=== PATIENT | female | born 1940 | race Hispanic/Latino ===

== ENCOUNTER 2018-01-03 17:53 | Inpatient (IN) | payer MEDICARE, OTHER ==
[2018-01-03 19:03] LABS: #Basophils 0.1 thou/uL (0.0-0.2); #Eosinphils 0.1 thou/uL (0.0-0.7); #Lymphocytes 1.5 thou/uL (1.20-3.40); #Monocytes 0.4 thou/uL (0.11-0.59); #Neutrophils 6.8 thou/uL (1.40-6.50); %Basophils 0.6 % (0.0-1.0); %Eosinophils 0.9 % (0.0-10.0); %Monocytes 4.6 % (0.0-10.0); %Neutrophils 76.9 % (42.0-75.0); Hemoglobin 9.2 g/dL (12.0-16.0); Mean Corpuscular HGB CONC 33.8 g/dL (32.0-36.0); Mean Corpuscular Hemoglobin 30.1 pg (27.0-31.0); Mean Corpuscular Volume 89.1 fL (78.0-98.0); Mean Platelet Volume 6.9 fL (7.4-10.4); Platelet Count 351 thou/uL (130-400); RBC Distribution Width 12.1 % (11.5-14.5); Red Blood Cell (RBC) Count 3.04 mill/uL (4.20-5.40); White Blood Cell (WBC) Count 8.8 thou/uL (4.8-10.8)
[2018-01-03 19:13] LABS: INR-International Normal Ratio 1.9; PTT 38.7 SEC (22.9-36.1); Prothrombin Time 22.1 SEC (12.0-14.7)
[2018-01-03 19:28] LABS: ALT (SGPT) 9 U/L (8-55); AST (SGOT) 11 U/L (5-34); Albumin 3.8 g/dL (3.4-4.8); Alkaline Phosphatase 65 U/L (40-150); Anion Gap 15 mmol/L (10-20); BUN (Urea Nitrogen) 50 mg/dL (9.8-20.1); Bilirubin, Total 0.2 mg/dL (0.2-1.2); CK (CPK) 27 U/L (29-168); CKMB 0.6 ng/mL (0-6.6); Calc. Creatinine Clearance 0 mL/min (70-130); Calcium 8.9 mg/dL (7.8-10.44); Carbon Dioxide 19 mmol/L (23-31); Chloride 110 mmol/L (98-107); Estimated GFR-MDRD 13; Globulin 2.9 g/dL (2.4-3.5); Glucose 189 mg/dL (83-110); Potassium 5.2 mmol/L (3.5-5.1); Protein, Total 6.7 g/dL (6.0-8.3); Sodium 139 mmol/L (136-145); Troponin I Less than 0.010 ng/mL (< 0.028)
--- NOTE | 2018-01-03 19:35 | CT ---
CT OF THE BRAIN WITHOUT CONTRAST: 01/03/18 INDICATION: Loss of consciousness. COMPARISON: None. FINDINGS: No definite acute infarct, hemorrhage, or hydrocephalus is present. There is mild chronic small vesse l white matter ischemic change. There is remote lacunar infarcts involving the cerebellar hemispheres bilaterally. The septum pellucidum and third ventricle appear midline. The mastoid air cells are clear. The parana jesus sinuses are clear. Skull and extracranial soft tissues appear within normal limits. IMPRESSION: No acute intracranial abnormality. POS: [facility]
--- NOTE | 2018-01-03 19:43 | RAD ---
FRONTAL RADIOGRAPH CHEST 01/03/18 COMPARISON: 04/19/17 HISTORY: Syncope. FINDINGS: Heart and mediastinal contours are unremarkable. No pneumothorax, pleural fluid, focal consolidation, or alveolar edema. IMPRESSION: No acute findings. POS: [facility]
[2018-01-03 19:58] LABS: Acetaminophen Less than 6.0 mcg/mL (10.0-30.0); Alcohol Less than 10 mg/dL (Less than 10); Lipase 43 U/L (8-78); Salicylate Less than 8.0 mg/dL (15.0-30.0)
[2018-01-03] MEDS ORDERED: Ondansetron HCl/PF 4 MG/2 ML Vial ONE (20:46)
[2018-01-03] MEDS ORDERED: Labetalol HCl 100 MG/20 ML VIAL ONE (21:17)
[2018-01-03] MEDS ORDERED: levETIRAcetam In NaCl (Iso-Os) 1,500 MG in Premix Bag 1 BAG IVPB SCH (21:30)
[2018-01-04 00:19] VITALS: BMI 43.4
[2018-01-04] MEDS ORDERED: Acetaminophen 325 MG TAB PO PRN (00:22)
[2018-01-04] MEDS ORDERED: Ondansetron HCl/PF 4 MG/2 ML Vial IVP PRN ×2 (00:22→01:01)
[2018-01-04] MEDS ORDERED: Ondansetron ODT 4 MG TAB SL PRN (00:22)
[2018-01-04] MEDS ORDERED: HumaLOG 300 UNITS/3 ML VIAL SC PRN (01:01)
[2018-01-04] MEDS ORDERED: Dextrose 5% in Water 1,000 ML IV PRN (01:01)
[2018-01-04] MEDS ORDERED: Ondansetron ODT 4 MG TAB PO PRN (01:01)
[2018-01-04] MEDS ORDERED: Dextrose 50% Abboject 50 ML SYRINGE SLOW IVP PRN (01:01)
--- NOTE | 2018-01-04 05:21 | HP ---
PRIMARY CARE PHYSICIAN: Dr. Lopez. CHIEF COMPLAINT: I had a seizure earlier. HISTORY OF PRESENT ILLNESS: Ms. 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 She was in her usual state of health until earlier today around 3 in the afternoon. She says th at she told her that her head was hurting and then basically she leaned over and her eyes sta rted rolling back in her head. Her says that he witnessed this, her head went to one side an d then the other and then she had some jerking like motions and then when she came out of it, she was disoriented and did not know what had happened. Her says that a few minutes later, he had g one into the another room and then heard her hollering out for her mother and went to check on her an d she had similar episode and she felt nauseated and began to sweat and threw up once. They called [facility] and brought her to the emergency room for evaluation. She had another such episode here in the ER . The ER doctor called the neurologist on-call, Dr. James, who recommended loading her with Keppra and she is being admitted for further treatment. The patient had no focal weakness and she currentl y still has some mild headache primarily in the top of her head and her neck. She denies any chest p ain or shortness of breath. She has not had any fevers or chills. The patient also denies abdominal pain and no change in bowels. She also has a history of chronic kidney disease. She last saw Dr. Nadeem newby in September and at that time, she was told that she was predialysis but not yet ready for dialysis . REVIEW OF SYSTEM: All systems were reviewed and negative except as mentioned in the history of prese nt illness. PAST MEDICAL HISTORY: Significant for chronic kidney disease stage 4, atrial fibrillation, diabetes mellitus, chronic bronchitis with chronic respiratory failure on home oxygen at 2 liters, obesity, hy pertension, hypothyroidism, severe mitral and tricuspid regurgitation, history of cervical cancer, an d HPV positive. PAST SURGICAL HISTORY: Includes appendectomy, hysterectomy. ALLERGIES: NONSTEROIDAL ANTI-INFLAMMATORIES, AUGMENTIN, AMOXICILLIN, STEROIDS, LEVAQUIN, AND ASPIRIN . SOCIAL HISTORY: She is . She is a nonsmoker, nondrinker. She is a Anabaptism and bartolo natarajan not accept blood transfusions. CODE STATUS: FULL CODE. FAMILY HISTORY: Significant for coronary artery disease in her father as well as her son. MEDICATIONS: Include Lantus insulin and NovoLog. She says she is on a statin, nifedipine, metoprolo l, hydralazine, lisinopril, Xarelto, Synthroid, probiotic, and Lomotil, but she is not sure of the do ses. PHYSICAL EXAMINATION: GENERAL: She is alert and oriented. She appears to be in no acute distress. She is alert and orien nery x4. VITAL SIGNS: Her blood pressure was elevated at 180/100, heart rate is in the 60s, respiratory rate of 16, and she is afebrile. HEENT: Pupils are equal, round, and reactive. Extraocular muscles are intact. Her sclerae anicteri c. Throat no erythema, no exudates. NECK: No adenopathy, no bruits. LUNGS: Clear to auscultation. There was no wheezing or rales. CARDIOVASCULAR: She had a normal S1, S2, slightly irregular. She does have significant 2/6 systolic murmur heard over the entire precordium. ABDOMEN: Obese, it is soft, it is nontender, nondistended. Positive for bowel sounds. There is no rebound or guarding. EXTREMITIES: She has got 1+ edema, but no warmth or redness. No calf tenderness. NEUROLOGIC: The exam is grossly nonfocal with her muscle strength is 5/5 in both her upper and lower extremities. SKIN AND INTEGUMENT: There are no skin changes. No rash. LABORATORY RESULTS: White blood cell count is 8.8, hemoglobin 9.2, hematocrit is 27.1, platelet coun t is 351. INR was 1.9. Sodium 139, potassium 5.2, chloride is 110, CO2 is 19, BUN of 50, creatinine of 3.5, glucose is 189. EKG, it was atrial fibrillation with variable rate and also noted on rhythm strips. There is episodes where she had some T waves with no QRS following them and evidence of sb g pauses. ASSESSMENT AND PLAN: This is a 77-year-old female who presents to the emergency room with seizure di sorder. However, she was also noted to have a third-degree AV block and some episodes there was long runs with T waves without any conduction QRS complexes. Therefore, it is unclear whether or not the seizures are therefore neurogenic mediated or cardiogenic mediated. She will be admitted to the [facility] for close monitoring on telemetry. With regards to the seizures, she will have an MRI in the a.m. as she is clinically stable. Continue IV Keppra, which will need to be renally dosed and consider an EEG and have Neurology evaluation. 1. For the third-degree AV block, right now her heart rate is primarily in the 60s. We will consult Cardiology and leave her n.p.o. in the morning. In the event that she needs any emergent pacemaker placed. 2. Acute on chronic kidney disease. She appears to be approaching end-stage renal disease. Her cur rent GFR is 13. We will consult her general practitioner for further recommendations. 3. History of atrial fibrillation on Xarelto. The patient requests to have a "Xarelto level" checke d. Unclear if there is an actual Xarelto levels, but we can check an activated factor X level as a p rekha. 4. Diabetes mellitus. We will need to clarify her usual doses of medication and restart as indicate d. However, we will place her on a sliding scale in the interim. 5. Hypertension. We will restart her antihypertensive medications with p.r.n. as needed. 6. Since the patient was on Xarelto. We will hold off on any deep venous thrombosis prophylaxis and restart her usual dose of Xarelto in the a.m. (she will be n.p.o. except for medications to facilita te giving her usual Xarelto dose).
[2018-01-04 06:14] LABS: Anion Gap 16 mmol/L (10-20); BUN (Urea Nitrogen) 49 mg/dL (9.8-20.1); Calc. Creatinine Clearance 26 mL/min (70-130); Calcium 8.8 mg/dL (7.8-10.44); Carbon Dioxide 18 mmol/L (23-31); Chloride 110 mmol/L (98-107); Estimated GFR-MDRD 13; Glucose 189 mg/dL (83-110); Potassium 5.4 mmol/L (3.5-5.1); Sodium 139 mmol/L (136-145)
[2018-01-04] MEDS: HumaLOG 300 UNITS/3 ML VIAL SC PRN (06:25)
[2018-01-04] MEDS: hydrALAZINE 20 MG/ML VIAL SLOW IVP PRN ×2 (06:26→17:37)
[2018-01-04 06:28] LABS: #Monocytes 0.3 thou/uL (0.11-0.59); #Neutrophils 6.4 thou/uL (1.40-6.50); %Basophils 0.4 % (0.0-1.0); %Eosinophils 0.6 % (0.0-10.0); %Lymphocytes 12.7 % (21.0-51.0); %Monocytes 3.6 % (0.0-10.0); %Neutrophils 82.7 % (42.0-75.0); Hemoglobin 8.6 g/dL (12.0-16.0); Mean Corpuscular Hemoglobin 29.1 pg (27.0-31.0); Mean Corpuscular Volume 90.9 fL (78.0-98.0); Platelet Count 313 thou/uL (130-400); RBC Distribution Width 12.3 % (11.5-14.5); Red Blood Cell (RBC) Count 2.96 mill/uL (4.20-5.40); White Blood Cell (WBC) Count 7.8 thou/uL (4.8-10.8)
[2018-01-04] MEDS: Lorazepam 2 MG/ML VIAL SLOW IVP PRN (07:17)
[2018-01-04] MEDS ORDERED: Iopamidol 370 76% 100 ML VIAL ONE (07:47)
--- NOTE | 2018-01-04 08:17 | CON ---
DATE OF CONSULTATION: 01/04/2018 CONSULTING PHYSICIAN: Dr. Abhinav Cope REASON FOR CONSULTATION: Critical care mandatory consult. The following encompassed 70 minutes time, of that time greater than 50% spent with the patient and/o r in the patient's CCU unit. HISTORY OF PRESENT ILLNESS: This patient is a 77-year-old female who was admitted last night with a reported seizure at home. Apparently, the patient began to feel bed and her eyes rolled back in the back of her head and she jerked her arms. When she arrived here there appeared to be some sort of ca rdiac disturbance. Nurse says that she thinks she is going in and out of third degree AV block. She is requiring temporary cutaneous pacing The patient says she feels when these episodes are about to come on. PAST MEDICAL HISTORY: 1. Chronic kidney disease stage 4. 2. Paroxysmal atrial fibrillation. 3. Diabetes mellitus type 2. 4. Chronic bronchitis, on home O2, 2 liters nasal cannula. 5. Obesity. 6. Hypertension. 7. Hypothyroidism. 8. Severe mitral and tricuspid regurgitation. 9. Cervical cancer. PAST SURGICAL HISTORY: 1. Appendectomy. 2. Hysterectomy. ALLERGIES: NONSTEROIDAL ANTI-INFLAMMATORY MEDICATION, AUGMENTIN, AMOXICILLIN, STEROIDS, LEVAQUIN, PIRIN. SOCIAL HISTORY: , does not smoke, does not consume alcohol. She is a Adventist. FAMILY MEDICAL HISTORY: Remarkable for coronary artery disease. MEDICATIONS: Prior to admission, Lantus insulin, NovoLog insulin, nifedipine, metoprolol, hydralazin e, lisinopril, clonidine, Xarelto, Synthroid, probiotic Lomotil. REVIEW OF SYSTEMS: Twelve point review of systems otherwise negative. PHYSICAL EXAMINATION: VITAL SIGNS: Temperature 98.7, pulse 87, blood pressure 167/65, O2 sat 97%. GENERAL: She appears to be in no acute distress. HEENT: Pupils are reactive. Sclerae icteric. Oropharynx clear. NECK: Without adenopathy or JVD. CARDIAC: S1, S2 regular. A 3/6 systolic murmur at the left sternal border. LUNGS: She had inspiratory crackles in both bases. ABDOMEN: Soft, obese, nontender, nondistended. EXTREMITIES: No clubbing, cyanosis, or edema. NEUROLOGIC: Grossly intact without focal motor weakness. Her chest x-ray shows slightly hyperinflated lung montgomery without evidence of any mass. LABORATORY DATA: White blood cell count 7.8, hemoglobin 8.6, hematocrit 26.9, platelet count 313. I NR 1.9. Sodium 139, potassium 5.4, chloride 110, CO2 18, BUN 49, creatinine 3.4, glucose 189, calciu m 8.8. TSH 6.7. Prolactin 54. Brain CT demonstrated no acute abnormality. ASSESSMENT: 1. It sounds like she had a seizure episode at home and this is supported by her elevated prolactin. 2. Intermittent third degree heart block. 3. Chronic kidney disease with elevated BUN and creatinine and hyperkalemia. 4. History of atrial fibrillation on Xarelto. 5. Diabetes mellitus. RECOMMENDATIONS: I have reviewed the orders, agree with Neurology, Nephrology and Cardiology consult ations. She is likely going to need a pacemaker. She has been empirically started on Keppra for con trol of her seizures. She may require Kayexalate for her elevated potassium. Her labs will be monit ored. Right now she has no pulmonary issues. I will be happy to follow with you while she is in the ICU.
--- NOTE | 2018-01-04 09:22 | CON ---
DATE OF CONSULTATION: 01/04/2018 CONSULTING PHYSICIAN: Hospitalist Service IMPRESSION: 1. Syncopal seizures. 2. Third degree heart block. 3. History of congestive heart failure. 4. History of atrial fibrillation. 5. Hypertension. PLAN: 1. Cardiology opinion for possible pacemaker implantation. 2. Continue Keppra for now. Ms. Aldrich is a 77-year-old woman who began having seizure-like episodes last evening. Her witnessed what appeared to be a 10-15 second generalized seizure with stiffening and eyes rolling up unger. She was brought into the hospital for evaluation. Her CT scan of the brain was unremarkable. She was noted to have periods of third degree heart block. During these intervals she would experie nce a brief seizure-like episode. She has been started on Keppra, but has continued to have the epis odes. She was given some Ativan this morning and things have been relatively quiet since then. She is on an external pacer to try to address her rhythm abnormalities. She is having an echocardiogram done now and reportedly it shows an ejection fraction around 40%. She has never had any neurologic p roblems in the past. She is currently on anticoagulation due to the atrial fibrillation. PAST MEDICAL HISTORY: As listed above including bronchitis, end-stage renal disease, hypothyroidism, diabetes, arthritis, cervical cancer. ALLERGIES: NONSTEROIDALS, PREDNISONE., ASPIRIN, AUGMENTIN, AVELOX. SOCIAL HISTORY: Lives at home independently with her . No tobacco use. FAMILY HISTORY: Noncontributory. REVIEW OF SYSTEMS: Not obtainable at this point. PHYSICAL EXAMINATION: GENERAL: She is a well-nourished elderly lady lying in bed in no distress. VITAL SIGNS: Blood pressure 173/61, pulse 79, respirations 28, saturations 94%. HEENT: Unremarkable. NEUROLOGIC: She is a bit lethargic due to the sedation. Her exam is otherwise nonfocal. No abnorma l movements were seen. SUMMARY: Given the connection between her heart block and her episodes of seizure-like activity, I s uspect it is due to hypoperfusion rather than an underlying epileptic issue. Keppra can be continued for now, but I suspect we can discontinue it after pacemaker implantation.
[2018-01-04] MEDS: Famotidine/PF 20 mg/2ml Vial SLOW IVP SCH (10:55)
[2018-01-04] MEDS: Docusate 100 MG CAP PO SCH ×2 (10:56→20:48)
[2018-01-04] MEDS ORDERED: Sodium Chloride 0.9% 1,000 ML IV SCH (15:00)
[2018-01-04] MEDS ORDERED: Fentanyl 100 MCG/2 ML VIAL ONE (15:39)
[2018-01-04] MEDS ORDERED: Midazolam HCl 2 mg/2 ml Vial ONE (15:39)
[2018-01-04] MEDS ORDERED: Lidocaine 1% (PF) 30 ML VIAL ONE ×2 (15:45→15:54)
[2018-01-04] MEDS ORDERED: Acetaminophen/Codeine 30-300mg Tablet PO PRN ×2 (17:04)
--- NOTE | 2018-01-04 17:31 | PDOC.EVN ---
Event Note - Event Note Event Note: Chart reviewed, patient seen. Family updated.
--- NOTE | 2018-01-04 18:07 | RAD ---
AP VIEW CHEST: 01/04/18 HISTORY: Post cardiac device placement. AP view chest obtained on 01/04/18. Comparison made to previous exam from 01/03/18. AP view chest demonstrates placement of a dual lead intracardiac pacing device. No evidence of hemopn eumothorax seen. Mild pulmonary vascular congestion seen. No evidence of effusion seen. IMPRESSION: Unremarkable AP view chest. POS: [facility]
--- NOTE | 2018-01-04 20:04 | CCL ---
PROCEDURE: Permanent pacemaker placement. INDICATION: 15 second asystole with complete heart block. The patient is brought to the cardiac color laboratory technician and the left subclavian area was prepped and draped. The patient received Versed 1 mg and fentanyl 25 mg IV. The fentanyl 25 mg was repeated later in the case. 1% lidocaine was infiltrated to the area. J wire placed into the left subclavian vein. Pacemaker pocket was manufactured using blunt and sharp dissection with electrocautery for hemostasis. Antibiotic solution soaked gauze was placed into the subcutaneous pocket. A second J-wire was then placed into the left subclavian vein. Using a 7 Urdu peel-away sheaths, the atrial and ventricular leads were inserted. The right ventricular lead was advanced into the RV apex and screwed in place. The right atrial lead was screwed into the right atrium. RV lead -- R-wave 4.3, impedance 670, threshold 0.6 volts. Right atrial lead - - P-wave 1.6, impedance 485, threshold 1.1. Both leads were independently paced at 10 volts, and there was no muscle or diaphragmatic stimulation. The tabs on the suture tie down were removed. Both leads were secured in place with two sutures of 0 silk. The gauze was removed from the subcutaneous pocket. This was irrigated with copious amounts of antibiotic solution. Leads were attached to the pacemaker generator and this was secured in place with 1 suture of 0 silk. The incision was then closed using two layers of running 3-0 Vicryl, one layer running 4-0 Vicryl. Dermabond was placed on the incision. Patient tolerated the procedure well. PAUL
[2018-01-04] MEDS: hydrALAZINE 25 MG TAB PO SCH (20:49)
[2018-01-04] MEDS: Cephalexin 250 MG CAP PO SCH (20:49)
[2018-01-04] MEDS: Metoprolol Tartrate 50 MG TAB PO SCH (21:00)
[2018-01-04] MEDS: ALPRAZolam 0.25 MG TAB PO PRN (21:17)
[2018-01-04] MEDS: Acetaminophen 325 MG TAB PO PRN (21:17)
--- NOTE | 2018-01-04 21:23 | CON ---
DATE OF CONSULTATION: 01/04/2018 HISTORY: Jeremiah Rodriguez is a 77-year-old white female initially evaluated in . At that time, she complained of getting short of breath after walking 10 feet. On echocardiogram, she was found to have diastolic dysfunction. She also had lower extremity edema and rales on examination. She was placed on low dose furosemide. Also, she underwent Lexiscan Cardiolite testing in 08/2011 which revealed a very small area at the apex of decreased uptake on stress scan with patient being unable to perform a prone scan. There was normal wall motion , normal myocardial thickening in that area and was felt that overall that was probably normal. She was followed for a while by [facility] hearing aid assistant and then was admitted at [facility] multiple times. She has chronic bronchiectasis. She was placed on chronic oxygen at home. In 09/2014, her breathing became somewhat worse. She went to the emergency room and was found to be in atrial fibrillation with fast ventricular response with heart rate in the 140s. She denied any palpitations. She was placed on a Cardizem drip and her rate slowed and ultimately she converted back to normal sinus rhythm. She was anticoagulated with Eliquis. Echo revealed ejection fraction 60-65% with moderate to severe mitral regurgitation. She was started on Multaq as well. She was sent home on steroids, but then readmitted a day later due to problems with glucose control. She continued to remain in sinus rhythm. She has since been hospitalized with pneumonia in 11/2016 and 03/2017. She also has been followed in the office. Multaq had been stopped due to nausea. She complained of frequent skipped beats and flutters; however, on 30- day monitor 3-4 months ago revealed that she was in normal sinus rhythm when she complained of skipped beats and flutters. She was on Eliquis and then Xarelto. Xarelto was changed to Pradaxa due to there being a reversal agent ( Baptism). However, she had nausea with Pradaxa and went back to Xarelto. She was last seen in 11/2017 and at that time was not complaining of any palpitations. Yesterday on 01/03 at 3:00 in the afternoon, she leaned back, her eyes rolled back in her head and she was unresponsive and apparently had a seizure. She was disoriented when she came out of that. Ultimately, she was taken to the hospital emergency room. She has been found to have episodes of complete heart block with asystole up to 15 seconds. Transcutaneous pacer has been placed. She is on Xarelto chronically. She denies any significant worsening of her breathing. She denies any chest discomfort or previous syncopal episodes. PAST MEDICAL HISTORY: Chronic kidney disease stage 4, atrial fibrillation in 2015; however, I have not seen that documented since, diabetes mellitus, chronic bronchiectasis on home oxygen, obesity, hypertension, hypothyroidism, moderate to severe mitral regurgitation, history of cervical cancer. OPERATIONS: Appendectomy and hysterectomy. MEDICATIONS: Xarelto 15 mg daily, Xanax 0.25 at bedtime p.r.n., clonidine p.r.n., Lomotil p.r.n., furosemide 20 mg daily p.r.n. Apresoline 25 mg t.i.d., insulin, Xopenex q.8 hours p.r.n., levothyroxine 50 mcg daily, lisinopril 10 daily, metoprolol 50 b.i.d., nifedipine 60 daily, omeprazole 40 mg daily, Zofran 4 q.6 hours p.r.n., ranitidine 150 b.i.d. p.r.n. ALLERGIES: ASPIRIN, NONSTEROIDAL ANTI-INFLAMMATORY MEDICATIONS, AUGMENTIN, AVELOX and PREDNISONE. SOCIAL HISTORY: She does not smoke or drink. FAMILY HISTORY: Father at age 52 of myocardial infarction. REVIEW OF SYSTEMS: Twelve-point review of systems is otherwise unremarkable. PHYSICAL EXAMINATION: VITAL SIGNS: Blood pressure 117/57, pulse of 78. She does have up to 15 seconds of asystole with complete heart block, P waves, but no QRS. HEENT: PERRL. NECK: Supple. CHEST: Clear. CARDIAC: S1 and S2 are normal, without any S3, S4 or murmurs. Carotid upstroke is normal. ABDOMEN: Obese. Normal bowel sounds, no tenderness. EXTREMITIES: Reveal 1+ pretibial edema. NEUROLOGIC: Grossly intact. SKIN: Warm and dry. LABORATORY DATA: EKG revealed episode of complete heart block with P waves followed by no QRS and right bundle-branch block. Echocardiogram has not come across to [facility] yet, but her ejection fraction was normal. Hemoglobin is 8.6 , hematocrit 26.9, white count 7800, platelets 313,000. Sodium 139, potassium 5.4, chloride 110, carbon dioxide 18, BUN 49, creatinine 3.43, magnesium 1.6, troponin I is normal. TSH 6.6874 which is slightly elevated. IMPRESSION: 1. Complete heart block with episodes of syncope and associated seizure. She has up to 15 seconds of asystole. 2. History of atrial fibrillation with fast ventricular response in 09/2014. She has never had documented atrial fibrillation since that time. 3. Chronic anticoagulation with Xarelto 15 mg daily. 4. Baptism. 5. History of diastolic dysfunction and diastolic heart failure. 6. Diabetes mellitus. 7. Hypertension. 8. Hyperlipidemia. 9. Morbid obesity. 10. History of noncompliance. 11. Gastroesophageal reflux disease. 12. Anxiety. 13. Chronic kidney disease stage 4. PLAN: The situation was discussed with the patient. She is approximately 32 hours out from last dose of Xarelto and recommendations are that this should be held for 24 hours prior to any surgical procedure. The reversal agent for Xarelto is not locally available yet and cannot be found in the surrounding area. We did discuss additions of specific clotting factors to try to reverse the effects of Xarelto; however, that does include blood products. She is a Baptism but states that she would indeed take those if she develops a severe bleeding problem. I do not feel that she needs this prophylactically since she is so far out from her last dose. Risks of pacemaker insertion were discussed with the patient, her including , infection, bleeding, blood clot formation, reoperation for lead dislodgement, drainage from cardiac catheterization, chest tube insertion due to pneumothorax, etc. She understands and is agreeable to proceed. PAUL
[2018-01-05] MEDS: hydrALAZINE 20 MG/ML VIAL SLOW IVP PRN ×2 (01:41→07:05)
[2018-01-05] MEDS: Acetaminophen 325 MG TAB PO PRN ×3 (02:24→17:24)
[2018-01-05] MEDS: Lorazepam 2 MG/ML VIAL SLOW IVP PRN ×2 (02:24→10:56)
[2018-01-05 04:11] LABS: Anion Gap 11 mmol/L (10-20); BUN (Urea Nitrogen) 46 mg/dL (9.8-20.1); Calc. Creatinine Clearance 27 mL/min (70-130); Calcium 8.2 mg/dL (7.8-10.44); Carbon Dioxide 22 mmol/L (23-31); Chloride 112 mmol/L (98-107); Estimated GFR-MDRD 14; Glucose 136 mg/dL (83-110); Potassium 4.4 mmol/L (3.5-5.1); Sodium 141 mmol/L (136-145)
[2018-01-05] MEDS: Levothyroxine Sodium 50 MCG TAB PO SCH (06:26)
--- NOTE | 2018-01-05 07:50 | PRG ---
DATE OF SERVICE: 01/05/2018 SUBJECTIVE: The patient is doing much better. Her pacemaker was placed yesterday. She has had no m ore syncopal type episodes. PHYSICAL EXAMINATION: VITAL SIGNS: Temperature 98.4, pulse 68, blood pressure 189/65. A 24-hour intake 120, output 1192. HEENT: Unremarkable. NECK: No JVD. CHEST: Clear to auscultation. CARDIAC: S1, S2, paced. ABDOMEN: Soft, nontender. EXTREMITIES: No edema. LABORATORY DATA: Sodium 141, potassium 4.4, chloride 112, CO2 22, BUN 46, creatinine 3.2, glucose 13 6. ASSESSMENT: 1. Complete heart block. 2. Status post pacemaker placement. 3. Syncopal induced seizures. PLAN: This patient is stable for transfer out to the telemetry unit. She will continue care with [facility]. She has no pulmonary concerns, so we will sign off.
[2018-01-05] MEDS: hydrALAZINE 25 MG TAB PO SCH ×4 (08:28→22:01)
[2018-01-05] MEDS: Furosemide 20 MG TAB PO SCH (08:29)
[2018-01-05] MEDS: Cephalexin 250 MG CAP PO SCH ×3 (08:29→20:06)
[2018-01-05] MEDS: Docusate 100 MG CAP PO SCH ×2 (08:29→20:06)
[2018-01-05] MEDS: NIFEdipine XL 60 MG TAB PO SCH (08:29)
[2018-01-05] MEDS: Lisinopril 10 MG TAB PO SCH (08:29)
[2018-01-05] MEDS: Metoprolol Tartrate 50 MG TAB PO SCH ×2 (08:30→20:06)
[2018-01-05] MEDS: Famotidine/PF 20 mg/2ml Vial SLOW IVP SCH (08:30)
[2018-01-05 11:39] LABS: Bilirubin Negative (Negative); Blood, Urine Trace (Negative); Clarity CLOUDY (Clear); Glucose, Urine (Dipstick) 250 mg/dL (Negative); Leukocyte Small (Negative); Nitrite Negative (Negative); Protein, Urine (Dipstick) 300 mg/dL (Neg-Trace); Specific Gravity, Urine 1.013 (1.002-1.036); Urobilinogen 0.2 mg/dL (0.2-1.0)
[2018-01-05 11:40] LABS: Bacteria/HPF None Seen HPF (None Seen)
[2018-01-05 11:41] LABS: Pathc Cast-AUWi Flag 4.07 (0-2.49); Yeast-AUWi Flag 88.8 (0-25.0)
[2018-01-05 11:50] LABS: Crystals/HPF None Seen HPF (Negative); Oval Fat Bodies/HPF None Seen HPF (None Seen); Renal Epithelial None Seen HPF (0-3); Transitional Epithelial NONE SEEN HPF (0-3); Yeast-All Forms None Seen HPF (None Seen)
--- NOTE | 2018-01-05 15:40 | PDOC.PN ---
- Subjective Encounter Start Date: 01/05/18 Encounter Start Time: 09:20 Patient seen for followup re: third degree heart block. Says she feels better. - Objective Resuscitation Status: Resuscitation Status FULL:Full Resuscitation MAR Reviewed: Yes Vital Signs & Weight: Vital Signs (12 hours) Temp Pulse Resp BP BP Pulse Ox 01/05/18 09:40 97.6 F 65 16 186/80 H 93 L 01/05/18 08:29 65 167/54 H 01/05/18 08:28 65 167/54 H 01/05/18 08:00 98.6 F 65 22 H 98 01/05/18 07:26 95 01/05/18 07:05 65 01/05/18 04:00 98.4 F Weight Weight 253 lb 8 oz Most Recent Monitor Data Heart Rate from ECG 67 NIBP 160/66 NIBP BP-Mean 84 Respiration from ECG 24 SpO2 93 I&O: 01/04/18 01/05/18 01/06/18 06:59 06:59 06:59 Intake Total 120 20 Output Total 710 1192 140 [facility] -710 -1072 -120 Result Diagrams: 01/04/18 01:12 01/05/18 03:06 Additional Labs: Accuchecks 01/05/18 01/04/18 01/04/18 11:13 21:41 17:56 POC Glucose 197 H 190 H 148 H EKG Reviewed by me: Yes (tele: AV-paced rhythm, a. fib) Phys Exam - Physical Examination Morbid obesity HEENT: moist MMs, sclera anicteric, oral pharynx no lesions, 2+ tonsils Neck: no nodes, no JVD, supple, full ROM Respiratory: no wheezing, no rales, no rhonchi, clear to auscultation bilateral Cardiovascular: RRR, no rub S1, S2 Gastrointestinal: soft, non-tender, positive bowel sounds distention Neurological: moves all 4 limbs Psychiatric: normal affect Skin: no rash Dx/Plan (1) AV block, 3rd degree Code(s): I44.2 - ATRIOVENTRICULAR BLOCK, COMPLETE Status: Acute Comment: s/ p permanent pacemaker (2) CKD (chronic kidney disease) stage 4, GFR 15-29 ml/min Code(s): N18.4 - CHRONIC KIDNEY DISEASE, STAGE 4 (SEVERE) Status: Chronic Comment: stable (3) Chronic anticoagulation Code(s): 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.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 Status: Chronic Comment: interrupted for pacemaker placement (4) DM type 2 (diabetes mellitus, type 2) Status: Chronic Comment: continue accuchecks, insulin sliding scale (5) HTN (hypertension) Code(s): I10 - ESSENTIAL (PRIMARY) HYPERTENSION Status: Chronic Comment: Monitor vital signs, titrate antihypertensives as needed (6) Hypothyroidism Code(s): E03.9 - HYPOTHYROIDISM, UNSPECIFIED Status: Chronic Comment: continue synthroid (7) Morbid obesity with BMI of 40.0-44.9, adult Code(s): E66.01 - MORBID (SEVERE) OBESITY DUE TO EXCESS CALORIES; Z68.41 - BODY MASS INDEX (BMI) 40.0-44.9, ADULT Status: Chronic (8) Paroxysmal atrial fibrillation Code(s): I48.0 - PAROXYSMAL ATRIAL FIBRILLATION Status: Chronic Comment: pt is on beta radha and calcium channel radha - Plan plan discussed w/ family * . Review of Systems - Medications/Allergies Allergies/Adverse Reactions: Allergies Allergy/AdvReac Type Severity Reaction Status Date / Time NSAIDS (Non-Steroidal Allergy Verified 01/04/18 01:18 Anti-Inflamma amoxicillin trihydrate AdvReac Severe Diarrhea Verified 01/04/18 01:18 [From Augmentin] potassium clavulanate AdvReac Severe Diarrhea Verified 01/04/18 01:18 [From Augmentin] aspirin AdvReac HEART Verified 01/04/18 01:18 RACING moxifloxacin HCl AdvReac heart Verified 01/04/18 01:18 [From Avelox] racing prednisone AdvReac psychotic Verified 01/04/18 01:18 issue Medications: Current Medications Acetaminophen (Tylenol) 650 mg PO Q4H PRN PRN Reason: Headache/Fever or Pain Last Admin: 01/05/18 10:13 Dose: 650 mg Acetaminophen/Codeine Phosphate (Tylenol #3) 1 tab PO Q4H PRN PRN Reason: Mild Pain (1-3) Acetaminophen/Codeine Phosphate (Tylenol #3) 2 tab PO Q4H PRN PRN Reason: Moderate Pain (4-6) Alprazolam (Xanax) 0.125 mg PO HS PRN PRN Reason: Insomnia Last Admin: 01/04/18 21:17 Dose: 0.125 mg Cephalexin (Keflex) 250 mg PO TID [facility] Stop: 01/14/18 21:01 Last Admin: 01/05/18 08:29 Dose: 250 mg Dextrose/Water (Dextrose 50%) 25 gm SLOW IVP PRN PRN PRN Reason: Hypoglycemia Docusate Sodium (Colace) 100 mg PO BID [facility] Last Admin: 01/05/18 08:29 Dose: 100 mg Furosemide (Lasix) 20 mg PO DAILY [facility] Last Admin: 01/05/18 08:29 Dose: 20 mg Glucagon (Glucagon) 1 mg IM PRN PRN PRN Reason: Hypoglycemia Hydralazine HCl (Apresoline) 10 mg SLOW IVP Q4H PRN PRN Reason: Systolic BP > 180 Last Admin: 01/05/18 07:05 Dose: 10 mg Hydralazine HCl (Apresoline) 25 mg PO TID [facility] Last Admin: 01/05/18 08:28 Dose: 25 mg Dextrose/Water (D5w) 1,000 mls @ 0 mls/hr IV .Q0M PRN; As Directed PRN Reason: Hypoglycemia Insulin Human Lispro (Humalog) 0 units SC .MILD SLIDING SCALE PRN PRN Reason: Mild Correctional Scale Last Admin: 01/04/18 06:25 Dose: 2 unit Insulin Human Lispro (Humalog) 0 units SC .BEDTIME SLIDING SC PRN PRN Reason: Bedtime Correctional Scale Lactulose (Lactulose) 20 gm PO DAILYPRN PRN PRN Reason: Constipation Levothyroxine Sodium (Synthroid) 50 mcg PO 0600 [facility] Last Admin: 01/05/18 06:26 Dose: 50 mcg Lisinopril (Zestril) 10 mg PO DAILY [facility] Last Admin: 01/05/18 08:29 Dose: 10 mg Lorazepam (Ativan) 2 mg SLOW IVP Q15MIN PRN PRN Reason: Seizures Last Admin: 01/05/18 10:56 Dose: 2 mg Metoprolol Tartrate (Lopressor) 50 mg PO BID [facility] Last Admin: 01/05/18 08:30 Dose: 50 mg Nifedipine (Procardia Xl) 60 mg PO DAILY [facility] Last Admin: 01/05/18 08:29 Dose: 60 mg Ondansetron HCl (Zofran Odt) 4 mg PO Q6H PRN PRN Reason: Nausea/Vomiting Ondansetron HCl (Zofran) 4 mg IVP Q6H PRN PRN Reason: Nausea/Vomiting Sodium Chloride (Flush - Normal Saline) 10 ml IVF Q12HR JADE Last Admin: 01/05/18 10:12 Dose: 10 ml Sodium Chloride (Flush - Normal Saline) 10 ml IVF PRN PRN PRN Reason: Saline Flush
[2018-01-05] MEDS ORDERED: guaiFENesin ER 600 MG TAB PO PRN (15:44)
[2018-01-05] MEDS ORDERED: Non-Formulary Item 1 EACH (Ondansetron Hcl 4 MG) PO PRN (15:44)
[2018-01-05] MEDS ORDERED: INSULIN LISPRO 5 UNIT SC PRN (15:44)
[2018-01-05] MEDS ORDERED: Nystatin Cream 30 GM TUBE TOP PRN (15:44)
[2018-01-05] MEDS ORDERED: Diphenoxylate HCl/Atropine Tablet PO PRN (15:44)
[2018-01-05] MEDS ORDERED: cloNIDine 0.1 MG TAB PO PRN (15:44)
[2018-01-05] MEDS ORDERED: Levalbuterol HCl 0.63 MG/3 ML NEB NEB PRN (15:44)
[2018-01-05] MEDS ORDERED: ALPRAZolam 0.25 MG TAB PO PRN (15:44)
[2018-01-05] MEDS ORDERED: Non-Formulary Item 1 EACH (Ranitidine Hcl [Ranitidine Hcl] 150 MG) PO PRN (15:44)
[2018-01-05] MEDS ORDERED: Furosemide 20 MG TAB PO PRN (15:44)
[2018-01-05] MEDS: ALPRAZolam 0.25 MG TAB PO PRN (20:07)
[2018-01-05] MEDS ORDERED: Dronedarone HCl 400 MG TAB PO SCH (21:00)
[2018-01-06] MEDS: ALPRAZolam 0.25 MG TAB PO PRN ×2 (05:29→13:36)
[2018-01-06] MEDS: Acetaminophen 325 MG TAB PO PRN (05:29)
[2018-01-06] MEDS ORDERED: Levothyroxine Sodium 50 MCG TAB PO SCH (06:00)
[2018-01-06] MEDS: Levothyroxine Sodium 50 MCG TAB PO SCH (06:12)
[2018-01-06] MEDS: hydrALAZINE 25 MG TAB PO SCH ×3 (08:59→14:51)
[2018-01-06] MEDS: Docusate 100 MG CAP PO SCH ×2 (08:59→20:35)
[2018-01-06] MEDS: Metoprolol Tartrate 50 MG TAB PO SCH (09:00)
[2018-01-06] MEDS: Lisinopril 10 MG TAB PO SCH (09:00)
[2018-01-06] MEDS ORDERED: INSULIN DETEMIR SQ SCH (09:00)
[2018-01-06] MEDS ORDERED: Lisinopril 10 MG TAB PO SCH (09:00)
[2018-01-06] MEDS: Saccharomyces boulardii 250 MG CAP PO SCH (09:00)
[2018-01-06] MEDS: Dronedarone HCl 400 MG TAB PO SCH ×2 (09:00→17:02)
[2018-01-06] MEDS: Furosemide 20 MG TAB PO SCH (09:00)
[2018-01-06] MEDS ORDERED: Famotidine 20 MG TAB PO SCH (09:00)
[2018-01-06] MEDS: Insulin Glargine 28 UNITS in Pre-Filled Syringe 1 EACH SC SCH (09:01)
[2018-01-06] MEDS: Cephalexin 250 MG CAP PO SCH ×3 (09:01→20:36)
[2018-01-06] MEDS: NIFEdipine XL 60 MG TAB PO SCH (09:01)
--- NOTE | 2018-01-06 12:47 | PDOC.PN ---
- Subjective Encounter Start Date: 01/06/18 Encounter Start Time: 07:20 Pt seen for followup re: complete heart block. Denies chest pain, shortness of breath, fevers or chills. No nausea or vomiting. Not mobilizing. - Objective Resuscitation Status: Resuscitation Status FULL:Full Resuscitation MAR Reviewed: Yes Vital Signs & Weight: Vital Signs (12 hours) Temp Pulse Resp BP BP Pulse Ox 01/06/18 09:01 87 154/72 H 01/06/18 09:00 154/72 H 01/06/18 08:59 87 154/72 H 01/06/18 08:45 97.6 F 87 14 95 01/06/18 07:30 97.6 F 87 14 154/72 H 95 01/06/18 05:30 177/74 H 01/06/18 04:00 97.3 F L 85 16 174/77 H 94 L 01/06/18 00:50 98.2 F 84 16 188/85 H 94 L Weight Weight 253 lb Most Recent Monitor Data Heart Rate from ECG 67 NIBP 160/66 NIBP BP-Mean 84 Respiration from ECG 24 SpO2 93 I&O: 01/05/18 01/06/18 01/07/18 06:59 06:59 06:59 Intake Total 120 980 Output Total 1192 1590 Balance -1072 -610 Result Diagrams: 01/04/18 01:12 01/05/18 03:06 Additional Labs: Accuchecks 01/06/18 01/06/18 01/05/18 10:59 06:09 20:52 POC Glucose 180 H 150 H 223 H 01/05/18 16:55 POC Glucose 205 H EKG Reviewed by me: Yes (Tele: harry neves) Phys Exam - Physical Examination Morbid obesity HEENT: moist MMs Neck: supple Respiratory: clear to auscultation bilateral Cardiovascular: no rub, irregular Gastrointestinal: soft Neurological: moves all 4 limbs Psychiatric: normal affect Dx/Plan (1) AV block, 3rd degree Code(s): I44.2 - ATRIOVENTRICULAR BLOCK, COMPLETE Status: Acute Comment: had PPM placed, improving. 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 Status: Chronic Comment: interrupted for pacemaker placement, clarify with cardiology re: resuming (4) DM type 2 (diabetes mellitus, type 2) Status: Chronic Comment: on accuchecks, insulin sliding scale (5) HTN (hypertension) Code(s): I10 - ESSENTIAL (PRIMARY) HYPERTENSION Status: Chronic Comment: BP still high, increase metoprolol to 75 mg PO BID (6) Hypothyroidism Code(s): E03.9 - HYPOTHYROIDISM, UNSPECIFIED Status: Chronic Comment: continue synthroid (7) Morbid obesity with BMI of 40.0-44.9, adult Code(s): E66.01 - MORBID (SEVERE) OBESITY DUE TO EXCESS CALORIES; Z68.41 - BODY MASS INDEX (BMI) 40.0-44.9, ADULT Status: Chronic (8) Paroxysmal atrial fibrillation Code(s): I48.0 - PAROXYSMAL ATRIAL FIBRILLATION Status: Chronic Comment: pt is on beta radha and calcium channel radha. Metoprolol dose increased today due to hypertension. - Plan * . Review of Systems - Review of Systems Respiratory: negative: Cough, Shortness of Breath, SOB with Excertion, Pleuritic Pain, Wheezing Cardiovascular: negative: chest pain, palpitations, orthopnea, paroxysmal nocturnal dyspnea, edema, light headedness - Medications/Allergies Allergies/Adverse Reactions: Allergies Allergy/AdvReac Type Severity Reaction Status Date / Time NSAIDS (Non-Steroidal Allergy Verified 01/04/18 01:18 Anti-Inflamma amoxicillin trihydrate AdvReac Severe Diarrhea Verified 01/04/18 01:18 [From Augmentin] potassium clavulanate AdvReac Severe Diarrhea Verified 01/04/18 01:18 [From Augmentin] aspirin AdvReac HEART Verified 01/04/18 01:18 RACING moxifloxacin HCl AdvReac heart Verified 01/04/18 01:18 [From Avelox] racing prednisone AdvReac psychotic Verified 01/04/18 01:18 issue Medications: Current Medications Acetaminophen (Tylenol) 650 mg PO Q4H PRN PRN Reason: Headache/Fever or Pain Last Admin: 01/06/18 05:29 Dose: 650 mg Acetaminophen/Codeine Phosphate (Tylenol #3) 1 tab PO Q4H PRN PRN Reason: Mild Pain (1-3) Acetaminophen/Codeine Phosphate (Tylenol #3) 2 tab PO Q4H PRN PRN Reason: Moderate Pain (4-6) Alprazolam (Xanax) 0.125 mg PO HS PRN PRN Reason: Insomnia Last Admin: 01/06/18 05:29 Dose: 0.125 mg Alprazolam (Xanax) 0.25 mg PO Q6H PRN PRN Reason: Anxiety Cephalexin (Keflex) 250 mg PO TID [facility] Stop: 01/14/18 21:01 Last Admin: 01/06/18 09:01 Dose: 250 mg Clonidine (Catapres) 0.1 mg PO HS PRN PRN Reason: Hypertension Last Admin: 01/06/18 05:30 Dose: 0.1 mg Dextrose/Water (Dextrose 50%) 25 gm SLOW IVP PRN PRN PRN Reason: Hypoglycemia Diphenoxylate HCl/Atropine (Lomotil) 1 tab PO Q8HR PRN PRN Reason: LOOSE STOOLS Docusate Sodium (Colace) 100 mg PO BID [facility] Last Admin: 01/06/18 08:59 Dose: Not Given Dronedarone (Multaq) 400 mg PO BID[facility] Last Admin: 01/06/18 09:00 Dose: 400 mg Furosemide (Lasix) 20 mg PO DAILY [facility] Last Admin: 01/06/18 09:00 Dose: 20 mg Glucagon (Glucagon) 1 mg IM PRN PRN PRN Reason: Hypoglycemia Guaifenesin (Mucinex) 600 mg PO Q12HR PRN PRN Reason: COUGH Hydralazine HCl (Apresoline) 10 mg SLOW IVP Q4H PRN PRN Reason: Systolic BP > 180 Last Admin: 01/05/18 07:05 Dose: 10 mg Hydralazine HCl (Apresoline) 25 mg PO TID [facility] Last Admin: 01/06/18 08:59 Dose: 25 mg Hydralazine HCl (Apresoline) 25 mg PO TID [facility] Last Admin: 01/06/18 09:01 Dose: Not Given Dextrose/Water (D5w) 1,000 mls @ 0 mls/hr IV .Q0M PRN; As Directed PRN Reason: Hypoglycemia Insulin Glargine 28 units/ (Miscellaneous Medication) 0.28 mls @ 0 mls/hr [facility] Last Admin: 01/06/18 09:01 Dose: 0.28 mls Insulin Human Lispro (Humalog) 0 units SC .MILD SLIDING SCALE PRN PRN Reason: Mild Correctional Scale Last Admin: 01/04/18 06:25 Dose: 2 unit Insulin Human Lispro (Humalog) 0 units SC .BEDTIME SLIDING SC PRN PRN Reason: Bedtime Correctional Scale Last Admin: 01/05/18 21:55 Dose: 2 unit Lactulose (Lactulose) 20 gm PO DAILYPRN PRN PRN Reason: Constipation Levalbuterol HCl (Xopenex) 0.63 mg NEB Q8HR PRN PRN Reason: SOB &/or Wheezing Levothyroxine Sodium (Synthroid) 50 mcg PO 0600 [facility] Last Admin: 01/06/18 06:12 Dose: 50 mcg Lisinopril (Zestril) 10 mg PO DAILY [facility] Last Admin: 01/06/18 09:00 Dose: 10 mg Lorazepam (Ativan) 2 mg SLOW IVP Q15MIN PRN PRN Reason: Seizures Last Admin: 01/05/18 10:56 Dose: 2 mg Metoprolol Tartrate (Lopressor) 50 mg PO BID [facility] Last Admin: 01/06/18 09:00 Dose: 50 mg Nifedipine (Procardia Xl) 60 mg PO DAILY [facility] Last Admin: 01/06/18 09:01 Dose: 60 mg Nystatin (Mycostatin Cream) 0 gm TOP BID PRN PRN Reason: YEAST INFECTION Ondansetron HCl (Zofran Odt) 4 mg PO Q6H PRN PRN Reason: Nausea/Vomiting Ondansetron HCl (Zofran) 4 mg IVP Q6H PRN PRN Reason: Nausea/Vomiting Pantoprazole Sodium (Protonix) 40 mg PO 2100 [facility] Last Admin: 01/05/18 20:10 Dose: 40 mg Saccharomyces Boulardii (Florastor) 250 mg PO DAILY [facility] Last Admin: 01/06/18 09:00 Dose: 250 mg Sodium Chloride (Flush - Normal Saline) 10 ml IVF Q12HR [facility] Last Admin: 01/06/18 09:02 Dose: 10 ml Sodium Chloride (Flush - Normal Saline) 10 ml IVF PRN PRN PRN Reason: Saline Flush
--- NOTE | 2018-01-06 15:46 | PDOC.CTH ---
<Rosa Maria Reynolds - Last Filed: 01/06/18 15:51> Cardiology Progress Note - Subjective The pt seen and examined. No overnight events. No cardiac complaints. She has not walked during this Admission at this time. - Objective Vital Signs Temp Pulse Pulse Pulse Resp BP BP 01/06/18 15:32 97.5 F L 105 H 16 01/06/18 14:51 105 H 01/06/18 14:20 75 106 H 175/92 H 01/06/18 11:00 98.1 F 70 14 01/06/18 09:01 87 154/72 H 01/06/18 09:00 154/72 H 01/06/18 08:59 87 154/72 H 01/06/18 08:45 97.6 F 87 14 01/06/18 07:30 97.6 F 87 14 01/06/18 05:30 177/74 H 01/06/18 04:00 97.3 F L 85 16 BP BP Pulse Ox Pulse Ox Pulse Ox 01/06/18 15:32 175/92 H 95 01/06/18 14:51 01/06/18 14:20 185/89 H 95 95 01/06/18 11:00 163/74 H 96 01/06/18 09:01 01/06/18 09:00 01/06/18 08:59 01/06/18 08:45 95 01/06/18 07:30 154/72 H 95 01/06/18 05:30 01/06/18 04:00 174/77 H 94 L Weight 253 lb 01/05/18 01/06/18 01/07/18 06:59 06:59 06:59 Intake Total 120 980 Output Total 1192 1590 Balance -1072 -610 - Physical Examination General/Neuro: alert & oriented x3 Neck: no JVD present Lungs: CTA Heart: other: (irregular) Abdomen: soft Extremities: other: (No edema) - Telemetry Telemetry Rhythm: AFib - Labs Result Diagrams: 01/04/18 01:12 01/05/18 03:06 Troponin/CKMB CK-MB (CK-2) 0.6 ng/mL (0-6.6) 01/03/18 18:53 Troponin I Less than 0.010 ng/mL (< 0.028) 01/03/18 18:53 - Assessment/Plan 1. S/p PM placement on 01/04/18 with hx of 3rd AVB - 2. Paroxysmal Afib - rate well controlled until this PM, which HR up to 110s with Multaq 400mg BID and Metoprolol 50mg BID which was increased to 75mg; Started Pradaxa 75 mg BID (due to Cr 27 L/min by Cockcroft-Gault: changed from Xarelto to Pradaxa due to drug interaction with Multaq and Xarelto); Cont. to monitor 3. HTN - Metoprolol was increased to 75mg; Nifedipine was increased from 60mg to 90mg qd; 4. ADOLFO on CKD stage 5 - no changed 5. Hyperlipidemia - on Statinon CKD stage 5 - no changed; cont. to monitor 6. Hypothyroidism - managed by PCP 7. DM type 2 - managed by PCP MAR reviewed Review of Systems - Review of Systems Constitutional: reports: no symptoms reported EENTM: reports: no symptoms reported Respiratory: reports: no symptoms reported Cardiac (ROS): reports: no symptoms reported : reports: no symptoms reported <Dalia Gallardo - Last Filed: 01/06/18 22:27> Cardiology Progress Note - Objective Vital Signs Temp Pulse Pulse Pulse Resp BP BP 01/06/18 20:27 97.7 F 77 16 01/06/18 17:42 83 01/06/18 17:01 83 142/63 H 01/06/18 15:32 97.5 F L 105 H 16 01/06/18 14:51 105 H 01/06/18 14:20 75 106 H 175/92 H 01/06/18 11:00 98.1 F 70 14 BP BP Pulse Ox Pulse Ox Pulse Ox 01/06/18 20:27 146/67 H 94 L 01/06/18 17:42 142/63 H 01/06/18 17:01 01/06/18 15:32 175/92 H 95 01/06/18 14:51 01/06/18 14:20 185/89 H 95 95 01/06/18 11:00 163/74 H 96 Weight 253 lb 01/05/18 01/06/18 01/07/18 06:59 06:59 06:59 Intake Total 120 980 600 Output Total 1192 1590 450 Balance -1072 -610 150 - Labs Result Diagrams: 01/04/18 01:12 01/05/18 03:06 Troponin/CKMB CK-MB (CK-2) 0.6 ng/mL (0-6.6) 01/03/18 18:53 Troponin I Less than 0.010 ng/mL (< 0.028) 01/03/18 18:53 - Assessment/Plan Pt. was seen and eval. by me. I have discussed the pt. and agree with the A/P by the CHERELLE Reynolds.
[2018-01-06] MEDS ORDERED: NIFEdipine XL 30 MG TAB PO SCH (16:00)
[2018-01-06] MEDS: HumaLOG 300 UNITS/3 ML VIAL SC PRN (17:02)
[2018-01-06] MEDS ORDERED: Dextrose 50% Abboject 50 ML SYRINGE SLOW IVP PRN (17:55)
[2018-01-06] MEDS ORDERED: HumaLOG 300 UNITS/3 ML VIAL SC PRN (17:55)
[2018-01-06] MEDS ORDERED: Dextrose 5% in Water 1,000 ML IV PRN (17:55)
[2018-01-06] MEDS: Metoprolol Tartrate 25 MG TAB PO SCH (20:35)
[2018-01-06] MEDS ORDERED: Metoprolol Tartrate 50 MG TAB PO SCH (21:00)
[2018-01-07] MEDS: Levothyroxine Sodium 50 MCG TAB PO SCH (05:35)
[2018-01-07 05:43] LABS: #Basophils 0.1 thou/uL (0.0-0.2); #Eosinphils 0.3 thou/uL (0.0-0.7); #Lymphocytes 1.9 thou/uL (1.20-3.40); #Monocytes 0.8 thou/uL (0.11-0.59); #Neutrophils 4.1 thou/uL (1.40-6.50); %Basophils 0.8 % (0.0-1.0); %Eosinophils 4.8 % (0.0-10.0); %Lymphocytes 26.1 % (21.0-51.0); %Monocytes 10.8 % (0.0-10.0); %Neutrophils 57.5 % (42.0-75.0); Mean Corpuscular HGB CONC 32.6 g/dL (32.0-36.0); Mean Corpuscular Hemoglobin 29.3 pg (27.0-31.0); Mean Platelet Volume 7.2 fL (7.4-10.4); Platelet Count 256 thou/uL (130-400); RBC Distribution Width 12.2 % (11.5-14.5); Red Blood Cell (RBC) Count 2.73 mill/uL (4.20-5.40); White Blood Cell (WBC) Count 7.2 thou/uL (4.8-10.8)
[2018-01-07 05:58] LABS: Anion Gap 13 mmol/L (10-20); BUN (Urea Nitrogen) 47 mg/dL (9.8-20.1); Calc. Creatinine Clearance 24 mL/min (70-130); Calcium 7.8 mg/dL (7.8-10.44); Carbon Dioxide 22 mmol/L (23-31); Chloride 108 mmol/L (98-107); Estimated GFR-MDRD 12; Glucose 117 mg/dL (83-110); Potassium 4.2 mmol/L (3.5-5.1); Sodium 139 mmol/L (136-145)
--- NOTE | 2018-01-07 08:08 | PDOC.PN ---
- Subjective Encounter Start Date: 01/07/18 Encounter Start Time: 08:07 Subjective: still anxious about heart block - Objective Resuscitation Status: Resuscitation Status FULL:Full Resuscitation MAR Reviewed: Yes Vital Signs & Weight: Vital Signs (12 hours) Temp Pulse Resp BP Pulse Ox 01/07/18 05:25 97.4 F L 61 16 149/68 H 96 01/07/18 00:25 97 F L 66 16 147/67 H 96 01/06/18 20:27 97.7 F 77 16 146/67 H 94 L Weight Weight 9.094 oz Most Recent Monitor Data Heart Rate from ECG 67 NIBP 160/66 NIBP BP-Mean 84 Respiration from ECG 24 SpO2 93 I&O: 01/06/18 01/07/18 01/08/18 06:59 06:59 06:59 Intake Total 980 840 Output Total 1590 800 Balance -610 40 Result Diagrams: 01/07/18 04:56 01/07/18 04:56 Additional Labs: Accuchecks 01/06/18 01/06/18 01/06/18 21:29 16:48 10:59 POC Glucose 160 H 236 H 180 H Phys Exam - Physical Examination Neck: no JVD Respiratory: clear to auscultation bilateral Cardiovascular: RRR, no significant murmur Gastrointestinal: soft, positive bowel sounds Musculoskeletal: no edema Dx/Plan (1) AV block, 3rd degree Code(s): I44.2 - ATRIOVENTRICULAR BLOCK, COMPLETE Status: Acute Comment: had PPM placed, improving. Not having seizure-like episodes (2) CKD (chronic kidney disease), stage V Code(s): N18.5 - CHRONIC KIDNEY DISEASE, STAGE 5 Status: Chronic Comment: stable (3) Anxiety and depression Code(s): F41.9 - ANXIETY DISORDER, UNSPECIFIED; F32.9 - MAJOR DEPRESSIVE DISORDER, SINGLE EPISODE, UNSPECIFIED Status: Chronic (4) DM type 2 (diabetes mellitus, type 2) Status: Chronic Qualifiers: Diabetes mellitus complication status: with kidney complications Diabetes mellitus complication detail: with chronic kidney disease Chronic kidney disease stage: stage 4 (severe) Comment: on accuchecks, insulin sliding scale (5) HTN (hypertension) Code(s): I10 - ESSENTIAL (PRIMARY) HYPERTENSION Status: Chronic Qualifiers: Hypertension type: essential hypertension Qualified Code(s): I10 - Essential (primary) hypertension Comment: BP still high, increase metoprolol to 75 mg PO BID (6) Hypothyroidism Code(s): E03.9 - HYPOTHYROIDISM, UNSPECIFIED Status: Chronic Qualifiers: Hypothyroidism type: unspecified Qualified Code(s): E03.9 - Hypothyroidism , unspecified Comment: continue synthroid (7) Paroxysmal atrial fibrillation Code(s): I48.0 - PAROXYSMAL ATRIAL FIBRILLATION Status: Chronic Comment: pt is on beta radha and calcium channel radha. Metoprolol dose increased today due to hypertension. - Plan explained heart block, pacemaker fcn, plans for monitoring etc -: cont current tx, discuss with cardiology * .
[2018-01-07] MEDS: Metoprolol Tartrate 25 MG TAB PO SCH ×2 (08:53→21:51)
[2018-01-07] MEDS: Docusate 100 MG CAP PO SCH ×2 (08:53→21:51)
[2018-01-07] MEDS: Cephalexin 250 MG CAP PO SCH ×3 (08:53→21:50)
[2018-01-07] MEDS: Dronedarone HCl 400 MG TAB PO SCH ×2 (08:53→17:51)
[2018-01-07] MEDS: NIFEdipine XL 90 MG TAB PO SCH (08:53)
[2018-01-07] MEDS: ALPRAZolam 0.25 MG TAB PO PRN ×2 (08:56→21:54)
[2018-01-07] MEDS: Acetaminophen 325 MG TAB PO PRN (08:56)
[2018-01-07] MEDS: Furosemide 20 MG TAB PO SCH (08:56)
[2018-01-07] MEDS: Lisinopril 10 MG TAB PO SCH (08:57)
[2018-01-07] MEDS: Saccharomyces boulardii 250 MG CAP PO SCH (08:58)
[2018-01-07] MEDS: hydrALAZINE 25 MG TAB PO SCH ×4 (08:58→21:54)
[2018-01-07] MEDS: Insulin Glargine 28 UNITS in Pre-Filled Syringe 1 EACH SC SCH (09:01)
[2018-01-07] MEDS: Albuterol Sulfate 1.25 MG/3 ML NEB NEB SCH ×2 (13:53→22:16)
[2018-01-08] MEDS: Levothyroxine Sodium 50 MCG TAB PO SCH (05:56)
[2018-01-08] MEDS: Albuterol Sulfate 1.25 MG/3 ML NEB NEB SCH ×2 (07:25→14:32)
--- NOTE | 2018-01-08 08:54 | DIS ---
TRANSFER OF CARE NOTE DISPOSITION: Discharged home. PRIMARY CARE PROVIDER: Dr. Eduardo Lopez FINAL DIAGNOSES: 1. Complete atrioventricular block post-pacemaker placement, long-term use of anticoagulants. 2. Diabetes mellitus type 3. 3. Chronic kidney disease stage 5. 4. Atrial fibrillation. 5. Bronchiectasis. 6. Hypertension. 7. Hypothyroidism. 8. Mitral regurgitation. DISCHARGE MEDICATIONS: Lispro quick pen 5 units t.i.d. subcu, Levemir 28 units subcu daily, Lasix 20 mg a day, ranitidine 150 mg p.o. b.i.d. p.r.n., Xopenex 0.63 mg nebulizer q.8 hours p.r.n., clonidin e 0.1 mg at bedtime p.r.n., Xanax 0.125 mg p.o. at bedtime p.r.n., levothyroxine 50 mcg a day, nifedi pine 60 mg a day, metoprolol 50 mg p.o. b.i.d., lisinopril 10 mg a day, Apresoline 25 mg p.o. t.i.d., Xarelto 15 mg p.o. daily, omeprazole 40 mg p.o. daily, Multaq 100 mg p.o. b.i.d. new medicine, cepha lexin 250 mg p.o. t.i.d. for 7 days new medicine. ALLERGIES: Diarrhea with AUGMENTIN, NSAIDs, ASPIRIN, AVELOX heart racing, PREDNISONE psych issues. DIET: Consistent carbohydrates. CODE STATUS: Full. HOSPITAL COURSE: The patient admitted to the hospital through [facility] with seizure activity, found to be in third degree heart block. She was admitted to the [facility]. Her initial studi es revealed creatinine 2.51, BUN 50, CO2 of 19, potassium 5.2, sodium 139. Liver function tests norm al. Cardiac enzymes normal. TSH 6.7. Prolactin 54. White count 8.8, hemoglobin 9.2, platelet coun t 351,000, the patient was seen in consultation by Dr. Jose Antonio Gallardo. Dr. Remy Trevizo, Dr. Ang bledsoe, Dr. Michael Gutierrez. Dr. James's consultations stated that the seizure activity was consistent with inadequate perfusion due to third degree block. On 01/03/2018 she was taken to the [facility]. Permanent pacemaker was pl aced. Echocardiogram revealed EF 60-65%, moderate mitral regurgitation. The patient has done well d uring her hospital stay. She was placed on Multaq for her atrial fibrillation. She is continued on Xarelto for her long-term anticoagulation. She has been continued on her standard insulin doses, her antihypertensives. She has been cleared for discharge for follow up with her PCP in 1 week as an ou tpatient. Follow up with Dr. Mora about her pacemaker. I have explained heart block and the fun ction of the pacemaker carefully to her. She is comfortable with going home, although she had some a nxieties before she understood the true nature of the "heart block". Thirty-five minutes were spent preparing this discharge, prescriptions, etc.
[2018-01-08] MEDS ORDERED: Rivaroxaban 15 MG TAB PO SCH (09:00)
[2018-01-08] MEDS: NIFEdipine XL 90 MG TAB PO SCH (09:40)
[2018-01-08] MEDS: Dronedarone HCl 400 MG TAB PO SCH (09:41)
[2018-01-08] MEDS: Metoprolol Tartrate 25 MG TAB PO SCH (09:41)
[2018-01-08] MEDS: Cephalexin 250 MG CAP PO SCH (09:41)
[2018-01-08] MEDS: Saccharomyces boulardii 250 MG CAP PO SCH (09:41)
[2018-01-08] MEDS: hydrALAZINE 25 MG TAB PO SCH (09:42)
[2018-01-08] MEDS: Furosemide 20 MG TAB PO SCH (09:42)
[2018-01-08] MEDS: Insulin Glargine 28 UNITS in Pre-Filled Syringe 1 EACH SC SCH (09:42)
[2018-01-08] MEDS: Lisinopril 10 MG TAB PO SCH (09:42)
[2018-01-08] MEDS: Docusate 100 MG CAP PO SCH (09:46)
--- NOTE | 2018-01-08 10:56 | EKG ---
Test Reason : Blood Pressure : / mmHG Vent. Rate : 066 BPM Atrial Rate : 066 BPM P-R Int : 190 ms QRS Dur : 112 ms QT Int : 458 ms P-R-T Axes : 025 070 012 degrees QTc Int : 480 ms Sinus rhythm with Premature atrial complexes Electronic atrial pacemaker Incomplete right bundle branch block Borderline ECG Confirmed by RENNY HAYS ([id number]) on 01/08/2018 10:56:01 AM Referred By: EMANUEL Confirmed By:RENNY HAYS
[2018-01-08 14:24] VITALS: BP 133/63; TEMP 97.6
== END 2018-01-08 14:55 | disposition home or self-care (01) | DRG 243 ==
LOC: ERS 17:53 → IMCU/EMU 23:00 → CCU 01-04 03:25 → 2NO 01-05 09:25
PROVIDERS: ADMIT Internal Medicine; ATTEND Internal Medicine
PROC: 0JH606Z Insertion of Pacemaker, Dual Chamber into Chest Subcutaneous Tissue and Fascia, Open Approach (ICD-10-PCS; principal; 2018-01-04)
PROC: 02H63JZ Insertion of Pacemaker Lead into Right Atrium, Percutaneous Approach (ICD-10-PCS; 2018-01-04)
PROC: 02HK3JZ Insertion of Pacemaker Lead into Right Ventricle, Percutaneous Approach (ICD-10-PCS; 2018-01-04)
DX: I44.2 Atrioventricular block, complete (principal); I13.2 Hypertensive heart and chronic kidney disease with heart failure and with stage 5 chronic kidney disease, or end stage renal disease; N17.9 Acute kidney failure, unspecified; N18.5 Chronic kidney disease, stage 5; Z68.41 Body mass index [BMI] 40.0-44.9, adult; I50.9 Heart failure, unspecified; I48.0 Paroxysmal atrial fibrillation; R56.9 Unspecified convulsions; E66.9 Obesity, unspecified; E11.22 Type 2 diabetes mellitus with diabetic chronic kidney disease; E03.9 Hypothyroidism, unspecified; I34.0 Nonrheumatic mitral (valve) insufficiency; Z88.6 Allergy status to analgesic agent; Z88.1 Allergy status to other antibiotic agents; Z79.01 Long term (current) use of anticoagulants
CPT/HCPCS: 33208; 36005; 36415; 36416; 70450; 71045; 75820; 80048; 80053; 80307; 81003; 81015; 82553; 83605; 83690; 83735; 84146; 84443; 84484; 85025; 85260; 85610; 85730; 93005; 93010; 93306; 93798; 94640; 96365; 96375; 96376; 99152; 99153; A4216; C1785; C1898; G8978-GP-CK; G8979-GP-CI; J0360; J1953; J2001; J2060; J2250; J2405; J3010; J3370; S0028

== ENCOUNTER 2018-01-14 18:24 | Inpatient (IN) | payer MEDICARE, OTHER ==
[2018-01-14 19:29] LABS: #Eosinphils 0.2 thou/uL (0.0-0.7); #Lymphocytes 1.5 thou/uL (1.20-3.40); #Monocytes 0.8 thou/uL (0.11-0.59); #Neutrophils 5.7 thou/uL (1.40-6.50); %Basophils 0.4 % (0.0-1.0); %Eosinophils 2.5 % (0.0-10.0); %Monocytes 9.5 % (0.0-10.0); %Neutrophils 69.6 % (42.0-75.0); Hemoglobin 8.4 g/dL (12.0-16.0); Mean Corpuscular HGB CONC 35.1 g/dL (32.0-36.0); Mean Corpuscular Hemoglobin 30.4 pg (27.0-31.0); Mean Corpuscular Volume 86.7 fL (78.0-98.0); Mean Platelet Volume 6.9 fL (7.4-10.4); Platelet Count 323 thou/uL (130-400); RBC Distribution Width 11.8 % (11.5-14.5); Red Blood Cell (RBC) Count 2.76 mill/uL (4.20-5.40); White Blood Cell (WBC) Count 8.1 thou/uL (4.8-10.8)
[2018-01-14 19:51] LABS: CKMB 0.6 ng/mL (0-6.6); Troponin I Less than 0.010 ng/mL (< 0.028)
[2018-01-14 19:54] LABS: ALT (SGPT) 9 U/L (8-55); AST (SGOT) 11 U/L (5-34); Albumin 3.7 g/dL (3.4-4.8); Alkaline Phosphatase 59 U/L (40-150); Anion Gap 14 mmol/L (10-20); BUN (Urea Nitrogen) 47 mg/dL (9.8-20.1); Bilirubin, Total 0.3 mg/dL (0.2-1.2); Calc. Creatinine Clearance 0 mL/min (70-130); Calcium 8.6 mg/dL (7.8-10.44); Carbon Dioxide 17 mmol/L (23-31); Chloride 110 mmol/L (98-107); Estimated GFR-MDRD 11; Glucose 121 mg/dL (83-110); Potassium 5.2 mmol/L (3.5-5.1); Protein, Total 6.7 g/dL (6.0-8.3); Sodium 136 mmol/L (136-145)
[2018-01-14 23:05] LABS: Bilirubin Negative (Negative); Blood, Urine Negative (Negative); Clarity CLOUDY (Clear); Glucose, Urine (Dipstick) 100 mg/dL (Negative); Leukocyte Large (Negative); Nitrite Negative (Negative); Protein, Urine (Dipstick) 300 mg/dL (Neg-Trace); Specific Gravity, Urine 1.012 (1.002-1.036); Urobilinogen 0.2 mg/dL (0.2-1.0)
[2018-01-14 23:07] LABS: Pathc Cast-AUWi Flag 0.72 (0-2.49)
--- NOTE | 2018-01-14 23:07 | RAD ---
CHEST ONE VIEW: HISTORY: Dyspnea. COMPARISON: 01/04/2018 FINDINGS: Stable left-sided transvenous pacemaker. Normal cardiac silhouette. Pulmonary vessels are slightly prominent. Patchy interstitial and alveolar opacities are noted. No masses or consolidation. No pn eumothorax or osseous abnormalities. IMPRESSION: 1. Stable left-sided transvenous pacemaker. 2. Patchy interstitial and alveolar opacities are noted. Correlate for volume overload. There is m ild pulmonary vascular prominence. POS: [facility]
[2018-01-14 23:12] LABS: Bacteria/HPF Rare-Few HPF (None Seen); Hyaline Casts/LPF 0-3 HYALINE CAST LPF (0-3 Hyaline); RBC/HPF 0-3 HPF (0-3); WBC/HPF 21-50 HPF (0-3)
[2018-01-14 23:13] LABS: Crystals/HPF RARE TRIPLE PHOS HPF (Negative)
[2018-01-14] MEDS ORDERED: Nitroglycerin 2% Ointment 1 INCH/1 GM Packet ONE ×2 (23:41→23:55)
[2018-01-14] MEDS ORDERED: Nitroglycerin 0.4 MG TAB (25 Tab Bottle) ONE ×2 (23:41→23:55)
[2018-01-14] MEDS ORDERED: Furosemide 40 MG/4 ML VIAL ONE ×2 (23:41→23:55)
[2018-01-15 00:39] LABS: Troponin I Less than 0.010 ng/mL (< 0.028)
[2018-01-15] MEDS ORDERED: Ondansetron ODT 4 MG TAB SL PRN (03:14)
[2018-01-15] MEDS ORDERED: Ondansetron HCl/PF 4 MG/2 ML Vial IVP PRN (03:14)
[2018-01-15] MEDS ORDERED: Acetaminophen 325 MG TAB PO PRN (03:14)
[2018-01-15 03:31] LABS: Troponin I 0.011 ng/mL (< 0.028)
[2018-01-15 04:08] VITALS: BMI 43.9
[2018-01-15] MEDS ORDERED: Levalbuterol HCl 0.63 MG/3 ML NEB NEB PRN (08:04)
[2018-01-15] MEDS ORDERED: Furosemide 20 MG TAB PO PRN (08:04)
[2018-01-15] MEDS ORDERED: Non-Formulary Item 1 EACH (Ranitidine Hcl [Ranitidine Hcl] 150 MG) PO PRN (08:04)
[2018-01-15] MEDS ORDERED: Diphenoxylate HCl/Atropine Tablet PO PRN ×3 (08:04→08:16)
[2018-01-15] MEDS ORDERED: cloNIDine 0.1 MG TAB PO PRN (08:04)
[2018-01-15] MEDS ORDERED: INSULIN LISPRO 5 UNIT SC PRN (08:04)
[2018-01-15] MEDS ORDERED: Nystatin Cream 30 GM TUBE TOP PRN ×2 (08:04→08:20)
[2018-01-15] MEDS ORDERED: guaiFENesin ER 600 MG TAB PO PRN (08:04)
[2018-01-15] MEDS ORDERED: Ondansetron ODT 4 MG TAB PO PRN (08:42)
[2018-01-15] MEDS ORDERED: Furosemide 40 MG/4 ML VIAL SLOW IVP SCH ×2 (08:45→09:00)
[2018-01-15] MEDS ORDERED: HumaLOG 300 UNITS/3 ML VIAL SC PRN (08:49)
[2018-01-15 08:58] LABS: Anion Gap 15 mmol/L (10-20); BUN (Urea Nitrogen) 48 mg/dL (9.8-20.1); Calc. Creatinine Clearance 23 mL/min (70-130); Calcium 8.5 mg/dL (7.8-10.44); Carbon Dioxide 18 mmol/L (23-31); Chloride 110 mmol/L (98-107); Estimated GFR-MDRD 12; Glucose 105 mg/dL (83-110); Sodium 138 mmol/L (136-145)
[2018-01-15] MEDS ORDERED: INSULIN DETEMIR SQ SCH (09:00)
[2018-01-15] MEDS ORDERED: Famotidine 20 MG TAB PO SCH (09:00)
--- NOTE | 2018-01-15 10:29 | RAD ---
CHEST ONE VIEW: History: Dyspnea. Follow up. Comparison: 01-14-18 FINDINGS: Cardiac silhouette is magnified by projection. Pulmonary vasculature remains slightly engorged with w idespread reticular nodular interstitial prominence. Mediastinum is midline with dual-lead left subcl forrest cardiac electronic device. No lobar consolidation or evidence of pneumothorax. IMPRESSION: Pulmonary vascular congestion and other findings are stable. POS: [facility]
[2018-01-15] MEDS: Lisinopril 10 MG TAB PO SCH (11:16)
[2018-01-15] MEDS: Levothyroxine Sodium 50 MCG TAB PO SCH (11:16)
[2018-01-15] MEDS: NIFEdipine XL 60 MG TAB PO SCH (11:16)
[2018-01-15] MEDS: hydrALAZINE 25 MG TAB PO SCH ×3 (11:17→20:48)
[2018-01-15] MEDS: Metoprolol Tartrate 50 MG TAB PO SCH ×2 (11:17→20:48)
[2018-01-15] MEDS: Lactinex Tablet PO SCH (11:17)
[2018-01-15] MEDS: Rivaroxaban 15 MG TAB PO SCH (11:17)
[2018-01-15] MEDS: Insulin Glargine 28 UNITS in Pre-Filled Syringe 1 EACH SC SCH (11:31)
--- NOTE | 2018-01-15 13:04 | HP ---
CHIEF COMPLAINT: Shortness of breath, abdominal pain, and diarrhea. HISTORY OF PRESENT ILLNESS: This patient is a 77-year-old female who was admitted here 10 days ago w ith initially what looked like seizure activity. The patient was found to be in a third degree heart block and underwent a pacemaker placement. It was ultimately felt that the seizure type activity wa s likely secondary to cerebral hypoperfusion and not true epileptic type activity. The patient subse quently did well with respect to her cardiac function. She had an echocardiogram that revealed an ej ection fraction of 60%-65%. She did not have significant valvular pathology. The patient reports th at she was sent home with Multaq. She was also concerned that she had initially been on Xarelto when she was admitted. That had been held and once she was through with her pacemaker, she was placed on Pradaxa, but when she was sent home, she was instructed to go back on Xarelto per her paperwork. Th e patient reports that since she has been home, she has been experiencing persistent and worsening sh ortness of breath. She has orthostasis and cannot lie flat because of shortness of breath. She also reports some generalized abdominal cramping with significant bouts of watery diarrhea and associated nausea. She reports she has become increasingly profoundly weak. On reading on her material, she u nderstood that the Multaq could potentially cause these types of side effects. Attempted to reach [facility], but in lieu of being able to do that, they started over the counter Lomotil. Ultimately pr esented to the emergency department yesterday because of the severity of the symptoms. Of note, the patient does report some generalized chills, but no specific fever. She also reports that she has a cough that has been productive of whitish sputum, but does report some particulate matter with the sp utum. PAST MEDICAL HISTORY: Notable for chronic kidney disease stage 4, atrial fibrillation, diabetes deo itus, chronic bronchitis with respiratory failure on home O2, hypertension, hypothyroidism, history o f GERD, anxiety, third degree heart block and cervical cancer. PAST SURGICAL HISTORY: 1. Pacemaker placement on 01/03/2018 2. Appendectomy. 3. Hysterectomy. SOCIAL HISTORY: The patient is nonsmoker, nondrinker, nondrug user. She is . She is Jehovah 's Witness and does not want blood products. FAMILY HISTORY: Reviewed. There are no specific contributions to current process. ALLERGIES: NSAIDS, AUGMENTIN, ASPIRIN, AVELOX, PREDNISONE. CURRENT MEDICATIONS: Hydralazine 25 mg p.o. t.i.d., Mucinex 600 mg q.12 hours p.r.n., clonidine 0.1 at bedtime p.r.n., Xarelto 15 mg every day, ranitidine 150 b.i.d., Zofran 4 mg q.6 hours p.r.n., nyst atin p.r.n., Procardia-XL 60 mg every day, metoprolol 50 mg p.o. b.i.d., lisinopril 10 mg every day, Synthroid 50 mcg every day, Xopenex nebs p.r.n., Probiotic every day, Humalog 5 units t.i.d. with gerardo ls, Levemir 28 units subcu every day, Lasix 20 mg every day, Lomotil b.i.d. p.r.n. and Xanax 0.125 a t bedtime p.r.n. REVIEW OF SYSTEMS: Notable for significant lower extremity peripheral edema which the patient report s is unusual. Other than that, a 10 system review is negative except for those things mentioned in t he history of present illness. PHYSICAL EXAMINATION: VITAL SIGNS: Temperature is 98.1, pulse 68, respirations 20, O2 sat 95% on 3 liters nasal cannula, B P 166/72-173/74. GENERAL APPEARANCE: Morbidly obese age appropriate female in no distress. She is awake, alert, orie nted, very pleasant, cooperative. HEENT: PERRL. No OP lesions. NECK: Supple and symmetric with no lymphadenopathy. HEART: Has regular rate and rhythm without murmurs, gallops or rubs. The left upper chest pacemaker site appears to be healing well without evidence of infection. LUNGS: Reveal bilateral fine crackles throughout both lungs. ABDOMEN: Mildly diffusely tender with normal bowel sounds. No masses, no organomegaly. EXTREMITIES: 1-2+ pitting edema in the pretibial area. Otherwise, warm and dry. LABORATORY DATA AND IMAGING DATA: White blood cell count 8.1, hemoglobin 8.4, platelets 323. Sodium 136, potassium 5.2, chloride 110, CO2 of 17, BUN 47, creatinine is 3.87, glucose 121. CK was 28. T roponin is less than 0.01 x3. BNP 321.3. Urinalysis shows some protein and glucose with large leuko cyte esterase, 21-50 white cells, but 11-20 epithelial cells. Chest x-ray shows bilateral patchy opa cities concerning for volume overload. IMPRESSION AND PLAN: 1. Shortness of breath. The patient has a history of chronic bronchitis with some chronic respirato ry failure requiring home oxygen. She also has some pulmonary edema on her chest x-ray and evidence of decompensated heart failure with orthopnea and peripheral edema. She did receive a dose of IV Las ix in the emergency department. We will give her another dose now and hold her p.o. dosing. This co uld be potentially related to her recent episodes of heart block and pacemaker placement or ask for p acemaker interrogation. Cardiology is consulted. 2. Abdominal pain with nausea and significant diarrhea. We will obtain C. diff. The patient was on antibiotics and she was in the hospital previously. It is possible that this could be related to th e Multaq, although unlikely. We will hold the Multaq for now. 3. Diabetes mellitus. We will continue with her usual home regimen. 4. Serial Accu-Cheks. 5. Chronic kidney disease stage 4. Appears to be stable. We will consult Nephrology. 6. Hypothyroidism. Continue with her usual dose of home medication.
[2018-01-15] MEDS: Furosemide 40 MG/4 ML VIAL SLOW IVP SCH (17:26)
--- NOTE | 2018-01-15 22:22 | CON ---
DATE OF CONSULTATION: 01/15/2018 HISTORY OF PRESENT ILLNESS: Jeremiah Rodriguez is a 77-year-old white female who was recently admitted with complete heart block and a pacemaker placed. Please see 01/04/2018 dictation for previous history. Since being home, she states that she has had profuse diarrhea as well as increasing shortness of breath, cough, productive of white sputum. She denied any chest discomfort. She ultimately came to the emergency room with complaining of increased shortness of breath, found to have somewhat increased pulmonary vascularity on chest x- ray and has received intravenous Lasix. Her pacemaker has been interrogated. She has not had any further atrial fibrillation since leaving the hospital. She has normal pacemaker function. PHYSICAL EXAMINATION: VITAL SIGNS: She was 173/74, pulse of 68. HEENT: PERRL. NECK: Supple. LUNGS: Chest is clear. CARDIAC: S1 and S2 are normal without any S3, S4, or murmurs. ABDOMEN: Normal bowel sounds without tenderness or organomegaly. EXTREMITIES: Revealed no clubbing or cyanosis. There is 1+ pretibial edema. NEUROLOGIC: Grossly intact. SKIN: Warm and dry. LABORATORY DATA: EKG reveals AV pacing. Hemoglobin 8.4, hematocrit 23.9, white count 8100, platelets 323,000. Sodium 138, potassium 5.0, chloride 110, carbon dioxide 18, BUN 48, creatinine 3.82. Cardiac enzymes are negative x2. IMPRESSION: 1. Increased shortness of breath. She certainly may have some degree of diastolic dysfunction with ventricular pacing. 2. History of complete heart block, status post pacemaker placement, 11 days ago. 3. Atrial fibrillation with fast ventricular response in 09/2014 as well as recurrence during this past hospitalization. 4. Patient is chronically anticoagulated with Xarelto 15 mg daily. 5. Oriental orthodox. 6. History of diastolic heart failure in the past. 7. Chronic kidney disease. 8. Diabetes mellitus. 9. Hypertension. 10. Hypercholesterolemia. 11. Morbid obesity. 12. History of noncompliance. 13. Gastroesophageal reflux disease. 14. Anxiety. PLAN: The patient's pacemaker continues to be functioning normally. She will be diuresed and blood pressure will need to be controlled. We will follow the patient with you. PAUL
[2018-01-15] MEDS: cloNIDine 0.1 MG TAB PO PRN (22:28)
[2018-01-15] MEDS: ALPRAZolam 0.25 MG TAB PO PRN (22:30)
[2018-01-16 05:34] LABS: #Basophils 0.1 thou/uL (0.0-0.2); #Eosinphils 0.3 thou/uL (0.0-0.7); #Lymphocytes 1.5 thou/uL (1.20-3.40); #Monocytes 0.8 thou/uL (0.11-0.59); #Neutrophils 4.2 thou/uL (1.40-6.50); %Eosinophils 4.6 % (0.0-10.0); %Lymphocytes 22.4 % (21.0-51.0); %Monocytes 10.9 % (0.0-10.0); %Neutrophils 61.1 % (42.0-75.0); Hemoglobin 7.6 g/dL (12.0-16.0); Mean Corpuscular HGB CONC 31.5 g/dL (32.0-36.0); Mean Corpuscular Hemoglobin 27.9 pg (27.0-31.0); Mean Corpuscular Volume 88.6 fL (78.0-98.0); Mean Platelet Volume 7.1 fL (7.4-10.4); Platelet Count 314 thou/uL (130-400); RBC Distribution Width 11.8 % (11.5-14.5); Red Blood Cell (RBC) Count 2.71 mill/uL (4.20-5.40); White Blood Cell (WBC) Count 6.8 thou/uL (4.8-10.8)
[2018-01-16 05:39] LABS: Anion Gap 16 mmol/L (10-20); BUN (Urea Nitrogen) 49 mg/dL (9.8-20.1); Calc. Creatinine Clearance 23 mL/min (70-130); Calcium 8.5 mg/dL (7.8-10.44); Carbon Dioxide 19 mmol/L (23-31); Chloride 108 mmol/L (98-107); Estimated GFR-MDRD 12; Glucose 68 mg/dL (83-110); Potassium 4.8 mmol/L (3.5-5.1); Sodium 138 mmol/L (136-145)
[2018-01-16] MEDS: Furosemide 40 MG/4 ML VIAL SLOW IVP SCH ×2 (06:37→16:11)
[2018-01-16] MEDS: NIFEdipine XL 60 MG TAB PO SCH (09:50)
[2018-01-16] MEDS: Famotidine 20 MG TAB PO SCH (09:50)
[2018-01-16] MEDS: Lisinopril 10 MG TAB PO SCH (09:50)
[2018-01-16] MEDS: Rivaroxaban 15 MG TAB PO SCH (09:50)
[2018-01-16] MEDS: Levothyroxine Sodium 50 MCG TAB PO SCH (09:51)
[2018-01-16] MEDS: Metoprolol Tartrate 50 MG TAB PO SCH (09:51)
[2018-01-16] MEDS: hydrALAZINE 25 MG TAB PO SCH ×3 (09:51→20:30)
[2018-01-16] MEDS: Insulin Glargine 28 UNITS in Pre-Filled Syringe 1 EACH SC SCH (09:51)
[2018-01-16] MEDS: Lactinex Tablet PO SCH (09:51)
[2018-01-16 12:45] LABS: Hemoglobin 8.9 g/dL (12.0-16.0)
[2018-01-16] MEDS: Metoprolol Tartrate 100 MG TAB PO SCH (20:30)
--- NOTE | 2018-01-16 20:58 | PDOC.PN ---
- Subjective Encounter Start Date: 01/16/18 Encounter Start Time: 11:30 Doing drastically better today. No GI complaints. Tolerating PO's. - Objective Vital Signs & Weight: Vital Signs (12 hours) Temp Pulse Pulse Pulse Resp BP BP 01/16/18 20:30 60 182/77 H 01/16/18 16:11 97.8 F 60 18 01/16/18 11:50 60 61 178/74 H BP BP 01/16/18 20:30 01/16/18 16:11 163/70 H 01/16/18 11:50 148/119 H Weight Admit Weight 256 lb 3.2 oz Weight 256 lb 3.2 oz Result Diagrams: 01/16/18 12:31 01/16/18 04:53 Additional Labs: Accuchecks 01/16/18 01/16/18 01/16/18 17:07 11:11 09:52 POC Glucose 126 H 140 H 131 H 01/16/18 01/15/18 06:17 20:24 POC Glucose 68 L 124 H Phys Exam - Physical Examination Constitutional: NAD HEENT: PERRLA, oral pharynx no lesions Neck: no JVD Mild bibasilar fine rales. Cardiovascular: no significant murmur Gastrointestinal: soft, non-tender, no distention Musculoskeletal: no edema Psychiatric: normal affect Dx/Plan (1) Nausea Code(s): R11.0 - NAUSEA Status: Acute (2) Diarrhea Code(s): R19.7 - DIARRHEA, UNSPECIFIED Status: Acute (3) CKD (chronic kidney disease) stage 4, GFR 15-29 ml/min Code(s): N18.4 - CHRONIC KIDNEY DISEASE, STAGE 4 (SEVERE) Status: Chronic Comment: stable (4) DM type 2 (diabetes mellitus, type 2) Status: Chronic Qualifiers: Diabetes mellitus complication status: with kidney complications Diabetes mellitus complication detail: with chronic kidney disease Chronic kidney disease stage: stage 4 (severe) Comment: on accuchecks, insulin sliding scale. Well controlled. (5) Atrial fibrillation Code(s): I48.91 - UNSPECIFIED ATRIAL FIBRILLATION Status: Acute (6) HTN (hypertension) Code(s): I10 - ESSENTIAL (PRIMARY) HYPERTENSION Status: Chronic Qualifiers: Hypertension type: essential hypertension Qualified Code(s): I10 - Essential (primary) hypertension Comment: Zestril, Lopressor, Procardia, Hydralazine - Plan * GI symptoms appear to be related to the Multaq. Resolved quickly with holding it. Unclear if she needs an alternative medication. Cardiology following. Patient has expressed interest in getting opinion from EP. * Dr. Trevizo following.
[2018-01-16] MEDS: ALPRAZolam 0.25 MG TAB PO PRN (22:19)
[2018-01-17] MEDS: Furosemide 40 MG/4 ML VIAL SLOW IVP SCH ×2 (06:28→13:59)
[2018-01-17] MEDS: hydrALAZINE 25 MG TAB PO SCH ×2 (08:50→15:23)
[2018-01-17] MEDS: Famotidine 20 MG TAB PO SCH (08:50)
[2018-01-17] MEDS: Lisinopril 10 MG TAB PO SCH (08:51)
[2018-01-17] MEDS: Lactinex Tablet PO SCH (08:51)
[2018-01-17] MEDS: Metoprolol Tartrate 100 MG TAB PO SCH (08:51)
[2018-01-17] MEDS: Levothyroxine Sodium 50 MCG TAB PO SCH (08:51)
[2018-01-17] MEDS: Rivaroxaban 15 MG TAB PO SCH (08:52)
[2018-01-17] MEDS: NIFEdipine XL 60 MG TAB PO SCH (08:52)
[2018-01-17] MEDS: Insulin Glargine 28 UNITS in Pre-Filled Syringe 1 EACH SC SCH (09:03)
[2018-01-17 12:56] VITALS: TEMP 97.5
[2018-01-17] MEDS: cloNIDine 0.1 MG TAB PO PRN (12:56)
[2018-01-17 15:25] VITALS: BP 167/74
--- NOTE | 2018-01-19 12:36 | EKG ---
Test Reason : Blood Pressure : / mmHG Vent. Rate : 107 BPM Atrial Rate : 022 BPM P-R Int : 000 ms QRS Dur : 188 ms QT Int : 516 ms P-R-T Axes : 000 -54 102 degrees QTc Int : 688 ms AV dual-paced rhythm with frequent Premature ventricular complexes Abnormal ECG No ST elevation/PA Confirmed by ANITRA PANCHAL DO ([id number]), international editorial producer SAURABH ISSA ([id number]) on 01/19/2018 12:36:34 PM Referred By: Confirmed By:ANITRA PANCHAL DO
== END 2018-01-17 17:34 | disposition home or self-care (01) | DRG 291 ==
LOC: ERS 18:24 → 2NO 23:42
PROVIDERS: ADMIT Hospitalist; ATTEND Hospitalist
DX: I13.2 Hypertensive heart and chronic kidney disease with heart failure and with stage 5 chronic kidney disease, or end stage renal disease (principal); N18.6 End stage renal disease; I50.30 Unspecified diastolic (congestive) heart failure; Z68.41 Body mass index [BMI] 40.0-44.9, adult; J96.11 Chronic respiratory failure with hypoxia; R19.7 Diarrhea, unspecified; E11.22 Type 2 diabetes mellitus with diabetic chronic kidney disease; I48.91 Unspecified atrial fibrillation; R11.0 Nausea; Z95.0 Presence of cardiac pacemaker; Z79.01 Long term (current) use of anticoagulants; E78.00 Pure hypercholesterolemia, unspecified; E66.01 Morbid (severe) obesity due to excess calories; Z91.19 Patient's noncompliance with other medical treatment and regimen; K21.9 Gastro-esophageal reflux disease without esophagitis; F41.9 Anxiety disorder, unspecified; J42 Unspecified chronic bronchitis; Z99.81 Dependence on supplemental oxygen; E03.9 Hypothyroidism, unspecified; Z85.41 Personal history of malignant neoplasm of cervix uteri
CPT/HCPCS: 36415; 36416; 71045; 80048; 80053; 81003; 81015; 82553; 83735; 83880; 84484; 85025; 87324; 87449; 93005; 96374; G8978-GP-CL; G8979-GP-CJ; J1940; J7614; Q0162

== ENCOUNTER 2018-03-13 11:40 | Inpatient (IN) | payer MEDICARE, OTHER ==
[2018-03-13 12:03] LABS: #Basophils 0.1 thou/uL (0.0-0.2); #Eosinphils 0.4 thou/uL (0.0-0.7); #Lymphocytes 2.6 thou/uL (1.20-3.40); #Monocytes 0.7 thou/uL (0.11-0.59); #Neutrophils 4.8 thou/uL (1.40-6.50); %Basophils 1.4 % (0.0-1.0); %Eosinophils 4.6 % (0.0-10.0); %Lymphocytes 29.8 % (21.0-51.0); %Monocytes 8.4 % (0.0-10.0); %Neutrophils 55.8 % (42.0-75.0); Hemoglobin 10.6 g/dL (12.0-16.0); Mean Corpuscular HGB CONC 32.1 g/dL (32.0-36.0); Mean Corpuscular Hemoglobin 28.7 pg (27.0-31.0); Mean Corpuscular Volume 89.4 fL (78.0-98.0); Mean Platelet Volume 7.9 fL (7.4-10.4); Platelet Count 343 thou/uL (130-400); RBC Distribution Width 12.4 % (11.5-14.5); Red Blood Cell (RBC) Count 3.68 mill/uL (4.20-5.40); White Blood Cell (WBC) Count 8.6 thou/uL (4.8-10.8)
[2018-03-13 12:29] LABS: Anion Gap 15 mmol/L (10-20); BUN (Urea Nitrogen) 53 mg/dL (9.8-20.1); Calc. Creatinine Clearance 0 mL/min (70-130); Carbon Dioxide 18 mmol/L (23-31); Chloride 107 mmol/L (98-107); Estimated GFR-MDRD 11; Potassium 5.3 mmol/L (3.5-5.1); Sodium 135 mmol/L (136-145)
[2018-03-13 12:30] LABS: ALT (SGPT) 12 U/L (8-55); AST (SGOT) 19 U/L (5-34); Albumin 3.8 g/dL (3.4-4.8); Alkaline Phosphatase 80 U/L (40-150); Bilirubin, Total 0.2 mg/dL (0.2-1.2); CK (CPK) 32 U/L (29-168); CKMB 1.4 ng/mL (0-6.6); Calcium 9.1 mg/dL (7.8-10.44); Globulin 3.8 g/dL (2.4-3.5); Glucose 220 mg/dL (83-110); Protein, Total 7.6 g/dL (6.0-8.3); Troponin I Less than 0.010 ng/mL (< 0.028)
[2018-03-13 13:20] LABS: Bilirubin Negative (Negative); Blood, Urine Trace (Negative); Clarity CLOUDY (Clear); Glucose, Urine (Dipstick) 100 mg/dL (Negative); Leukocyte Small (Negative); Nitrite Negative (Negative); Protein, Urine (Dipstick) 100 mg/dL (Neg-Trace); Specific Gravity, Urine 1.005 (1.002-1.036); Urobilinogen 0.2 mg/dL (0.2-1.0); pH, Urine 6.5 (5.0-9.0)
[2018-03-13 13:21] LABS: Bacteria/HPF 1+ HPF (None Seen); Hyaline Casts/LPF 4-6 HYALINE CAST LPF (0-3 Hyaline); Pathc Cast-AUWi Flag 0.87 (0-2.49); WBC/HPF 21-50 HPF (0-3)
--- NOTE | 2018-03-13 13:31 | RAD ---
CHEST 1 VIEW: Date: 03/13/18 HISTORY: Chest pain. Palpitations. COMPARISON: Radiograph 01/15/18. FINDINGS: Lungs are clear. No pneumothorax or effusion. Cardiac silhouette and mediastinal contours within norm al limits. IMPRESSION: No acute intrathoracic abnormality. POS: [facility]
[2018-03-13 13:36] LABS: Yeast-All Forms 1+ HPF (None Seen)
[2018-03-13] MEDS ORDERED: Diltiazem HCl 125 MG, Admixture Fee 1 EACH in Sodium Chloride 0.9% 100 ML IVPB SCH (13:45)
[2018-03-13] MEDS ORDERED: cefTRIAXone\\ROCEPHIN 1 GM VIAL ONE (14:23)
[2018-03-13] MEDS ORDERED: hydrALAZINE 20 MG/ML VIAL SLOW IVP PRN (15:15)
[2018-03-13] MEDS ORDERED: Mag-Al 1200 mg/1200 mg/30 ML UDCUP PO PRN (15:15)
[2018-03-13] MEDS ORDERED: Calcium Carbonate 500 MG ChewTAB PO PRN (15:15)
[2018-03-13] MEDS ORDERED: Bisacodyl 5 MG TAB PO PRN ×2 (15:15)
[2018-03-13] MEDS ORDERED: traMADol HCl 50 MG TAB PO PRN (15:15)
[2018-03-13] MEDS ORDERED: Ondansetron HCl/PF 4 MG/2 ML Vial IVP PRN (15:15)
[2018-03-13] MEDS ORDERED: Benzonatate 100 MG CAP PO PRN (15:15)
[2018-03-13] MEDS ORDERED: Nitroglycerin 0.4 MG TAB (25 Tab Bottle) SL PRN (15:15)
[2018-03-13] MEDS ORDERED: Senokot 8.6 MG TAB PO PRN ×2 (15:15)
[2018-03-13] MEDS ORDERED: Diabetic Tussin 200 MG/10 ML UDCUP PO PRN (15:15)
[2018-03-13] MEDS ORDERED: Loratadine 10 MG TAB PO PRN (15:15)
[2018-03-13] MEDS ORDERED: Lorazepam 1 MG TAB PO PRN (15:15)
[2018-03-13] MEDS ORDERED: Diltiazem 125 MG in Sodium Chloride 0.9% 100 ML IVPB SCH ×2 (16:30→19:09)
[2018-03-13] MEDS ORDERED: Rivaroxaban 10 MG TAB PO SCH (16:30)
[2018-03-13] MEDS ORDERED: Dextrose 50% Abboject 50 ML SYRINGE SLOW IVP PRN (16:34)
[2018-03-13] MEDS ORDERED: Dextrose 5% in Water 1,000 ML IV PRN (16:34)
--- NOTE | 2018-03-13 17:03 | HP ---
DATE OF ADMISSION: 03/13/2018 PRIMARY CARE PHYSICIAN: Home Trevizo M.D. PRIMARY BACK TENDER: Remy Trevizo M.D. PRIMARY PATROLLER: Dr. Mora. CHIEF COMPLAINT: Palpitation. HISTORY OF PRESENT ILLNESS: Ms. Rodriguez is a 77-year-old female with known history of atrial fibril lation as well as pacemaker placement for complete heart block who presented to the emergency room wi th above-mentioned complaint. History is mainly obtained by the patient herself. Electronic medical records have been reviewed. The patient was last admitted to our facility in 12/2017 when she was f ound to have a complete heart block and received a permanent pacemaker. Echo done at that time showe d EF of 60%-65%, moderate mitral regurgitation. She was placed on Multaq as well as continued with a nd was discharged home. She returned back next month in January when she was having profuse diarrhea which she attributed to Multaq. She was taken off of Multaq and her metoprolol dose was increased fo r rate control and she was discharged. She reports that her leak inspector reduced her metoprolol back to 50 mg once a day as she was having low blood pressures. This morning, she woke up and felt weak and tired and went to nap. She was woken up from her nap, fe eling of palpitations and when she checked her heart rate with a home monitor, it was in the 130s to 140s. She called PCP and Cardiology office and was told to come to the ER. In the emergency room, heart rate was in the 100s and she was started on Cardizem drip. She was also found to have possible urinary tract infection for which she received Rocephin. Currently, she is a symptomatic and heart rate is in the 80s and she is being admitted for further workup. Her 12-lead E KG showed atrial fibrillation with RVR at 110 beats per minute. Chest x-ray was unremarkable. PAST MEDICAL HISTORY: 1. Chronic kidney disease, stage 4. 2. Permanent atrial fibrillation on chronic anticoagulation. 3. Diabetes mellitus. 4. Chronic bronchitis. 5. Home oxygen for chronic respiratory failure. 6. Hypertension. 7. Hypothyroidism. 8. Gastroesophageal reflux disease. 9. Anxiety. 10. Third degree heart block requiring pacemaker. 11. History of cervical cancer. PAST SURGICAL HISTORY: 1. Pacemaker placement, 12/2017. 2. Appendectomy. 3. Hysterectomy. SOCIAL HISTORY: She lives at home with her family and . She has no history of drug, tobacco or alcohol abuse. She is a Mu-ism and does not want any blood product transfusion. FAMILY HISTORY: No significant family history of any premature coronary artery disease. ALLERGIES: NSAIDs, AUGMENTIN, ASPIRIN, AVELOX, PREDNISONE. CURRENT MEDICATIONS: Not available to me. She does take Xarelto and metoprolol, but these further n eed to be confirmed, the doses need to be confirmed. LABORATORY DATA: CBC shows hemoglobin at 10.6, which is better than 8.9 from 01/16/2018. Serum chem istries show sodium 135, potassium 5.3, BUN 53, creatinine 3.97, blood sugar 220. CK-MB 1.4, troponi n less than 0.010. Urinalysis has plenty of squamous epithelial cells with WBCs and +1 bacteria, +4 yeast, glucosuria and proteinuria. Chest x-ray by my review has no evidence of pulmonary edema or in filtrate. Twelve lead EKG shows atrial fibrillation with RVR as HPI by my review. PHYSICAL EXAMINATION: VITAL SIGNS: Most recent heart rate 88, blood pressure upon presentation 200/161, respirations 22, t emperature 97.3, saturating 95% on room air. GENERAL: No acute distress, awake, alert, oriented x3. HEENT: Mucous membrane is moist and pink. No oropharyngeal exudate or erythema. Head is normocepha lic, atraumatic. Pupils equal, reactive to light and accommodation. Extraocular movement intact. NECK: Supple without any lymphadenopathy, JVD or bruit. CHEST: Clear to auscultation without any wheezing, rales or rhonchi. She has irregularly irregular rhythm without any significant murmurs. Pacemaker site is intact. ABDOMEN: Obese, soft, nontender, nondistended, positive bowel sounds. EXTREMITIES: Free of any cyanosis, clubbing, or edema. NEUROLOGIC: Nonfocal. SKIN: Free of any rashes or bruises. I feel warm and dry to touch. PSYCHIATRIC: Normal affect. IMPRESSION AND PLAN: 1. Recurrent rapid ventricular rate with persistent atrial fibrillation. I do not see any Cardizem hanging in her ER room at this time and her heart rate is under good control. The patient has been i ntolerant to Multaq and her blood pressure drops with increasing the dose of the metoprolol. She augustine ht be a candidate for digoxin which is; however, not ideal given her chronic kidney disease. At this time, we will consult Cardiology for further recommendations for rate control and symptomatic patien t. She will be continued on Xarelto given her high CHADS2-VASc score and we will also get a pacemake r interrogation done. She is currently hemodynamically stable. We will continue her metoprolol at h ome dosages and add Cardizem IV if necessary. 2. Uncontrolled hypertension. The patient's blood pressure is under better control for now. We bartolo l resume her home medications and add p.r.n. antihypertensives. 3. Urinary tract infection. Her urine sample is quite contaminated and it has been sent for culture for now. We will try to obtain a new urine sample which is a clean catch and start her on antibioti cs if it suggests infection. 4. Diabetes mellitus. We will continue home regimen once confirmed. We will avoid metformin. We w ill also start her on insulin sliding scale. 5. Hyperkalemia. This is secondary to chronic kidney disease. We will recheck lab in the morning. She is quite asymptomatic with this mild hyperkalemia. Her creatinine is close to her baseline. 6. Morbid obesity. 7. Hypothyroidism. 8. History of moderate to severe mitral and tricuspid valve regurgitation. 9. Code status: FULL CODE. Discussed with the patient. 10. Deep venous thrombosis and gastrointestinal prophylaxis and p.r.n. medications. DISPOSITION: Ms. Rodriguez is currently being admitted to the hospital with complaints of palpitation and atrial fibrillation with RVR. Estimated length of stay at least 2-3 midnights. Further managem ent will depend upon her clinical course.
[2018-03-13 17:08] VITALS: BMI 41.1
[2018-03-13] MEDS: Famotidine 20 MG TAB PO SCH (22:02)
[2018-03-13] MEDS: Metoprolol Tartrate 50 MG TAB PO SCH (22:03)
[2018-03-14 00:11] LABS: Bilirubin Negative (Negative); Blood, Urine Trace (Negative); Clarity CLEAR (Clear); Glucose, Urine (Dipstick) 100 mg/dL (Negative); Leukocyte Negative (Negative); Nitrite Negative (Negative); Protein, Urine (Dipstick) 300 mg/dL (Neg-Trace); Specific Gravity, Urine 1.008 (1.002-1.036); Urobilinogen 0.2 mg/dL (0.2-1.0)
[2018-03-14 00:13] LABS: Bacteria/HPF None Seen HPF (None Seen); Hyaline Casts/LPF 0-3 HYALINE CAST LPF (0-3 Hyaline); Pathc Cast-AUWi Flag 0.14 (0-2.49); RBC/HPF 0-3 HPF (0-3); Squamous Epithelial 0-3 HPF (0-3)
--- NOTE | 2018-03-14 02:11 | CON ---
DATE OF CONSULTATION: 03/13/2018 Rosa Maria Reynolds, CHERELLE, Dr. Gallardo' nurse practitioner. PRIMARY CARE PHYSICIANS: 1. Eduardo Lopez MD 2. Des Mora MD REFERRING PHYSICIAN: Dr. Urena. REASON FOR CARDIOLOGY CONSULTATION: Atrial fibrillation with rapid ventricular response. HISTORY OF PRESENT ILLNESS: Ms. Rodriguez is a 77-year-old female with a significant history of diast olic dysfunction and pacemaker placement in December 2017; insulin-dependent diabetes; hypertension; paro xysmal atrial fibrillation; and chronic kidney disease, stage 4. The patient stated that she could n ot sleep well last night and this morning around 9 o'clock, she tried to take a nap; however, she cou ld not go back to sleep. At 9:40, she had to wake up because of the worsening of palpitation and the pain to the jaw, and she started feeling nauseated and felt shakiness and felt weak to the bilateral lower extremities. When she checked her pulses with pulse ox, that showed the patient's heart rates going to almost 150s. So, the patient called the primary care doctor and Dr. Mora's office, and the patient was recommended to present to the Emergency Department. At the Emergency Department, th e patient was found to have atrial fibrillation with rapid ventricular response, and the heart rates gone up to 150s. The patient also was found to have urinary tract infection. She denies any burning or urinary retention. However, after the patient was admitted to the telemetry floor, she started h aving urgency to go to the bathroom. During those episodes at home, the patient denied chest pain or discomfort or tightness in her chest, dizziness, lightheadedness, or any other complaints. During i nitial Cardiology consult today, she denies those symptoms at this moment; however, she still continu es to have shakiness and weakness in the lower extremities. The patient underwent a pacemaker placement in 12/2017 secondary to third-degree AV block. At that t sundar, the patient was discharged with Multaq; however, she started having shakiness and felt weakness like flu-like symptom for 1 week and the symptoms improved once her Multaq was stopped. Last echocar diogram was done in 12/2017, which shows EF of 60%-65%, mildly dilated left atrium, moderate mitral v alve regurgitation, sclerotic aortic valve, and mild tricuspid regurgitation. The patient does not h ave any history of cardiac catheterization before. The patient had a stress test in 2011, which was normal without any reversible ischemia. PAST MEDICAL HISTORY: Hypertension; third-degree AV block with status post pacemaker placement in ; insulin-dependent diabetes; rheumatoid arthritis, especially to the bilateral knees; paroxysma l atrial fibrillation; chronic diastolic dysfunction; history of seizure in childhood; chronic kidney disease, stage 4 or 5; hypothyroidism; chronic bronchitis with home oxygen, 2 liters nasal cannula; gag reflex; anxiety; and history of cervical cancer. PAST SURGICAL HISTORY: 1. Pacemaker placement in December 2017. 2. Appendectomy. 3. Hysterectomy. FAMILY HISTORY: There was significant family history of diabetes in her relatives and hypertension i n maternal and paternal side. The patient's mother due to the complication of CVA. One of the patient's son has a history of WI at the age of 55. SOCIAL HISTORY: The patient is , living with . Her daughter's family living next door . She has 4 children, who are living well, but has a medical history of diabetes and myocardial infa rction. The patient denied tobacco or illicit drug abuse. She enjoys alcohol at holiday time. She walks with walker due to bilateral knee pain. ALLERGIES: She is allergic to ASPIRIN, IBUPROFEN, and MULTAQ. MEDICATIONS: For the list of antibiotics, please refer to the patient's medical record. Home medications: Levothyroxine 50 mcg once a day, probiotic once a day, Xarelto 15 mg once a day, i nsulin Levemir 26 units every day, Xopenex every 8 hours as needed, metoprolol tartrate 50 mg twice a day, clonidine 0.1 mg once a day as needed if systolic blood pressure more than 160, Lasix 120 mg on ce a day, Zofran 4 mg 3 times a day as needed, NovoLog as needed, Xanax 0.25 mg half tablet twice a d ay as needed, ranitidine 150 mg 1 tablet twice a day as needed, lisinopril 10 mg once a day, Mucinex 600 mg once a day as needed, nifedipine 60 mg once a day. REVIEW OF SYSTEMS: Negative, unless otherwise mentioned in HPI. The patient denies any blood in sto ol or urine. The patient has occasional diarrhea or constipation, usually taken care with probiotic. She uses walker at home. She has a good family support at home. PHYSICAL EXAMINATION: VITAL SIGNS: Blood pressure 138/84; pulse is 80-100, atrial flutter; temperature 96.9; respiratory r ate 16; O2 sat 98% with 3 liters nasal cannula. GENERAL: The patient is alert, oriented x4, not in acute distress. HEAD: Normocephalic, atraumatic. EYES: Extraocular muscle movements are intact. Wears glasses. ENT AND MOUTH: Oral and nasal mucosa moist and without lesion. LUNGS: Clear to auscultation bilaterally, but diminished at the left side. CARDIOVASCULAR: Irregularly irregular. No murmur, hives, or thrill noted. Carotid pulses are prese nt without bruit or thrill. Did have 1 to 2+ pitting edema in the lower extremities. Pulse is prese nt in bilateral lower extremities. ABDOMEN: Nontender. No masses are palpated in the abdomen and bowel sounds are present. MUSCULOSKELETAL: The patient is able to move all extremities. The patient denied any claudication o n the lower extremities. SKIN: No lesions, erythema, or bruise noted. Warm and dry to touch. NEUROLOGIC: The patient alert, oriented x4, nonfocal. LABORATORY DATA: WBC 8.6, hemoglobin 10.6, hematocrit 32.9, platelets 343. Chemistry: Sodium 135, potassium 5.3, BUN 53, creatinine 3.97, glucose 220, AST 19, ALT 12. Troponin is less than 0.010. C K-MB is 1.4. IMAGING: Chest x-ray shows no acute intrathoracic abnormalities. ASSESSMENT AND PLAN: 1. Atrial fibrillation with rapid ventricular response. The patient is asymptomatic at this moment with diltiazem 2.5 mg per hour. We would like to increase to 5 mg per hour to control the patient's heart rate. We would like to continue to monitor the patient's vital signs at this moment. The shauna ent is on Xarelto 15 mg once a day. If possible, I would like to resume metoprolol for this patient. 2. History of urinary tract infection. The patient is on Rocephin antibiotic, which is managed by [facility] doctor. 3. Hypertension. Blood pressure is stable at this moment with current medication. We would like to continue. 4. History of pacemaker placement. According to Dr. Mora's note, atrial therapy is supposed ___ __ next office visit. We would like to request pacemaker interrogation and atrial therapy management by the [facility] [facility]. 5. Chronic diastolic heart failure. The patient's condition is stable at this moment. We would lik e to continue to monitor. At this moment, the patient is not on IRMA inhibitor or ARB due to worsenin g of kidney function. The patient is not on diuretic at this moment. We would like to resume those medicine as appropriate. 6. Chronic kidney disease. The patient's kidney function has worsened when compared from 12/2017. The patient might need Nephrology consult. The patient's primary glove turner and former is Dr. Trevizo. 7. Insulin-dependent diabetes. The patient is on before meals and at bedtime blood glucose check wi sliding scale insulin, which is managed by primary care doctor. 8. Hypothyroidism. The patient's TSH in 12/2017 was 6.6874. Since then, she has not had any thyroi d checked. At this moment, the patient is not on thyroid medication. I would like to recheck the binu hernández's thyroid function. At home, she is supposed to be on levothyroxine 50 mcg, which I would like to resume, and I would like to recheck the patient's TSH tomorrow. Thank you very much for Cardiology consult. Dr. Mora will follow this patient from tomorrow.
[2018-03-14 05:41] LABS: #Basophils 0.1 thou/uL (0.0-0.2); #Eosinphils 0.2 thou/uL (0.0-0.7); #Lymphocytes 1.8 thou/uL (1.20-3.40); #Monocytes 0.6 thou/uL (0.11-0.59); %Eosinophils 3.5 % (0.0-10.0); %Lymphocytes 26.8 % (21.0-51.0); %Monocytes 9.1 % (0.0-10.0); %Neutrophils 59.7 % (42.0-75.0); Hemoglobin 9.4 g/dL (12.0-16.0); Mean Corpuscular HGB CONC 33.1 g/dL (32.0-36.0); Mean Corpuscular Hemoglobin 29.3 pg (27.0-31.0); Mean Corpuscular Volume 88.4 fL (78.0-98.0); Mean Platelet Volume 7.9 fL (7.4-10.4); Platelet Count 292 thou/uL (130-400); RBC Distribution Width 12.4 % (11.5-14.5); White Blood Cell (WBC) Count 6.7 thou/uL (4.8-10.8)
[2018-03-14 05:54] LABS: Anion Gap 15 mmol/L (10-20); BUN (Urea Nitrogen) 49 mg/dL (9.8-20.1); Calc. Creatinine Clearance 25 mL/min (70-130); Calcium 8.4 mg/dL (7.8-10.44); Carbon Dioxide 19 mmol/L (23-31); Chloride 110 mmol/L (98-107); Estimated GFR-MDRD 13; Glucose 163 mg/dL (83-110); Potassium 4.8 mmol/L (3.5-5.1); Sodium 139 mmol/L (136-145)
[2018-03-14] MEDS ORDERED: Levothyroxine Sodium 50 MCG TAB PO SCH (06:00)
[2018-03-14] MEDS: cloNIDine 0.1 MG TAB PO PRN (06:11)
--- NOTE | 2018-03-14 08:20 | ADD-CON ---
ADDENDUM: Please refer to the notes already dictated by the nurse practitioner, Rosa Maria Reynolds. DATE OF ADMISSION: 03/13/2018 DATE OF CONSULTATION: 03/13/2018 INDICATION FOR CONSULTATION: A 77-year-old female with atrial fibrillation with rapid ventricular re sponse. A very pleasant 77-year-old female who recently underwent pacemaker insertion due to a third -degree AV heart block. She has had a history of intermittent atrial fibrillation in the past. She had been tried on Multaq, had severe diarrhea. She also has a history of stage 4 kidney disease and has been followed by Dr. Remy Trevizo. She was at home yesterday and noticed that she was not feel ing very well and started having increasing heart rates. She presented to the emergency room and was noted to be in atrial fibrillation with rapid ventricular response. Since being admitted to the [facility], she has been placed on IV diltiazem and the heart rate is under slightly better control, but i s ranging between 110s to 130s. She denied any chest pain. She did have some shortness of breath, b ut does have a history of underlying COPD or asthma for which she uses oxygen at home. Perhaps, she has some history of chronic bronchitis. Unfortunately, per this lady, she feels very badly when she has a rapid heart rate and she also has a history of diastolic dysfunction, making it somewhat more d ifficult for her to tolerate the rapid heart rates. She also has multiple other medical problems inc luding diabetes and hypertension. It is difficult for antiarrhythmic medications for this lady due t o her severe stage 4 and 5 renal disease and she is unable to tolerate the Multaq. She also has COPD with coughing and chronic bronchitis, which may also make some choice of medication difficult and sh e may not be able tolerate amiodarone either and this leaves us very few choices as far as antiarrhyt ic medications to this lady. She may need to be seen by the podiatrist orthopedic as possible, she m ay need to undergo an AVJ ablation if we cannot find medications to control her atrial fibrillation. At this time, she denies any chest pain. She is feeling better. She has been sitting up. She answ ers all questions appropriately and otherwise is doing relatively well. PHYSICAL EXAMINATION: VITAL SIGNS: Reveals heart rates in the one teens to 130s at this time. Her blood pressure 134/84. She is afebrile, respiratory rate is about 16. HEENT: Unremarkable. She has well-healed surgical incision over the left infraclavicular area from pacemaker insertion. CHEST: She did have some slight wheezing on the left mid lung montgomery until she coughed and then it a ppeared to have resolved. CARDIOVASCULAR: Reveals an irregular rapid heart rate. She has not had any significant murmurs. ABDOMEN: Soft and nontender. Positive bowel sounds are present. EXTREMITIES: Showed no clubbing or cyanosis. She had minimal lower extremity edema. NEUROLOGIC: The patient appears to be fully intact. LABORATORY AND DIAGNOSTIC DATA: For her laboratory data, please refer to the notes already dictated. Her EKG on admission did show atrial fibrillation with rapid ventricular response, but no significa nt EKG changes to indicate ischemia. IMPRESSION: Atrial fibrillation with rapid ventricular response in this lady with multiple medical p roblems and she is intolerant of multiple medications due to her renal problems and also cannot take Multaq due to the diarrhea. We will see if we can control the heart rate with diltiazem. Further ca re of the patient will be by Dr. Mora when he visits with the patient tomorrow. He may opt to st art her on amiodarone, asked podiatrist orthopedic to evaluate her for possible ablation of atrial fibr illation or eventually she may need to undergo an AVJ ablation. For her other assessment and plan fo r her hypertension, diabetes, diastolic dysfunction, please refer to the notes that already dictated and this will be dealt with by the primary service or by Dr. Mora when he visits with the patient tomorrow. At this time, she appears to be stable and the heart rate is under somewhat better contro l with the IV diltiazem. Her blood pressure also remains stable.
[2018-03-14] MEDS ORDERED: Rivaroxaban 15 MG TAB PO SCH ×2 (09:00→12:00)
[2018-03-14] MEDS ORDERED: Levalbuterol HCl 0.63 MG/3 ML NEB NEB PRN (09:18)
[2018-03-14] MEDS ORDERED: Furosemide 40 MG TAB PO SCH ×2 (09:18→10:15)
[2018-03-14] MEDS ORDERED: INSULIN DETEMIR SQ SCH (09:18)
[2018-03-14] MEDS ORDERED: Diphenoxylate HCl/Atropine Tablet PO PRN (09:18)
[2018-03-14] MEDS: Metoprolol Tartrate 50 MG TAB PO SCH ×2 (09:41→21:31)
[2018-03-14] MEDS ORDERED: Insulin Glargine 26 UNITS in Pre-Filled Syringe 1 EACH SC SCH (10:15)
[2018-03-14] MEDS: cefTRIAXone\\ROCEPHIN 1 GM in Sodium Chloride 0.9% 100 ML IVPB SCH (15:03)
--- NOTE | 2018-03-14 15:26 | PDOC.PN ---
- Subjective Encounter Start Date: 03/14/18 Encounter Start Time: 15:24 Subjective: feels well. no palpitations but BP,HR go up when she moves -: no CP/SOB - Objective Resuscitation Status: Resuscitation Status FULL:Full Resuscitation MAR Reviewed: Yes Vital Signs & Weight: Vital Signs (12 hours) Temp Pulse Resp BP BP Pulse Ox 03/14/18 12:00 98.1 F 66 18 132/59 L 98 03/14/18 08:00 97.8 F 60 18 154/65 H 96 03/14/18 06:11 202/80 H 03/14/18 04:20 97.7 F 61 17 182/72 H 96 Weight Weight 244 lb I&O: 03/13/18 03/14/18 03/15/18 06:59 06:59 06:59 Intake Total 810 Output Total 700 Balance 110 Result Diagrams: 03/14/18 05:00 03/14/18 05:00 Additional Labs: Accuchecks 03/14/18 03/13/18 06:41 17:22 POC Glucose 167 H 152 H Microbiology 03/13/18 12:05 Urine voided Urine Culture - Preliminary Phys Exam - Physical Examination Constitutional: NAD HEENT: PERRLA, moist MMs, sclera anicteric, oral pharynx no lesions Neck: no nodes, no JVD, supple, full ROM Respiratory: no wheezing, no rales, no rhonchi, clear to auscultation bilateral Cardiovascular: no significant murmur, no rub, irregular Gastrointestinal: soft, non-tender, no distention, positive bowel sounds Musculoskeletal: no edema, pulses present Neurological: non-focal, normal sensation, moves all 4 limbs Psychiatric: normal affect, A&O x 3 Skin: no rash Dx/Plan (1) Chronic atrial fibrillation with RVR Code(s): I48.2 - CHRONIC ATRIAL FIBRILLATION Status: Acute Comment: Chronic Anticoag with xarelto (2) Hypertensive urgency Code(s): I16.0 - HYPERTENSIVE URGENCY Status: Acute (3) UTI (urinary tract infection) Status: Suspected (4) Hyperkalemia Code(s): E87.5 - HYPERKALEMIA Status: Resolved (5) Anemia, normocytic normochromic Code(s): D64.9 - ANEMIA, UNSPECIFIED Status: Chronic (6) Anxiety and depression Code(s): F41.9 - ANXIETY DISORDER, UNSPECIFIED; F32.9 - MAJOR DEPRESSIVE DISORDER, SINGLE EPISODE, UNSPECIFIED Status: Chronic (7) CKD (chronic kidney disease) stage 4, GFR 15-29 ml/min Code(s): N18.4 - CHRONIC KIDNEY DISEASE, STAGE 4 (SEVERE) Status: Chronic Comment: stable (8) Chronic anticoagulation Code(s): Z79.01 - USP (CURRENT) USE OF 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 Status: Chronic Comment: interrupted for pacemaker placement, clarify with cardiology re: resuming (9) Chronic respiratory failure with hypoxia Code(s): J96.11 - CHRONIC RESPIRATORY FAILURE WITH HYPOXIA Status: Chronic (10) DM type 2 (diabetes mellitus, type 2) Status: Chronic Comment: on accuchecks, insulin sliding scale. Well controlled. (11) HTN (hypertension) Code(s): I10 - ESSENTIAL (PRIMARY) HYPERTENSION Status: Chronic Qualifiers: Comment: Zestril, Lopressor, Procardia, Hydralazine (12) Hypothyroidism Code(s): E03.9 - HYPOTHYROIDISM, UNSPECIFIED Status: Chronic Qualifiers: Comment: continue synthroid (13) Moderate mitral regurgitation by prior echocardiogram Code(s): I34.0 - NONRHEUMATIC MITRAL (VALVE) INSUFFICIENCY Status: Chronic (14) Moderate tricuspid regurgitation by prior echocardiogram Code(s): I07.1 - RHEUMATIC TRICUSPID INSUFFICIENCY Status: Chronic (15) Morbid obesity with BMI of 40.0-44.9, adult Code(s): E66.01 - MORBID (SEVERE) OBESITY DUE TO EXCESS CALORIES; Z68.41 - BODY MASS INDEX (BMI) 40.0-44.9, ADULT Status: Chronic (16) Pulmonary hypertension Code(s): I27.2 - OTHER SECONDARY PULMONARY HYPERTENSION * DO NOT USE * Status : Chronic - Plan plan discussed w/ family, continue antibiotics, PT/OT, out of bed/ambulate, DVT proph w/SCDs Cont Cardiazem drip for now as HR and BP shoot up periodically -: metoprolol increased to BID. -: cardio to see regarding ablation etc.Pt intolerant to multiple antiarrythmi -: cont empric ABx. follow Urine Cx -: home meds as below. * .Consult nephrology per Pt request. Renal Fx at baseline w/o worsening * * am labs Review of Systems - Review of Systems Constitutional: negative: fever, chills, sweats, weakness, malaise, other ENT: negative: Ear Pain, Ear Discharge, Nose Pain, Nose Discharge, Nose Congestion, Mouth Pain, Mouth Swelling, Throat Pain, Throat Swelling, Other Respiratory: negative: Cough, Dry, Shortness of Breath, Hemoptysis, SOB with Excertion, Pleuritic Pain, Sputum, Wheezing Cardiovascular: negative: chest pain, palpitations, orthopnea, paroxysmal nocturnal dyspnea, edema, light headedness, other Gastrointestinal: negative: Nausea, Vomiting, Abdominal Pain, Diarrhea, Constipation, Melena, Hematochezia, Other Genitourinary: negative: Dysuria, Frequency, Incontinence, Hematuria, Retention , Other Musculoskeletal: negative: Neck Pain, Shoulder Pain, Arm Pain, Back Pain, Hand Pain, Leg Pain, Foot Pain, Other Neurological: negative: Weakness, Numbness, Incoordination, Change in Speech, Confusion, Seizures, Other - Medications/Allergies Allergies/Adverse Reactions: Allergies Allergy/AdvReac Type Severity Reaction Status Date / Time NSAIDS (Non-Steroidal Allergy Verified 01/04/18 01:18 Anti-Inflamma amoxicillin trihydrate AdvReac Severe Diarrhea Verified 01/04/18 01:18 [From Augmentin] potassium clavulanate AdvReac Severe Diarrhea Verified 01/04/18 01:18 [From Augmentin] aspirin AdvReac HEART Verified 01/04/18 01:18 RACING moxifloxacin HCl AdvReac heart Verified 01/04/18 01:18 [From Avelox] racing prednisone AdvReac psychotic Verified 01/04/18 01:18 issue Medications: Current Medications Acetaminophen (Tylenol) 650 mg PO Q4H PRN PRN Reason: Headache/Fever or Pain Acidophilus (Floranex) 1 tab PO DAILY JADE Al Hydroxide/Mg Hydroxide (Maalox) 30 ml PO Q6H PRN PRN Reason: Heartburn or Indigestion Benzonatate (Tessalon) 100 mg PO Q4H PRN PRN Reason: Cough Bisacodyl (Dulcolax) 10 mg PO DAILYPRN PRN PRN Reason: Constipation Calcium Carbonate (Tums) 1,000 mg PO Q4H PRN PRN Reason: Heartburn or Indigestion Clonidine (Catapres) 0.1 mg PO Q4H PRN PRN Reason: Systolic BP > 160 Last Admin: 03/14/18 06:11 Dose: 0.1 mg Dextrose/Water (Dextrose 50%) 25 gm SLOW IVP PRN PRN PRN Reason: Hypoglycemia Diphenoxylate HCl/Atropine (Lomotil) 1 tab PO Q8HR PRN PRN Reason: Diarrhea/Loose Stools Famotidine (Pepcid) 20 mg PO 2100 JADE Last Admin: 03/13/18 22:02 Dose: 20 mg Furosemide (Lasix) 40 mg PO DAILY [facility] Glucagon (Glucagon) 1 mg IM PRN PRN PRN Reason: Hypoglycemia Guaifenesin (Robitussin Sf) 200 mg PO Q4H PRN PRN Reason: Cough Hydralazine HCl (Apresoline) 10 mg SLOW IVP Q4H PRN PRN Reason: Systolic BP > 170 Ceftriaxone Sodium 1 gm/ (Sodium Chloride) 100 mls @ 200 mls/hr IVPB 1400 JADE Last Admin: 03/14/18 15:03 Dose: 100 mls Dextrose/Water (D5w) 1,000 mls @ 0 mls/hr IV .Q0M PRN PRN Reason: Hypoglycemia Diltiazem HCl 125 mg/ Sodium (Chloride) 125 mls @ 5 mls/hr IVPB INF JADE; Protocol Insulin Glargine 26 units/ (Miscellaneous Medication) 0.26 mls @ 0 mls/hr SC DAILY [facility] Insulin Human Lispro (Humalog) 0 units SC .MODERATE SLIDING SC PRN PRN Reason: Moderate Correctional Scale Insulin Human Lispro (Humalog) 0 units SC .BEDTIME SLIDING SC PRN PRN Reason: Bedtime Correctional Scale Levalbuterol HCl (Xopenex) 0.63 mg NEB Q8H PRN PRN Reason: SOB &/or Wheezing Levothyroxine Sodium (Synthroid) 50 mcg PO 0600 [facility] Loratadine (Claritin) 10 mg PO DAILYPRN PRN PRN Reason: Sinus Symptoms Lorazepam (Ativan) 1 mg PO Q4H PRN PRN Reason: Anxiety/Agitation Metoprolol Tartrate (Lopressor) 50 mg PO BID [facility] Last Admin: 03/14/18 09:41 Dose: 50 mg Nitroglycerin (Nitrostat) 0.4 mg SL Q5MIN PRN PRN Reason: Chest Pain Ondansetron HCl (Zofran) 4 mg IVP Q6H PRN PRN Reason: Nausea/Vomiting Rivaroxaban (Xarelto) 15 mg PO DAILY [facility] Senna (Senokot) 2 tab PO HSPRN PRN PRN Reason: Constipation Sodium Chloride (Flush - Normal Saline) 10 ml IVF Q12HR [facility] Last Admin: 03/14/18 09:40 Dose: Not Given Sodium Chloride (Flush - Normal Saline) 10 ml IVF PRN PRN PRN Reason: Saline Flush Tramadol HCl (Ultram) 50 mg PO Q4H PRN PRN Reason: Moderate Pain (4-6)
[2018-03-14] MEDS ORDERED: Metoprolol Tartrate 50 MG TAB PO SCH (21:00)
[2018-03-14] MEDS: Famotidine 20 MG TAB PO SCH (21:31)
[2018-03-14] MEDS: HumaLOG 300 UNITS/3 ML VIAL SC PRN (21:32)
[2018-03-14] MEDS: Acetaminophen 325 MG TAB PO PRN (21:44)
[2018-03-15] MEDS: Levothyroxine Sodium 50 MCG TAB PO SCH (05:51)
[2018-03-15 06:10] LABS: Anion Gap 15 mmol/L (10-20); BUN (Urea Nitrogen) 48 mg/dL (9.8-20.1); Calc. Creatinine Clearance 22 mL/min (70-130); Calcium 8.4 mg/dL (7.8-10.44); Carbon Dioxide 19 mmol/L (23-31); Chloride 108 mmol/L (98-107); Estimated GFR-MDRD 12; Glucose 178 mg/dL (83-110); Potassium 4.6 mmol/L (3.5-5.1); Sodium 137 mmol/L (136-145)
[2018-03-15] MEDS: Furosemide 40 MG TAB PO SCH (08:48)
[2018-03-15] MEDS: Insulin Glargine 26 UNITS in Pre-Filled Syringe 1 EACH SC SCH (08:49)
[2018-03-15] MEDS: Lactinex Tablet PO SCH (08:49)
[2018-03-15] MEDS: Metoprolol Tartrate 50 MG TAB PO SCH ×2 (08:49→20:58)
[2018-03-15] MEDS: Rivaroxaban 15 MG TAB PO SCH (08:49)
[2018-03-15] MEDS: HumaLOG 300 UNITS/3 ML VIAL SC PRN ×2 (12:43→20:59)
--- NOTE | 2018-03-15 14:45 | PRG ---
DATE OF SERVICE: 03/15/2018 SUBJECTIVE: Ms. Rodriguez is doing well. Her heart rate, after reviewing her telemetry monitoring, h as been stable. It has been in the 60s and 70s. She has had intermittent pacing. She has not had a ny episodes in the 120s to 130s. Blood pressure also appears stable in the 150s. OBJECTIVE: VITAL SIGNS: Blood pressure 155/67, pulse 61, temperature 97.5. LUNGS: Clear to auscultation. CARDIAC: Regular rate and rhythm. ABDOMEN: Soft, nontender, nondistended. EXTREMITIES: No edema. PERTINENT LABORATORY DATA: Hemoglobin 9.4, creatinine 3.76. CURRENT CARDIAC MEDICATIONS: Include clonidine p.r.n., metoprolol 50 b.i.d., Xarelto 15 daily. IMPRESSION: 1. Atrial fibrillation with rapid ventricular response. 2. Status post pacemaker. 3. Hypotension. RECOMMENDATIONS: Ms. Rodriguez' heart rate appears to be stable. Her blood pressure also stabilized. Certainly, I have room to either add a calcium channel radha or increase her beta radha. At th is point, she has been seen and evaluated over the last 2 days with the stable heart rate. From my s tandpoint, it would be okay for discharge with close outpatient followup.
[2018-03-15] MEDS: cefTRIAXone\\ROCEPHIN 1 GM in Sodium Chloride 0.9% 100 ML IVPB SCH (14:51)
[2018-03-15] MEDS ORDERED: Labetalol HCl 100 MG/20 ML VIAL SLOW IVP PRN (15:40)
[2018-03-15] MEDS: cloNIDine 0.1 MG TAB PO PRN (15:55)
[2018-03-15] MEDS: Acetaminophen 325 MG TAB PO PRN (20:59)
[2018-03-15] MEDS: Famotidine 20 MG TAB PO SCH (20:59)
[2018-03-16] MEDS: Levothyroxine Sodium 50 MCG TAB PO SCH (05:16)
--- NOTE | 2018-03-16 08:56 | PDOC.CTH ---
<Angi Trujillo - Last Filed: 03/16/18 08:55> Cardiology Progress Note - Subjective Patient with c/o feeling shaky with HTN. No CP, palpitaitons. - Objective Vital Signs Temp Pulse Resp BP Pulse Ox 03/16/18 08:00 96.6 F L 63 20 200/81 H 98 03/16/18 05:22 97 03/16/18 04:00 97.5 F L 67 16 148/65 H 97 Weight 243 lb 03/15/18 03/16/18 03/17/18 06:59 06:59 06:59 Intake Total 1320 460 Output Total 1620 950 Balance -300 -490 - Physical Examination General/Neuro: alert & oriented x3 Neck: no JVD present Lungs: CTA Heart: RRR Abdomen: NT/ND Extremities: other: (mild edema) - Telemetry Telemetry Rhythm: SR - Labs Result Diagrams: 03/14/18 05:00 03/15/18 05:40 Troponin/CKMB CK-MB (CK-2) 1.4 ng/mL (0-6.6) 03/13/18 11:53 Troponin I Less than 0.010 ng/mL (< 0.028) 03/13/18 11:53 - Assessment/Plan 1. Paroxysmal AF 2. s/p pacemaker 3. CKD-5 4. HTN Stable from rhythm standpoint. Will add nifedipine back for BP control. Continue to monitor. Home when BP stable. <Moustapha Baird - Last Filed: 03/16/18 14:03> Cardiology Progress Note - Objective Vital Signs Temp Pulse Resp BP Pulse Ox 03/16/18 12:00 96.6 F L 64 18 172/75 H 98 03/16/18 08:00 96.6 F L 63 20 200/81 H 98 03/16/18 05:22 97 03/16/18 04:00 97.5 F L 67 16 148/65 H 97 Weight 243 lb 03/15/18 03/16/18 03/17/18 06:59 06:59 06:59 Intake Total 1320 460 Output Total 1620 950 250 Balance -300 -490 -250 - Labs Result Diagrams: 03/14/18 05:00 03/15/18 05:40 Troponin/CKMB CK-MB (CK-2) 1.4 ng/mL (0-6.6) 03/13/18 11:53 Troponin I Less than 0.010 ng/mL (< 0.028) 03/13/18 11:53 - Assessment/Plan Pt seen and examined. Agree with above. Change metoprolol to coreg Added nifedepine Avoid ARB, ACEI secondary to renal function Consider adding hydralazine and increasing coreg
[2018-03-16] MEDS ORDERED: NIFEdipine XL 30 MG TAB PO SCH (09:00)
[2018-03-16] MEDS: Insulin Glargine 26 UNITS in Pre-Filled Syringe 1 EACH SC SCH (09:01)
[2018-03-16] MEDS: Rivaroxaban 15 MG TAB PO SCH (09:01)
[2018-03-16] MEDS: Metoprolol Tartrate 50 MG TAB PO SCH (09:01)
[2018-03-16] MEDS: cloNIDine 0.1 MG TAB PO PRN (09:01)
[2018-03-16] MEDS: Furosemide 40 MG TAB PO SCH (09:01)
[2018-03-16] MEDS: Acetaminophen 325 MG TAB PO PRN (09:06)
[2018-03-16] MEDS: Lactinex Tablet PO SCH (11:06)
[2018-03-16] MEDS: HumaLOG 300 UNITS/3 ML VIAL SC PRN ×3 (12:32→21:09)
[2018-03-16] MEDS: cefTRIAXone\\ROCEPHIN 1 GM in Sodium Chloride 0.9% 100 ML IVPB SCH ×2 (17:06→17:10)
[2018-03-16] MEDS: Carvedilol 6.25 MG TAB PO SCH ×2 (17:10→21:03)
--- NOTE | 2018-03-16 17:59 | EKG ---
Test Reason : Blood Pressure : / mmHG Vent. Rate : 110 BPM Atrial Rate : 110 BPM P-R Int : 000 ms QRS Dur : 088 ms QT Int : 298 ms P-R-T Axes : 000 045 015 degrees QTc Int : 403 ms Atrial fibrillation with rapid ventricular response Nonspecific ST abnormality , probably digitalis effect Abnormal ECG Confirmed by ELLIE GAN, SALLIE ([id number]), continuity editor SAURABH ISSA ([id number]) on 03/16/2018 5:59:37 PM Referred By: Confirmed By:SALLIE ARGUETA MD
[2018-03-16] MEDS ORDERED: ALPRAZolam 0.25 MG TAB PO PRN (20:31)
[2018-03-16] MEDS: Famotidine 20 MG TAB PO SCH (21:06)
[2018-03-17] MEDS: Levothyroxine Sodium 50 MCG TAB PO SCH (05:00)
[2018-03-17] MEDS ORDERED: NIFEdipine XL 60 MG TAB PO SCH (09:00)
[2018-03-17] MEDS: Carvedilol 6.25 MG TAB PO SCH ×2 (09:23→15:32)
[2018-03-17] MEDS: hydrALAZINE 10 MG TAB PO SCH ×3 (09:24→17:41)
[2018-03-17] MEDS: Furosemide 40 MG TAB PO SCH (09:24)
[2018-03-17] MEDS: Rivaroxaban 15 MG TAB PO SCH (09:25)
[2018-03-17] MEDS: Lactinex Tablet PO SCH (09:26)
[2018-03-17] MEDS: Insulin Glargine 26 UNITS in Pre-Filled Syringe 1 EACH SC SCH (09:26)
--- NOTE | 2018-03-17 10:21 | PDOC.CTH ---
Cardiology Progress Note - Subjective Patient feeling much better today. Given Xanax and rested well. BP stable overnight. - Objective Vital Signs Temp Pulse Resp BP BP Pulse Ox 03/17/18 07:13 97.8 F 61 18 134/58 L 99 03/17/18 05:36 98 03/17/18 04:00 98.1 F 61 14 130/62 98 03/17/18 00:00 97.7 F 70 16 152/66 H 99 Weight 242 lb 8 oz 03/16/18 03/17/18 03/18/18 06:59 06:59 06:59 Intake Total 460 100 Output Total 950 250 Balance -490 -150 - Physical Examination General/Neuro: alert & oriented x3 Neck: no JVD present Lungs: CTA Heart: RRR Abdomen: NT/ND - Telemetry Telemetry Rhythm: SR - Labs Result Diagrams: 03/14/18 05:00 03/15/18 05:40 Troponin/CKMB CK-MB (CK-2) 1.4 ng/mL (0-6.6) 03/13/18 11:53 Troponin I Less than 0.010 ng/mL (< 0.028) 03/13/18 11:53 - Assessment/Plan 1. Paroxysmal AF 2. s/p pacemaker 3. CKD-5 4. HTN 5. Anxiety BP stable. Some of flucuation may be due to anxiety. Stable for discharge. Patient anxious about going home due to worried about BP. Advised her to get out of bed, walk petersen and will continue to monitor BP this morning. If remains stable, discharge this afternoon.
[2018-03-17] MEDS: HumaLOG 300 UNITS/3 ML VIAL SC PRN (11:17)
[2018-03-17] MEDS: cefTRIAXone\\ROCEPHIN 1 GM in Sodium Chloride 0.9% 100 ML IVPB SCH (13:42)
[2018-03-17 15:31] VITALS: TEMP 97.6
[2018-03-17 16:23] LABS: Anion Gap 16 mmol/L (10-20); BUN (Urea Nitrogen) 45 mg/dL (9.8-20.1); Calc. Creatinine Clearance 22 mL/min (70-130); Calcium 8.3 mg/dL (7.8-10.44); Carbon Dioxide 20 mmol/L (23-31); Chloride 106 mmol/L (98-107); Estimated GFR-MDRD 11; Glucose 143 mg/dL (83-110); Potassium 4.6 mmol/L (3.5-5.1); Sodium 137 mmol/L (136-145)
[2018-03-17 17:42] VITALS: BP 148/68
== END 2018-03-17 18:34 | disposition home health service (06) | DRG 309 ==
LOC: ERS 11:40 → ERHOLD 14:30 → 2NO 17:04
PROVIDERS: ADMIT Internal Medicine; ATTEND Internal Medicine
DX: I48.0 Paroxysmal atrial fibrillation (principal); I12.0 Hypertensive chronic kidney disease with stage 5 chronic kidney disease or end stage renal disease; N18.5 Chronic kidney disease, stage 5; N39.0 Urinary tract infection, site not specified; J96.11 Chronic respiratory failure with hypoxia; Z68.41 Body mass index [BMI] 40.0-44.9, adult; Z95.0 Presence of cardiac pacemaker; F41.9 Anxiety disorder, unspecified; I95.9 Hypotension, unspecified; D64.9 Anemia, unspecified; E87.5 Hyperkalemia; F32.9 Major depressive disorder, single episode, unspecified; Z79.01 Long term (current) use of anticoagulants; E11.22 Type 2 diabetes mellitus with diabetic chronic kidney disease; E03.9 Hypothyroidism, unspecified; I08.1 Rheumatic disorders of both mitral and tricuspid valves; E66.01 Morbid (severe) obesity due to excess calories; I27.20 Pulmonary hypertension, unspecified; Z79.4 Long term (current) use of insulin; Z99.81 Dependence on supplemental oxygen; J42 Unspecified chronic bronchitis; Z85.41 Personal history of malignant neoplasm of cervix uteri
CPT/HCPCS: 36415; 36416; 71045; 80048; 80053; 81003; 81015; 82553; 84443; 84484; 85025; 87086; 93005; 94760; 96365; 96375; A4216; J0696; J7050; J7614

== ENCOUNTER 2018-08-08 05:49 | Day surgery (SDC) | payer MEDICARE, OTHER ==
[2018-08-07 12:48] VITALS: BMI 39.4
--- NOTE | 2018-08-08 10:18 | OP ---
DATE OF PROCEDURE: 08/08/2018 PREOPERATIVE DIAGNOSES: 1. Hematochezia. 2. Iron-deficiency anemia. 3. History of peptic ulcer disease. DESCRIPTION OF PROCEDURE: After informed consent was obtained, the patient was placed in the left lateral decubitus position. Anesthesia was administered per the Anesthesia Department. Forward-viewing endoscope was inserted into the esophagus under direct visualization with ease and passed to the second portion of the duodenum with ease. Second portion of duodenum and duodenal bulb were normal. Random biopsies were taken from the second portion of the duodenum. The pylorus, antrum, body, fundus, and cardia were normal. Retroflexion in the stomach was normal. The esophagus was normal throughout. ASSESSMENT: Normal esophagogastroduodenoscopy. RECOMMENDATIONS: 1. Await histopathology. 2. Proceed with colonoscopy. DESCRIPTION OF PROCEDURE: After informed consent was obtained she was placed in the left lateral decubitus position. Anesthesia was administered per the Anesthesia Department. Forward-viewing endoscope was inserted into the rectum after perianal inspection and rectal exam were normal and passed to the cecum and into the ileum with ease. The prep was good. The ascending, transverse, descending, sigmoid, and rectum were all normal except for left-sided diverticulosis coli. Retroflexion in the rectum showed small internal hemorrhoids. The terminal ileum was normal. ASSESSMENT: 1. Left-sided diverticulosis coli. 2. Small internal hemorrhoids. 3. Otherwise, normal ileocolonoscopy. RECOMMENDATIONS: Small-bowel capsule endoscopy, on blood thinners. Job ID: [id number]
[2018-08-08] MEDS ORDERED: PROPOFOL 200 MG/20 ML VIAL ONE (13:22)
== END 2018-08-08 10:54 | disposition home or self-care (01) ==
LOC: SDC 05:49
PROVIDERS: ATTEND Internal Medicine Gastroenterology
PROC: 0DB98ZX Excision of Duodenum, Via Natural or Artificial Opening Endoscopic, Diagnostic (ICD-10-PCS; principal; 2018-08-08)
PROC: 0DJD8ZZ Inspection of Lower Intestinal Tract, Via Natural or Artificial Opening Endoscopic (ICD-10-PCS; 2018-08-08)
DX: K57.31 Diverticulosis of large intestine without perforation or abscess with bleeding (principal); D50.9 Iron deficiency anemia, unspecified; K64.8 Other hemorrhoids; Z88.0 Allergy status to penicillin; Z88.6 Allergy status to analgesic agent; Z88.8 Allergy status to other drugs, medicaments and biological substances; Z79.4 Long term (current) use of insulin; Z79.899 Other long term (current) drug therapy
CPT/HCPCS: 36416; 88305; J2704

== ENCOUNTER 2019-02-18 08:43 | Inpatient (IN) | payer MEDICARE, OTHER ==
[2019-02-18 09:31] LABS: #Eosinphils 0.3 thou/uL (0.0-0.7); #Lymphocytes 2.4 thou/uL (1.20-3.40); #Monocytes 0.7 thou/uL (0.11-0.59); #Neutrophils 5.4 thou/uL (1.40-6.50); %Basophils 0.4 % (0.0-1.0); %Eosinophils 3.8 % (0.0-10.0); %Lymphocytes 27.3 % (21.0-51.0); %Monocytes 7.6 % (0.0-10.0); %Neutrophils 60.8 % (42.0-75.0); Hemoglobin 10.3 g/dL (12.0-16.0); Mean Corpuscular HGB CONC 33.3 g/dL (32.0-36.0); Mean Corpuscular Hemoglobin 30.5 pg (27.0-31.0); Mean Corpuscular Volume 91.8 fL (78.0-98.0); Mean Platelet Volume 7.2 fL (7.4-10.4); Platelet Count 339 thou/uL (130-400); RBC Distribution Width 11.7 % (11.5-14.5); Red Blood Cell (RBC) Count 3.38 mill/uL (4.20-5.40)
--- NOTE | 2019-02-18 09:50 | RAD ---
PORTABLE CHEST 1 VIEW: Date: 02/18/19 Time: 0930 hours HISTORY: Dysuria. FINDINGS: Comparison made with exam of 03/13/18. Left-sided pacemaker device remains in place. The heart size is normal. There is continued elevation of the right hemidiaphragm. No focal areas of consolidation, pneumothoraces, or pleural effusions are seen. IMPRESSION: No acute process. POS: OFF
[2019-02-18 09:52] LABS: ALT (SGPT) 20 U/L (8-55); AST (SGOT) 15 U/L (5-34); Albumin 4.1 g/dL (3.4-4.8); Alkaline Phosphatase 86 U/L (40-150); Anion Gap 17 mmol/L (10-20); BUN (Urea Nitrogen) 69 mg/dL (9.8-20.1); Bilirubin, Total 0.3 mg/dL (0.2-1.2); Calc. Creatinine Clearance 0 mL/min (70-130); Calcium 8.9 mg/dL (7.8-10.44); Carbon Dioxide 16 mmol/L (23-31); Chloride 108 mmol/L (98-107); Estimated GFR-MDRD 8; Globulin 2.6 g/dL (2.4-3.5); Glucose 121 mg/dL (83-110); Potassium 5.7 mmol/L (3.5-5.1); Protein, Total 6.7 g/dL (6.0-8.3); Sodium 135 mmol/L (136-145)
[2019-02-18] MEDS ORDERED: Dextrose 50% Abboject 50 ML SYRINGE ONE (10:09)
[2019-02-18] MEDS ORDERED: Insulin Regular 300 UNITS/3 ML VIAL ONE (10:09)
[2019-02-18] MEDS ORDERED: Calcium Chloride 1 GM/10 ML Abboject SYRINGE ONE (10:09)
[2019-02-18 10:34] LABS: Bacteria/HPF 3+ HPF (None Seen); Bilirubin Negative (Negative); Blood, Urine Trace (Negative); Clarity Turbid (Clear); Glucose, Urine (Dipstick) Normal (Negative); Leukocyte 500 Leu/uL (Negative); Nitrite Negative (Negative); Protein, Urine (Dipstick) 200 mg/dL (Neg-Trace); Urobilinogen Normal mg/dL (Less than 2); WBC/HPF Greater than 50 HPF (0-3)
[2019-02-18] MEDS ORDERED: Ondansetron PF 4 MG/2 ML Vial ONE (10:48)
[2019-02-18] MEDS ORDERED: Dextrose 50% Abboject 50 ML SYRINGE SLOW IVP PRN (11:25)
[2019-02-18] MEDS ORDERED: Dextrose 5% in Water 1,000 ML IV PRN (11:25)
[2019-02-18] MEDS ORDERED: Albuterol Sulfate 1.25 MG/3 ML NEB NEB PRN (11:26)
[2019-02-18 12:12] LABS: Potassium 5.3 mmol/L (3.5-5.1)
[2019-02-18] MEDS: Sodium Chloride 0.9% 1,000 ML IV SCH (12:14)
[2019-02-18] MEDS ORDERED: Metoprolol Tartrate 50 MG TAB PO SCH (12:15)
--- NOTE | 2019-02-18 12:42 | HP ---
CHIEF COMPLAINT AND HISTORY OF PRESENT ILLNESS: Tired, exhausted with some nausea, abdominal cramps, and diarrhea. This is going on for approximately 3 days. She had some low-grade fever and chills. Her primary care physician is, Dr. Lopez. Her mangle tender cloth is Dr. Trevizo. She had some pain on urination for the last few days. This is gradually getting worse. Also, she took some Lomotil for her diarrhea and the Zofran. She called Dr. Trevizo's office and he advised her to go to the emergency room for further management and evaluation of her problem. Apparently, she was told that she has 17% of kidney function left she was found to have elevated creatinine up to 4.9 today and hyperkalemia, and decision was made about admission. Surrogate decision maker, the patient's , Placido Rodriguez. PAST MEDICAL HISTORY: 1. Chronic kidney disease stage 4. 2. Diabetes mellitus type 2. 3. Chronic bronchitis with bronchiectasis. 4. Continuous oxygen user at home, 2 L by nasal cannula. 5. Hypertension. 6. Hypothyroidism. 7. Gastroesophageal reflux disease. 8. Anxiety. 9. Third-degree heart block requiring pacemaker. 10. History of cervical cancer. 11. Anemia, treated with Epogen. 12. Pulmonary hypertension. 13. Tricuspid regurgitation, moderate. 14. Moderate mitral regurgitation. PAST SURGICAL HISTORY: 1. Pacemaker placed in 2018. 2. Appendectomy. 3. Hysterectomy. 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 She gets EPO injections by Dr. Kendrick for her anemia as needed. She does not have any history of cigarette smoking, alcohol intake, or illicit drug use. FAMILY HISTORY: Her father of emphysema at the age of 53. Mother was 82 when she had heart problems. MEDICATIONS: Please refer to the list. The patient is not taking Xarelto or aspirin because of the previous GI bleed. ALLERGIES: NSAIDS, AUGMENTIN, ASPIRIN, AVELOX, PREDNISONE. REVIEW OF SYSTEMS: All 14 systems were reviewed and only those symptoms are positive, which were mentioned in HPI. PHYSICAL EXAMINATION: VITAL SIGNS: Blood pressure is 170/73, pulse is 78, respiratory rate is 22, temperature is 97.8. HEENT: Head is atraumatic and normocephalic. Eyes are PERRLA. Sclerae are nonicteric. Conjunctivae are pinkish. Oral mucosa is somewhat dry. NECK: Supple. No lymphadenopathy. Thyroid is not palpable. LUNGS: Clear. HEART: S1 and S2 normal. No S3. No S4. There is a pacer placed in the left upper chest wall. ABDOMEN: Soft. Mildly tender in the suprapubic area. No guarding. No masses. Peristalsis is good. EXTREMITIES: 1+ peripheral edema around both ankles. NEUROLOGICAL: She is alert and oriented x4. There are no any motor or sensory deficits present. Cranial nerves are intact. LABORATORY DATA: Labs showed white count of 9.0, hemoglobin 10.3, hematocrit 31.1, platelet count 339, neutrophils 60.8. Sodium of 135, potassium of 5.7, chloride of 108, CO2 of 16, BUN of 69, creatinine of 4.99, glucose of 121, and the rest of chemistry within normal limits. Troponin I less than 0.010. Urine showed clarity turbid, 200 of proteins, trace of blood, 500 of leukocyte esterase, 4 to 6 rbc's and wbc's greater than 50, squamous epithelial cells 5 to 10. Urine bacteria 3+. IMAGING STUDIES: Chest x-ray, personally reviewed by me does not show any acute cardiopulmonary process. She has some chronic changes, which are most likely secondary to her bronchiectasis that is bilaterally. EKG personally reviewed by me showed electronic pacer. IMPRESSION: 1. Some nausea, abdominal cramps, diarrhea, and possible gastroenteritis. 2. Dysuria with low-grade fever, possible urinary tract infection. 3. Worsening renal failure with creatinine up to 4.9 today. 4. Hyperkalemia. Apparently, a recent potassium level check showed hyperkalemia too at Dr. Trevizo's office. We will keep her on low-potassium diet, and we will treat her accordingly with calcium, glucose, and insulin. 5. A pacer. 6. Diabetes mellitus type 2. 7. Hypertension. 8. Pulmonary hypertension. 9. History of cervical cancer. 10. Chronic oxygen user. 11. Hypothyroidism. 12. Anxiety. 13. Metabolic acidosis secondary to worsening kidney function. PLAN: Plan is a full admission to telemetry. Condition is fair. Activity is bedrest and bathroom privileges. IV gentle hydration with 50 mL of normal saline per hour. Nephrology consult with Dr. Trevizo. Followup level of potassium after the initial treatment in the emergency room and BMP in the morning and CBC in the morning. Reconcile home meds and continue. Urine culture was done. We decided not to put her on any antibiotic at the time of admission because she is allergic to several and she is not really febrile. Her white count is normal, so I think it is reasonable to watch her since the risk is elevated in this situation to run into some problems. We are going to do Accu-Cheks a.c. and at bedtime and use Humalog along with her long-acting insulin, Levemir 31 units every morning. We will keep her on a low-potassium renal diet, and we will avoid nephrotoxic medications and we will do DVT prophylaxis with heparin and SCDs. Job ID: [id number]
--- NOTE | 2019-02-18 13:29 | ULT ---
Exam: Bilateral renal ultrasound complete: HISTORY: Worsening kidney failure COMPARISON: None FINDINGS: Right kidney: 11.1 x 4.5 x 5.0 cm Left kidney: 9.8 x 5.3 x 5.2 cm No renal hydronephrosis. No evidence for abnormal perinephric process. No solid or cystic mass. Mild bilateral cortical thinning. Unremarkable appearing bladder. IMPRESSION: Borderline to mild bilateral renal cortical thinning. No hydronephrosis or other acute process
[2019-02-18 16:22] VITALS: BMI 41.1
[2019-02-18] MEDS: Heparin 5,000 UNITS/ML VIAL SC SCH ×2 (16:38→21:16)
[2019-02-18] MEDS: metroNIDAZOLE 500 MG in Premix Bag 1 BAG IVPB SCH ×2 (16:38→21:16)
[2019-02-18] MEDS ORDERED: NIFEdipine XL 60 MG TAB PO SCH (17:30)
[2019-02-18] MEDS: Metoprolol Tartrate 50 MG TAB PO SCH (21:16)
[2019-02-19 05:09] LABS: #Eosinphils 0.3 thou/uL (0.0-0.7); #Lymphocytes 1.9 thou/uL (1.20-3.40); #Monocytes 0.6 thou/uL (0.11-0.59); #Neutrophils 3.8 thou/uL (1.40-6.50); %Basophils 0.6 % (0.0-1.0); %Eosinophils 4.2 % (0.0-10.0); %Lymphocytes 28.3 % (21.0-51.0); %Monocytes 9.2 % (0.0-10.0); %Neutrophils 57.8 % (42.0-75.0); Hemoglobin 8.5 g/dL (12.0-16.0); Mean Corpuscular HGB CONC 33.3 g/dL (32.0-36.0); Mean Corpuscular Hemoglobin 30.7 pg (27.0-31.0); Mean Corpuscular Volume 92.2 fL (78.0-98.0); Mean Platelet Volume 7.3 fL (7.4-10.4); Platelet Count 278 thou/uL (130-400); RBC Distribution Width 11.8 % (11.5-14.5); Red Blood Cell (RBC) Count 2.76 mill/uL (4.20-5.40); White Blood Cell (WBC) Count 6.6 thou/uL (4.8-10.8)
[2019-02-19 05:18] LABS: Anion Gap 12 mmol/L (10-20); BUN (Urea Nitrogen) 60 mg/dL (9.8-20.1); Calc. Creatinine Clearance 18 mL/min (70-130); Calcium 8.5 mg/dL (7.8-10.44); Carbon Dioxide 15 mmol/L (23-31); Chloride 114 mmol/L (98-107); Estimated GFR-MDRD 10; Glucose 90 mg/dL (83-110); Potassium 5.4 mmol/L (3.5-5.1); Sodium 136 mmol/L (136-145)
[2019-02-19] MEDS: Levothyroxine Sodium 50 MCG TAB PO SCH (06:22)
[2019-02-19] MEDS: metroNIDAZOLE 500 MG in Premix Bag 1 BAG IVPB SCH ×3 (06:22→21:09)
[2019-02-19] MEDS: NIFEdipine XL 60 MG TAB PO SCH (08:26)
[2019-02-19] MEDS: Lactinex Tablet PO SCH (08:27)
[2019-02-19] MEDS: Metoprolol Tartrate 50 MG TAB PO SCH ×2 (08:27→20:24)
[2019-02-19] MEDS: Heparin 5,000 UNITS/ML VIAL SC SCH ×2 (08:27→14:53)
[2019-02-19] MEDS ORDERED: INSULIN DETEMIR SQ SCH (09:00)
[2019-02-19] MEDS ORDERED: NIFEdipine XL 60 MG TAB PO SCH (09:00)
[2019-02-19] MEDS: PRE FILLED SC SCH (09:23)
[2019-02-19] MEDS: INSULIN GLARGINE SC SCH (09:23)
[2019-02-19] MEDS: Sodium Bicarbonate Tab 325 MG TAB PO SCH ×3 (09:28→20:24)
[2019-02-19] MEDS: Sodium Chloride 0.9% 1,000 ML IV SCH ×2 (09:46→21:19)
[2019-02-19] MEDS: HumaLOG 300 UNITS/3 ML VIAL SC PRN (12:16)
[2019-02-19 13:31] LABS: Potassium, Urine 26.3 mmol/L
[2019-02-19 13:45] LABS: Creatinine, Urine 57.89 mg/dL (47-110); Microalbumin Urine 91.5 mg/dL (0.5-50.0); Microalbumin/Creat Ratio 1580.6 mg/g (Less than 30)
[2019-02-19] MEDS: Ondansetron PF 4 MG/2 ML Vial IVP PRN (18:01)
[2019-02-19] MEDS: hydrALAZINE 20 MG/ML VIAL SLOW IVP PRN (21:14)
--- NOTE | 2019-02-19 21:58 | PDOC.HOSPP ---
- Subjective Encounter Date: 02/19/19 Encounter Time: 14:00 Subjective: Patient seen and examined for ADOLFO/Acute gastroenteritis. Diarrhea improving. No SOB/CP. No new complaints. No overnight events - Objective Vital Signs & Weight: Vital Signs (12 hours) Temp Pulse Pulse Resp BP BP BP 02/19/19 21:14 60 230/98 H 02/19/19 15:11 97.9 F 60 18 168/70 H 02/19/19 14:21 60 166/70 H 02/19/19 11:20 97.7 F 62 18 159/72 H Pulse Ox 02/19/19 21:14 02/19/19 15:11 98 02/19/19 14:21 02/19/19 11:20 99 Weight Admit Weight 239 lb 11.2 oz Weight 239 lb 11.2 oz I&O: 02/18/19 02/19/19 02/20/19 06:59 06:59 06:59 Intake Total 1460 Output Total 1120 Balance 340 Result Diagrams: 02/20/19 04:17 02/20/19 04:17 Additional Labs: Accuchecks 02/19/19 02/19/19 02/19/19 21:05 17:26 11:26 POC Glucose 141 H 104 178 H 02/19/19 06:11 POC Glucose 128 H Radiology Reviewed by me: Yes (CXR - No edema/infiltrate) EKG Reviewed by me: Yes (Tele SR) Hospitalist ROS - Review of Systems Respiratory: denies: cough, dry, shortness of breath, hemoptysis, SOB with excertion, pleuritic pain, sputum, wheezing, other Cardiovascular: denies: chest pain, palpitations, orthopnea, paroxysmal noc. dyspnea, edema, light headedness, other - Medication Medications: Active Medications Generic Name Dose Route Start Last Admin Trade Name Freq PRN Reason Stop Dose Admin Acidophilus 1 tab 02/19/19 09:00 02/19/19 08:27 Floranex PO 1 tab DAILY JADE Administration Hydralazine HCl 10 mg 02/18/19 17:13 02/19/19 21:14 Apresoline SLOW IVP 10 mg Q4H PRN Administration Hypertension Sodium Chloride 1,000 mls @ 50 mls/hr 02/18/19 11:25 02/19/19 21:19 Normal Saline 0.9% IV 1,000 mls .Q20H JADE Administration Metronidazole 500 mg/ Device 100 mls @ 100 mls/hr 02/18/19 14:00 02/19/19 21: 09 IVPB 100 mls Q8HR JADE Administration Insulin Glargine 31 units/ 0.31 mls @ 0 mls/hr 02/19/19 09:00 02/19/19 09:23 Miscellaneous Medication SC 0.31 mls QAM JADE Administration Insulin Human Lispro 0 units 02/18/19 11:25 02/19/19 12:16 Humalog SC 2 unit .MILD SLIDING SCALE PRN Administration Mild Correctional Scale Levothyroxine Sodium 50 mcg 02/19/19 06:00 02/19/19 06:22 Synthroid PO 50 mcg 0600 JADE Administration Metoprolol Tartrate 50 mg 02/18/19 21:00 02/19/19 20:24 Lopressor PO 50 mg BID JADE Administration Nifedipine 60 mg 02/19/19 09:00 02/19/19 08:26 Procardia Xl PO 60 mg DAILY JADE Administration Ondansetron HCl 4 mg 02/18/19 11:25 02/19/19 18:01 Zofran IVP 4 mg Q6H PRN Administration Nausea/Vomiting Sodium Bicarbonate 650 mg 02/19/19 09:00 02/19/19 20:24 Bicarbonate, Sodium PO 650 mg TID JADE Administration - Exam General Appearance: NAD Neck: supple, no JVD Heart: RRR, no gallops, no rubs Heart - other findings: No heaves/pulsations Respiratory: CTAB, no rales, no ronchi Respiratory - other findings: dec AE at bases Gastrointestinal: soft, non-tender, non-distended, normal bowel sounds Extremities: no cyanosis, no clubbing, 1+ LE edema Neurological: no weakness, no new deficit Psychiatric: normal affect, A&O x 3 Hosp A/P (1) Acute kidney injury superimposed on CKD Code(s): N17.9 - ACUTE KIDNEY FAILURE, UNSPECIFIED; N18.9 - CHRONIC KIDNEY DISEASE, UNSPECIFIED Status: Acute (2) Acute gastroenteritis Code(s): K52.9 - NONINFECTIVE GASTROENTERITIS AND COLITIS, UNSPECIFIED Status : Acute (3) Hyperkalemia Code(s): E87.5 - HYPERKALEMIA Status: Acute (4) DM type 2 (diabetes mellitus, type 2) Status: Chronic Qualifiers: Chronic kidney disease stage: stage 4 (severe) (5) HTN (hypertension) Code(s): I10 - ESSENTIAL (PRIMARY) HYPERTENSION Status: Chronic Qualifiers: (6) Hypothyroidism Code(s): E03.9 - HYPOTHYROIDISM, UNSPECIFIED Status: Chronic Qualifiers: (7) Morbid obesity with BMI of 40.0-44.9, adult Code(s): E66.01 - MORBID (SEVERE) OBESITY DUE TO EXCESS CALORIES; Z68.41 - BODY MASS INDEX (BMI) 40.0-44.9, ADULT Status: Chronic (8) UTI (urinary tract infection) Status: Suspected (9) Chronic hypercapnic respiratory failure Code(s): J96.12 - CHRONIC RESPIRATORY FAILURE WITH HYPERCAPNIA Status: Acute - Plan Cont IVF @ 50 ml/hr Cont Low Potassium diet Cont sliding scale Cont Flagyl Plan d/w Nephrology AM labs Avoid Nephrotoxic meds
--- NOTE | 2019-02-19 23:29 | RAD ---
RADIOGRAPH CHEST 1 VIEW: DATE: 02/19/2019 HISTORY: 78-year-old female with dyspnea FINDINGS: There is no airspace density, pulmonary edema, or pneumothorax. The lateral costophrenic angles are n ot effaced. Magnification of the cardiac shadow by AP lordotic positioning. Left subclavian dual lead transvenous permanent pacemaker. IMPRESSION: 1. No acute pulmonary findings. 2. Pacemaker.
--- NOTE | 2019-02-20 00:52 | PDOC.EVN ---
Event Note - Event Note Event Note: Patient complaining of SOB; VS stable. CXR clear , but BNP elevated at >400; stopped fluids; Patient resting comfortably now w/o complaints.
[2019-02-20] MEDS: hydrALAZINE 20 MG/ML VIAL SLOW IVP PRN ×2 (04:02→14:03)
[2019-02-20] MEDS: Ondansetron PF 4 MG/2 ML Vial IVP PRN ×2 (04:03→15:25)
[2019-02-20 05:24] LABS: #Basophils 0.1 thou/uL (0.0-0.2); #Eosinphils 0.3 thou/uL (0.0-0.7); #Lymphocytes 2.1 thou/uL (1.20-3.40); #Monocytes 0.7 thou/uL (0.11-0.59); #Neutrophils 5.6 thou/uL (1.40-6.50); %Basophils 0.9 % (0.0-1.0); %Eosinophils 3.7 % (0.0-10.0); %Lymphocytes 23.8 % (21.0-51.0); %Monocytes 8.4 % (0.0-10.0); %Neutrophils 63.3 % (42.0-75.0); Hemoglobin 8.4 g/dL (12.0-16.0); Mean Corpuscular HGB CONC 33.6 g/dL (32.0-36.0); Mean Corpuscular Hemoglobin 30.9 pg (27.0-31.0); Mean Corpuscular Volume 91.9 fL (78.0-98.0); Mean Platelet Volume 7.7 fL (7.4-10.4); Platelet Count 288 thou/uL (130-400); RBC Distribution Width 11.8 % (11.5-14.5); Red Blood Cell (RBC) Count 2.72 mill/uL (4.20-5.40); White Blood Cell (WBC) Count 8.8 thou/uL (4.8-10.8)
[2019-02-20] MEDS: metroNIDAZOLE 500 MG in Premix Bag 1 BAG IVPB SCH ×2 (05:24→15:26)
[2019-02-20] MEDS: Levothyroxine Sodium 50 MCG TAB PO SCH (05:25)
[2019-02-20 05:38] LABS: Anion Gap 15 mmol/L (10-20); BUN (Urea Nitrogen) 58 mg/dL (9.8-20.1); Calc. Creatinine Clearance 18 mL/min (70-130); Calcium 8.4 mg/dL (7.8-10.44); Carbon Dioxide 16 mmol/L (23-31); Chloride 113 mmol/L (98-107); Estimated GFR-MDRD 9; Glucose 107 mg/dL (83-110); Potassium 5.2 mmol/L (3.5-5.1); Sodium 139 mmol/L (136-145)
[2019-02-20] MEDS ORDERED: HumaLOG 300 UNITS/3 ML VIAL SC PRN (08:37)
[2019-02-20] MEDS: Metoprolol Tartrate 50 MG TAB PO SCH ×2 (08:52→20:42)
[2019-02-20] MEDS: NIFEdipine XL 60 MG TAB PO SCH (08:52)
[2019-02-20] MEDS: Sodium Bicarbonate Tab 325 MG TAB PO SCH ×3 (08:52→20:42)
[2019-02-20] MEDS: Lactinex Tablet PO SCH (08:53)
[2019-02-20] MEDS: INSULIN GLARGINE SC SCH (08:53)
[2019-02-20] MEDS: PRE FILLED SC SCH (08:53)
[2019-02-20] MEDS: Furosemide 20 MG TAB PO SCH (08:55)
[2019-02-20] MEDS ORDERED: Furosemide 40 MG TAB PO SCH (09:00)
[2019-02-20] MEDS ORDERED: Furosemide 20 MG TAB PO PRN (17:40)
[2019-02-20] MEDS ORDERED: cefTRIAXone\\ROCEPHIN 1 GM in Sodium Chloride 0.9% 100 ML IVPB SCH (18:00)
--- NOTE | 2019-02-20 19:49 | PDOC.HOSPP ---
- Subjective Encounter Date: 02/20/19 Encounter Time: 17:00 Subjective: Patient seen and examined for ADOLFO/UTI. Diarrhea resolved. No Abd pain. Nausea + . No new complaints. Overnight events noted - Objective Vital Signs & Weight: Vital Signs (12 hours) Temp Pulse Resp BP BP Pulse Ox 02/20/19 15:39 98.2 F 76 177/77 H 97 02/20/19 13:02 97.9 F 68 22 H 190/78 H 97 02/20/19 08:53 97 Weight Admit Weight 239 lb 11.2 oz Weight 239 lb 11.2 oz I&O: 02/19/19 02/20/19 02/21/19 06:59 06:59 06:59 Intake Total 2463 800 Output Total 1670 Balance 793 800 Result Diagrams: 02/20/19 04:17 02/20/19 04:17 Additional Labs: Accuchecks 02/20/19 02/20/19 02/19/19 17:07 10:51 21:05 POC Glucose 151 H 136 H 141 H EKG Reviewed by me: Yes (Tele Paced) Hospitalist ROS - Review of Systems Respiratory: denies: cough, dry, shortness of breath, hemoptysis, SOB with excertion, pleuritic pain, sputum, wheezing, other Cardiovascular: denies: chest pain, palpitations, orthopnea, paroxysmal noc. dyspnea, edema, light headedness, other Gastrointestinal: reports: nausea. denies: vomitting, abdominal pain, diarrhea , constipation, melena, hematochezia, other - Medication Medications: Active Medications Generic Name Dose Route Start Last Admin Trade Name Freq PRN Reason Stop Dose Admin Acidophilus 1 tab 02/19/19 09:00 02/20/19 08:53 Floranex PO 1 tab DAILY JADE Administration Furosemide 20 mg 02/20/19 09:00 02/20/19 08:55 Lasix PO 20 mg DAILY JADE Administration Hydralazine HCl 10 mg 02/18/19 17:13 02/20/19 14:03 Apresoline SLOW IVP 10 mg Q4H PRN Administration Hypertension Insulin Glargine 31 units/ 0.31 mls @ 0 mls/hr 02/19/19 09:00 02/20/19 08:53 Miscellaneous Medication SC 0.31 mls QAM JADE Administration Ceftriaxone Sodium 1 gm/ 100 mls @ 200 mls/hr 02/20/19 18:00 02/20/19 17:49 Sodium Chloride IVPB 100 mls 1800 JADE Administration Insulin Human Lispro 0 units 02/18/19 11:25 02/19/19 12:16 Humalog SC 2 unit .MILD SLIDING SCALE PRN Administration Mild Correctional Scale Levothyroxine Sodium 50 mcg 02/19/19 06:00 02/20/19 05:25 Synthroid PO 50 mcg 0600 JADE Administration Metoprolol Tartrate 50 mg 02/18/19 21:00 02/20/19 08:52 Lopressor PO 50 mg BID JADE Administration Nifedipine 60 mg 02/19/19 09:00 02/20/19 08:52 Procardia Xl PO 60 mg DAILY JADE Administration Ondansetron HCl 4 mg 02/18/19 11:25 02/20/19 15:25 Zofran IVP 4 mg Q6H PRN Administration Nausea/Vomiting Sodium Bicarbonate 650 mg 02/19/19 09:00 02/20/19 14:03 Bicarbonate, Sodium PO 650 mg TID JADE Administration Sodium Chloride 10 ml 02/20/19 09:00 02/20/19 08:55 Flush - Normal Saline IVF 10 ml Q12HR JADE Administration - Exam General Appearance: NAD Heart: RRR, no rubs Respiratory: CTAB, no rales, rhonchi Gastrointestinal: soft, non-tender, normal bowel sounds Extremities: 2+ LE edema Hosp A/P (1) Acute kidney injury superimposed on CKD Code(s): N17.9 - ACUTE KIDNEY FAILURE, UNSPECIFIED; N18.9 - CHRONIC KIDNEY DISEASE, UNSPECIFIED Status: Acute (2) Acute gastroenteritis Code(s): K52.9 - NONINFECTIVE GASTROENTERITIS AND COLITIS, UNSPECIFIED Status : Acute (3) Hyperkalemia Code(s): E87.5 - HYPERKALEMIA Status: Acute (4) DM type 2 (diabetes mellitus, type 2) Status: Chronic Qualifiers: Chronic kidney disease stage: stage 4 (severe) (5) HTN (hypertension) Code(s): I10 - ESSENTIAL (PRIMARY) HYPERTENSION Status: Chronic Qualifiers: (6) Hypothyroidism Code(s): E03.9 - HYPOTHYROIDISM, UNSPECIFIED Status: Chronic Qualifiers: (7) Morbid obesity with BMI of 40.0-44.9, adult Code(s): E66.01 - MORBID (SEVERE) OBESITY DUE TO EXCESS CALORIES; Z68.41 - BODY MASS INDEX (BMI) 40.0-44.9, ADULT Status: Chronic (8) UTI (urinary tract infection) Status: Suspected (9) Chronic hypercapnic respiratory failure Code(s): J96.12 - CHRONIC RESPIRATORY FAILURE WITH HYPERCAPNIA Status: Acute - Plan DC Flagyl IV Ceftriaxone for UTI Cont Low Potassium diet - Consult electronics worker Cont sliding scale Plan d/w Nephrology Cont other meds as below Add Hydralazine due to uncontrolled BP AM labs
[2019-02-20] MEDS: Ondansetron ODT 4 MG TAB PO PRN (20:42)
[2019-02-20] MEDS: hydrALAZINE 25 MG TAB PO SCH (20:42)
[2019-02-21] MEDS: Ondansetron ODT 4 MG TAB PO PRN ×2 (02:49→14:52)
[2019-02-21 05:35] LABS: Albumin 3.1 g/dL (3.4-4.8); Anion Gap 14 mmol/L (10-20); BUN (Urea Nitrogen) 56 mg/dL (9.8-20.1); BUN/Creatinine Ratio 12.36; Calc. Creatinine Clearance 18 mL/min (70-130); Calcium 8.1 mg/dL (7.8-10.44); Carbon Dioxide 17 mmol/L (23-31); Chloride 113 mmol/L (98-107); Estimated GFR-MDRD 9; Glucose 135 mg/dL (83-110); Phosphorus 4.3 mg/dL (2.3-4.7); Potassium 4.6 mmol/L (3.5-5.1); Sodium 139 mmol/L (136-145)
[2019-02-21] MEDS: Levothyroxine Sodium 50 MCG TAB PO SCH (05:47)
[2019-02-21] MEDS: NIFEdipine XL 60 MG TAB PO SCH (08:17)
[2019-02-21] MEDS: Lactinex Tablet PO SCH (08:17)
[2019-02-21] MEDS: hydrALAZINE 25 MG TAB PO SCH ×2 (08:18→14:47)
[2019-02-21] MEDS: Sodium Bicarbonate Tab 325 MG TAB PO SCH ×2 (08:18→14:47)
[2019-02-21] MEDS: Metoprolol Tartrate 50 MG TAB PO SCH (08:18)
[2019-02-21] MEDS: Furosemide 20 MG TAB PO SCH (08:18)
[2019-02-21] MEDS: PRE FILLED SC SCH (09:35)
[2019-02-21] MEDS: INSULIN GLARGINE SC SCH (09:35)
[2019-02-21] MEDS: HumaLOG 300 UNITS/3 ML VIAL SC PRN (11:44)
[2019-02-21] MEDS ORDERED: Acetaminophen 325 MG TAB PO PRN (11:53)
[2019-02-21 14:52] VITALS: BP 168/69; TEMP 97.6
== END 2019-02-21 15:06 | disposition home health service (06) | DRG 683 ==
LOC: ERS 08:43 → ERHOLD 10:00 → 2NO 16:11
PROVIDERS: ADMIT Internal Medicine; ATTEND Internal Medicine
DX: N17.9 Acute kidney failure, unspecified (principal); N39.0 Urinary tract infection, site not specified; E87.2 Acidosis; Z68.41 Body mass index [BMI] 40.0-44.9, adult; J96.12 Chronic respiratory failure with hypercapnia; E11.22 Type 2 diabetes mellitus with diabetic chronic kidney disease; N18.4 Chronic kidney disease, stage 4 (severe); E03.9 Hypothyroidism, unspecified; K21.9 Gastro-esophageal reflux disease without esophagitis; F41.9 Anxiety disorder, unspecified; K52.9 Noninfective gastroenteritis and colitis, unspecified; E87.5 Hyperkalemia; I27.20 Pulmonary hypertension, unspecified; I12.9 Hypertensive chronic kidney disease with stage 1 through stage 4 chronic kidney disease, or unspecified chronic kidney disease; E66.01 Morbid (severe) obesity due to excess calories; Z85.41 Personal history of malignant neoplasm of cervix uteri; Z95.0 Presence of cardiac pacemaker; Z90.49 Acquired absence of other specified parts of digestive tract; Z90.710 Acquired absence of both cervix and uterus; Z88.8 Allergy status to other drugs, medicaments and biological substances
CPT/HCPCS: 36415; 36416; 71045; 76770; 80048; 80053; 80069; 81003; 81015; 82043; 82570; 83605; 83630; 83880; 84105; 84133; 84300; 84484; 85025; 87045; 87046; 87077; 87086; 87186; 87324; 87328; 87329; 87427; 87449; 93005; 96361; 96374; 96375; J0360; J0696; J1644; J1815; J2405; J3490; Q0162

== ENCOUNTER 2019-07-12 16:02 | Observation (INO) | payer MEDICARE, OTHER ==
[2019-07-12] MEDS ORDERED: hydrALAZINE 20 MG/ML VIAL SLOW IVP PRN (17:28)
[2019-07-12] MEDS ORDERED: Senokot S 8.6-50 MG TAB PO PRN (17:34)
[2019-07-12] MEDS ORDERED: Acetaminophen 325 MG TAB PO PRN (17:34)
[2019-07-12] MEDS ORDERED: Dextrose 5% in Water 1,000 ML IV PRN (17:37)
[2019-07-12] MEDS ORDERED: Dextrose 50% Abboject 50 ML SYRINGE SLOW IVP PRN (17:37)
[2019-07-12] MEDS ORDERED: Insulin Regular 300 UNITS/3 ML VIAL SC PRN (17:37)
[2019-07-12 18:39] VITALS: BMI 36.8
[2019-07-12 18:55] LABS: ALT (SGPT) 13 U/L (8-55); AST (SGOT) 23 U/L (5-34); Albumin 3.7 g/dL (3.4-4.8); Alkaline Phosphatase 72 U/L (40-110); Anion Gap 15 mmol/L (10-20); BUN (Urea Nitrogen) 26 mg/dL (9.8-20.1); Bilirubin, Total 0.3 mg/dL (0.2-1.2); Calc. Creatinine Clearance 20 mL/min (70-130); Calcium 9.1 mg/dL (7.8-10.44); Carbon Dioxide 26 mmol/L (23-31); Chloride 99 mmol/L (98-107); Estimated GFR-MDRD 12; Glucose 151 mg/dL (83-110); Potassium 3.9 mmol/L (3.5-5.1); Protein, Total 6.7 g/dL (6.0-8.3); Sodium 136 mmol/L (136-145)
--- NOTE | 2019-07-12 19:26 | HP ---
PCP: Eduardo Lopez MD CHIEF COMPLAINT: Right-sided facial droop, aphasia. HISTORY OF PRESENT ILLNESS: Ms. Rodriguez is a 78-year-old female who reported to the emergency room today at [facility] as a transfer from [facility] for evaluation of TIA. Reports that she is an end-stage renal patient, went to dialysis today, where they pulled 2.5 L off, which is the most they have pulled off so far. When they picked her up today, she has been noticed that she was aphasic and had a right-sided droop and weakness. When she got to the emergency room here, she was still aphasic, but denied any focal weakness. She was given a head CT at [facility], which was negative for acute findings. They believe that these documented symptoms were resolving, and the patient was not a tPA candidate. She was sent here for further evaluation, admission, and stroke rule out. The patient was discharged from this facility on 07/02/2019, was in generalized weakness, which was multifactorial; acute kidney injury with chronic kidney disease, stage 4. Thus, she was started on hemodialysis, and she continues this 3 days a week. The patient did have dialysis today, which is when symptoms started according to family and patient. She has past medical history pertinent for diabetes, type 2; morbid obesity; hypertension; hyponatremia; chronic anemia due to chronic kidney disease, she is on Epogen; chronic respiratory failure, on home oxygen; and hypothyroidism. She is a [employer] and was transferred to the rehab hospital in [place] on the for PT and OT for some generalized weakness and failure to thrive. Family and patient denied much improvement since she has been there and denied that the symptoms she went to the ER for in [place] after dialysis were present prior to dialysis. Her food editor is Dr. Trevizo. The patient during exam is unable to speak. She does nod, yes and no, appropriately. She will be admitted to the stroke unit for further evaluation. NIH Scale done in the emergency room showed a total score of 8. She notes to have an allergy to aspirin. She refused this in the emergency room. She also refused a p.o. challenge for bedside dysphagia screen. REVIEW OF SYSTEMS: All systems were reviewed and were negative unless mentioned in the HPI. PAST MEDICAL HISTORY: Significant for end-stage renal disease; diabetes, type 2; bronchiectasis, on home oxygen; hypertension; hypothyroidism; GERD; third-stage AV block, status post pacemaker placed in 2018; pulmonary hypertension; tricuspid regurgitation; moderate mitral regurgitation; chronic anemia; and renal disease. PAST SURGICAL HISTORY: The patient had a pacemaker placed, appendectomy, hysterectomy, does have AV fistula, which has not been used yet on the left arm and she uses hemodialysis catheter until the fistula is deemed worthy to use. ALLERGIES: SODIUM BICARBONATE, ANTIINFLAMMATORY MEDICATIONS, PREDNISONE, AVELOX, AND AUGMENTIN. SOCIAL HISTORY: Nonsmoker. Occasionally drinks. She is , has 4 children. She currently resides at the [facility] where she was sent after discharge here on the 8th of this month. FAMILY HISTORY: Significant for heart disease and diabetes. HOME MEDICATIONS: From the ER system, which still needs to be verified; 1. Metoprolol 12.5 mg p.o. two times a day. 2. Levothyroxine 50 mcg once a day. 3. Levemir 28 subcu once a day. 4. Lasix 20 mg p.o. once a day. 5. Zofran 4 mg q.8 hours p.r.n. 6. Nifedipine 60 mg p.o. once a day. 7. Xopenex 0.63 mg q.8 hours p.r.n. PHYSICAL EXAMINATION: VITAL SIGNS: Blood pressure 128/53, pulse is 74, respirations are 18, temperature is 97.9, and pO2 sats are 98% on 2 L. CONSTITUTIONAL: The patient is alert and oriented. She is aphasic. She answers yes and no questions with nodding her head. HEENT: Head is atraumatic and normocephalic. Eyes, pupils are equally round and reactive to light. Eyelids are normal to inspection. RESPIRATORY: Breath sounds are clear. Chest expansion is equal. CARDIOVASCULAR: Regular heart rate and rhythm. Has a heart murmur 2/6. ABDOMEN: Nontender. Bowel sounds are heard. EXTREMITIES: Upper extremity strength is equal bilaterally. Normal range of motion. Sensation is intact. Lower extremity; motor strength is normal. Sensation is intact. NEUROLOGIC: She has expressive aphasia, refuses, unable to speak, does nod yes or no. She had a small amount of difficulty with the [id number] on the right. SKIN: Warm, dry, normal in color what that is visualized ASSESSMENT AND PLAN: 1. Cerebrovascular accident, rule out MRI if the pacemaker is MRI compatible, echocardiogram, Doppler ultrasound carotids. 2. PT and OT speech. The patient refused oral fluids in the ER. Hopefully, we will recheck once the patient gets to a bed on the stroke unit. She is currently n.p.o. until this is done. We have asked Neurology to consult. The patient states that she is allergic to aspirin and refused. We will order fasting lipids, Lipitor to be started tonight. Neuro checks q.4. Permissive hypertension. Medications have been ordered. 3. History of diabetes, type 2. Accu-Cheks a.c. and at bedtime, sliding scale. We will restart her long-acting insulin once verified. 4. History of hypothyroidism. We will restart her home medications. 5. History of hypertension. Once reconciled, we will restart, post permissive hypertension stage. 6. End-stage renal disease. We have consulted Dr. Trevizo if the patient requires dialysis while she is here. 7. Hospital course dependent on clinical findings. Job ID: [id number]
[2019-07-12] MEDS: Atorvastatin Calcium 20 MG TAB PO SCH (20:18)
[2019-07-12] MEDS ORDERED: Famotidine 20 MG TAB PO SCH (21:00)
[2019-07-13 05:43] LABS: ALT (SGPT) 14 U/L (8-55); AST (SGOT) 21 U/L (5-34); Albumin 3.6 g/dL (3.4-4.8); Alkaline Phosphatase 65 U/L (40-110); Anion Gap 17 mmol/L (10-20); BUN (Urea Nitrogen) 33 mg/dL (9.8-20.1); Bilirubin, Total 0.3 mg/dL (0.2-1.2); Calc. Creatinine Clearance 16 mL/min (70-130); Calcium 8.9 mg/dL (7.8-10.44); Carbon Dioxide 25 mmol/L (23-31); Cardiac Risk 2.9 (Less than 4.5); Chloride 99 mmol/L (98-107); Cholesterol 158 mg/dl (< 200 Desired); Estimated GFR-MDRD 9; Globulin 2.9 g/dL (2.4-3.5); Glucose 134 mg/dL (83-110); HDL Cholesterol 55 mg/dL (>60 Neg Risk); LDL Cholesterol, Calculated 84 mg/dL; Potassium 4.1 mmol/L (3.5-5.1); Protein, Total 6.5 g/dL (6.0-8.3); Sodium 137 mmol/L (136-145); Triglycerides 95 mg/dL (Less than 150)
[2019-07-13 05:55] LABS: #Basophils 0.1 thou/uL (0.0-0.2); #Eosinphils 0.4 thou/uL (0.0-0.7); #Lymphocytes 2.5 thou/uL (1.20-3.40); #Neutrophils 7.2 thou/uL (1.40-6.50); %Basophils 1.1 % (0.0-1.0); %Eosinophils 3.4 % (0.0-10.0); %Lymphocytes 22.5 % (21.0-51.0); %Monocytes 8.9 % (0.0-10.0); Hemoglobin 10.9 g/dL (12.0-16.0); Mean Corpuscular HGB CONC 31.8 g/dL (32.0-36.0); Mean Corpuscular Hemoglobin 29.7 pg (27.0-31.0); Mean Corpuscular Volume 93.3 fL (78.0-98.0); Mean Platelet Volume 7.5 fL (7.4-10.4); Platelet Count 277 thou/uL (130-400); Platelet Morphology Comment Appears Adequate; RBC Distribution Width 14.7 % (11.5-14.5); Red Blood Cell (RBC) Count 3.68 mill/uL (4.20-5.40); White Blood Cell (WBC) Count 11.2 thou/uL (4.8-10.8)
[2019-07-13] MEDS ORDERED: FLU VACC TS2019-20(65YR UP)/PF 180 MCG/0.5 ML SYRINGE IM ONE (09:00)
--- NOTE | 2019-07-13 11:34 | ULT ---
EXAM: Carotid Doppler PROVIDED CLINICAL HISTORY: Speech difficulty COMPARISON: None FINDINGS: Grayscale and color Doppler sonography with spectral analysis was performed of the extracranial carot id system bilaterally. There is no evidence for a hemodynamically significant internal carotid artery stenosis by peak systolic velocity or ratio criteria. Antegrade flow is seen in the vertebral arteries. IMPRESSION: No sonographic evidence for a hemodynamically significant internal carotid artery stenosis.
[2019-07-13] MEDS ORDERED: Clopidogrel Bisulfate 75 MG TAB PO SCH (12:00)
[2019-07-13] MEDS: Famotidine 20 MG TAB PO SCH (12:04)
--- NOTE | 2019-07-13 12:09 | CON ---
DATE OF CONSULTATION: 07/13/2019 CONSULTING PHYSICIAN: Hospitalist Service. IMPRESSION: 1. 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 2. End-stage renal disease. 3. Questionable difficulties with aspirin. 4. Pacemaker implantation. PLAN: 1. MRI of the brain if the pacemaker is compatible. 2. Continue aspirin and a statin. 3. Monitor EKG. 4. Echocardiogram. 5. Carotid ultrasound. HISTORY OF PRESENT ILLNESS: Ms. Rodriguez is 78-year-old woman with past history of progressive renal insufficiency. She recently started dialysis. She was over in care home. After dialysis, they noted that she was not speaking. They brought her into the emergency room. She had a CT of the brain done, which was unremarkable. She was administered aspirin and Lipitor. She has not regained her speech. She seems to have good comprehension. She has no other complaints. There is no past history of any stroke-like symptoms. PAST MEDICAL HISTORY: Renal insufficiency, cardiac disease. ALLERGIES: CETIRIZINE AND NONSTEROIDALS, AMONG OTHERS. SOCIAL HISTORY: No tobacco or alcohol. FAMILY HISTORY: Noncontributory. REVIEW OF SYSTEMS: Ten-system review of systems is otherwise negative. PHYSICAL EXAMINATION: GENERAL: She is an alert elderly lady, sitting in bed, in no distress. VITAL SIGNS: Blood pressure 147/69, pulse 70, respirations 16, and temperature 97.5. HEENT: Pupils are equal and reactive. Conjunctivae are clear. Oropharynx clear. NECK: Supple. No lymphadenopathy. EXTREMITIES: No cyanosis. NEUROLOGIC: She was alert and cooperative. She had no verbal output. She comprehended well and follow commands appropriately. There was no facial asymmetry. There was no lateralized weakness. No abnormal movements were seen. Sensation was intact to light touch. Gait was not tested. LABORATORY STUDIES: Unremarkable CBC. Serum chemistry show a BUN of 26, creatinine of 3.72. Cardiac risk ratio of 2.9. SUMMARY: This is a 78-year-old woman with acute onset of expressive aphasia suggesting a stroke. It is a bit odd that there was no facial droop or right arm weakness associated with it. There is reported tachycardia problem associated with aspirin. If this is truly the case, Plavix would be a reasonable option. I agree with the plan of workup. Job ID: [id number]
--- NOTE | 2019-07-13 15:31 | PDOC.HOSPP ---
- Subjective Encounter Date: 07/13/19 Encounter Time: 09:45 Subjective: pt up in bed still not able to talk. - Objective Vital Signs & Weight: Vital Signs (12 hours) Temp Pulse Pulse Resp BP BP Pulse Ox 07/13/19 11:50 97.5 F L 76 16 186/70 H 100 07/13/19 11:15 70 147/69 H 07/13/19 07:38 97.5 F L 70 16 147/69 H 99 07/13/19 04:00 97.7 F 70 16 142/58 H 98 Pulse Ox 07/13/19 11:50 07/13/19 11:15 99 07/13/19 07:38 07/13/19 04:00 Weight Weight 214 lb 8 oz I&O: 07/12/19 07/13/19 07/14/19 06:59 06:59 06:59 Intake Total 10 Output Total 0 Balance 10 Result Diagrams: 07/13/19 04:55 07/13/19 04:55 Additional Labs: Accuchecks 07/13/19 07/13/19 07/12/19 10:38 04:20 21:11 POC Glucose 153 H 132 H 150 H Hospitalist ROS - Review of Systems Respiratory: denies: cough, dry, shortness of breath, hemoptysis, SOB with excertion, pleuritic pain, sputum, wheezing, other Cardiovascular: denies: chest pain, palpitations, orthopnea, paroxysmal noc. dyspnea, edema, light headedness, other Gastrointestinal: denies: nausea, vomiting, abdominal pain, diarrhea, constipation, melena, hematochezia, other - Medication Medications: Active Medications Generic Name Dose Route Start Last Admin Trade Name Freq PRN Reason Stop Dose Admin Atorvastatin Calcium 20 mg 07/12/19 21:00 07/12/19 20:18 Lipitor PO Not Given HS [facility] Famotidine 20 mg 07/13/19 09:00 07/13/19 12:04 Pepcid PO Not Given 0900 [facility] - Exam Heart: negative: RRR, no murmur, no gallops, no rubs, normal peripheral pulses, irregular, diminshed peripheral pulses, murmur present, II/IV, III/IV Respiratory: negative: CTAB, no wheezes, no rales, no ronchi, normal chest expansion, no tachypnea, normal percussion, rales, rhonchi, tachypneic, wheezes Gastrointestinal: negative: soft, non-tender, non-distended, normal bowel sounds , no palpable masses, no hepatomegaly, no splenomegaly, no bruit, no guarding, no rigidity, tender to palpation, distended, diminished bowl sounds, voluntary guarding Extremities: negative: no cyanosis, no clubbing, no edema, 1+ LE edema, 2+ LE edema, clubbing Neurological - other findings: right upper ext weakness and pt unable to talk Hosp A/P (1) Expressive aphasia Code(s): R47.01 - APHASIA Status: Acute (2) End-stage renal disease needing dialysis Code(s): N18.6 - END STAGE RENAL DISEASE; Z99.2 - DEPENDENCE ON RENAL DIALYSIS Status: Acute (3) HTN (hypertension) Code(s): I10 - ESSENTIAL (PRIMARY) HYPERTENSION Status: Chronic Qualifiers: (4) Hypothyroidism Code(s): E03.9 - HYPOTHYROIDISM, UNSPECIFIED Status: Chronic Qualifiers:
[2019-07-13] MEDS: Insulin Regular 300 UNITS/3 ML VIAL SC PRN (18:22)
[2019-07-13] MEDS: Metoprolol Tartrate 25 MG TAB PO SCH (21:47)
[2019-07-13] MEDS: Heparin 5,000 UNITS/ML VIAL SC SCH (21:49)
[2019-07-13] MEDS: Nystatin Powder 15 GM BOT TOP SCH (21:51)
[2019-07-13] MEDS: Atorvastatin Calcium 20 MG TAB PO SCH (21:51)
[2019-07-14] MEDS ORDERED: Levothyroxine Sodium 50 MCG TAB PO SCH (06:00)
[2019-07-14] MEDS ORDERED: Non-Formulary Item 1 EACH (Insulin Glargine,Hum.Rec.Anlog [Lantus Solostar] 15 UNIT) SC SCH (09:00)
[2019-07-14] MEDS ORDERED: Clopidogrel Bisulfate 75 MG TAB PO SCH (09:00)
[2019-07-14] MEDS ORDERED: Metamucil PACK PO SCH (09:00)
[2019-07-14] MEDS ORDERED: Insulin Glargine 15 UNITS in Pre-Filled Syringe 1 EACH SC SCH (09:00)
[2019-07-14] MEDS: Metoprolol Tartrate 25 MG TAB PO SCH (09:11)
[2019-07-14] MEDS: Famotidine 20 MG TAB PO SCH (09:11)
[2019-07-14] MEDS: Heparin 5,000 UNITS/ML VIAL SC SCH ×2 (09:12→16:14)
[2019-07-14] MEDS: Nystatin Powder 15 GM BOT TOP SCH (09:13)
--- NOTE | 2019-07-14 09:18 | PDOC.HOSPP ---
- Subjective Encounter Date: 07/14/19 Encounter Time: 12:00 Subjective: Patient without events overnight. Starting to say some words to daughter. Very weak voice. Sitting up with PT which is near where she was at when she was at SNF before the stroke. - Objective Vital Signs & Weight: Vital Signs (12 hours) Temp Pulse Resp BP Pulse Ox 07/14/19 08:00 97.5 F L 75 18 189/71 H 100 07/14/19 04:00 97.7 F 75 16 180/82 H 100 07/14/19 00:00 97.7 F 70 16 154/69 H 99 Weight Weight 214 lb 8 oz I&O: 07/13/19 07/14/19 07/15/19 06:59 06:59 06:59 Intake Total 10 385 Output Total 0 Balance 10 385 Result Diagrams: 07/13/19 04:55 07/13/19 04:55 Additional Labs: Accuchecks 07/14/19 07/13/19 07/13/19 06:13 20:23 16:46 POC Glucose 148 H 174 H 165 H 07/13/19 10:38 POC Glucose 153 H Hospitalist ROS - Review of Systems Constitutional: denies: fever, chills Respiratory: denies: cough, shortness of breath Cardiovascular: denies: chest pain, palpitations, orthopnea Gastrointestinal: denies: nausea, vomiting, abdominal pain Genitourinary: denies: dysuria, hematuria - Medication Medications: Active Medications Generic Name Dose Route Start Last Admin Trade Name Freq PRN Reason Stop Dose Admin Atorvastatin Calcium 20 mg 07/12/19 21:00 07/13/19 21:51 Lipitor PO Not Given HS [facility] Famotidine 20 mg 07/13/19 09:00 07/13/19 12:04 Pepcid PO Not Given 0900 [facility] Heparin Sodium (Porcine) 5,000 units 07/13/19 21:00 07/13/19 21:49 Heparin SC 5,000 units TID JADE Administration Insulin Human Regular 0 units 07/12/19 17:37 07/13/19 18:22 Humulin R SC 2 units .MILD SLIDING SCALE PRN Administration Mild Correctional Scale Levothyroxine Sodium 50 mcg 07/14/19 06:00 07/14/19 07:46 Synthroid PO Not Given 0600 [facility] Metoprolol Tartrate 25 mg 07/13/19 21:00 07/13/19 21:47 Lopressor PO 25 mg BID JADE Administration Nystatin 0 gm 07/13/19 21:00 07/13/19 21:51 Mycostatin Powder TOP Not Given BID JADE - Exam General Appearance: NAD, awake alert ENT: moist mucosa Heart: RRR, no murmur, no gallops, no rubs Respiratory: CTAB, no wheezes, no rales, no ronchi Gastrointestinal: soft, non-tender, non-distended, normal bowel sounds Psychiatric: normal affect Psychiatric - other findings: alert, not talking to me Hosp A/P (1) Expressive aphasia Code(s): R47.01 - APHASIA Status: Acute (2) End-stage renal disease needing dialysis Code(s): N18.6 - END STAGE RENAL DISEASE; Z99.2 - DEPENDENCE ON RENAL DIALYSIS Status: Chronic (3) HTN (hypertension) Code(s): I10 - ESSENTIAL (PRIMARY) HYPERTENSION Status: Chronic Qualifiers: (4) Hypothyroidism Code(s): E03.9 - HYPOTHYROIDISM, UNSPECIFIED Status: Chronic Qualifiers: - Plan MRI showing acute ischemic stroke with punctate hemorrhage within. Spoke with Dr. James and he said due to good clinical status and the tiny amount of blood we don't need to stop the Plavix or due f/u imaging. Ok to transfer back to SNF. No ASA as has allergy. No blood thinners due to Renal failure and won't accept transfusions because Buddhist. Plavix only for prophylaxis in setting of Afib.
--- NOTE | 2019-07-14 11:30 | MRI ---
Brain MRI without contrast: 07/14/2019 COMPARISON: None HISTORY: Stroke TECHNIQUE: Multiplanar multisequence MR imaging of the brain obtained without contrast FINDINGS: There is a area of acute infarction involving the frontal lobe on the left consistent with acute infarction within the left MCA territory. There is corresponding swelling of the cortical sulci with significant cytotoxic edema. This abnormality involves the insular cortex as well as the l ateral aspect of the left putamen and involves a portion of the brain within the left MCA territory measuring at least 5.6 x 3.6 cm. On the gradient echo imaging there are a few internal punctate foci of blooming artifact along the inferior margin of this acute infarction suggesting a mild degree of associated hemorrhage. There is no significant midline shift or mass effect at this time. There are multiple subcentimeter o ld lacunar infarctions within the bilateral cerebellar hemispheres. Arterial flow voids at the axial level of the skull base appear grossly unremarkable on the T2-weighted imaging. Foci of increas ed T2 and FLAIR signal noted within the periventricular, deep, and subcortical white matter, evidence of small vessel disease. Regional bone marrow signal intensity appears within normal limits. IMPRESSION: Acute infarction within the left MCA territory with a few internal foci of blooming artif act consistent with associated punctate petechial hemorrhage. Results called to Dr. Nelson at 11:25 AM 07/14/2019
[2019-07-14] MEDS: Insulin Regular 300 UNITS/3 ML VIAL SC PRN (12:01)
[2019-07-14 16:55] VITALS: BP 160/87; TEMP 98.4
--- NOTE | 2019-07-16 15:08 | DIS ---
DATE OF ADMISSION: 07/12/2019 DATE OF DISCHARGE: 07/14/2019 PRIMARY CARE PHYSICIAN: Eduardo Lopez MD REASON FOR ADMISSION: Acute ischemic stroke. DIAGNOSES AT DISCHARGE: 1. Acute ischemic stroke with expressive aphasia. 2. End-stage renal disease on dialysis. 3. Hypertension. 4. Hypothyroidism. 5. History of paroxysmal atrial fibrillation. PROCEDURES PERFORMED: 1. Carotid Doppler showing no evidence of a significant internal carotid artery stenosis. 2. MRI of the brain showing acute infarction in the left MCA territory with a few internal foci of blooming artifact consistent with associated punctate petechial hemorrhage. 3. Echocardiogram showing an ejection fraction of 55% to 60%. No obvious intracardiac thrombi or masses. No obvious PFO or ASD. CONSULTATIONS: Neurology, Ang James MD SUMMARY OF HOSPITAL COURSE: This is a 78-year-old female, recently in the hospital for end-stage renal disease, who was started on dialysis. She also had severe elevations of blood pressure. After with initiation of dialysis, her blood pressure came down. She eventually was weaned off all her blood pressure medicines except for low-dose metoprolol. The patient was discharged to long term facility about a week ago. She went to dialysis the day before presentation, it was noted after dialysis to have just stopped talking and to be drooling side of her mouth. She was also thought to appear weak on the right side. She was brought to the hospital outside ER. She had a negative CT scan. She was admitted to the hospital, had reported aspirin allergy. She was noted to have a paced rhythm, but a history of paroxysmal atrial fibrillation. However, she is a [employer]ism and with an end-stage renal disease. She does have anemia and so she was thought to be a good candidate for any anticoagulants beyond aspirin and Plavix. As a result, Dr. James was consulted. She just started on Plavix for further stroke prevention. The patient did have an MRI done in the hospital with above results. She did have some elevated blood pressures. These were allowed to stay elevated due to the acute stroke. The patient improved during hospitalization, started to speak some words to her daughter. Physical therapy worked with her and got her sitting up on the side of the bed, which is about as far she had gotten after her last hospitalization. She has not walked yet. I did speak with Dr. James about the punctate hemorrhages on the MRI given her good clinical status. He determined that her Plavix did not need to be held and these were not clinically significant and that she was stable for discharge to long term facility. DISCHARGE MANAGEMENT: Discharged back to long term facility. ACTIVITY: As tolerated. DIET: Healthy heart low-sodium, fluid-restricted, diabetic diet with renal high-protein. She can eat nectar thick liquids, controlled sips, or straw chopped solids with extra sauce and gravy. Also physical, occupational, and speech therapy. FOLLOWUP: Follow up with Dr. Lopez in 2 to [address] James in 3 to 4 weeks. DISCHARGE MEDICATIONS: 1. Atorvastatin 20 mg daily. 2. Plavix 75 mg daily. 3. Famotidine 20 mg daily. 4. Levothyroxine 50 mcg daily. 5. Metoprolol 25 mg twice a day. 6. Nystatin twice a day. 7. Metamucil 425 g every other day. 8. Acetaminophen as needed. 9. Bacitracin ointment three times a day. 10. Tums as needed. 11. Lantus 15 units subcu daily. 12. Imodium as needed. 13. Zofran as needed. TIME SPENT: Arranging the details of this discharge took 32 minutes. Job ID: [id number]
== END 2019-07-14 17:46 ==
LOC: ERS 16:02 → 2SE 16:32
PROVIDERS: ADMIT Internal Medicine; ATTEND Internal Medicine
DX: I63.9 Cerebral infarction, unspecified (principal); I12.0 Hypertensive chronic kidney disease with stage 5 chronic kidney disease or end stage renal disease; E11.22 Type 2 diabetes mellitus with diabetic chronic kidney disease; N18.6 End stage renal disease; D63.1 Anemia in chronic kidney disease; E03.9 Hypothyroidism, unspecified; K21.9 Gastro-esophageal reflux disease without esophagitis; Z79.4 Long term (current) use of insulin; Z79.899 Other long term (current) drug therapy; Z88.1 Allergy status to other antibiotic agents; Z88.6 Allergy status to analgesic agent; Z88.8 Allergy status to other drugs, medicaments and biological substances; Z99.2 Dependence on renal dialysis; Z95.0 Presence of cardiac pacemaker
CPT/HCPCS: 36415; 36416; 70551; 80053; 80061; 85025; 90935; 93306; 93880; 96372; G0257; G0378; J1644; J1815

== ENCOUNTER 2019-08-18 10:11 | Inpatient (IN) | payer MEDICARE, OTHER ==
[2019-08-18] MEDS ORDERED: Iopamidol-370 76% 500 ML 1 ML ONE (11:01)
[2019-08-18 11:16] LABS: Mean Corpuscular HGB CONC 30.9 g/dL (32.0-36.0); Mean Corpuscular Hemoglobin 30.8 pg (27.0-31.0); Mean Corpuscular Volume 99.6 fL (78.0-98.0); Mean Platelet Volume 6.9 fL (7.4-10.4); Platelet Count 480 thou/uL (130-400); RBC Distribution Width 15.8 % (11.5-14.5); Red Blood Cell (RBC) Count 3.26 mill/uL (4.20-5.40); White Blood Cell (WBC) Count 18.2 thou/uL (4.8-10.8)
[2019-08-18] MEDS ORDERED: Ondansetron PF 4 MG/2 ML Vial ONE ×2 (11:22→15:03)
[2019-08-18 11:38] LABS: ALT (SGPT) 41 U/L (8-55); AST (SGOT) 42 U/L (5-34); Albumin 3.2 g/dL (3.4-4.8); Alkaline Phosphatase 100 U/L (40-110); Anion Gap 25 mmol/L (10-20); BUN (Urea Nitrogen) 56 mg/dL (9.8-20.1); Bilirubin, Total 0.6 mg/dL (0.2-1.2); CK (CPK) 19 U/L (29-168); Calc. Creatinine Clearance 0 mL/min (70-130); Calcium 8.8 mg/dL (7.8-10.44); Carbon Dioxide 24 mmol/L (23-31); Chloride 95 mmol/L (98-107); Estimated GFR-MDRD 5; Globulin 3.4 g/dL (2.4-3.5); Glucose 175 mg/dL (83-110); Lipase 30 U/L (8-78); Potassium 5.2 mmol/L (3.5-5.1); Protein, Total 6.6 g/dL (6.0-8.3); Sodium 139 mmol/L (136-145)
[2019-08-18 11:38] LABS: Leukocyte Large (Negative); Protein, Urine (Dipstick) > or equal to 300 mg/dL (Neg-Trace)
[2019-08-18 11:46] LABS: Clarity Opaque (Clear)
[2019-08-18 11:47] LABS: Bilirubin Unable to Interpret (Negative); Blood, Urine Large (Negative); Glucose, Urine (Dipstick) Unable to Interpret mg/dL (Negative); Nitrite Unable to Interpret (Negative); Urobilinogen UNABLE TO INTERPRET mg/dL (Less than 2)
[2019-08-18 11:51] LABS: Bacteria/HPF 4+ HPF (None Seen); Squamous Epithelial None Seen HPF (0-3); WBC/HPF Greater Than 50 HPF (0-3)
[2019-08-18 11:53] LABS: Band 27 % (5-11); Lymphocytes 13 % (21-51); MDiff Complete? YES; Monocytes 3 % (0-10); Neutrophil 57 % (42-75); Platelet Morphology Comment Appears Increased; Polychromasia SLIGHT = 2-3 cells (100X) (0-2/hpf)
[2019-08-18 11:59] LABS: CKMB 0.7 ng/mL (0-6.6)
--- NOTE | 2019-08-18 12:15 | CT ---
CT ABDOMEN AND PELVIS PERFORMED WITH INTRAVENOUS CONTRAST ENHANCEMENT: HISTORY: Abdominal pain. The patient is on dialysis. The patient has not been eating well. COMPARISON: An abdominal ultrasound of 06/17/[address] study of 09/11/2013. FINDINGS: The lung bases show a slightly mosaic lung pattern, some ground-glass opacity, and areas that probabl y represent air trapping. The liver, spleen, and pancreas regions appear unremarkable. Gallbladder is not distended. Right and left adrenal glands are normal. There is marked right-sided hydronephrosis and hydroureter all the way to the level of the ureterovesical junction. The bladder is distended. There is some b ladder wall thickening and there is some minimal perivesical fat stranding present. There is no sandeep l or ureteral calcification seen associated with this pronounced hydronephrosis. The left kidney and collecting system are normal in appearance. No significant periaortic or mesenteric adenopathy. Si gmoid diverticulosis is noted. Appendix region is normal. IMPRESSION: 1. Marked right-sided hydronephrosis and hydroureter all the way to the level of the ureterovesical junction. I do not see any radiopaque obstructing ureteral calculus or calculus within the bladder t o explain the dilatation. The bladder itself is distended. There is some wall thickening and change s that would suggest possibly a cystitis, but this would not be a definite explanation for the ureter al dilatation and could possibly be on the basis of reflux, but the patient would have to have been a significant refluxer. Another possibility is a nonradiopaque stone or a sloughed papillae. No blad doug calculus is seen to explain the dilatation. 2. Sigmoid diverticulosis. POS: TPC
[2019-08-18] MEDS ORDERED: cefTRIAXone\\ROCEPHIN 1 GM VIAL ONE (12:32)
[2019-08-18] MEDS ORDERED: cefTRIAXone\\ROCEPHIN 2 GM VIAL ONE (12:33)
[2019-08-18] MEDS ORDERED: Loperamide HCl 2 MG CAP PO PRN (12:47)
[2019-08-18] MEDS ORDERED: Calcium Carbonate 500 MG ChewTAB PO PRN (12:47)
[2019-08-18] MEDS ORDERED: Dextrose 50% Abboject 50 ML SYRINGE SLOW IVP PRN (12:49)
[2019-08-18] MEDS ORDERED: HumaLOG 300 UNITS/3 ML VIAL SC PRN (12:49)
[2019-08-18] MEDS ORDERED: Dextrose 5% in Water 1,000 ML IV PRN (12:49)
[2019-08-18] MEDS ORDERED: HYDROcodone/Acetaminophen 5/325 mg Tablet PO PRN (12:50)
[2019-08-18] MEDS ORDERED: Ondansetron ODT 4 MG TAB PO PRN (12:50)
[2019-08-18] MEDS ORDERED: Ondansetron PF 4 MG/2 ML Vial IVP PRN (12:50)
[2019-08-18] MEDS ORDERED: Bisacodyl 5 MG TAB PO PRN (12:50)
[2019-08-18] MEDS ORDERED: HYDROcodone/Acetaminophen 7.5/325 mg Tablet PO PRN (12:50)
--- NOTE | 2019-08-18 14:55 | PDOC.HHP ---
Hospitalist HPI - History of Present Illness UTI History of Present Illness: Ms. Rodriguez is a 78-year-old female with past medical history of end-stage renal disease on hemodialysis, cerebrovascular accident with residual deficits and inability to talk at baseline, insulin pen diabetes mellitus, hypertension, hyperlipidemia, and pacemaker who presents with urinary tract infection symptoms. Patient is a resident of correction facility and was brought in a request her daughter for failure to thrive, not eating, not drinking and having UTI symptoms. Her daughter is primary historian is the patient is nonverbal at baseline after her stroke. Her daughter patient has not been eating or drinking much for the past several days. Patient with urinary tract infection symptoms and she has completed the course of Keflex, though she did not improve. On admission patient was diagnosed with sepsis with WBC count of 18 ,000, urinary source. Patient was CT scan of the abdomen does demonstrate right- sided pyelonephritis with hydronephrosis and urology consultation was requested. Nephrology consultation requested for hemodialysis. Hospitalist ROS - Review of Systems ROS unobtainable: due to mental status Hospitalist History - Past Medical History Source: family, old records Cardiac: reports: CHF, Other (Pacemaker for complete heart block) Pulmonary: reports: CVA/TIA/stroke, high cholesterol, hypertension [employer] MANAGER: reports: CVA Endocrine: reports: Diabetes - Past Surgical History Past Surgical History: reports: Other (Pacemaker) - Family History Family History: reports: diabetes mellitus, hypertension - Social History Smoking Status: Never smoker Alcohol: reports: None Drugs: reports: none Living Situation: [facility] Domestic Violence: Negative Activity level: bed bound - Exam General Appearance: NAD Eye: PERRL, anicteric sclera ENT: normocephalic atraumatic, moist mucosa Neck: supple, symmetric, no lymphadenopathy Heart: no murmur, no gallops, no rubs Respiratory: CTAB, no wheezes, no rales, no ronchi, normal chest expansion Gastrointestinal: soft, non-distended, normal bowel sounds, no palpable masses, no guarding, no rigidity, tender to palpation (Right abdomen and flank) Extremities: 2+ LE edema Skin: no rashes Neurological: cranial nerve grossly intact, no new deficit Neurological - other findings: Left weakness - at baseline. Does not talk s/p CVA at baseline Musculoskeletal: generalized weakness Psychiatric: flat affect Psychiatric - other findings: Limited secondary to non verbal status Hospitalist Results - Labs Result Diagrams: 08/18/19 11:03 08/18/19 11:03 Lab results: WBC 18.2 thou/uL (4.8-10.8) H 08/18/19 11:03 Hgb 10.0 g/dL (12.0-16.0) L 08/18/19 11:03 Hct 32.5 % (36.0-47.0) L 08/18/19 11:03 MCV 99.6 fL (78.0-98.0) H 08/18/19 11:03 Plt Count 480 thou/uL (130-400) H 08/18/19 11:03 Band Neuts % (Manual) 27 % (5-11) H 08/18/19 11:03 Sodium 139 mmol/L (136-145) 08/18/19 11:03 Potassium 5.2 mmol/L (3.5-5.1) H 08/18/19 11:03 Chloride 95 mmol/L (98-107) L 08/18/19 11:03 Carbon Dioxide 24 mmol/L (23-31) 08/18/19 11:03 BUN 56 mg/dL (9.8-20.1) H 08/18/19 11:03 Creatinine 7.38 mg/dL (0.6-1.1) H 08/18/19 11:03 Glucose 175 mg/dL (83-110) H 08/18/19 11:03 Lactic Acid 1.6 mmol/L (0.5-2.2) 08/18/19 11:03 Calcium 8.8 mg/dL (7.8-10.44) 08/18/19 11:03 Total Bilirubin 0.6 mg/dL (0.2-1.2) 08/18/19 11:03 AST 42 U/L (5-34) H 08/18/19 11:03 ALT 41 U/L (8-55) 08/18/19 11:03 Alkaline Phosphatase 100 U/L (40-110) 08/18/19 11:03 Creatine Kinase 19 U/L (29-168) L 08/18/19 11:03 CK-MB (CK-2) 0.7 ng/mL (0-6.6) 08/18/19 11:03 Troponin I 0.073 ng/mL (< 0.028) H 08/18/19 11:03 Serum Total Protein 6.6 g/dL (6.0-8.3) 08/18/19 11:03 Albumin 3.2 g/dL (3.4-4.8) L 08/18/19 11:03 Lipase 30 U/L (8-78) 08/18/19 11:03 Urine Ketones Unable to Interpret mg/dL (Negative) 08/18/19 11:00 Urine Blood Large (Negative) A 08/18/19 11:00 Urine Nitrite Unable to Interpret (Negative) 08/18/19 11:00 Ur Leukocyte Esterase Large (Negative) H 08/18/19 11:00 Urine RBC 11-20 HPF (0-3) A 08/18/19 11:00 Urine WBC Greater Than 50 HPF (0-3) A 08/18/19 11:00 Ur Squamous Epith Cells None Seen HPF (0-3) 08/18/19 11:00 Urine Bacteria 4+ HPF (None Seen) A 08/18/19 11:00 - Radiology Interpretation CT scan - abdomen Status: image reviewed by ct Hospitalist H&P A/P - Problem (1) Sepsis Code(s): A41.9 - SEPSIS, UNSPECIFIED ORGANISM Status: Acute (2) AV block, 3rd degree Code(s): I44.2 - ATRIOVENTRICULAR BLOCK, COMPLETE Status: Acute (3) Chronic hypercapnic respiratory failure Code(s): J96.12 - CHRONIC RESPIRATORY FAILURE WITH HYPERCAPNIA Status: Acute (4) Expressive aphasia Code(s): R47.01 - APHASIA Status: Acute (5) Anemia, normocytic normochromic Code(s): D64.9 - ANEMIA, UNSPECIFIED Status: Chronic (6) Anxiety and depression Code(s): F41.9 - ANXIETY DISORDER, UNSPECIFIED; F32.9 - MAJOR DEPRESSIVE DISORDER, SINGLE EPISODE, UNSPECIFIED Status: Chronic (7) CKD (chronic kidney disease), stage V Code(s): N18.5 - CHRONIC KIDNEY DISEASE, STAGE 5 Status: Chronic (8) Chronic anticoagulation Code(s): Z79.01 - ASIAN STUDIES PROGRAM CHAIR (CURRENT) USE OF 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 Status: Chronic (9) Chronic respiratory failure with hypoxia Code(s): J96.11 - CHRONIC RESPIRATORY FAILURE WITH HYPOXIA Status: Chronic (10) DM type 2 (diabetes mellitus, type 2) Status: Chronic Qualifiers: Chronic kidney disease stage: stage 4 (severe) (11) End-stage renal disease needing dialysis Code(s): N18.6 - END STAGE RENAL DISEASE; Z99.2 - DEPENDENCE ON RENAL DIALYSIS Status: Chronic (12) HTN (hypertension) Code(s): I10 - ESSENTIAL (PRIMARY) HYPERTENSION Status: Chronic Qualifiers: (13) Hypothyroidism Code(s): E03.9 - HYPOTHYROIDISM, UNSPECIFIED Status: Chronic Qualifiers: (14) Moderate mitral regurgitation by prior echocardiogram Code(s): I34.0 - NONRHEUMATIC MITRAL (VALVE) INSUFFICIENCY Status: Chronic (15) Moderate tricuspid regurgitation by prior echocardiogram Code(s): I07.1 - RHEUMATIC TRICUSPID INSUFFICIENCY Status: Chronic (16) Morbid obesity with BMI of 40.0-44.9, adult Code(s): E66.01 - MORBID (SEVERE) OBESITY DUE TO EXCESS CALORIES; Z68.41 - BODY MASS INDEX (BMI) 40.0-44.9, ADULT Status: Chronic (17) Paroxysmal atrial fibrillation Code(s): I48.0 - PAROXYSMAL ATRIAL FIBRILLATION Status: Chronic (18) Pulmonary hypertension Code(s): I27.2 - OTHER SECONDARY PULMONARY HYPERTENSION * DO NOT USE * Status : Chronic (19) UTI (urinary tract infection) Status: Suspected - Plan Plan: Plan: admit to medical unit with telemetry urology consultation, recommendations appreciated nephrology consultation, recommendations appreciated broad-spectrum IV antibiotics urinary culture blood culture de-escalate culture and sensitivity is able with significant pyelonephritis seen on CT scan of the abdomen, though does not make urine and on HD chronically further plan of care per specialist hemodialysis per nephrology Non verbal at baseline after CVA with left sided def at baseline continue other home medications as able long and short acting insulin for glucose control blood pressure control blood sugar control G.I. prophylaxis DVT prophylaxis
[2019-08-18] MEDS ORDERED: Morphine 2 MG/ML SYRINGE ONE (15:03)
[2019-08-18 15:24] LABS: Troponin I 0.069 ng/mL (< 0.028)
[2019-08-18 18:22] LABS: Troponin I 0.063 ng/mL (< 0.028)
[2019-08-18] MEDS: Heparin 5,000 UNITS/ML VIAL SC SCH ×2 (20:03→21:16)
[2019-08-18] MEDS ORDERED: Vancomycin HCl 1 GM in Premix Bag 1 BAG IVPB SCH (21:00)
[2019-08-18] MEDS: Piperacillin/Tazobactam 2.25 GM in Sodium Chloride 0.9% 100 ML IVPB SCH (21:15)
[2019-08-18] MEDS: Metoprolol Tartrate 25 MG TAB PO SCH ×2 (21:17→21:22)
--- NOTE | 2019-08-18 22:42 | CON ---
DATE OF CONSULTATION: HISTORY OF PRESENT ILLNESS: This 78-year-old female came to the ER today. On talking with her daughter and her granddaughter, she has not been well for the last 2 weeks, not eating much, some nausea, some vomiting. She got worse 2 days ago, Sunday. Today is Sunday, then was brought in today. She has not been making much urine. She is an end-stage renal patient. She has been having on her diaper something that looks like it is black and foul smelling and the nursing staff I guess at the nursing center she is at thought that may have been urine after initially thinking that was a vaginal discharge. They brought her to the ER here. She had a CAT scan done that shows a distended urinary bladder and some right hydro. She did not have this on the ultrasound in May of this past year that was just a few weeks ago. Her vital signs are currently stable, but she has an elevated white blood cell count. Creatinine is elevated, but again she is end-stage renal, on hemodialysis every Sunday, Sunday and , so she has not missed any dialysis. She is on oxygen 24 hours. PAST MEDICAL HISTORY: She has a pacemaker. She has had history of congestive heart failure. She had a stroke on or around the or 12 of July of this year. She was to have seen me on the , but missed that visit, the family says because of having a stroke. She also has diabetes. She has a history of some depression, history of anemia, hypertension, hypothyroidism, pulmonary hypertension, and atrial fibrillation. Since her stroke, she has been on Plavix. PHYSICAL EXAMINATION: She has a very tender suprapubic region. The upper abdominal quadrants feel soft. ASSESSMENT AND PLAN: I talked with the nurse taking care of her, who stated that when the nurse was in and out cathing they only got like 10 mL of very dark foul smelling urine. On reviewing her CT scan, she does have a distended bladder. So, at that point, it seems she probably had a fair amount of clot, so we sterilely prepped and draped her with Betadine and we placed a 22-[address] catheter with 20 mL in the balloon and placed a catheter plug in the irrigation port and then hand irrigated with a liter of saline getting out a number of clots until we did not get any further clots, but still slightly noriega-colored urine. For this reason, we started her on continuous bladder irrigation with some normal saline. It appears that it is draining well and the urine is light red without clots on this. She still is fairly tender in the suprapubic region. I talked with her family members indicating that with her other health issues, this is a significant infection for her to have. I think they had already discussed with her end of life questioning, so I will leave that up to the hospitalist to determine where there are at with that decision making. I think she should be kept n.p.o. I am going to repeat a noncontrast CAT scan tomorrow to see if this hydronephrosis resolves. It is possible she may need a stent if that is not the case. We will make that determination in the next couple of days unless she decompensates, which today she has and her blood pressure has actually been high. She has received Rocephin and vancomycin, which probably will cover her for at least the next 24 to 48 hours with her end-stage renal disease. Where she does not make much urine, having resistant yeast, we should continue with continuous bladder irrigation to try to keep her bladder decompressed and wash out any blood that she may get from her bladder. I think that most likely she probably either developed some hematuria from her Plavix and the heparin she uses during dialysis and then developed some clotting of the blood in the bladder and then infection and then could not empty, or developed an infection and then developed hematuria from that and on blood thinners this persisted. In any event, right now her bladder I think is decompressed. The bleeding does not look to be terrible at all. We will need to see what happens with the right hydro. It may be that that will improve with the bladder being decompressed. She did have 900 mL of thick foul-smelling bloody urine in it before I even started irrigation. I will follow along with you and this was fully discussed with the patient's daughter. Job ID: [id number]
--- NOTE | 2019-08-18 23:13 | CON ---
DATE OF CONSULTATION: HISTORY OF PRESENT ILLNESS: Ms. Rodriguez is a 78-year-old female with ESRD, status post CVA and admitted for dysuria and UTI symptoms. She was found to have a urinary tract infection. The patient has also underwent a CT scan of the abdomen, which demonstrated right-sided pyelonephritis with hydronephrosis. Urology consult has been done. REVIEW OF SYSTEMS: Not obtainable since the patient is nonverbal. MEDICATIONS: Medications of August 18, 2019 was reviewed. PAST MEDICAL HISTORY: 1. ESRD from diabetic nephropathy. 2. Type 2 diabetes mellitus. 3. Status post CVA with aphasia. 4. Status post UTI. PAST SURGICAL HISTORY: Status post cuffed hemodialysis catheter placement, status post AV fistula placement. SOCIAL HISTORY: The patient is . Lives currently in halfway. She has 5 children. 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 Education, high school. No smoking. No alcohol intake. Sedentary lifestyle. ALLERGIES: UNKNOWN. TRAUMA: None. IMMUNIZATION: Up-to-date. HOSPITALIZATIONS: Please see past medical history. PHYSICAL EXAMINATION: VITAL SIGNS: Blood pressure is 130/70, heart rate 70. GENERAL: The patient is awake, alert, can follow simple commands. She is aphasic. HEENT: Slightly pale conjunctivae. Anicteric sclerae. No neck mass. No carotid bruits. No JVD. CHEST: No deformities. LUNGS: Clear breath sounds. No wheezing. No crackles. HEART: Normal sinus rhythm. No murmur. No gallops. No rubs. ABDOMEN: Globular, soft, nontender, no masses. EXTREMITIES: No edema. No deformities. NEUROLOGICAL: Awake, the patient is aphasic. Limited range of motion. Decreased motor strength. LABORATORY DATA: Laboratories of August 18, 2019, white count 18.2, hemoglobin 10. Sodium 139, potassium 5.2, chloride 95, carbon dioxide 24, BUN 56, creatinine 7.38, glucose 175, AST 42, ALT 41. August 18, 2019, CT scan of the abdomen and pelvis showed marked right-sided hydronephrosis and hydroureter. ASSESSMENT AND PLAN: 1. End-stage renal disease. Continuing current hemodialysis regimen Sunday, , and Sunday. Fluid removal as tolerated. 2. Urosepsis-the patient has marked right hydronephrosis. She has a Villalobos catheter at the present time. We have consulted Urology for further management. 3. Anemia. We will start Epogen 7500 units subcu every week. 4. Urinary tract infection. Currently, the patient has been started on empiric IV antibiotics. Job ID: [id number]
[2019-08-19 04:59] LABS: Anion Gap 22 mmol/L (10-20); BUN (Urea Nitrogen) 62 mg/dL (9.8-20.1); Calc. Creatinine Clearance 9 mL/min (70-130); Calcium 7.9 mg/dL (7.8-10.44); Carbon Dioxide 18 mmol/L (23-31); Chloride 105 mmol/L (98-107); Estimated GFR-MDRD 5; Glucose 86 mg/dL (83-110); Potassium 5.6 mmol/L (3.5-5.1); Sodium 139 mmol/L (136-145)
[2019-08-19 05:07] LABS: Band 12 % (5-11); Eosinophils 1 % (0-10); Hemoglobin 8.1 g/dL (12.0-16.0); Hypochromia SLIGHT = 6-15 cells (100X) (0-5/hpf); Lymphocytes 10 % (21-51); MDiff Complete? YES; Mean Corpuscular HGB CONC 30.3 g/dL (32.0-36.0); Mean Platelet Volume 6.5 fL (7.4-10.4); Monocytes 2 % (0-10); Neutrophil 75 % (42-75); Platelet Count 396 thou/uL (130-400); Platelet Morphology Comment Appears Adequate; RBC Distribution Width 16.1 % (11.5-14.5); White Blood Cell (WBC) Count 16.6 thou/uL (4.8-10.8)
[2019-08-19] MEDS: Levothyroxine Sodium 50 MCG TAB PO SCH (05:19)
[2019-08-19] MEDS ORDERED: Epoetin (ESRD) 20,000 UNITS/ML SC SCH (07:45)
--- NOTE | 2019-08-19 08:22 | PRG ---
DATE OF SERVICE: 08/19/2019 Her vital signs are currently stable. She is not hypotensive. Daughter feels like she is feeling better today than she did yesterday, although she still says she is having a lot of abdominal pain. She is afebrile. Cultures are still pending. Her urine is now clear on a slow CBI drip. It does not appear that she has made that much urine. White count is down a little bit to 16 and hemoglobin is 8 and I do not know how much of that is fluid related. Her creatinine is 7.74. Sugars have been okay. She is to be dialyzed today. We will keep her on antibiotics, see what her cultures show as they start to come back tomorrow probably. We will repeat a CAT scan today. On exam, her abdomen is still operator brandy. I do not feel any real rebound or guarding. She looks more comfortable than she did. Job ID: [id number]
--- NOTE | 2019-08-19 08:26 | PRG ---
DATE OF SERVICE: 08/19/2019 SUBJECTIVE: Ms. Rodriguez is a 78-year-old white female with ESRD on maintenance hemodialysis, who was admitted for UTI. Currently, the patient has been started on IV antibiotics. She was also noted to be mildly anemic. For that reason, we have started Epogen. No new complaints today. OBJECTIVE: VITAL SIGNS: Blood pressure 128/60, heart rate 81, respiratory rate 20, temperature 97.6, pulse ox 96%. GENERAL: Awake, alert, and comfortable, not in distress. SKIN: Adequate turgor. HEENT: Pale conjunctivae. Anicteric sclerae. NECK: No neck mass. No carotid bruits. No JVD. CHEST: No deformities. LUNGS: Clear breath sounds. No wheezing. No crackles. HEART: Normal sinus rhythm. No murmurs, no gallops, no rubs. ABDOMEN: Globular, soft, nontender. No masses. EXTREMITIES: Trace edema. MEDICATIONS: Medications of August 19, 2019 were reviewed. LABORATORY DATA: Laboratories of August 19, 2019; white count 16.6, hemoglobin 8.1 sodium 139, potassium 5.6, chloride 105, carbon dioxide 18, BUN 62, creatinine 7.74, glucose 86, calcium 7.9. August 18, 2019, blood culture negative to date. ASSESSMENT AND PLAN: 1. Urinary tract infection-currently on IV antibiotics. 2. End-stage renal disease. We will continue current hemodialysis regimen. Fluid removal only as tolerated by the patient. 3. Right-sided hydronephrosis. Urology has evaluated this patient. She is undergoing bladder lavage as recommended by her urologist, Dr. Rolwey. Overall, continue supportive care. Job ID: [id number]
[2019-08-19] MEDS ORDERED: Morphine 2 MG/ML SYRINGE SLOW IVP PRN ×2 (08:33→12:07)
[2019-08-19] MEDS: Piperacillin/Tazobactam 2.25 GM in Sodium Chloride 0.9% 100 ML IVPB SCH ×2 (08:43→21:10)
[2019-08-19] MEDS ORDERED: Non-Formulary Item 1 EACH (Insulin Glargine,Hum.Rec.Anlog [Lantus Solostar] 15 UNIT) SC SCH (09:00)
--- NOTE | 2019-08-19 09:37 | PRG ---
DATE OF SERVICE: 08/19/2019 I was called back to see the patient has a catheter stopped draining and she was leaking urine around it. The nurses were unable to flush it. I waited for her to receive some morphine and then flushed the catheter actually flushed fairly easily. Urine was slightly bloody. I did irrigate out clots with initial flush and for that reason, I did hand irrigation and used about 2.5 L of a combination of saline and sterile water until we could get no more clots and her urine was just light pink in color, and then we hooked her back up to continuous bladder irrigation. I would like to be sure that her Plavix is held. I have texted Dr. Mendoza about using low heparin on her hemodialysis. Her CAT scan is still pending and the nurses will call my office when it is complete. I would like to keep her n.p.o. I spent about an hour probably even a little over an hour here at her bedside caring for during this visit. Job ID: [id number]
--- NOTE | 2019-08-19 09:45 | PDOC.HOSPP ---
- Subjective Encounter Date: 08/19/19 Encounter Time: 11:10 non-verbal Subjective: Patient was in pain earlier per family, will grimace and hold stomach. Better with morphine and after Dr. Rowley finished flushing harden and irrigating bladder. - Objective Vital Signs & Weight: Vital Signs (12 hours) Temp Pulse Resp BP Pulse Ox 08/19/19 09:09 96 08/19/19 03:46 97.6 F 81 20 128/60 96 08/19/19 00:00 97.5 F L 87 18 124/60 96 Weight Weight 202 lb 14.4 oz Result Diagrams: 08/19/19 04:35 08/19/19 04:35 Additional Labs: Accuchecks 08/19/19 08/18/19 08/18/19 05:44 20:54 18:25 POC Glucose 91 125 H 116 H Hospitalist ROS - Review of Systems ROS unobtainable: due to mental status - Medication Medications: Active Medications Generic Name Dose Route Start Last Admin Trade Name Freq PRN Reason Stop Dose Admin Heparin Sodium (Porcine) 5,000 units 08/18/19 15:00 08/18/19 21:16 Heparin SC 5,000 units TID JADE Administration Piperacillin Sod/Tazobactam 100 mls @ 200 mls/hr 08/18/19 20:00 08/19/19 08: 43 Sod 2.25 gm/ Sodium Chloride IVPB 100 mls 08,1999 JADE Administration Levothyroxine Sodium 50 mcg 08/19/19 06:00 08/19/19 05:19 Synthroid PO Not Given 0600 [facility] Metoprolol Tartrate 25 mg 08/18/19 21:00 08/18/19 21:22 Lopressor PO Not Given BID JADE Morphine Sulfate 2 mg 08/19/19 08:33 08/19/19 08:39 Morphine SLOW IVP 2 mg Q6H PRN Administration Pain Sodium Chloride 10 ml 08/18/19 21:00 08/18/19 21:17 Flush - Normal Saline IVF 10 ml Q12HR JADE Administration - Exam General Appearance: NAD, awake alert ENT: moist mucosa Heart: RRR, no murmur, no gallops, no rubs Respiratory: CTAB, no wheezes, no rales, no ronchi Gastrointestinal: soft, non-tender, non-distended, normal bowel sounds Psychiatric - other findings: non-verbal, will follow commands Hosp A/P (1) Sepsis Code(s): A41.9 - SEPSIS, UNSPECIFIED ORGANISM Status: Acute (2) UTI (urinary tract infection) Status: Acute Qualifiers: Urinary tract infection type: acute pyelonephritis Qualified Code(s): N10 - Acute pyelonephritis (3) Chronic respiratory failure with hypoxia Code(s): J96.11 - CHRONIC RESPIRATORY FAILURE WITH HYPOXIA Status: Chronic (4) Atrial fibrillation Code(s): I48.91 - UNSPECIFIED ATRIAL FIBRILLATION Status: Acute (5) DM type 2 (diabetes mellitus, type 2) Status: Chronic Qualifiers: Chronic kidney disease stage: stage 4 (severe) (6) End-stage renal disease needing dialysis Code(s): N18.6 - END STAGE RENAL DISEASE; Z99.2 - DEPENDENCE ON RENAL DIALYSIS Status: Chronic (7) HTN (hypertension) Code(s): I10 - ESSENTIAL (PRIMARY) HYPERTENSION Status: Chronic Qualifiers: (8) Hypothyroidism Code(s): E03.9 - HYPOTHYROIDISM, UNSPECIFIED Status: Chronic Qualifiers: (9) Anemia in chronic kidney disease Code(s): N18.9 - CHRONIC KIDNEY DISEASE, UNSPECIFIED; D63.1 - ANEMIA IN CHRONIC KIDNEY DISEASE Status: Acute (10) Hyperkalemia Code(s): E87.5 - HYPERKALEMIA Status: Acute (11) Bladder hemorrhage Code(s): N32.89 - OTHER SPECIFIED DISORDERS OF BLADDER Status: Acute - Plan Proteus growing in Urine, Dr. Rowley following, on Zosyn and Vanc since 2019 Holding blood thinners due to anemia and hematuria, bladder irrigation PT/OT/ST DVT Proph: SCDs
[2019-08-19] MEDS ORDERED: HOLD VANCOMYCIN FOR LEVEL >20 FS SCH (10:00)
[2019-08-19] MEDS ORDERED: Vancomycin HCl 1 GM in Premix Bag 1 BAG IVPB SCH (10:00)
[2019-08-19] MEDS ORDERED: EPOETIN ALFA-EPBX (ESRD) 4,000 UNIT/ML VIAL SC SCH (10:00)
[2019-08-19] MEDS ORDERED: Piperacillin/Tazobactam 0.75 GM in Sodium Chloride 0.9% 100 ML IVPB SCH (10:00)
[2019-08-19] MEDS ORDERED: Vancomycin HCl 500 MG in Sodium Chloride 0.9% 100 ML IVPB SCH (10:00)
[2019-08-19] MEDS ORDERED: Vancomycin HCl 750 MG in Sodium Chloride 0.9% 250 ML 250 ML IVPB SCH (10:00)
[2019-08-19] MEDS ORDERED: Vancomycin HCl 1.25 GM in Sodium Chloride 0.9% 250 ML 250 ML IVPB SCH (10:00)
[2019-08-19 10:05] LABS: Vancomycin, Trough 9.1 ug/mL
[2019-08-19] MEDS ORDERED: Heparin 10,000 UNITS/ 10 ML VIAL ONE (10:48)
[2019-08-19] MEDS: Insulin Glargine 15 UNITS in Pre-Filled Syringe 1 EACH SC SCH (12:09)
[2019-08-19] MEDS: Famotidine 20 MG TAB PO SCH (12:09)
[2019-08-19] MEDS: Metoprolol Tartrate 25 MG TAB PO SCH ×2 (12:09→21:09)
[2019-08-19] MEDS: Heparin 5,000 UNITS/ML VIAL SC SCH (12:10)
--- NOTE | 2019-08-19 13:43 | CT ---
CT ABDOMEN AND PELVIS WITHOUT IV CONTRAST: Date: 08/19/2019 INDICATION: Follow-up hydronephrosis. Comparison made to yesterday's CT abdomen and pelvis which showed prominent right hydronephrosis and right hydroureter. FINDINGS: Lung bases clear. Liver, spleen, and pancreas unremarkable. Stomach and duodenum unremarkable. The gallbladder is distended. There are areas of rounded lucency seen in the neck of the gallbladder which are accentuated today due to vicarious excretion of contrast into the gallbladder lumen since y ester's IV contrasted study. These findings would indicate numerous small cholesterol gallstones. Abdominal ultrasound exam from 06/17/2019 did confirm gallstones. Review of the kidneys today shows residual contrast in the collecting structures from yesterday's IV contrasted study. Mild right hydronephrosis seen today. The degree of hydronephrosis on the right has significantly decreased since yesterday. Right ureter is mildly prominent today, but is much less di lated than yesterday. Urinary bladder is mildly distended. There is urinary bladder wall thickening. Villalobos catheter is in p lace. There is gas within the bladder, probably from the catheterization procedure. Left kidney and left collecting structures remain unremarkable and unchanged. Small bowel loops normal caliber. Colon unremarkable. Aorta normal caliber. IMPRESSION: 1. Today's exam shows mild right hydronephrosis, much less pronounced than on yesterday's study. The re is urinary bladder wall thickening again noted. 2. Mild gallbladder distention and evidence of gallstones seen on today's study. POS: [facility]
[2019-08-19] MEDS: Atorvastatin Calcium 20 MG TAB PO SCH (21:09)
[2019-08-20 00:21] LABS: HBSAg Index 0.15 S/CO (0-0.99); Hep B Surf Ag Non-Reactive S/CO (NonReactive)
[2019-08-20 04:29] LABS: #Basophils 0.1 thou/uL (0.0-0.2); #Eosinphils 0.3 thou/uL (0.0-0.7); #Lymphocytes 1.7 thou/uL (1.20-3.40); #Neutrophils 8.4 thou/uL (1.40-6.50); %Basophils 0.7 % (0.0-1.0); %Eosinophils 2.4 % (0.0-10.0); %Lymphocytes 14.5 % (21.0-51.0); %Monocytes 8.6 % (0.0-10.0); %Neutrophils 73.8 % (42.0-75.0); Hemoglobin 8.3 g/dL (12.0-16.0); Mean Corpuscular HGB CONC 31.6 g/dL (32.0-36.0); Mean Corpuscular Hemoglobin 31.7 pg (27.0-31.0); Mean Platelet Volume 6.8 fL (7.4-10.4); Platelet Count 387 thou/uL (130-400); RBC Distribution Width 15.9 % (11.5-14.5); White Blood Cell (WBC) Count 11.4 thou/uL (4.8-10.8)
[2019-08-20 04:49] LABS: Anion Gap 17 mmol/L (10-20); BUN (Urea Nitrogen) 28 mg/dL (9.8-20.1); Calc. Creatinine Clearance 16 mL/min (70-130); Calcium 8.1 mg/dL (7.8-10.44); Carbon Dioxide 24 mmol/L (23-31); Chloride 99 mmol/L (98-107); Estimated GFR-MDRD 10; Glucose 87 mg/dL (83-110); Potassium 3.7 mmol/L (3.5-5.1); Sodium 136 mmol/L (136-145)
[2019-08-20] MEDS: Levothyroxine Sodium 50 MCG TAB PO SCH (06:42)
--- NOTE | 2019-08-20 08:33 | PDOC.HOSPP ---
- Subjective Encounter Date: 08/20/19 Encounter Time: 11:30 Subjective: Patient much more alert today. Still reacts in pain with palpation of stomach but hasn't needed morphine this AM. Passed one more clot with irrigation at 0300 this AM, just pink urine since. Patient said "No" and a couple other pleasantries which are the first things she has said since the stroke. - Objective Vital Signs & Weight: Vital Signs (12 hours) Temp Pulse Resp BP Pulse Ox 08/20/19 07:36 97.8 F 70 20 130/61 95 08/20/19 03:48 97.7 F 87 16 131/58 L 98 08/20/19 00:00 80 18 Weight Admit Weight 202 lb 14.4 oz Weight 192 lb 14.472 oz I&O: 08/19/19 08/20/19 08/21/19 06:59 06:59 06:59 Intake Total 6310 Output Total 8420 Balance -0 Result Diagrams: 08/20/19 04:09 08/20/19 04:09 Additional Labs: Accuchecks 08/20/19 08/19/19 08/19/19 05:53 20:39 16:41 POC Glucose 95 61 L 77 08/19/19 10:30 POC Glucose 95 Hospitalist ROS - Review of Systems ROS unobtainable: due to mental status - Medication Medications: Active Medications Generic Name Dose Route Start Last Admin Trade Name Freq PRN Reason Stop Dose Admin Atorvastatin Calcium 20 mg 08/19/19 21:00 08/19/19 21:09 Lipitor PO 20 mg HS JADE Administration Epoetin Perry-epbx 7,500 unit 08/19/19 10:00 08/19/19 14:18 Retacrit SC 7,500 unit Q7D JADE Administration Famotidine 20 mg 08/19/19 09:00 08/19/19 12:09 Pepcid PO Not Given DAILY JADE Piperacillin Sod/Tazobactam 100 mls @ 200 mls/hr 08/18/19 20:00 08/19/19 21: 10 Sod 2.25 gm/ Sodium Chloride IVPB 100 mls 0800,2000 JADE Administration Insulin Glargine 15 units/ 0.15 mls @ 0 mls/hr 08/19/19 09:00 08/19/19 12:09 Miscellaneous Medication SC Not Given QAM JADE Vancomycin HCl 1 gm/ Device 200 mls @ 200 mls/hr 08/19/19 10:00 08/19/19 15: 04 IVPB 200 mls WILLCALL JADE Administration Levothyroxine Sodium 50 mcg 08/19/19 06:00 08/20/19 06:42 Synthroid PO 50 mcg 0600 JADE Administration Metoprolol Tartrate 25 mg 08/18/19 21:00 08/19/19 21:09 Lopressor PO 25 mg BID JADE Administration Sodium Chloride 10 ml 08/18/19 21:00 08/19/19 21:11 Flush - Normal Saline IVF 10 ml Q12HR JADE Administration - Exam General Appearance: NAD, awake alert ENT: moist mucosa Heart: RRR, no murmur, no gallops, no rubs Respiratory: CTAB, no wheezes, no rales, no ronchi Gastrointestinal: soft, non-distended, normal bowel sounds, no guarding, no rigidity Gastrointestinal - other findings: some discomfort to palpation Psychiatric - other findings: minimal words, following some commands Hosp A/P (1) Sepsis Code(s): A41.9 - SEPSIS, UNSPECIFIED ORGANISM Status: Acute (2) UTI (urinary tract infection) Status: Acute Qualifiers: Urinary tract infection type: acute pyelonephritis Qualified Code(s): N10 - Acute pyelonephritis (3) Chronic respiratory failure with hypoxia Code(s): J96.11 - CHRONIC RESPIRATORY FAILURE WITH HYPOXIA Status: Chronic (4) Atrial fibrillation Code(s): I48.91 - UNSPECIFIED ATRIAL FIBRILLATION Status: Acute (5) DM type 2 (diabetes mellitus, type 2) Status: Chronic Qualifiers: Chronic kidney disease stage: stage 4 (severe) (6) End-stage renal disease needing dialysis Code(s): N18.6 - END STAGE RENAL DISEASE; Z99.2 - DEPENDENCE ON RENAL DIALYSIS Status: Chronic (7) HTN (hypertension) Code(s): I10 - ESSENTIAL (PRIMARY) HYPERTENSION Status: Chronic Qualifiers: (8) Hypothyroidism Code(s): E03.9 - HYPOTHYROIDISM, UNSPECIFIED Status: Chronic Qualifiers: (9) Anemia in chronic kidney disease Code(s): N18.9 - CHRONIC KIDNEY DISEASE, UNSPECIFIED; D63.1 - ANEMIA IN CHRONIC KIDNEY DISEASE Status: Acute (10) Hyperkalemia Code(s): E87.5 - HYPERKALEMIA Status: Acute (11) Bladder hemorrhage Code(s): N32.89 - OTHER SPECIFIED DISORDERS OF BLADDER Status: Acute (12) Hydronephrosis, right Code(s): N13.30 - UNSPECIFIED HYDRONEPHROSIS Status: Acute - Plan Proteus growing in Urine, Dr. Rowley following, on Zosyn and Vanc since 2019, can stop Zosyn, likely switch to oral abx tomorrow Holding blood thinners due to anemia and hematuria, bladder irrigation H/H stable today Hydronephrosis markedly improved on repeat CT scan yesterday PT/OT/ST DVT Proph: SCDs
--- NOTE | 2019-08-20 08:45 | PRG ---
DATE OF SERVICE: 08/20/2019 SERVICE: Renal Medicine. SUBJECTIVE: Ms. Rodriguez is a 78-year-old female with ESRD from diabetic nephropathy and admitted for ? of urosepsis. She was also noted to have right hydronephrosis. Villalobos catheter has been inserted. In addition, bladder lavage is being done. Urology is following. Repeat imaging showed improvement of the right hydronephrosis. Urinary bladder wash is also showing improving hematuria. No other complaints today. She is feeling better. OBJECTIVE: VITAL SIGNS: Blood pressure is 130/61, heart rate 70, respiratory rate 20, temperature 97.8, and pulse ox 95%. GENERAL: Awake, alert, aphasic, not in distress. SKIN: Adequate turgor. HEENT: Slightly pale conjunctivae. Anicteric sclerae. NECK: No neck mass. No carotid bruits. No JVD. CHEST: No deformities. LUNGS: Clear breath sounds. No wheezing. No crackles. HEART: Normal sinus rhythm. No murmur. No gallops. No rubs. ABDOMEN: Globular, soft, and nontender. No masses. EXTREMITIES: No edema. No deformities. MEDICATIONS: Medications of August 20, 2019, were reviewed. LABORATORY DATA: Laboratories of August 20, 2019; white count 11.4, hemoglobin 8.3. Sodium 136, potassium 3.7, chloride 99, carbon dioxide 24, BUN 28, creatinine 4.36, glucose 87, and calcium 8.1. ASSESSMENT AND PLAN: 1. End-stage renal disease, stable. We will continue current Sunday, , and Sunday dialysis regimen. Currently, we are not using any heparin with the dialysis. 2. Right hydronephrosis, clinically improving. Repeat imaging showed that hydronephrosis is slightly improved. Urology is following. 3. Anemia. We will continue weekly Epogen with this patient, p.r.n. blood transfusion for hemoglobin less than 7. Job ID: [id number]
--- NOTE | 2019-08-20 09:29 | PRG ---
DATE OF SERVICE: 08/20/2019 SUBJECTIVE: This patient has been afebrile. Vital signs are stable. O2 saturation are normal. Nasal cannula looks to be good. Her urine is much clear, just light pink on a fairly slow CBI now. It looks like she has made some urine output. She is growing out Proteus species in her urine. Her vancomycin can probably be discontinued and she can probably be maintained on almost any antibiotic as it was nearly pansensitive, but she does not need the vancomycin for it anymore. Her hemoglobin is 8.3, which is stable. Her white count is down to 11.4. After dialysis, her creatinine is 4.3. She is much more comfortable. She is actually talking and communicating. Her abdomen is now soft and nontender. IMPRESSION: 1. Improving gross hematuria. 2. Improving urinary tract infection. PLAN: At this time is to continue her antibiotics, keep her on CBI until her urine is clear and stop the CBI and then watch her just with Villalobos catheter drainage for a day or two and see how much urine output she is producing before giving her a voiding trial. Some of this could be done back at the nursing center I am sure whenever she is stable for that. I think she should stay off the Plavix for the time being until she has gone for a while without any more bleeding. I think she could benefit from an office cysto. I just do not know that she is healthy enough that if we found something that we could take care of it, i.e., if we find a bladder tumor, is she healthy now for transurethral resection of it. Right now, it does not appear to be an emergent procedure that requires doing with her current health. Something that could probably get set up to do as an outpatient Job ID: [id number]
[2019-08-20] MEDS: Piperacillin/Tazobactam 2.25 GM in Sodium Chloride 0.9% 100 ML IVPB SCH ×2 (10:21→20:52)
[2019-08-20] MEDS: Metoprolol Tartrate 25 MG TAB PO SCH ×2 (10:22→20:52)
[2019-08-20] MEDS: Famotidine 20 MG TAB PO SCH (10:22)
[2019-08-20] MEDS: Insulin Glargine 15 UNITS in Pre-Filled Syringe 1 EACH SC SCH (10:23)
[2019-08-20] MEDS: Atorvastatin Calcium 20 MG TAB PO SCH (20:52)
[2019-08-21] MEDS: Levothyroxine Sodium 50 MCG TAB PO SCH (06:38)
--- NOTE | 2019-08-21 08:29 | PDOC.HOSPP ---
- Subjective Encounter Date: 08/21/19 Encounter Time: 12:45 non-verbal Subjective: Patient seen in dialysis and case discussed with daughter. More alert since yesterday. Still with some blood in urine. Eating a bit better but still very poor po intake. Daughter asking if we can relax diet to renal with high protein to try and encourage po. - Objective Vital Signs & Weight: Vital Signs (12 hours) Temp Pulse Resp BP Pulse Ox 08/21/19 07:27 97.6 F 67 15 138/64 99 08/21/19 03:54 97.7 F 84 18 136/62 99 08/20/19 23:00 74 18 Weight Admit Weight 202 lb 14.4 oz Weight 194 lb 3.636 oz I&O: 08/20/19 08/21/19 08/22/19 06:59 06:59 06:59 Intake Total 6310 Output Total 8420 Balance -0 Result Diagrams: 08/21/19 09:30 08/21/19 09:30 Additional Labs: Accuchecks 08/21/19 08/20/19 08/20/19 06:26 20:48 16:50 POC Glucose 164 H 273 H 170 H 08/20/19 10:58 POC Glucose 224 H Hospitalist ROS - Review of Systems ROS unobtainable: due to mental status - Medication Medications: Active Medications Generic Name Dose Route Start Last Admin Trade Name Freq PRN Reason Stop Dose Admin Atorvastatin Calcium 20 mg 08/19/19 21:00 08/20/19 20:52 Lipitor PO 20 mg HS JADE Administration Epoetin Perry-epbx 7,500 unit 08/19/19 10:00 08/19/19 14:18 Retacrit SC 7,500 unit Q7D JADE Administration Famotidine 20 mg 08/19/19 09:00 08/20/19 10:22 Pepcid PO 20 mg DAILY JADE Administration Insulin Glargine 15 units/ 0.15 mls @ 0 mls/hr 08/19/19 09:00 08/20/19 10:23 Miscellaneous Medication SC Not Given QAM JADE Levothyroxine Sodium 50 mcg 08/19/19 06:00 08/21/19 06:38 Synthroid PO 50 mcg 0600 JADE Administration Metoprolol Tartrate 25 mg 08/18/19 21:00 08/20/19 20:52 Lopressor PO 25 mg BID JADE Administration Sodium Chloride 10 ml 08/18/19 21:00 08/20/19 20:52 Flush - Normal Saline IVF 10 ml Q12HR JADE Administration - Exam General Appearance: NAD, awake alert ENT: moist mucosa Heart: RRR, no murmur, no gallops, no rubs Respiratory: CTAB, no wheezes, no rales, no ronchi Gastrointestinal: soft, non-distended, normal bowel sounds Gastrointestinal - other findings: moderate TTP, no guarding Psychiatric - other findings: non-verbal, following commands Hosp A/P (1) Sepsis Code(s): A41.9 - SEPSIS, UNSPECIFIED ORGANISM Status: Acute (2) UTI (urinary tract infection) Status: Acute Qualifiers: Urinary tract infection type: acute pyelonephritis Qualified Code(s): N10 - Acute pyelonephritis (3) Chronic respiratory failure with hypoxia Code(s): J96.11 - CHRONIC RESPIRATORY FAILURE WITH HYPOXIA Status: Chronic (4) Atrial fibrillation Code(s): I48.91 - UNSPECIFIED ATRIAL FIBRILLATION Status: Acute (5) DM type 2 (diabetes mellitus, type 2) Status: Chronic Qualifiers: Chronic kidney disease stage: stage 4 (severe) (6) End-stage renal disease needing dialysis Code(s): N18.6 - END STAGE RENAL DISEASE; Z99.2 - DEPENDENCE ON RENAL DIALYSIS Status: Chronic (7) HTN (hypertension) Code(s): I10 - ESSENTIAL (PRIMARY) HYPERTENSION Status: Chronic Qualifiers: (8) Hypothyroidism Code(s): E03.9 - HYPOTHYROIDISM, UNSPECIFIED Status: Chronic Qualifiers: (9) Anemia in chronic kidney disease Code(s): N18.9 - CHRONIC KIDNEY DISEASE, UNSPECIFIED; D63.1 - ANEMIA IN CHRONIC KIDNEY DISEASE Status: Acute (10) Hyperkalemia Code(s): E87.5 - HYPERKALEMIA Status: Acute (11) Bladder hemorrhage Code(s): N32.89 - OTHER SPECIFIED DISORDERS OF BLADDER Status: Acute (12) Hydronephrosis, right Code(s): N13.30 - UNSPECIFIED HYDRONEPHROSIS Status: Acute - Plan Proteus growing in Urine, Dr. Rowley following, on Zosyn and Vanc since 2019, Vanc d/c'd yesterday, stop Zosyn today and switch to oral Levaquin renally dosed Holding blood thinners due to anemia and hematuria, bladder irrigation H/H stable Hydronephrosis markedly improved on repeat CT scan PT/OT/ST Dr. Rowley following Can transfer to [facility]. Will change diet to renal high protein, may need to increase insulin if blood sugars go up, but need to encourage po intake. DVT Proph: SCDs
--- NOTE | 2019-08-21 08:40 | PRG ---
DATE OF SERVICE: 08/21/2019 The patient's vital signs have been stable. Her true urine output is difficult to tell. She seems more comfortable today. She had a little bit of discomfort and passed 1 clot apparently last night. Her urine really looks very clear, it looks like water in her drainage tubing, slightly pink in the drainage bag. I have turned off her continuous bladder irrigation. I have talked with her and her granddaughter about this. We will see what type of urine output she produces on her own. We will see if her urine stays clear off the CBI and we will see if she is passing many clots. I have asked the nurses to contact me at my office if she starts to bleed or if her catheter stops draining or if they feel like they need to turn the bladder irrigation back on. Job ID: [id number]
--- NOTE | 2019-08-21 08:58 | PRG ---
DATE OF SERVICE: 08/21/2019 SUBJECTIVE: Ms. Rodriguez is a 78-year-old female with ESRD followed by the [facility] for her maintenance hemodialysis. I have scheduled her for regular hemodialysis. She was also initially admitted for UTI and noted hydronephrosis. Villalobos catheter has been inserted. She is undergoing continues CBI and Dr. Rowley is following her up. No indication for any emergent cystoscopy at the present time. No new complaints today. No acute events. OBJECTIVE: VITAL SIGNS: Blood pressure 138/64, heart rate 67, respiratory rate 15, temperature 97.6, pulse oximetry 99%. GENERAL: Awake, alert, comfortable, not in distress. The patient is aphasic. HEENT: Slightly pale conjunctivae. Anicteric sclerae. No neck mass. No carotid bruits. No JVD. CHEST: No deformities. LUNGS: Clear breath sounds. No wheezing. No crackles. HEART: Normal sinus rhythm. No murmurs, gallops, or rubs. ABDOMEN: Globular, soft, nontender. EXTREMITIES: Positive for edema. MEDICATIONS: Medications of August 21, 2019, was reviewed. LABORATORY DATA: Laboratories of August 20, 2019; white count 11.4, hemoglobin 8.3. Sodium 136, potassium 3.7, chloride 99, carbon dioxide 24, BUN 28, creatinine 4.36, calcium 8.1. August 21, 2019; Blood sugar was 164. ASSESSMENT AND PLAN: 1. UTI/hydronephrosis-on IV antibiotics. The patient is clinically improving. 2. End-stage renal disease, stable. We will continue current Sunday, , Sunday hemodialysis regimen. We are not using any heparin. Continue fluid removal only as tolerated. 3. Chronic anemia-continuing weekly Epogen. The plan is to recheck another CBC and basic metabolic profile in a.m. Job ID: [id number]
[2019-08-21] MEDS ORDERED: Heparin 10,000 UNITS/ 10 ML VIAL ONE (09:36)
[2019-08-21 09:38] LABS: #Basophils 0.1 thou/uL (0.0-0.2); #Eosinphils 0.3 thou/uL (0.0-0.7); #Lymphocytes 1.9 thou/uL (1.20-3.40); #Monocytes 0.9 thou/uL (0.11-0.59); #Neutrophils 6.9 thou/uL (1.40-6.50); %Basophils 0.5 % (0.0-1.0); %Eosinophils 2.8 % (0.0-10.0); %Lymphocytes 18.6 % (21.0-51.0); %Monocytes 9.3 % (0.0-10.0); %Neutrophils 68.8 % (42.0-75.0); Hemoglobin 8.1 g/dL (12.0-16.0); Mean Corpuscular HGB CONC 30.4 g/dL (32.0-36.0); Mean Corpuscular Hemoglobin 30.6 pg (27.0-31.0); Mean Platelet Volume 6.1 fL (7.4-10.4); Platelet Count 426 thou/uL (130-400); RBC Distribution Width 15.6 % (11.5-14.5); Red Blood Cell (RBC) Count 2.63 mill/uL (4.20-5.40)
[2019-08-21 10:04] LABS: Anion Gap 17 mmol/L (10-20); BUN (Urea Nitrogen) 46 mg/dL (9.8-20.1); Calc. Creatinine Clearance 11 mL/min (70-130); Carbon Dioxide 26 mmol/L (23-31); Chloride 99 mmol/L (98-107); Estimated GFR-MDRD 6; Potassium 3.8 mmol/L (3.5-5.1); Sodium 138 mmol/L (136-145)
[2019-08-21 10:05] LABS: Calcium 8.2 mg/dL (7.8-10.44); Glucose 195 mg/dL (83-110)
--- NOTE | 2019-08-21 10:49 | PQF ---
JAYCEE SIMEON RYAN ANDREW MD [id number] [id number] CLINICAL DOCUMENTATION IMPROVEMENT CLARIFICATION FORM: ICD-10 Updated PLEASE DO AN ADDENDUM TO THE PROGRESS NOTE WITH ANY DOCUMENTATION UPDATES OR ADDITIONS AND CARRY THROUGH TO DC SUMMARY. THANK YOU. DATE: 08/21/2019 ATTN:DR. Bartolo YAN Please exercise your independent, professional judgment in responding to the clarification form. Clinical indicators are provided on the bottom of this form for your review. Please check appropriate box(s): [ ] Acute blood loss anemia [ X ] Chronic Anemia: [ X ] Blood loss [ ] Hemolytic [ ] Simple [ ] Due to Vitamin B12 Deficiency [ ] Other [ ] Anemia of Chronic Disease (please specify) [ ] Other diagnosis [ ] Unable to determine In addition, please specify: Present on Admission (POA): [ X ] Yes [ ] No [ ] Unable to determine For continuity of documentation, please document condition throughout progress notes and discharge summary. Thank You. CLINICAL INDICATORS - SIGNS / SYMPTOMS / LABS / RESULTS AND LOCATION IN EMR 08/19 HgB 8.1 08/20 HgB 8.3 08/21 HgB 8.1 08/19 - 08/21 PN (YURIY) A/P: 11). BLADDER HEMORRHAGE, HOLDING BLOOD THINNERS DUE TO ANEMIA AND HEMATURIA, BLADDER IRRIGATION. RISK: HX CHRONIC ANEMIA, RIGHT HYDRONEPHROSIS, BLADDER HEMORRHAGE HX STROKE/PLAVIX USE( CONSULT/FATOU) 08/18 TREATMENTS: UROLOGY CONSULT ( 08/18) CONTINUOUS BLADDER IRRIGATION ( 08/18/ FATOU) EPOGEN 7500 UNITS SQ Q WEEK ( IRWIN/08/18) THANK YOU! KIT (This form is maintained as a part of the permanent medical record) 2014 [employer] All Rights Reserved [email or web address] [email or web address] [phone] MTDD
[2019-08-21 11:51] LABS: Vancomycin, Random 26.2 ug/mL (See Comment)
[2019-08-21] MEDS: Metoprolol Tartrate 25 MG TAB PO SCH ×2 (14:20→22:19)
[2019-08-21] MEDS: Insulin Glargine 15 UNITS in Pre-Filled Syringe 1 EACH SC SCH (14:21)
[2019-08-21] MEDS: Famotidine 20 MG TAB PO SCH (14:21)
[2019-08-21] MEDS: Piperacillin/Tazobactam 2.25 GM in Sodium Chloride 0.9% 100 ML IVPB SCH (14:43)
[2019-08-21] MEDS: Atorvastatin Calcium 20 MG TAB PO SCH (22:20)
[2019-08-22] MEDS: Levothyroxine Sodium 50 MCG TAB PO SCH (05:33)
[2019-08-22 05:48] LABS: Anion Gap 16 mmol/L (10-20); BUN (Urea Nitrogen) 21 mg/dL (9.8-20.1); Calc. Creatinine Clearance 17 mL/min (70-130); Calcium 8.3 mg/dL (7.8-10.44); Carbon Dioxide 25 mmol/L (23-31); Chloride 101 mmol/L (98-107); Estimated GFR-MDRD 11; Glucose 129 mg/dL (83-110); Potassium 3.9 mmol/L (3.5-5.1); Sodium 138 mmol/L (136-145)
[2019-08-22 06:32] LABS: Band 8 % (5-11); Eosinophils 2 % (0-10); Hemoglobin 8.4 g/dL (12.0-16.0); Lymphocytes 15 % (21-51); MDiff Complete? YES; Mean Corpuscular HGB CONC 30.3 g/dL (32.0-36.0); Mean Corpuscular Hemoglobin 30.3 pg (27.0-31.0); Mean Corpuscular Volume 99.9 fL (78.0-98.0); Mean Platelet Volume 6.2 fL (7.4-10.4); Monocytes 11 % (0-10); Myelocyte 2 % (0-0); Neutrophil 62 % (42-75); Platelet Count 369 thou/uL (130-400); RBC Distribution Width 15.8 % (11.5-14.5); Red Blood Cell (RBC) Count 2.78 mill/uL (4.20-5.40); White Blood Cell (WBC) Count 9.4 thou/uL (4.8-10.8)
[2019-08-22] MEDS: Acetaminophen 325 MG TAB PO PRN (06:33)
[2019-08-22] MEDS: Metoprolol Tartrate 25 MG TAB PO SCH ×2 (08:00→20:58)
[2019-08-22] MEDS: Famotidine 20 MG TAB PO SCH (08:00)
[2019-08-22] MEDS: Insulin Glargine 15 UNITS in Pre-Filled Syringe 1 EACH SC SCH (08:00)
--- NOTE | 2019-08-22 08:16 | PRG ---
DATE OF SERVICE: 08/22/2019 The patient has been transferred to the medical floor. Vital signs are stable. She had her CBI restarted as she has some clots in her urine, although her urine is crystal clear now she is having pain, but examining her bladder is not distended. She has some mild suprapubic discomfort, but I do not believe it is related to her distended bladder. Urine is crystal clear, so I was stopping the CBI and I talked with the nurse about not restarting it without contacting me a strict I and O yesterday, but there is not a strict I and O that has been done, so we do not have any idea of actually how much urine output she has made. Hopefully from this point on, I will be able to identify that. Lab work, otherwise, all looks good today. Job ID: [id number]
[2019-08-22] MEDS: HumaLOG 300 UNITS/3 ML VIAL SC PRN (12:13)
[2019-08-22 12:16] VITALS: BMI 33.3
--- NOTE | 2019-08-22 17:08 | PRG ---
DATE OF SERVICE: 08/22/2019 I went back and saw Ms. Rodriguez today at lunch. Her urine is crystal clear off her CBI. I hand irrigated her one more time with about 200 mL of sterile water and got no clots and the urine remained clear. She is making urine and the urine is staying clear. We removed her catheter today at around 1:30. Hopefully, she will be able to void okay. If she can, she can go home without a catheter. If she is not able to void and becomes uncomfortable, the nurses can replace the catheter. I would like her to be on Levaquin for probably an additional 7 days and elected to be off Plavix for [address] Vicente Sepulveda is covering for me if urologist is necessary over the weekend. Please contact him through the answering service or through the ER call schedule. This was all discussed with the patient's daughter. Job ID: [id number]
--- NOTE | 2019-08-22 18:51 | PDOC.HOSPP ---
- Subjective Encounter Date: 08/22/19 Encounter Time: 09:20 Subjective: Pt seen for followup re: sepsis. Feels better today. - Objective Vital Signs & Weight: Vital Signs (12 hours) Temp Pulse Resp BP Pulse Ox 08/22/19 16:00 97.6 F 62 20 112/62 99 08/22/19 12:00 97.5 F L 68 20 124/73 99 08/22/19 08:00 98 08/22/19 07:35 98.0 F 75 22 H 137/73 98 Weight Admit Weight 202 lb 14.4 oz Weight 194 lb 3.636 oz I&O: 08/21/19 08/22/19 08/23/19 06:59 06:59 06:59 Intake Total 720 Balance 720 Result Diagrams: 08/22/19 05:23 08/22/19 05:23 Additional Labs: Accuchecks 08/22/19 08/22/19 08/22/19 15:38 12:08 03:53 POC Glucose 128 H 269 H 143 H 08/21/19 21:05 POC Glucose 178 H Labs and MARs reviewed by wa Hospitalist ROS - Review of Systems Cardiovascular: denies: chest pain, palpitations, orthopnea, paroxysmal noc. dyspnea, edema, light headedness Gastrointestinal: denies: nausea, vomiting, abdominal pain, diarrhea, constipation, melena, hematochezia - Medication Medications: Active Medications Generic Name Dose Route Start Last Admin Trade Name Freq PRN Reason Stop Dose Admin Acetaminophen 650 mg 08/18/19 12:50 08/22/19 06:33 Tylenol PO 650 mg Q4H PRN Administration Headache/Fever/Mild Pain (1-3) Hydrocodone Bitart/Acetaminophen 1 tab 08/18/19 12:50 08/22/19 10:53 [place] 7.5/325 PO 1 tab Q4H PRN Administration Severe Pain (7-10) Atorvastatin Calcium 20 mg 08/19/19 21:00 08/21/19 22:20 Lipitor PO 20 mg HS JADE Administration Epoetin Perry-epbx 7,500 unit 08/19/19 10:00 08/19/19 14:18 Retacrit SC 7,500 unit Q7D JADE Administration Famotidine 20 mg 08/19/19 09:00 08/22/19 08:00 Pepcid PO 20 mg DAILY JADE Administration Insulin Glargine 15 units/ 0.15 mls @ 0 mls/hr 08/19/19 09:00 08/22/19 08:00 Miscellaneous Medication SC 0.15 mls QAM JADE Administration Insulin Human Lispro 0 units 08/18/19 12:49 08/22/19 12:13 Humalog SC 6 unit .MODERATE SLIDING SC PRN Administration Moderate Correctional Scale Levothyroxine Sodium 50 mcg 08/19/19 06:00 08/22/19 05:33 Synthroid PO 50 mcg 0600 JADE Administration Metoprolol Tartrate 25 mg 08/18/19 21:00 08/22/19 08:00 Lopressor PO 25 mg BID JADE Administration Sodium Chloride 10 ml 08/18/19 21:00 08/22/19 08:06 Flush - Normal Saline IVF 10 ml Q12HR JADE Administration - Exam General - other findings: Obese Eye: anicteric sclera ENT: moist mucosa Neck: supple, no carotid bruit Heart: RRR, no rubs Respiratory: CTAB, no rales Gastrointestinal: soft Extremities: no cyanosis Skin: normal turgor Neurological: cranial nerve grossly intact Psychiatric: normal affect, normal behavior Hosp A/P - Plan (1) Sepsis Code(s): A41.9 - SEPSIS, UNSPECIFIED ORGANISM Status: Acute (2) UTI (urinary tract infection) Status: Acute Qualifiers: Urinary tract infection type: acute pyelonephritis Qualified Code(s): N10 - Acute pyelonephritis (3) Hydronephrosis, right Code(s): N13.30 - UNSPECIFIED HYDRONEPHROSIS Status: Acute (4) Bladder hemorrhage Code(s): N32.89 - OTHER SPECIFIED DISORDERS OF BLADDER Status: Acute (5) DM type 2 (diabetes mellitus, type 2) Status: Chronic Qualifiers: Chronic kidney disease stage: stage 4 (severe) (6) End-stage renal disease needing dialysis Code(s): N18.6 - END STAGE RENAL DISEASE; Z99.2 - DEPENDENCE ON RENAL DIALYSIS Status: Chronic (7) HTN (hypertension) Code(s): I10 - ESSENTIAL (PRIMARY) HYPERTENSION Status: Chronic Qualifiers: (8) Hypothyroidism Code(s): E03.9 - HYPOTHYROIDISM, UNSPECIFIED Status: Chronic Qualifiers: (9) Anemia in chronic kidney disease Code(s): N18.9 - CHRONIC KIDNEY DISEASE, UNSPECIFIED; D63.1 - ANEMIA IN CHRONIC KIDNEY DISEASE Status: Acute (10) Hyperkalemia Code(s): E87.5 - HYPERKALEMIA Status: Acute (11) Atrial fibrillation Code(s): I48.91 - UNSPECIFIED ATRIAL FIBRILLATION Status: Acute (12) Chronic respiratory failure with hypoxia Code(s): J96.11 - CHRONIC RESPIRATORY FAILURE WITH HYPOXIA Status: Chronic - Plan Continue levofloxacin CBI on hold H/H stable PT/OT/ST Dr. Rowley following Can transfer to [facility]. Will add nepro. DVT Proph: SCDs Blood thinners held.
[2019-08-22] MEDS: Atorvastatin Calcium 20 MG TAB PO SCH (20:58)
[2019-08-23] MEDS: Levothyroxine Sodium 50 MCG TAB PO SCH (05:17)
[2019-08-23] MEDS: Famotidine 20 MG TAB PO SCH (08:25)
[2019-08-23] MEDS: Insulin Glargine 15 UNITS in Pre-Filled Syringe 1 EACH SC SCH (08:27)
[2019-08-23] MEDS: Metoprolol Tartrate 25 MG TAB PO SCH ×2 (08:30→19:30)
[2019-08-23] MEDS ORDERED: Heparin 10,000 UNITS/ 10 ML VIAL ONE (09:35)
--- NOTE | 2019-08-23 13:13 | PRG ---
DATE OF SERVICE: 08/23/2019 SUBJECTIVE: Ms. Rodriguez is a 78-year-old female with ESRD and was admitted for urosepsis. She was noted to have hydronephrosis. She was seen by Urology. Hydronephrosis was on the right. She underwent a continues bladder irrigation. Her hematuria is also much improved. She is asymptomatic except for an occasional cramping. Denies any chest pain or shortness of breath. OBJECTIVE: VITAL SIGNS: Blood pressure 126/72, heart rate 83, respiratory rate 20, temperature 97.5, pulse ox 100%. GENERAL: The patient is awake, alert, comfortable, not in distress. SKIN: Adequate turgor. HEENT: She has slightly pale conjunctivae. Anicteric sclerae. No neck mass. No carotid bruits. No JVD. CHEST: No deformities. LUNGS: Clear breath sounds. No wheezing. No crackles. HEART: Normal sinus rhythm. No murmur. No gallops. No rubs. ABDOMEN: Globular, soft, nontender. No masses. EXTREMITIES: No edema. No deformities. MEDICATIONS: Medications of August 23, 2019, reviewed. LABORATORY DATA: Laboratories August 22, 2019; white count 9.4, hemoglobin 8.4. Sodium 138, potassium 3.9, chloride 101, carbon dioxide 25, BUN 21, creatinine 3.92, calcium 8.3. August 23, 2019, glucose 238. ASSESSMENT/PLAN: 1. Cramping-we will do minimal fluid removal with dialysis today. 2. End-stage renal disease, stable, continuing Sunday, , Sunday dialysis regimen. As previously mentioned due to the cramping episodes, we will minimize fluid removal. In addition, we will use no heparin or only very minimal heparin. 3. Urosepsis, clinically much improved. Please note medications for August 23, 2019, was reviewed. The patient has been treated with Levaquin. 4. Anemia. Continue weekly Epogen. Job ID: [id number]
--- NOTE | 2019-08-23 13:39 | PDOC.HOSPP ---
- Subjective Encounter Date: 08/23/19 Encounter Time: 09:00 Subjective: Pt seen for followup re: sepsis. No complaints today. - Objective Vital Signs & Weight: Vital Signs (12 hours) Temp Pulse Resp BP Pulse Ox 08/23/19 08:00 100 08/23/19 07:52 97.5 F L 83 20 126/72 100 08/23/19 04:46 99 Weight Admit Weight 202 lb 14.4 oz Weight 194 lb 3.636 oz I&O: 08/22/19 08/23/19 08/24/19 06:59 06:59 06:59 Intake Total 740 240 Balance 740 240 Result Diagrams: 08/22/19 05:23 08/22/19 05:23 Additional Labs: Accuchecks 08/23/19 08/23/19 08/22/19 11:42 04:38 21:04 POC Glucose 238 H 121 H 151 H 08/22/19 08/22/19 15:38 12:08 POC Glucose 128 H 269 H labs and MARs reviewed by ak Hospitalist ROS - Review of Systems Cardiovascular: denies: chest pain, palpitations, orthopnea, paroxysmal noc. dyspnea, edema, light headedness Skin: denies: rash, lesions, lilliana, bruising - Medication Medications: Active Medications Generic Name Dose Route Start Last Admin Trade Name Freq PRN Reason Stop Dose Admin Acetaminophen 650 mg 08/18/19 12:50 08/22/19 06:33 Tylenol PO 650 mg Q4H PRN Administration Headache/Fever/Mild Pain (1-3) Hydrocodone Bitart/Acetaminophen 1 tab 08/18/19 12:50 08/22/19 10:53 [place] 7.5/325 PO 1 tab Q4H PRN Administration Severe Pain (7-10) Atorvastatin Calcium 20 mg 08/19/19 21:00 08/22/19 20:58 Lipitor PO 20 mg HS JADE Administration Epoetin Perry-epbx 7,500 unit 08/19/19 10:00 08/19/19 14:18 Retacrit SC 7,500 unit Q7D JADE Administration Famotidine 20 mg 08/19/19 09:00 08/23/19 08:25 Pepcid PO 20 mg DAILY JADE Administration Insulin Glargine 15 units/ 0.15 mls @ 0 mls/hr 08/19/19 09:00 08/23/19 08:27 Miscellaneous Medication SC 0.15 mls QAM JAED Administration Insulin Human Lispro 0 units 08/18/19 12:49 08/22/19 12:13 Humalog SC 6 unit .MODERATE SLIDING SC PRN Administration Moderate Correctional Scale Levofloxacin 500 mg 08/23/19 06:00 08/23/19 05:18 Levaquin PO 08/29/19 06:01 500 mg Q2DAYS JADE Administration Levothyroxine Sodium 50 mcg 08/19/19 06:00 08/23/19 05:17 Synthroid PO 50 mcg 0600 JADE Administration Metoprolol Tartrate 25 mg 08/18/19 21:00 08/23/19 08:30 Lopressor PO Not Given BID JADE Ondansetron HCl 4 mg 08/18/19 12:50 08/22/19 20:26 Zofran IVP 4 mg Q6H PRN Administration Nausea/Vomiting Sodium Chloride 10 ml 08/18/19 21:00 08/23/19 08:30 Flush - Normal Saline IVF 10 ml Q12HR JADE Administration - Exam General Appearance: awake alert ENT: moist mucosa Neck: no JVD, no thyromegaly Respiratory: CTAB Gastrointestinal: soft, non-tender Musculoskeletal: no muscle wasting Psychiatric: normal affect, normal behavior Hosp A/P - Plan (1) Sepsis Code(s): A41.9 - SEPSIS, UNSPECIFIED ORGANISM Status: Acute (2) UTI (urinary tract infection) Status: Acute Qualifiers: Urinary tract infection type: acute pyelonephritis Qualified Code(s): N10 - Acute pyelonephritis (3) Hydronephrosis, right Code(s): N13.30 - UNSPECIFIED HYDRONEPHROSIS Status: Acute (4) Bladder hemorrhage Code(s): N32.89 - OTHER SPECIFIED DISORDERS OF BLADDER Status: Acute (5) DM type 2 (diabetes mellitus, type 2) Status: Chronic Qualifiers: Chronic kidney disease stage: stage 4 (severe) (6) End-stage renal disease needing dialysis Code(s): N18.6 - END STAGE RENAL DISEASE; Z99.2 - DEPENDENCE ON RENAL DIALYSIS Status: Chronic (7) HTN (hypertension) Code(s): I10 - ESSENTIAL (PRIMARY) HYPERTENSION Status: Chronic Qualifiers: (8) Hypothyroidism Code(s): E03.9 - HYPOTHYROIDISM, UNSPECIFIED Status: Chronic Qualifiers: (9) Anemia in chronic kidney disease Code(s): N18.9 - CHRONIC KIDNEY DISEASE, UNSPECIFIED; D63.1 - ANEMIA IN CHRONIC KIDNEY DISEASE Status: Acute (10) Hyperkalemia Code(s): E87.5 - HYPERKALEMIA Status: Acute (11) Atrial fibrillation Code(s): I48.91 - UNSPECIFIED ATRIAL FIBRILLATION Status: Acute (12) Chronic respiratory failure with hypoxia Code(s): J96.11 - CHRONIC RESPIRATORY FAILURE WITH HYPOXIA Status: Chronic - Plan Continue levofloxacin for seven more days. Hold plavix for five days. H/H stable PT/OT/ST- Pt will need SNU
[2019-08-23] MEDS: Atorvastatin Calcium 20 MG TAB PO SCH (19:30)
[2019-08-23] MEDS: Acetaminophen 325 MG TAB PO PRN (19:30)
[2019-08-24] MEDS: Levothyroxine Sodium 50 MCG TAB PO SCH (06:35)
[2019-08-24] MEDS: Insulin Glargine 15 UNITS in Pre-Filled Syringe 1 EACH SC SCH (07:59)
[2019-08-24] MEDS: Metoprolol Tartrate 25 MG TAB PO SCH ×2 (08:00→20:51)
[2019-08-24] MEDS: Famotidine 20 MG TAB PO SCH (08:01)
--- NOTE | 2019-08-24 09:18 | PDOC.HOSPP ---
- Subjective Encounter Date: 08/24/19 Encounter Time: 10:30 non-verbal Subjective: Patient had some right abd/flank pain this AM. Resolved with repositioning but not hungry or doing as well as previously. No N/V. No fever. No residual urine in bladder on scan. - Objective Vital Signs & Weight: Weight Admit Weight 202 lb 14.4 oz Weight 194 lb 3.636 oz I&O: 08/23/19 08/24/19 08/25/19 06:59 06:59 06:59 Intake Total 740 930 Balance 740 930 Result Diagrams: 08/22/19 05:23 08/22/19 05:23 Additional Labs: Accuchecks 08/24/19 08/23/19 08/23/19 05:22 19:31 11:42 POC Glucose 125 H 129 H 238 H Hospitalist ROS - Review of Systems ROS unobtainable: due to mental status - Medication Medications: Active Medications Generic Name Dose Route Start Last Admin Trade Name Freq PRN Reason Stop Dose Admin Acetaminophen 650 mg 08/18/19 12:50 08/23/19 19:30 Tylenol PO 650 mg Q4H PRN Administration Headache/Fever/Mild Pain (1-3) Hydrocodone Bitart/Acetaminophen 1 tab 08/18/19 12:50 08/22/19 10:53 [place] 7.5/325 PO 1 tab Q4H PRN Administration Severe Pain (7-10) Atorvastatin Calcium 20 mg 08/19/19 21:00 08/23/19 19:30 Lipitor PO 20 mg HS JADE Administration Epoetin Perry-epbx 7,500 unit 08/19/19 10:00 08/19/19 14:18 Retacrit SC 7,500 unit Q7D JADE Administration Famotidine 20 mg 08/19/19 09:00 08/24/19 08:01 Pepcid PO 20 mg DAILY JADE Administration Insulin Glargine 15 units/ 0.15 mls @ 0 mls/hr 08/19/19 09:00 08/24/19 07:59 Miscellaneous Medication SC 0.15 mls QAM JADE Administration Insulin Human Lispro 0 units 08/18/19 12:49 08/22/19 12:13 Humalog SC 6 unit .MODERATE SLIDING SC PRN Administration Moderate Correctional Scale Levofloxacin 500 mg 08/23/19 06:00 08/23/19 05:18 Levaquin PO 08/29/19 06:01 500 mg Q2DAYS JADE Administration Levothyroxine Sodium 50 mcg 08/19/19 06:00 08/24/19 06:35 Synthroid PO 50 mcg 0600 JADE Administration Metoprolol Tartrate 25 mg 08/18/19 21:00 08/24/19 08:00 Lopressor PO 25 mg BID JADE Administration Ondansetron HCl 4 mg 08/18/19 12:50 08/22/19 20:26 Zofran IVP 4 mg Q6H PRN Administration Nausea/Vomiting Sodium Chloride 10 ml 08/18/19 21:00 08/24/19 08:01 Flush - Normal Saline IVF 10 ml Q12HR JADE Administration - Exam General Appearance: NAD, awake alert ENT: moist mucosa Heart: RRR, no murmur, no gallops, no rubs Respiratory: CTAB, no wheezes, no rales, no ronchi Gastrointestinal: soft, non-tender, non-distended, normal bowel sounds Psychiatric: normal affect Psychiatric - other findings: non-verbal, following commands Hosp A/P (1) Sepsis Code(s): A41.9 - SEPSIS, UNSPECIFIED ORGANISM Status: Acute (2) UTI (urinary tract infection) Status: Acute Qualifiers: Urinary tract infection type: acute pyelonephritis Qualified Code(s): N10 - Acute pyelonephritis (3) Chronic respiratory failure with hypoxia Code(s): J96.11 - CHRONIC RESPIRATORY FAILURE WITH HYPOXIA Status: Chronic (4) Atrial fibrillation Code(s): I48.91 - UNSPECIFIED ATRIAL FIBRILLATION Status: Acute (5) DM type 2 (diabetes mellitus, type 2) Status: Chronic Qualifiers: Chronic kidney disease stage: stage 4 (severe) (6) End-stage renal disease needing dialysis Code(s): N18.6 - END STAGE RENAL DISEASE; Z99.2 - DEPENDENCE ON RENAL DIALYSIS Status: Chronic (7) HTN (hypertension) Code(s): I10 - ESSENTIAL (PRIMARY) HYPERTENSION Status: Chronic Qualifiers: (8) Hypothyroidism Code(s): E03.9 - HYPOTHYROIDISM, UNSPECIFIED Status: Chronic Qualifiers: (9) Anemia in chronic kidney disease Code(s): N18.9 - CHRONIC KIDNEY DISEASE, UNSPECIFIED; D63.1 - ANEMIA IN CHRONIC KIDNEY DISEASE Status: Acute (10) Hyperkalemia Code(s): E87.5 - HYPERKALEMIA Status: Acute (11) Bladder hemorrhage Code(s): N32.89 - OTHER SPECIFIED DISORDERS OF BLADDER Status: Acute (12) Hydronephrosis, right Code(s): N13.30 - UNSPECIFIED HYDRONEPHROSIS Status: Acute - Plan Proteus growing in Urine, Dr. Rowley following, on Zosyn and Vanc since 2019, switched to oral Levaquin renally dosed 6 more days Holding blood thinners due to anemia and hematuria, bladder irrigation. Restart after 5 days. H/H stable Hydronephrosis markedly improved on repeat CT scan PT/OT/ST Dr. Rowley following Diet renal high protein, blood sugars still decently controlled. SNF once approved DVT Proph: SCDs
[2019-08-24] MEDS: HumaLOG 300 UNITS/3 ML VIAL SC PRN (12:47)
[2019-08-24] MEDS: Atorvastatin Calcium 20 MG TAB PO SCH (20:51)
[2019-08-25 06:08] LABS: Anion Gap 14 mmol/L (10-20); BUN (Urea Nitrogen) 26 mg/dL (9.8-20.1); Calc. Creatinine Clearance 13 mL/min (70-130); Calcium 8.3 mg/dL (7.8-10.44); Carbon Dioxide 25 mmol/L (23-31); Chloride 102 mmol/L (98-107); Estimated GFR-MDRD 8; Glucose 109 mg/dL (83-110); Potassium 3.6 mmol/L (3.5-5.1); Sodium 137 mmol/L (136-145)
[2019-08-25] MEDS: Levothyroxine Sodium 50 MCG TAB PO SCH (06:09)
[2019-08-25 07:28] LABS: Hemoglobin 8.7 g/dL (12.0-16.0); Mean Corpuscular HGB CONC 31.5 g/dL (32.0-36.0); Mean Corpuscular Hemoglobin 31.7 pg (27.0-31.0); Mean Platelet Volume 6.6 fL (7.4-10.4); Platelet Count 309 thou/uL (130-400); RBC Distribution Width 16.4 % (11.5-14.5); Red Blood Cell (RBC) Count 2.73 mill/uL (4.20-5.40); White Blood Cell (WBC) Count 10.6 thou/uL (4.8-10.8)
[2019-08-25 07:40] LABS: Band 16 % (5-11); Eosinophils 2 % (0-10); Hypochromia SLIGHT = 6-15 cells (100X) (0-5/hpf); Lymphocytes 16 % (21-51); MDiff Complete? YES; Metamyelocyte 3 % (0-0); Monocytes 8 % (0-10); Myelocyte 5 % (0-0); Neutrophil 50 % (42-75); Nucleated RBC 1 % (0); Platelet Morphology Comment Appears Adequate; Polychromasia SLIGHT = 2-3 cells (100X) (0-2/hpf)
[2019-08-25] MEDS: Metoprolol Tartrate 25 MG TAB PO SCH (09:12)
[2019-08-25] MEDS: Famotidine 20 MG TAB PO SCH (09:12)
[2019-08-25] MEDS: Insulin Glargine 15 UNITS in Pre-Filled Syringe 1 EACH SC SCH (09:12)
--- NOTE | 2019-08-25 09:52 | PRG ---
DATE OF SERVICE: 08/25/2019 SUBJECTIVE: Ms. Rodriguez is a 78-year-old white female with ESRD and followed up for maintenance hemodialysis. She underwent hemodialysis on Sunday and did well. She was found to have a right hydronephrosis and was seen by Urology. Recommendation is conservative management. She also underwent a continues bladder irrigation due to the gross hematuria. She is asymptomatic today. No new complaints. OBJECTIVE: VITAL SIGNS: Blood pressure is noted at 133/75, heart rate 62, respiratory rate 12, temperature 97.6, pulse ox 100%. GENERAL: Noted to be awake, alert, comfortable, not in distress. SKIN: Adequate turgor. HEENT: Pinkish conjunctivae. Anicteric sclerae. No neck mass. No carotid bruits. No JVD. CHEST: No deformities. LUNGS: Clear breath sounds. HEART: Normal sinus rhythm. No murmur. No gallops. No rubs. ABDOMEN: Globular, soft, nontender. No masses. EXTREMITIES: No edema. MEDICATIONS: Medications of August 25, 2019, were reviewed. LABORATORY DATA: Laboratories of on August 25, 2019; white count 10.6, hemoglobin 8.7, sodium 137, potassium 3.6, chloride 102, carbon dioxide 25, BUN 26, creatinine 5.28, calcium 8.3, glucose 109. ASSESSMENT AND PLAN: 1. End-stage renal disease, stable. Continue current hemodialysis regimen of Sunday, , and Sunday. Fluid removal as tolerated. 2. Anemia, continuing weekly Epogen 7500 units subcu daily. 3. Status post hydronephrosis. Urology evaluating. Conservative management was recommended. 4. Overall agree with current management. Job ID: [id number]
[2019-08-25 16:14] VITALS: BP 106/66; TEMP 97.5
--- NOTE | 2019-08-25 16:56 | PRG ---
DATE OF SERVICE: 08/25/2019 Still in the hospital. Vital signs are stable. She is afebrile. She has not made much urine. She has been wetting her diapers, not really voiding, probably just incontinent. Nurses apparently did a postvoid residual, weekend was very low. Not having any burning or discomfort related to her bladder. She is on no oral antibiotics. Afebrile with stable vital signs. Lab work, her hemoglobin is 8.7, creatinine 5.28. She will be dialyzed tomorrow. I think she is doing well and it does not look like she needs a Villalobos catheter in. I had a long talk with her and her daughter about whether to do a cysto on her because of blood in the urine. At this point in time, we will hold off if her health improves, she becomes ambulatory and stronger, then it may be reasonable to do a cysto to see if she has a tumor in the bladder. If not, I think it will be difficult to treat her if she did. The family will think this over, but we are not planning on doing anything in the next 3 to 4 weeks in this regard. I think, she could restart her Plavix this Sunday if her urine stays clear and she has not had anything to suggest that she is having hematuria. Job ID: [id number]
[2019-08-25] MEDS: HumaLOG 300 UNITS/3 ML VIAL SC PRN (17:26)
== END 2019-08-25 17:35 | DRG 871 ==
LOC: ERS 10:11 → 2NO 13:22 → T4-B 08-21 18:13
PROVIDERS: ADMIT Internal Medicine; ATTEND Emergency Medicine
PROC: 5A1D70Z Performance of Urinary Filtration, Intermittent, Less than 6 Hours Per Day (ICD-10-PCS; principal; 2019-08-21)
DX: A41.9 Sepsis, unspecified organism (principal); N18.6 End stage renal disease; I13.2 Hypertensive heart and chronic kidney disease with heart failure and with stage 5 chronic kidney disease, or end stage renal disease; I50.32 Chronic diastolic (congestive) heart failure; I44.2 Atrioventricular block, complete; J96.12 Chronic respiratory failure with hypercapnia; R47.01 Aphasia; Z68.41 Body mass index [BMI] 40.0-44.9, adult; N13.6 Pyonephrosis; D63.1 Anemia in chronic kidney disease; I27.20 Pulmonary hypertension, unspecified; E11.22 Type 2 diabetes mellitus with diabetic chronic kidney disease; E86.0 Dehydration; E03.9 Hypothyroidism, unspecified; I48.91 Unspecified atrial fibrillation; E78.5 Hyperlipidemia, unspecified; I48.0 Paroxysmal atrial fibrillation; F41.9 Anxiety disorder, unspecified; F32.9 Major depressive disorder, single episode, unspecified; I08.1 Rheumatic disorders of both mitral and tricuspid valves; E66.01 Morbid (severe) obesity due to excess calories; N32.89 Other specified disorders of bladder; E87.5 Hyperkalemia; D50.0 Iron deficiency anemia secondary to blood loss (chronic); Z99.2 Dependence on renal dialysis; Z79.01 Long term (current) use of anticoagulants; Z86.73 Personal history of transient ischemic attack (TIA), and cerebral infarction without residual deficits; Z90.710 Acquired absence of both cervix and uterus; Z88.1 Allergy status to other antibiotic agents; Z88.5 Allergy status to narcotic agent; Z88.2 Allergy status to sulfonamides; Z88.8 Allergy status to other drugs, medicaments and biological substances; Z79.4 Long term (current) use of insulin
CPT/HCPCS: 36415; 36416; 74176; 74177; 80048; 80053; 80202; 81003; 81015; 82274; 82550; 82553; 83605; 83690; 84484; 85025; 87040; 87070; 87077; 87086; 87186; 87340; 90935; 93005; 96361; 96365; 96366; 96375; 96376; A4353; G0257; J0696; J1644; J1815; J2270; J2405; J2543; J3370; J3490; J7050; Q5105; Q9967

== ENCOUNTER 2019-11-24 17:32 | Inpatient (IN) | payer MEDICARE, OTHER ==
[~2019-11-24 17:32] MED LIST: Heparin 1,000 UNITS/ML VIAL ONE; Iopamidol-370 76% 500 ML 1 ML ONE
[2019-11-24 18:29] LABS: Bilirubin Negative (Negative); Blood, Urine Large (Negative); Glucose, Urine (Dipstick) Negative (Negative); Leukocyte Large (Negative); Nitrite Negative (Negative); Protein, Urine (Dipstick) > or equal to 300 mg/dL (Neg-Trace); Urobilinogen 0.2 mg/dL (Less than 2)
[2019-11-24 18:30] LABS: Clarity Turbid (Clear)
[2019-11-24 18:35] LABS: #Eosinphils 0.2 thou/uL (0.0-0.7); #Lymphocytes 1.7 thou/uL (1.20-3.40); #Monocytes 0.8 thou/uL (0.11-0.59); #Neutrophils 9.8 thou/uL (1.40-6.50); %Basophils 0.1 % (0.0-1.0); %Eosinophils 1.9 % (0.0-10.0); %Lymphocytes 13.7 % (21.0-51.0); %Monocytes 6.3 % (0.0-10.0); Hemoglobin 11.6 g/dL (12.0-16.0); Mean Corpuscular HGB CONC 33.1 g/dL (32.0-36.0); Mean Corpuscular Hemoglobin 33.1 pg (27.0-31.0); Platelet Count 334 thou/uL (130-400); RBC Distribution Width 13.1 % (11.5-14.5); White Blood Cell (WBC) Count 12.6 thou/uL (4.8-10.8)
[2019-11-24 18:37] LABS: Bacteria/HPF 4+ HPF (None Seen); RBC/HPF 21-50 HPF (0-3); Squamous Epithelial 0-3 HPF (0-3); Triple Phosphate Crystal 1+ HPF (None Seen); WBC/HPF 21-50 HPF (0-3)
[2019-11-24 18:41] LABS: Prothrombin Time 12.8 sec (12.0-14.7)
[2019-11-24 18:43] LABS: PTT 95.3 sec (22.9-36.1)
[2019-11-24 18:50] LABS: ALT (SGPT) 22 U/L (8-55); AST (SGOT) 19 U/L (5-34); Albumin 3.2 g/dL (3.4-4.8); Alkaline Phosphatase 65 U/L (40-110); Anion Gap 17 mmol/L (10-20); BUN (Urea Nitrogen) 16 mg/dL (9.8-20.1); Bilirubin, Total 0.3 mg/dL (0.2-1.2); Calc. Creatinine Clearance 0 mL/min (70-130); Calcium 8.2 mg/dL (7.8-10.44); Carbon Dioxide 25 mmol/L (23-31); Chloride 99 mmol/L (98-107); Estimated GFR-MDRD 11; Globulin 2.6 g/dL (2.4-3.5); Glucose 134 mg/dL (83-110); Magnesium 1.6 mg/dL (1.6-2.6); Potassium 3.5 mmol/L (3.5-5.1); Protein, Total 5.8 g/dL (6.0-8.3); Sodium 137 mmol/L (136-145)
--- NOTE | 2019-11-24 18:58 | CT ---
CT BRAIN WITHOUT CONTRAST: History: Weakness. Facial droop. Comparison: Brain MRI, 07-14-2019 FINDINGS: There is encephalomalacia into the left MCA territory from prior infarction. No hemorrhagic transform ation. No acute superimposed hemorrhage or infarct is appreciated. The calvarium is intact. The paran araceli sinuses and mastoids are clear. IMPRESSION: Left anterior MCA territory encephalomalacia. No acute superimposed hemorrhage or infarct. Findings called to Dr. Parmar at 5:56 p.m. POS: HOME
--- NOTE | 2019-11-24 19:25 | CT ---
CT ARTERIOGRAM NECK WITH IV CONTRAST AND 3D IMAGING CT ARTERIOGRAM BRAIN WITH IV CONTRAST AND 3D IMAGING: History: Left sided weakness. Facial droop. FINDINGS: There is good flow into the aortic arch and great vessels with normal branching at the aortic arch. G ood flow into each carotid and vertebral system. Patchy ill-defined areas of ground glass opacity are partially visualized at each lung apex. There is calcification of each carotid bifurcation and the intracranial ICAs. No focal stenosis. No f illing defects or occlusion apparent. [place] is intact. Persistent origin of the right posterior cerebral artery is noted. No focal aneurysm or obstruction. Old left frontal infarct again demonstrated. No enhancing lesions. IMPRESSION: 1. Atherosclerosis. No acute vascular abnormalities are demonstrated. 2. Old left frontal infarct. 3. Patchy bilateral ground glass lung parenchymal opacities at the partially visualized lung apices. Clinical correlation regarding other signs and symptoms of bilateral upper lobe pneumonitis is requir ed. Findings were called to Dr. Parmar in the Emergency Department at 1810 hours. Code CR POS: BST
--- NOTE | 2019-11-24 19:38 | RAD ---
CHEST ONE VIEW: History: Hypo tension Comparison: 06-23-19 FINDINGS: Cardiac silhouette is magnified by projection. There is a dual-lead left subclavian cardiac electroni c device and a right internal jugular central venous catheter. No lobar consolidation or evidence of pneumothorax. Nodular density projects over the right costophre rodney angle. No lung nodules are present on recent CT exam. This likely represents extrinsic artifact. IMPRESSION: 1. No active cardiopulmonary abnormalities are demonstrated. POS: BST
[2019-11-24] MEDS ORDERED: Vancomycin 1 GM/200 ML BAG ONE (19:39)
[2019-11-24] MEDS ORDERED: cefTRIAXone\\ROCEPHIN 2 GM VIAL ONE (19:39)
--- NOTE | 2019-11-24 19:50 | PDOC.HHP ---
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 She has ESRD (Dr Mendoza), and symptoms began right after finishing HD session. She then recieved 1.5L IVF and improved mentally but weakness persisted, in ED complained of dizziness and residual weakness, was hypothermic and has a chronic harden catheter for unknown reason, urine sent and was grossly positive for infectious markers. Patient to be admitted for altered mental status and other symptoms above as well as presumed UTI. At tme of interview, L sided weakness had resolved however patient still altered and disoriented and requires close observation. ED Course: VITAL SIGNS SunNov 24, 2019 17:40 MYA Henderson Taylor BP: 160/69 Pulse: 107 Resp: 20 O2 sat: 99 on (3L Oxygen) Time: 11/24/2019 17:40. VITAL SIGNS SunNov 24, 2019 18:10 MYA Henderson Taylor Temp: 96.8 (Rectal) Pain: 0 Time: 11/24/2019 18:10. VITAL SIGNS SunNov 24, 2019 19:30 MYA Salcedo Jordan BP: 152/100 MAP: 117 Pulse: 100 Resp: 21 Temp: 97.5 (Oral) Pain: 4 O2 sat: 99 on (Room Air) Time: 11/24/2019 19:30. Hospitalist ROS - Review of Systems ROS unobtainable: due to mental status - Medication Medications: atorvastatin SunNov 24, 2019 17:52 MYA Henderson Taylor tablet : Strength - 20 mg : ORAL Patient Dose: 20 mg Oral once a day (at bedtime). levothyroxine oral SunNov 24, 2019 17:56 MYA Henderson Taylor tablet : Strength - 50 mcg : ORAL Patient Dose: 50 mcg Oral once a day (in the morning). Plavix SunNov 24, 2019 17:57 MYA Henderson Taylor tablet : Strength - 75 mg : ORAL Patient Dose: 75 mg Oral once a day. Renvela SunNov 24, 2019 17:57 MYA Henderson Taylor tablet : Strength - 800 mg : ORAL Patient Dose: 800 mg Oral 3 times a day. Levemir U-100 Insulin SunNov 24, 2019 18:43 MYA Henderson Taylor solution : Strength - 100 unit/mL : SUBCUTANEOUS Patient Dose: 15 units Subcutaneous once a day (in the morning). metoprolol tartrate oral SunNov 24, 2019 18:43 MYA Henderson Taylor TABLET : Strength - 50 mg : ORAL Patient Dose: 25 mg Oral.EVERY OTHER DAY. Nepro oral liquid SunNov 24, 2019 18:45 MYA Henderson Taylor liquid : ORAL Patient Dose: 2 times a day.FOR DIALYSIS. Hospitalist History - Past Medical History Endocrine: reports: Diabetes Other Medical History: congestive heart failure, hypertension, Past medical history includes renal disease, ON DIALYSIS MWF - port right chest (left arm fistula not working), hypothyroidism, DIASTOLIC DYSFUNCTION, CHRONIC BRONCHITIS, BRONCHIECTASIS (75% lung capacity, diabetes, Type II, Afib. Wears 2L/min NC, Anemia. 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 - Past Surgical History Past Surgical History: reports: Other (Pacemaker) Other Surgical History: hysterectomy, pacemaker - Family History Family History: reports: no pertinent history - Social History Smoking Status: Never smoker Alcohol: reports: None Drugs: reports: none - Exam General Appearance: NAD, awake alert General - other findings: altered mental status Eye: PERRL, anicteric sclera ENT: normocephalic atraumatic, no oropharyngeal lesions, moist mucosa Neck: supple, symmetric, no JVD, no thyromegaly, no lymphadenopathy, no carotid bruit Heart: RRR, no murmur, no gallops, no rubs, normal peripheral pulses Respiratory: CTAB, no wheezes, no rales, no ronchi, normal chest expansion, no tachypnea, normal percussion Gastrointestinal: soft, non-tender, non-distended, normal bowel sounds, no palpable masses, no hepatomegaly, no splenomegaly, no bruit Extremities: no cyanosis, no clubbing, no edema Skin: normal turgor, no lesions, no rashes Neurological: cranial nerve grossly intact, normal sensation to touch, no weakness, no focal deficits, no new deficit Musculoskeletal: normal tone, normal strength, no muscle wasting Psychiatric: normal affect, normal behavior, A&O x 3 Hospitalist Results - Labs Result Diagrams: 11/24/19 18:24 11/24/19 18:24 Lab results: WBC 12.6 thou/uL (4.8-10.8) H 11/24/19 18:24 Hgb 11.6 g/dL (12.0-16.0) L 11/24/19 18:24 Hct 35.0 % (36.0-47.0) L 11/24/19 18:24 MCV 100.0 fL (78.0-98.0) H 11/24/19 18:24 Plt Count 334 thou/uL (130-400) 11/24/19 18:24 Neutrophils % 78.0 % (42.0-75.0) H 11/24/19 18:24 Sodium 137 mmol/L (136-145) 11/24/19 18:24 Potassium 3.5 mmol/L (3.5-5.1) 11/24/19 18:24 Chloride 99 mmol/L (98-107) 11/24/19 18:24 Carbon Dioxide 25 mmol/L (23-31) 11/24/19 18:24 BUN 16 mg/dL (9.8-20.1) 11/24/19 18:24 Creatinine 4.04 mg/dL (0.6-1.1) H 11/24/19 18:24 Glucose 134 mg/dL (83-110) H 11/24/19 18:24 Lactic Acid 3.7 mmol/L (0.5-2.2) H 11/24/19 18:24 Calcium 8.2 mg/dL (7.8-10.44) 11/24/19 18:24 Total Bilirubin 0.3 mg/dL (0.2-1.2) 11/24/19 18:24 AST 19 U/L (5-34) 11/24/19 18:24 ALT 22 U/L (8-55) 11/24/19 18:24 Alkaline Phosphatase 65 U/L (40-110) 11/24/19 18:24 Troponin I 0.020 ng/mL (< 0.028) 11/24/19 18:24 Serum Total Protein 5.8 g/dL (6.0-8.3) L 11/24/19 18:24 Albumin 3.2 g/dL (3.4-4.8) L 11/24/19 18:24 Urine Ketones Negative mg/dL (Negative) 11/24/19 18:13 Urine Blood Large (Negative) A 11/24/19 18:13 Urine Nitrite Negative (Negative) 11/24/19 18:13 Ur Leukocyte Esterase Large (Negative) H 11/24/19 18:13 Urine RBC 21-50 HPF (0-3) A 11/24/19 18:13 Urine WBC 21-50 HPF (0-3) A 11/24/19 18:13 Ur Squamous Epith Cells 0-3 HPF (0-3) 11/24/19 18:13 Urine Bacteria 4+ HPF (None Seen) A 11/24/19 18:13 Additional comment: RADIOLOGY CT Brain WO Con Observe DT: SunNov 24, [address] BRAIN WITHOUT CONTRAST: History: Weakness. Facial droop. Comparison: Brain MRI, 07-14-2019 FINDINGS: There is encephalomalacia into the left MCA territory from prior infarction. No hemorrhagic transform ation. No acute superimposed hemorrhage or infarct is appreciated. The calvarium is intact. The paran araceli sinuses and mastoids are clear. IMPRESSION: Left anterior MCA territory encephalomalacia. No acute superimposed hemorrhage or infarct. Findings called to Dr. Parmar at 5:56 p.m. CTA Angio Head W WO Con Observe DT: SunNov 24, [address] ARTERIOGRAM NECK WITH IV CONTRAST AND 3D IMAGING CT ARTERIOGRAM BRAIN WITH IV CONTRAST AND 3D IMAGING: History: Left sided weakness. Facial droop. FINDINGS: There is good flow into the aortic arch and great vessels with normal branching at the aortic arch. G ood flow into each carotid and vertebral system. Patchy ill-defined areas of ground glass opacity are partially visualized at each lung apex. There is calcification of each carotid bifurcation and the intracranial ICAs. No focal stenosis. No f illing defects or occlusion apparent. [place] is intact. Persistent origin of the right posterior cerebral artery is noted. No focal aneurysm or obstruction. Old left frontal infarct again demonstrated. No enhancing lesions. IMPRESSION: 1. Atherosclerosis. No acute vascular abnormalities are demonstrated. 2. Old left frontal infarct. 3. Patchy bilateral ground glass lung parenchymal opacities at the partially visualized lung apices. Clinical correlation regarding other signs and symptoms of bilateral upper lobe pneumonitis is requir ed. Findings were called to Dr. Parmar in the Emergency Department at 1810 hours. Code CR - EKG Interpretation EKG: rate 111, paced Hospitalist H&P A/P - Plan Plan: # UTI # severe sepsis likely secondary to UTI - hypotensive in field, AMS, unilateral weakness in setting of UTI - admit to floor - continue intermittent boluses as needed, no 30cc/kg bolus given ESRD - continue empiric vancomycin and ceftriaxone pending culture results # unilateral L sided face and body weakness - stroke order set, CT and CTA results reviewed, follow up MRI and therapy recommendations, symptoms appear resolved by time of admission so likely TIA # history of CVA - noted, residual R sided deficits # chronic use of harden catheter - vague history, will consult nephrology to help clarify history # ESRD - consult nephrology # hypertension - continue home meds, PRNs in chart # hypothyroidism - continue home synthroid # chronic diastolic CHF - I/Os, consult nephrology for assistance with fluid management # chronic bronchitis/bronchiectasis - PRN nebs in chart, no wheezing or respiratory complaints # T2DM - continue home lantus, SSI # chronic afib - noted, continue home meds # chronic hypoxic respiratory failure - on O2 chronically # anemia - defer to nephrology for epogen needs
[2019-11-24] MEDS ORDERED: Labetalol HCl 100 MG/20 ML VIAL SLOW IVP PRN (21:35)
[2019-11-24] MEDS ORDERED: hydrALAZINE 20 MG/ML VIAL SLOW IVP PRN (21:35)
[2019-11-24] MEDS ORDERED: Insulin Regular 300 UNITS/3 ML VIAL SC PRN (21:35)
[2019-11-24] MEDS ORDERED: Ondansetron PF 4 MG/2 ML Vial IVP PRN (21:38)
[2019-11-24] MEDS ORDERED: HYDROcodone/Acetaminophen 5/325 mg Tablet PO PRN (21:38)
[2019-11-24] MEDS ORDERED: Promethazine HCl 12.5 MG in Sodium Chloride 0.9% 50 ML IVPB PRN (21:38)
[2019-11-24] MEDS ORDERED: Morphine 2 MG/ML SYRINGE SLOW IVP PRN (21:38)
[2019-11-24 21:50] LABS: Troponin I 0.094 ng/mL (< 0.028)
[2019-11-24] MEDS ORDERED: Aspirin 325 mg Enteric Coated Tablet PO SCH (22:00)
[2019-11-24 22:12] LABS: Lactic Acid 2.5 mmol/L (0.5-2.2)
[2019-11-24] MEDS ORDERED: HOLD VANCOMYCIN FOR LEVEL >20 FS SCH (22:15)
[2019-11-24] MEDS ORDERED: Vancomycin 1 GM in Premix Bag 1 BAG IVPB SCH ×2 (22:15→22:30)
[2019-11-24] MEDS ORDERED: Vancomycin HCl 750 MG in Sodium Chloride 0.9% 250 ML 250 ML IVPB SCH (22:15)
[2019-11-24] MEDS ORDERED: Vancomycin HCl 500 MG in Sodium Chloride 0.9% 100 ML IVPB SCH (22:15)
[2019-11-24] MEDS ORDERED: Vancomycin HCl 1.25 GM in Sodium Chloride 0.9% 250 ML 250 ML IVPB SCH (22:15)
[2019-11-25 00:30] VITALS: BMI 34.9
[2019-11-25 01:14] LABS: Troponin I 0.246 ng/mL (< 0.028)
[2019-11-25 05:06] LABS: #Basophils 0.1 thou/uL (0.0-0.2); #Eosinphils 0.8 thou/uL (0.0-0.7); #Lymphocytes 2.2 thou/uL (1.20-3.40); #Monocytes 0.9 thou/uL (0.11-0.59); #Neutrophils 5.9 thou/uL (1.40-6.50); %Basophils 0.7 % (0.0-1.0); %Eosinophils 7.9 % (0.0-10.0); %Lymphocytes 22.2 % (21.0-51.0); %Monocytes 8.7 % (0.0-10.0); %Neutrophils 60.5 % (42.0-75.0); Hemoglobin 11.8 g/dL (12.0-16.0); Mean Corpuscular HGB CONC 31.4 g/dL (32.0-36.0); Mean Corpuscular Hemoglobin 31.3 pg (27.0-31.0); Mean Corpuscular Volume 99.8 fL (78.0-98.0); Mean Platelet Volume 7.2 fL (7.4-10.4); Platelet Count 344 thou/uL (130-400); RBC Distribution Width 13.3 % (11.5-14.5); Red Blood Cell (RBC) Count 3.77 mill/uL (4.20-5.40); White Blood Cell (WBC) Count 9.8 thou/uL (4.8-10.8)
[2019-11-25 05:23] LABS: Anion Gap 15 mmol/L (10-20); BUN (Urea Nitrogen) 19 mg/dL (9.8-20.1); Calc. Creatinine Clearance 15 mL/min (70-130); Calcium 8.4 mg/dL (7.8-10.44); Carbon Dioxide 27 mmol/L (23-31); Cardiac Risk 2.5 (Less than 4.5); Chloride 98 mmol/L (98-107); Cholesterol 89 mg/dl (< 200 Desired); Estimated GFR-MDRD 10; Glucose 98 mg/dL (83-110); HDL Cholesterol 36 mg/dL (>60 Neg Risk); LDL Cholesterol, Calculated 34 mg/dL; Magnesium 1.8 mg/dL (1.6-2.6); Potassium 4.2 mmol/L (3.5-5.1); Sodium 136 mmol/L (136-145); Triglycerides 94 mg/dL (Less than 150)
[2019-11-25] MEDS: Levothyroxine Sodium 50 MCG TAB PO SCH (06:32)
[2019-11-25] MEDS ORDERED: Non-Formulary Item 1 EACH (Insulin Glargine,Hum.Rec.Anlog [Lantus Solostar] 15 UNIT) SC SCH (09:00)
[2019-11-25] MEDS: Clopidogrel Bisulfate 75 MG TAB PO SCH (09:17)
[2019-11-25] MEDS: Enoxaparin Sodium 30 MG/0.3 ML SYRINGE SC SCH (09:18)
[2019-11-25] MEDS: Aspirin 81 mg Enteric Coated Tablet PO SCH (09:18)
[2019-11-25] MEDS: Polyethylene Glycol 3350 17 GM Packet PO SCH (09:18)
[2019-11-25 10:35] LABS: HBSAB Concentration 1.72 mIU/mL; HBSAg Index 0.14 S/CO (0-0.99); Hep B Surf AB Non-Reactive (NonReactive); Hep B Surf Ag Non-Reactive S/CO (NonReactive)
[2019-11-25] MEDS: Insulin Glargine 15 UNITS in Pre-Filled Syringe 1 EACH SC SCH (11:08)
--- NOTE | 2019-11-25 12:07 | CON ---
DATE OF CONSULTATION: HISTORY OF PRESENT ILLNESS: Ms. Rodriguez is a 79-year-old female with ESRD-on maintenance hemodialysis and admitted for mental status change. While undergoing hemodialysis, blood pressure dropped down. Empiric fluid resuscitation was given-about 1.5 L. She was also confused at that time. This morning, her mentation is much improved and blood pressure is stable. We are being consulted for management of her ESRD and maintenance hemodialysis. REVIEW OF SYSTEMS: Positive for confusion. No nausea. No vomiting. Positive for left-sided weakness. No fever or chills. No chest pain. No hematochezia. No melena. No hematemesis. No syncopal episode. Appetite and energy level are fair. No headache. MEDICATIONS: Include, 1. Atorvastatin 20 mg tablet at bedtime. 2. Levothyroxine 50 mcg daily. 3. Plavix 75 mg once a day. 4. Renvela 800 mg one tablet t.i.d. with meals. 5. Levemir 15 units subcu q.a.m. 6. Metoprolol tartrate 25 mg every other day. 7. Nepro one can daily. Current hospital medications include Humulin R sliding scale, status post vancomycin and ceftriaxone 1 g IV q.24 hours. PAST MEDICAL HISTORY: ESRD from diabetic nephropathy, type 2 diabetes mellitus, status post CHF-diastolic dysfunction, chronic bronchitis, status post obstructive uropathy/low bladder outlet obstruction, status post CVA, status post UTI. PAST SURGICAL HISTORY: Status post AV fistula placement, status post cuffed-hemodialysis catheter placement. SOCIAL HISTORY: The patient currently lives at home, but previously was in her senior living. She has 5 children. 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 Education, high school. Sedentary lifestyle. No history of smoking. No alcohol intake. ALLERGIES: UNKNOWN. TRAUMA: None. IMMUNIZATION: Up-to-date. HOSPITALIZATIONS: Please see past medical history. FAMILY HISTORY: No ESRD. PHYSICAL EXAMINATION: VITAL SIGNS: Blood pressure is noted at 135/64, heart rate 74, respiratory rate 16, temperature 98, and pulse ox 94%. GENERAL: The patient is awake, alert, comfortable, not in overt distress. SKIN: Adequate turgor. HEENT: She has pinkish conjunctivae. Anicteric sclerae. NECK: No neck mass. No carotid bruits. No JVD. CHEST: No deformities. LUNGS: Clear breath sounds. HEART: Normal sinus rhythm. No murmurs, no gallops, no rubs. ABDOMEN: Globular, soft, nontender. No masses. EXTREMITIES: No edema. No deformities. GENITALIA: Positive for Villalobos catheter. NEUROLOGIC: The patient is awake, conversant. No tremors. No asterixis. Oriented to two spheres, confused about the time. IMAGING STUDIES: Chest x-ray of November 24, 2019; no active cardiopulmonary disease noted. On November 24, 2019, CT arteriogram of the neck with contrast shows no acute vascular abnormalities. Finding of old frontal infarct. LABORATORY DATA: On November 25, 2019; sodium 136, potassium 4.2, chloride 98, carbon dioxide 27, BUN 19, creatinine 4.49, glucose 98, lactic acid 2.5, calcium 8.4, magnesium 1.8. Troponin I 0.246. ASSESSMENT AND PLAN: 1. Urinary tract infection. Urinalysis on November 24, 2019, showed wbc of 21 to 50. Currently, on IV antibiotics. 2. Mental status change-clinically resolved, most likely secondary to the transient hypotension. 3. End-stage renal disease, stable. I do not think there is an indication for any emergent hemodialysis with this patient. However, because she did receive contrast, we may need to do a short 2-hour hemodialysis with her today. Then, we will resume the Sunday, Sunday, and Sunday dialysis regimen. 4. Agree with current management. Job ID: [id number] MTDD
--- NOTE | 2019-11-25 13:42 | RAD ---
LEFT HIP 2 VIEWS: Date: 11/25/2019 HISTORY: Left hip pain. FINDINGS/IMPRESSION: There are mild degenerative changes. No fracture or dislocation or bony destruction identified. POS: [facility]
[2019-11-25] MEDS: Sevelamer Carbonate 800 MG TAB PO SCH ×2 (14:13→18:15)
[2019-11-25] MEDS: Metamucil PACK PO SCH (14:14)
--- NOTE | 2019-11-25 14:45 | MRI ---
MRI BRAIN WITHOUT CONTRAST: Date: 11/25/2019 HISTORY: Weakness, facial droop, CVA. COMPARISON: 07/14/2019. FINDINGS: Encephalomalacia and gliosis in the left anterior MCA territory is seen. No restricted diffusion is n oted. There are multiple foci of T2 prolongation in the periventricular white matter consistent with chronic small vessel ischemic disease. No evidence of acute infarct, hemorrhage, midline shift, or ab normal extra-axial fluid collections are seen. The ventricular size is appropriate and the basilar ci sterns are patent. The visualized paranasal sinuses are well aerated. IMPRESSION: No evidence of acute intracranial process. POS: [facility]
--- NOTE | 2019-11-25 15:17 | ULT ---
LEFT LOWER EXTREMITY VENOUS DUPLEX EXAM: Date: 11/25/2019 Deep veins of left lower extremity evaluated with ultrasound and Doppler. Color Doppler with spectral analysis and compression studies performed. . INDICATION: Left lower extremity pain and edema. FINDINGS: Deep veins of left lower extremity demonstrate normal blood flow and compression. No evidence of deep venous thrombosis identified. IMPRESSION: Negative left lower extremity venous duplex study. POS: AH
--- NOTE | 2019-11-25 20:19 | CON ---
DATE OF CONSULTATION: HISTORY OF PRESENT ILLNESS: Jeremiah Rodriguez is a 79-year-old female, who is in [place], she dialyzes in [place]. She is 5 feet 4 inches, 203 pounds, and 34.9 BMI. On June 27, 2019, the patient had a left arm primary fistula perforating branch antecubital vein to the proximal radial artery, outflow cephalic vein only. No communication of basilic vein noted. This was performed on the left arm at the site of her pacemaker/defibrillator because her right AC vein was thrombosed secondary to iatrogenic hospital/nursing access in a CKD patient. The patient has had several appointments to follow up with me in the office, but has not shown are called for any of these. She is admitted on this occasion for suspected stroke, but this has been ruled out. I have been asked to see regarding her left arm fistula. They have not attempted access probably because of her obesity. The patient is morbidly obese with abundant fatty tissue in the left upper arm. She has good thrill and bruit in her fistula. My recommendations would be to obtain a fistulogram in this hospitalization and if appropriate, plan transposition of this fistula as an outpatient in the next 2 to 3 weeks. We will check with her daughter to ensure that we pick a day that she will move more likely to come for this outpatient surgery. ALLERGIES: AMOXICILLIN, CEFTRIAXONE, FLUCONAZOLE, AND MORE. SOCIAL HISTORY: Tobacco, none. Alcohol, none. She lives at home with her daughter. HOME MEDICATIONS: 1. DuoNeb inhaler. 2. Plavix. 3. Insulin. 4. MiraLAX. PAST MEDICAL HISTORY: End-stage renal disease on maintenance dialysis Sunday, Sunday, and Sunday in [place]. Hypertension, chronic bronchitis, atrial fibrillation, 2 L nasal cannula, stroke in June 2019 with speech and right-sided deficits, although mostly recovered. PAST SURGICAL HISTORY: Defibrillator, pacemaker, left subclavian vein, left arm fistula, right IC thrombosed due to ultrasound vein mapping, and hysterectomy. REVIEW OF SYSTEMS: Nonreliable. The patient nonreliable. FAMILY HISTORY: Noncontributory. PHYSICAL EXAMINATION: VITAL SIGNS: Height 5 feet 4 inches, 203 pounds, and 34.9 BMI. 98.3, 79, and 135/60. LUNGS: Clear to auscultation. CARDIAC: Regular rate and rhythm without murmur or gallop. ABDOMEN: Obese, soft, and nontender. EXTREMITIES: Large obese upper extremities. Pacemaker left chest. IV in the right hand. Good thrill and bruit. Left upper arm fistula. Morbidly obese, could not access this. LABORATORY DATA: Hemoglobin 11.8 and white count 9.8. Laboratories unremarkable consistent with end-stage renal disease. ASSESSMENT AND PLAN: Left arm fistula patent, but we will obtain fistulogram to assure central circulation is good, prior to undergoing transposition, we will have to perform this as an outpatient in the later day due to lack of OR time and availability this week. We will plan this as an outpatient in the next few weeks. We will try to schedule with the patient's daughter to assure that she shows up as she has not shown up nor called for the last four office appointments. Job ID: [id number]
[2019-11-25] MEDS ORDERED: Atorvastatin Calcium 40 MG TAB PO SCH (21:00)
[2019-11-25] MEDS: Atorvastatin Calcium 20 MG TAB PO SCH (21:30)
[2019-11-25] MEDS: cefTRIAXone\\ROCEPHIN 1 GM in Sodium Chloride 0.9% 100 ML IVPB SCH (21:30)
[2019-11-26 04:37] LABS: #Basophils 0.1 thou/uL (0.0-0.2); #Eosinphils 1.1 thou/uL (0.0-0.7); #Lymphocytes 1.7 thou/uL (1.20-3.40); #Monocytes 0.9 thou/uL (0.11-0.59); #Neutrophils 4.2 thou/uL (1.40-6.50); %Basophils 1.3 % (0.0-1.0); %Eosinophils 14.3 % (0.0-10.0); %Lymphocytes 21.6 % (21.0-51.0); %Monocytes 10.6 % (0.0-10.0); %Neutrophils 52.2 % (42.0-75.0); Hemoglobin 11.1 g/dL (12.0-16.0); Mean Corpuscular HGB CONC 33.4 g/dL (32.0-36.0); Mean Corpuscular Hemoglobin 33.4 pg (27.0-31.0); Platelet Count 308 thou/uL (130-400); RBC Distribution Width 13.2 % (11.5-14.5); Red Blood Cell (RBC) Count 3.31 mill/uL (4.20-5.40)
[2019-11-26 04:55] LABS: Anion Gap 15 mmol/L (10-20); BUN (Urea Nitrogen) 12 mg/dL (9.8-20.1); Calc. Creatinine Clearance 19 mL/min (70-130); Calcium 8.4 mg/dL (7.8-10.44); Carbon Dioxide 24 mmol/L (23-31); Chloride 100 mmol/L (98-107); Estimated GFR-MDRD 12; Glucose 89 mg/dL (83-110); Magnesium 1.7 mg/dL (1.6-2.6); Potassium 3.7 mmol/L (3.5-5.1); Sodium 135 mmol/L (136-145)
[2019-11-26] MEDS: Levothyroxine Sodium 50 MCG TAB PO SCH (05:32)
--- NOTE | 2019-11-26 08:20 | PRG ---
DATE OF SERVICE: 11/26/2019 SUBJECTIVE: Ms. Rodriguez is a 79-year-old female, who is being followed up by the [facility] for her management of her ESRD. She did receive extra dialysis yesterday due to a contrast load. She is now scheduled for her regular dialysis day. She was initially admitted due to mental status change with hypertension. Mentation has much improved. In addition, blood pressure has also improved. No new complaints today. She was evaluated by her Vascular surgeon, Dr. Jensen, regarding to her nonfunctioning AV fistula. The plan is eventually for her to undergo a fistulogram and subsequent revision/transposition of the AV fistula. OBJECTIVE: VITAL SIGNS: Blood pressure is 129/60, heart rate 83, respiratory rate 18, temperature 97.8, O2 saturation 99%. GENERAL: Awake, alert, comfortable, not in distress. SKIN: Adequate turgor. HEENT: Pinkish conjunctivae. Anicteric sclerae. NECK: No neck mass. No carotid bruits. No JVD. CHEST: No deformities. LUNGS: Clear breath sounds. HEART: Normal sinus rhythm. No murmur, no gallops, no rubs. ABDOMEN: Globular, soft, nontender. No masses. EXTREMITIES: No edema. No deformities. MEDICATIONS: Medications of November 26, 2019, were reviewed. LABORATORY DATA: November 26, 2019; white count 8, hemoglobin 11.1. Sodium 135, potassium 3.7, chloride 100, carbon dioxide 24, BUN 12, creatinine 3.66, magnesium 1.7, calcium 8.4. ASSESSMENT AND PLAN: 1. End-stage renal disease-stable. We will continue current Sunday, Sunday, and Sunday hemodialysis. She underwent a 3-hour hemodialysis yesterday without any difficulty - this was an extra hemodialysis due to the fact she received a contrast load. 2. Mental status change-secondary to metabolic encephalopathy, much improved with improving blood pressure. 3. Urinary tract infection-so far her urine and blood cultures are negative. Still on empiric IV antibiotics. Nonfunctioning AV fistula. Surgery following. Eventual outpatient workup. Job ID: [id number] MTDD
[2019-11-26 08:21] LABS: Vancomycin, Random 11.3 ug/mL (See Comment)
[2019-11-26] MEDS ORDERED: Non-Formulary Item 1 EACH (Insulin Detemir [Levemir Flextouch] 15 UNITS) SC SCH (09:00)
[2019-11-26] MEDS: Sevelamer Carbonate 800 MG TAB PO SCH ×3 (10:47→17:14)
[2019-11-26] MEDS: Clopidogrel Bisulfate 75 MG TAB PO SCH (10:52)
[2019-11-26] MEDS: Insulin Glargine 15 UNITS in Pre-Filled Syringe 1 EACH SC SCH (10:52)
[2019-11-26] MEDS: Aspirin 81 mg Enteric Coated Tablet PO SCH (11:04)
[2019-11-26] MEDS: Polyethylene Glycol 3350 17 GM Packet PO SCH (11:05)
[2019-11-26] MEDS ORDERED: Iopamidol 300 61% 100 ML VIAL FS ONE (11:56)
--- NOTE | 2019-11-26 15:04 | PRG ---
DATE OF SERVICE: 11/26/2019 Ms. Rodriguez had a fistulogram today. Her central circulation is patent. Because of her morbid obesity, BMI of 34 and abundant fatty tissue in her upper arm and her fistula being too deep to access, plan is for transposition of her left upper arm fissure on a future date on a Sunday in 2 to 3 weeks. We will arrange it as an outpatient. Job ID: [id number]
--- NOTE | 2019-11-26 15:36 | CT ---
CT ARTERIOGRAM NECK WITH IV CONTRAST AND 3D IMAGING CT ARTERIOGRAM BRAIN WITH IV CONTRAST AND 3D IMAGING: History: Left sided weakness. Facial droop. FINDINGS: There is good flow into the aortic arch and great vessels with normal branching at the aortic arch. G ood flow into each carotid and vertebral system. Patchy ill-defined areas of ground glass opacity are partially visualized at each lung apex. There is calcification of each carotid bifurcation and the intracranial ICAs. No focal stenosis. No f illing defects or occlusion apparent. [place] is intact. Persistent origin of the right posterior cerebral artery is noted. No focal aneurysm or obstruction. Old left frontal infarct again demonstrated. No enhancing lesions. IMPRESSION: 1. Atherosclerosis. No acute vascular abnormalities are demonstrated. 2. Old left frontal infarct. 3. Patchy bilateral ground glass lung parenchymal opacities at the partially visualized lung apices. Clinical correlation regarding other signs and symptoms of bilateral upper lobe pneumonitis is requir ed. Findings were called to Dr. Parmar in the Emergency Department at 1810 hours. Code CR
--- NOTE | 2019-11-26 15:50 | SPC ---
PROCEDURE: [facility] [place] INTRO CATH DIALY CIRC/AV S PROVIDED CLINICAL HISTORY: Difficulty in access seen left upper extremity arterial venous dialysis fistula due to depth of the f istula below the skin surface. COMPARISON: None TECHNIQUE: After informed consent was obtained, the patient was placed on the angiography table in the supine po sition. Utilizing micropuncture technique, a 4 Turkish introducer sheath was placed directed in the venous direction. A fistulogram and venogram to the SVC were performed. Compression was applied to th e venous outflow to reflux the arteriovenous anastomosis. Introducer sheath was removed, and hemostasis was achieved with direct pressure. Patient tolerated th e procedure well and without immediate complication. Fluoroscopy: Time-0.7 minutes Dose-5396 mGy centimeter squared FINDINGS: Patent left upper extremity arteriovenous dialysis fistula with patent venous outflow to the SVC. The SVC is not well evaluated primarily related to multiple cardiac pacemaking leads as well as tunneled hemodialysis catheter in place limiting adequate evaluation. Brisk washout of contrast is pr esent. A prominent collateral is seen along the proximal venous outflow which is at the level of the proximal humeral diaphysis. Additional venous collaterals are seen near the arteriovenous anastom osis and are visualized after manual compression was applied. The arteriovenous anastomosis is partially obscured due to overlying collateral vessels but does appear patent, and again there is [place] flow and washout through the fistula. IMPRESSION: Patent left upper extremity arteriovenous dialysis fistula with prominent collateral the level of the proximal humeral diaphysis.
[2019-11-26] MEDS: Enoxaparin Sodium 30 MG/0.3 ML SYRINGE SC SCH (16:34)
[2019-11-26] MEDS ORDERED: Metoprolol Tartrate 25 MG TAB PO SCH (21:00)
[2019-11-26] MEDS: cefTRIAXone\\ROCEPHIN 1 GM in Sodium Chloride 0.9% 100 ML IVPB SCH (21:27)
[2019-11-26] MEDS: Atorvastatin Calcium 20 MG TAB PO SCH (21:27)
[2019-11-27 00:51] VITALS: TEMP 97.9
[2019-11-27 04:52] LABS: #Basophils 0.1 thou/uL (0.0-0.2); #Eosinphils 1.1 thou/uL (0.0-0.7); #Lymphocytes 2.2 thou/uL (1.20-3.40); #Monocytes 0.8 thou/uL (0.11-0.59); #Neutrophils 3.4 thou/uL (1.40-6.50); %Basophils 1.1 % (0.0-1.0); %Lymphocytes 29.2 % (21.0-51.0); %Monocytes 10.8 % (0.0-10.0); Hemoglobin 10.8 g/dL (12.0-16.0); Mean Corpuscular HGB CONC 33.3 g/dL (32.0-36.0); Mean Corpuscular Hemoglobin 33.1 pg (27.0-31.0); Mean Corpuscular Volume 99.6 fL (78.0-98.0); Platelet Count 294 thou/uL (130-400); RBC Distribution Width 13.1 % (11.5-14.5); Red Blood Cell (RBC) Count 3.27 mill/uL (4.20-5.40); White Blood Cell (WBC) Count 7.6 thou/uL (4.8-10.8)
[2019-11-27] MEDS: Levothyroxine Sodium 50 MCG TAB PO SCH (05:12)
[2019-11-27 05:14] LABS: Anion Gap 12 mmol/L (10-20); BUN (Urea Nitrogen) 9 mg/dL (9.8-20.1); Calc. Creatinine Clearance 22 mL/min (70-130); Calcium 8.4 mg/dL (7.8-10.44); Carbon Dioxide 28 mmol/L (23-31); Chloride 102 mmol/L (98-107); Estimated GFR-MDRD 15; Glucose 87 mg/dL (83-110); Magnesium 1.7 mg/dL (1.6-2.6); Potassium 3.7 mmol/L (3.5-5.1); Sodium 138 mmol/L (136-145)
[2019-11-27 07:37] VITALS: BP 134/60
[2019-11-27] MEDS: Polyethylene Glycol 3350 17 GM Packet PO SCH (08:24)
[2019-11-27] MEDS: Clopidogrel Bisulfate 75 MG TAB PO SCH (08:27)
[2019-11-27] MEDS: Sevelamer Carbonate 800 MG TAB PO SCH ×2 (08:27→11:37)
[2019-11-27] MEDS: Enoxaparin Sodium 30 MG/0.3 ML SYRINGE SC SCH (08:29)
[2019-11-27] MEDS: Insulin Glargine 15 UNITS in Pre-Filled Syringe 1 EACH SC SCH (08:29)
[2019-11-27] MEDS ORDERED: EPOETIN ALFA-EPBX (ESRD) 4,000 UNIT/ML VIAL SC SCH (08:30)
--- NOTE | 2019-11-27 08:50 | PRG ---
DATE OF SERVICE: 11/27/2019 SUBJECTIVE: Ms. Rodriguez is a 79-year-old white female with ESRD and undergoing maintenance hemodialysis. She tolerated her dialysis yesterday with fluid removal. She is feeling better today. She voices no new complaints. The patient denies any chest pain or shortness of breath. She has also been evaluated by Surgery, Dr. Jensen. The plan is to schedule her transposition of the left upper arm fistula in 2 to 3 weeks' time as an outpatient. OBJECTIVE: VITAL SIGNS: Blood pressure 134/60, heart rate 87, respiratory rate 18, temperature 97.9, and pulse ox 100%. GENERAL: Awake, alert, comfortable, not in distress, obese. SKIN: Adequate turgor. HEENT: Slightly pale conjunctivae. Anicteric sclerae. No neck mass. No carotid bruits. No JVD. CHEST: No deformities. LUNGS: Clear breath sounds. HEART: Normal sinus rhythm. No murmurs. No gallops. No rubs. ABDOMEN: Globular, soft, and nontender. No masses. EXTREMITIES: Trace edema. No deformities. MEDICATIONS: Medications of November 27, 2019, were reviewed. LABORATORY DATA: Laboratories, November 27, 2019; white count 7.6, hemoglobin 10.8. Sodium 138, potassium 3.7, chloride 102, carbon dioxide 28, BUN 9, creatinine 3.11, calcium 8.4, and magnesium 1.7. ASSESSMENT AND PLAN: 1. End-stage renal disease, stable. We will continue current Sunday, Sunday, and Sunday hemodialysis. She tolerated hemodialysis yesterday without any complications per se. We are waiting for future transposition of the AV fistula - to be done by Dr. Jensen as an outpatient. 2. Urinary tract infection, currently on p.o. Levaquin 250 mg p.o. daily. 3. Anemia. We will start Epogen 7500 units subcu every week. Agree with current management. We will recheck basic metabolic panel and CBC in a.m. Job ID: [id number]
[2019-11-27] MEDS ORDERED: Metoprolol Tartrate 25 MG TAB PO SCH (09:00)
[2019-11-27] MEDS: Metamucil PACK PO SCH (11:34)
--- NOTE | 2019-11-28 13:05 | DIS ---
DATE OF ADMISSION: 11/24/2019 DATE OF DISCHARGE: 11/27/2019 DISCHARGE DIAGNOSES: As of the followin. Acute metabolic encephalopathy, resolved. 2. End-stage renal disease, on dialysis. 3. Possible transient ischemic attack. 4. History of old strokes. 5. Hypotension, transient. 6. Old left frontal infarct. 7. 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 HOSPITAL COURSE: The patient is a 79-year-old female, who initially presented to the hospital on 11/23 with change in mental status. She was noted to be hypotensive in dialysis and had some left-sided weakness. At this time, she was brought into the hospital for further evaluation. She underwent a CT brain, which did not show any acute abnormalities. She then underwent a brain MRI, which did not show any acute intracranial processes. She does have encephalomalacia and gliosis of the left anterior MCA territory, which was her prior stroke. The patient continued to improve through the hospital stay. She complained of some left hip pain. X-rays were done. X-ray did not show any acute abnormalities. Her urine was sent for culture. She was put on broad-spectrum antibiotics. Urine was sent for culture. Urine culture indicated possible contaminant and given her chronic Villalobos. Her Villalobos was changed in the hospital. I initially removed the Villalobos. She had a few mL of urine retention. However, per family's recommendation, she has a history of urinary retention and wanted to follow up with urologist as an outpatient, which I recommended. I also explained to them that she will not probably require a Villalobos catheter since she will not make enough urine to require the Villalobos catheter and that can cause more infections in the future. The daughter voiced concern that patient was having a difficult time getting an appointment with Urology. The patient continued to improve. I recommended SNF. Family refused. The patient at this time will be discharged home. HOME MEDICATIONS: She will continue her home medications. The only adjustments have I made is: 1. Metoprolol will be cut to 12.5 twice a day Sunday, , And Sunday instead of 25 mg. 2. Levaquin 250 mg every two days, adjust prophylactic just to make sure she had no abnormalities since she did have a white count when she came in for possible UTI. 3. Atorvastatin 20 mg at bedtime. 4. Levothyroxine 50 mcg daily. 5. Clopidogrel 75 mg daily. 6. Insulin 15 units daily. PHYSICAL EXAMINATION: VITAL SIGNS: On discharge, temperature 97.9, 87, 100% on 3 L, 18, 134/60. GENERAL: She is awake, alert, and oriented x3. Does not appear in distress. CV: S1, S2 present. No murmurs, rubs, or gallops. ABDOMEN: Soft and nontender. Bowel sounds are present x2. EXTREMITIES: No edema. Pedal pulses present x2. CTA, she had some bilateral ground-glass opacities that was noted in the upper lobe for possible pneumonitis. However, the patient had no respiratory symptoms and she did have a chest x-ray that did not show any acute abnormalities. The patient will follow up with Primary and also with Urology. She sees Dr. Rowley of Urology. Job ID: [id number]
--- NOTE | 2019-11-28 13:27 | PDOC.HOSPP ---
- Subjective Encounter Date: 11/25/19 Encounter Time: 10:30 Subjective: pt up in bed no complains - Objective Vital Signs & Weight: Weight Weight 203 lb 3.2 oz I&O: 11/27/19 11/28/19 11/29/19 06:59 06:59 06:59 Intake Total 250 Output Total 0 Balance 250 Result Diagrams: 11/27/19 04:34 11/27/19 04:34 Hospitalist ROS - Review of Systems Cardiovascular: denies: chest pain, palpitations, orthopnea, paroxysmal noc. dyspnea, edema, light headedness, other Gastrointestinal: denies: nausea, vomiting, abdominal pain, diarrhea, constipation, melena, hematochezia, other Genitourinary: denies: dysuria, frequency, incontinence, hematuria, retention, other - Exam Neck: negative: supple, symmetric, no JVD, no thyromegaly, no lymphadenopathy, no carotid bruit, JVD Respiratory: negative: CTAB, no wheezes, no rales, no ronchi, normal chest expansion, no tachypnea, normal percussion, rales, rhonchi, tachypneic, wheezes Gastrointestinal: negative: soft, non-tender, non-distended, normal bowel sounds , no palpable masses, no hepatomegaly, no splenomegaly, no bruit, no guarding, no rigidity, tender to palpation, distended, diminished bowl sounds, voluntary guarding Extremities: 1+ LE edema Hosp A/P (1) Acute metabolic encephalopathy Code(s): G93.41 - METABOLIC ENCEPHALOPATHY Status: Acute (2) DM type 2 (diabetes mellitus, type 2) Status: Chronic Qualifiers: Chronic kidney disease stage: stage 4 (severe) (3) Hypothyroidism Code(s): E03.9 - HYPOTHYROIDISM, UNSPECIFIED Status: Chronic Qualifiers: (4) Morbid obesity with BMI of 40.0-44.9, adult Code(s): E66.01 - MORBID (SEVERE) OBESITY DUE TO EXCESS CALORIES; Z68.41 - BODY MASS INDEX (BMI) 40.0-44.9, ADULT Status: Chronic (5) UTI (urinary tract infection) Status: Suspected (6) TIA (transient ischemic attack) Code(s): G45.9 - TRANSIENT CEREBRAL ISCHEMIC ATTACK, UNSPECIFIED Status: Acute - Plan cx pending. will change harden cath. mri brain ordered. will continue current tx. may need to lower her bp medication.
--- NOTE | 2019-11-28 13:30 | PDOC.HOSPP ---
- Subjective Encounter Date: 11/26/19 Encounter Time: 11:45 Subjective: pt up in bed no complains - Objective Vital Signs & Weight: Weight Weight 203 lb 3.2 oz I&O: 11/27/19 11/28/19 11/29/19 06:59 06:59 06:59 Intake Total 250 Output Total 0 Balance 250 Result Diagrams: 11/27/19 04:34 11/27/19 04:34 Hospitalist ROS - Review of Systems Cardiovascular: denies: chest pain, palpitations, orthopnea, paroxysmal noc. dyspnea, edema, light headedness, other Gastrointestinal: denies: nausea, vomiting, abdominal pain, diarrhea, constipation, melena, hematochezia, other Genitourinary: denies: dysuria, frequency, incontinence, hematuria, retention, other - Exam ENT: negative: normocephalic atraumatic, no oropharyngeal lesions, moist mucosa , dry oral mucosa Neck: negative: supple, symmetric, no JVD, no thyromegaly, no lymphadenopathy, no carotid bruit, JVD Heart: negative: RRR, no murmur, no gallops, no rubs, normal peripheral pulses, irregular, diminshed peripheral pulses, murmur present, II/IV, III/IV Respiratory: negative: CTAB, no wheezes, no rales, no ronchi, normal chest expansion, no tachypnea, normal percussion, rales, rhonchi, tachypneic, wheezes Gastrointestinal: negative: soft, non-tender, non-distended, normal bowel sounds , no palpable masses, no hepatomegaly, no splenomegaly, no bruit, no guarding, no rigidity, tender to palpation, distended, diminished bowl sounds, voluntary guarding Hosp A/P (1) Acute metabolic encephalopathy Code(s): G93.41 - METABOLIC ENCEPHALOPATHY Status: Acute (2) DM type 2 (diabetes mellitus, type 2) Status: Chronic Qualifiers: Chronic kidney disease stage: stage 4 (severe) (3) Hypothyroidism Code(s): E03.9 - HYPOTHYROIDISM, UNSPECIFIED Status: Chronic Qualifiers: (4) Morbid obesity with BMI of 40.0-44.9, adult Code(s): E66.01 - MORBID (SEVERE) OBESITY DUE TO EXCESS CALORIES; Z68.41 - BODY MASS INDEX (BMI) 40.0-44.9, ADULT Status: Chronic (5) UTI (urinary tract infection) Status: Suspected (6) TIA (transient ischemic attack) Code(s): G45.9 - TRANSIENT CEREBRAL ISCHEMIC ATTACK, UNSPECIFIED Status: Acute - Plan cx pending. will change harden cath. mri brain ordered. will continue current tx. may need to lower her bp medication. 11/26 updated pt's daughter about pt not having a new stroke. PT to work with pt. urine cx indicates gram negative will wait for final results. continue abx for now. updated pt that she will need to follow up with urology as outpatient for removal of harden.
--- NOTE | 2019-11-29 01:41 | PQF ---
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 Clinical indicators are provided on the bottom of this form for your review Can you please further clarify the diagnosis of the patient? Please check appropriate box(s): [ ] UTI please specify if due to or related to (as applicable): [ ] Indwelling catheter [ ] Self-catheterization [ ] Suprapubic catheter [ ] Unable to determine etiology [ x ] Contaminated urine specimen without UTI [ ] Other diagnosis [ ] Unable to determine In addition, please specify if Sepsis is ruled in or ruled out? [ ] Ruled in diagnosis [x ] Ruled out diagnosis [ ] other diagnosis please specify [ ] unable to determine For continuity of documentation, please document condition throughout progress notes and discharge summary. Thank You. CLINICAL INDICATORS - SIGNS / SYMPTOMS / LABS H and P pg.6- Severe sepsis likely 2/2 UTI- hypotensive infield, AMS, unilateral weakness in the setting of UTI H and P pg.6- Chronic use of harden catheter- Vague history PN 6/3 PG.1- UTI- so far urine and blood cultures are negative DS pg.1- hypotension transient DS pg.1- her harden was changed in the hospital Laboratory- WBC 12.6H, 9.8, 8.0, 7.6 RISK FACTORS Chronic harden catheter- DS pg.1 ESRD- H and P pg.7 HTN- H and P pg.1 CHF- H and P pg.7 T2DM- H and P pg.6 Chronic respiratory failure- H and P pg.7 acute cystitis- ED Provider pg.4 TREATMENT: Broad spectrum antibiotics- DS pg.1 IV Fluids- MAR Urine culture- Microbiology Catheter Exchange- DS pg.1 (This form is maintained as a part of the permanent medical record) 2014 [employer]. All Rights Reserved [email or web address]
--- NOTE | 2019-11-29 14:09 | EKG ---
Test Reason : Blood Pressure : / mmHG Vent. Rate : 111 BPM Atrial Rate : 111 BPM P-R Int : 076 ms QRS Dur : 148 ms QT Int : 354 ms P-R-T Axes : 000 -65 101 degrees QTc Int : 481 ms Electronic ventricular pacemaker Confirmed by TABATHA CABRERA DO ([id number]), news video editor SAURABH ISSA ([id number]) on 11/29/2019 2:09:28 PM Referred By: Confirmed By:TABATHA CABRERA DO
== END 2019-11-27 13:07 | disposition home health service (06) | DRG 69 ==
LOC: ERS 17:32 → 2SE 20:20 → OBSVTOIN 20:20
PROVIDERS: ADMIT Internal Medicine; ATTEND Internal Medicine
PROC: 5A1D70Z Performance of Urinary Filtration, Intermittent, Less than 6 Hours Per Day (ICD-10-PCS; principal; 2019-11-24)
PROC: 0T2BX0Z Change Drainage Device in Bladder, External Approach (ICD-10-PCS; 2019-11-26)
DX: G45.9 Transient cerebral ischemic attack, unspecified (principal); G93.41 Metabolic encephalopathy; N18.6 End stage renal disease; I13.2 Hypertensive heart and chronic kidney disease with heart failure and with stage 5 chronic kidney disease, or end stage renal disease; I50.32 Chronic diastolic (congestive) heart failure; J96.11 Chronic respiratory failure with hypoxia; I48.20 Chronic atrial fibrillation, unspecified; I69.351 Hemiplegia and hemiparesis following cerebral infarction affecting right dominant side; I95.9 Hypotension, unspecified; E03.9 Hypothyroidism, unspecified; E11.22 Type 2 diabetes mellitus with diabetic chronic kidney disease; D63.1 Anemia in chronic kidney disease; J47.9 Bronchiectasis, uncomplicated; E66.01 Morbid (severe) obesity due to excess calories; Z99.2 Dependence on renal dialysis; Z95.0 Presence of cardiac pacemaker; Z90.710 Acquired absence of both cervix and uterus; Z79.890 Hormone replacement therapy; Z79.01 Long term (current) use of anticoagulants; Z79.4 Long term (current) use of insulin; Z79.899 Other long term (current) drug therapy; Z88.1 Allergy status to other antibiotic agents; Z88.8 Allergy status to other drugs, medicaments and biological substances; Z88.6 Allergy status to analgesic agent; Z68.34 Body mass index [BMI] 34.0-34.9, adult
CPT/HCPCS: 36415; 36416; 36901; 70450; 70496; 70498; 70551; 71045; 80048; 80053; 80061; 80202; 81003; 81015; 83605; 83735; 84443; 84484; 85025; 85610; 85730; 86706; 87040; 87086; 87340; 90935; 93005; 93306; 96365; 96366; G0257; J0696; J1644; J1650; J1815; J3370; J3490; Q5105; Q9967

== ENCOUNTER 2020-01-15 06:47 | Outpatient (CLI) | payer MEDICARE, OTHER ==
[2020-01-16 11:43] LABS: SARS-CoV-2 MS2 Positive; SARS-CoV-2 N Gene Negative; SARS-CoV-2 S Gene Negative; SARS-CoV-2 orf1ab Negative
== END 2020-01-15 06:48 | disposition home or self-care (01) ==
LOC: LABBT 06:47
PROVIDERS: ATTEND Specialist
DX: Z01.812 Encounter for preprocedural laboratory examination (principal); Z11.59 Encounter for screening for other viral diseases; N18.6 End stage renal disease
CPT/HCPCS: 87635; U0003

== ENCOUNTER 2020-01-20 09:40 | Day surgery (SDC) | payer MEDICARE, OTHER ==
[2020-01-19 09:44] VITALS: BMI 34.8
[2020-01-20] MEDS ORDERED: Ondansetron PF 4 MG/2 ML Vial ONE (10:31)
[2020-01-20] MEDS ORDERED: Bupivacaine HCl 0.5%/Epinephrine 1:200,000/PF 30 ml Vial ONE (10:31)
[2020-01-20] MEDS ORDERED: PROPOFOL 200 MG/20 ML VIAL ONE (10:31)
[2020-01-20] MEDS ORDERED: Lidocaine 1% PF 5 ML VIAL ONE (10:31)
[2020-01-20] MEDS ORDERED: PHENYLEPHRINE-NS 100 MCG/ML 10 ML SYRINGE ONE (10:31)
[2020-01-20] MEDS ORDERED: EPINEPHrine 1 MG/ML AMP ONE (10:45)
[2020-01-20] MEDS ORDERED: Ioversol 68 % 50 ML VIAL ONE (11:00)
[2020-01-20] MEDS ORDERED: Lidocaine 1% w/Epinephrine 1:100K 20 ML VIAL ONE (11:00)
[2020-01-20] MEDS ORDERED: Heparin 10,000 UNITS/1 ML VIAL ONE (11:00)
[2020-01-20] MEDS ORDERED: Bupivacaine PF 0.5% 30 ML VIAL ONE (11:00)
[2020-01-20] MEDS ORDERED: Protamine Sulfate 50 MG/5 ML VIAL ONE (11:00)
[2020-01-20] MEDS ORDERED: Heparin 5,000 UNITS/ML VIAL ONE (11:01)
[2020-01-20] MEDS ORDERED: Fentanyl 100 MCG/2 ML VIAL ONE (11:32)
[2020-01-20 12:11] LABS: #Basophils 0.1 thou/uL (0.0-0.2); #Eosinphils 0.3 thou/uL (0.0-0.7); #Lymphocytes 1.8 thou/uL (1.20-3.40); #Monocytes 0.8 thou/uL (0.11-0.59); #Neutrophils 4.4 thou/uL (1.40-6.50); %Basophils 0.8 % (0.0-1.0); %Eosinophils 4.3 % (0.0-10.0); %Lymphocytes 24.5 % (21.0-51.0); %Monocytes 10.2 % (0.0-10.0); %Neutrophils 60.2 % (42.0-75.0); Hemoglobin 10.8 g/dL (12.0-16.0); Mean Corpuscular HGB CONC 31.7 g/dL (32.0-36.0); Mean Corpuscular Hemoglobin 32.1 pg (27.0-31.0); Mean Platelet Volume 7.9 fL (7.4-10.4); Platelet Count 268 thou/uL (130-400); RBC Distribution Width 13.2 % (11.5-14.5); Red Blood Cell (RBC) Count 3.37 mill/uL (4.20-5.40); White Blood Cell (WBC) Count 7.3 thou/uL (4.8-10.8)
[2020-01-20 12:21] LABS: Anion Gap 16 mmol/L (10-20); BUN (Urea Nitrogen) 29 mg/dL (9.8-20.1); Calc. Creatinine Clearance 10 mL/min (70-130); Calcium 8.8 mg/dL (7.8-10.44); Carbon Dioxide 28 mmol/L (23-31); Chloride 99 mmol/L (98-107); Estimated GFR-MDRD 6; Glucose 125 mg/dL (83-110); Potassium 4.6 mmol/L (3.5-5.1); Sodium 138 mmol/L (136-145)
[2020-01-20] MEDS ORDERED: Levofloxacin 500 mg/D5W 100 ml Premix Bag ONE (12:55)
--- NOTE | 2020-01-20 14:12 | OP ---
DATE OF PROCEDURE: 01/20/2020 PREOPERATIVE DIAGNOSES: 1. End-stage renal disease. 2. Morbid obesity. 3. Cephalic vein in need of transposition. POSTOPERATIVE DIAGNOSES: 1. End-stage renal disease. 2. Morbid obesity. 3. Cephalic vein in need of transposition. PROCEDURE PERFORMED: Left arm cephalic vein transposition fistula. ANESTHESIA: Regional, TIVA, local with 0.5% Marcaine 30 mL, mixed with 1% Xylocaine with epinephrine 30 mL. DESCRIPTION OF PROCEDURE: The patient was taken to the operating room where under regional anesthesia and intravenous sedation, left upper extremity was prepared with ChloraPrep and draped in routine fashion. Incision was made from the proximal volar forearm to the deltopectoral groove in the shoulder, carried down to skin and subcutaneously tissue, thick adipose layer, unroofing the cephalic vein, mobilizing and dividing the branch between 4-0 silk ties and clips. Fatty tissue shelf created laterally, the skin and subcutaneous tissue from the light fatty tissue, creating a shelf to lay the fistula on. The fatty tissue laterally approximated to the medial area with continuous suture of 3-0 Monocryl. The fistula had been marked for orientation and had good flow and was a good caliber. Subcutaneous tissues above it was closed with continuous suture of 3-0 Monocryl, skin with edilberto. Sterile dressing applied. The patient tolerated the procedure well. Job ID: [id number]
[2020-01-20] MEDS ORDERED: Heparin 10,000 UNITS/ 10 ML VIAL ONE (14:30)
== END 2020-01-20 14:55 | disposition home or self-care (01) ==
LOC: SDC 09:40
PROVIDERS: ATTEND Specialist
PROC: 05SF0ZZ Reposition Left Cephalic Vein, Open Approach (ICD-10-PCS; principal; 2020-01-20)
DX: N18.6 End stage renal disease (principal); E66.01 Morbid (severe) obesity due to excess calories; Z68.34 Body mass index [BMI] 34.0-34.9, adult; Z79.899 Other long term (current) drug therapy; Z88.0 Allergy status to penicillin; Z88.1 Allergy status to other antibiotic agents; Z88.6 Allergy status to analgesic agent; Z88.8 Allergy status to other drugs, medicaments and biological substances; Z95.0 Presence of cardiac pacemaker
CPT/HCPCS: 80048; 85025; J0171; J0670; J1644; J1956; J2405; J2704; J2720; J3010; Q9967; S0020

== ENCOUNTER 2020-03-08 11:35 | Observation (INO) | payer MEDICARE, OTHER ==
[~2020-03-08 11:35] MED LIST changes: -Heparin 1,000 UNITS/ML VIAL ONE; -Iopamidol-370 76% 500 ML 1 ML ONE; +Metoprolol Tartrate 25 MG TAB PO SCH
--- NOTE | 2020-03-08 11:57 | CT ---
. CT Brain WO Con HISTORY: Slurred speech and right-sided weakness COMPARISON: 11/24/2019 FINDINGS: There is encephalomalacia into the left MCA territory from prior infarction. No hemorrhagic transformation. No acute superimposed hemorrhage or infarct is appreciated. The calvarium is intact. The paranasal sinuses and mastoids are clear. IMPRESSION: No CT evidence of acute intracranial process Discussed over the telephone with ER physician Dr. Remy Herrera at 11:54 AM.
[2020-03-08 12:58] LABS: #Basophils 0.1 thou/uL (0.0-0.2); #Eosinphils 0.4 thou/uL (0.0-0.7); #Lymphocytes 2.8 thou/uL (1.20-3.40); #Monocytes 0.8 thou/uL (0.11-0.59); #Neutrophils 5.1 thou/uL (1.40-6.50); %Basophils 0.7 % (0.0-1.0); %Eosinophils 4.8 % (0.0-10.0); %Lymphocytes 30.4 % (21.0-51.0); %Monocytes 8.4 % (0.0-10.0); %Neutrophils 55.7 % (42.0-75.0); Hemoglobin 11.2 g/dL (12.0-16.0); Mean Corpuscular HGB CONC 32.1 g/dL (32.0-36.0); Mean Corpuscular Hemoglobin 32.4 pg (27.0-31.0); Mean Platelet Volume 7.8 fL (7.4-10.4); Platelet Count 334 thou/uL (130-400); RBC Distribution Width 12.7 % (11.5-14.5); Red Blood Cell (RBC) Count 3.47 mill/uL (4.20-5.40); White Blood Cell (WBC) Count 9.1 thou/uL (4.8-10.8)
--- NOTE | 2020-03-08 13:00 | RAD ---
EXAM: CHEST ONE VIEW HISTORY: Altered mental status. Slurred speech and right sided arm weakness. COMPARISON: 11/24/2019 FINDINGS: Dual lead left subclavian cardiac pacemaking device as well as right-sided tunneled hemodialysis cath eter remain in place. Cardiac silhouette and pulmonary vasculature are within normal limits. No consolidation or pleural fluid is seen. No other interval change. IMPRESSION: No acute cardiopulmonary process.
[2020-03-08 13:07] LABS: PTT 27.9 sec (22.9-36.1)
[2020-03-08 13:27] LABS: ALT (SGPT) 33 U/L (8-55); AST (SGOT) 24 U/L (5-34); Albumin 3.7 g/dL (3.4-4.8); Alkaline Phosphatase 85 U/L (40-110); Anion Gap 24 mmol/L (10-20); BUN (Urea Nitrogen) 51 mg/dL (9.8-20.1); Bilirubin, Total 0.5 mg/dL (0.2-1.2); Calc. Creatinine Clearance 0 mL/min (70-130); Calcium 8.4 mg/dL (7.8-10.44); Carbon Dioxide 20 mmol/L (23-31); Chloride 103 mmol/L (98-107); Estimated GFR-MDRD 4; Globulin 2.5 g/dL (2.4-3.5); Glucose 159 mg/dL (83-110); Potassium 5.8 mmol/L (3.5-5.1); Protein, Total 6.2 g/dL (6.0-8.3); Sodium 141 mmol/L (136-145)
[2020-03-08] MEDS ORDERED: Calcium Gluconate 13.8 MEQ in Sodium Chloride 0.9% 100 ML IVPB SCH (16:00)
--- NOTE | 2020-03-08 16:31 | PDOC.HHP ---
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 Per family, the patient was preparing to go to dialysis this morning at approximately 1015. Family members report hearing "strangled noise", which came from the patient's room. When the family members went to go check on the patient in her room, they report that she was slumped over, leaning to the right side in her wheelchair. Reports that the right side of her face was drooped, right arm was limp, and she could not speak. After clarifying with family what they saw, it seems the patient was having right- sided tonic activity. Family reports that the patient was able to nod her head yes/no approximately 5 minutes after the episode started. Several minutes later she was able to speak clearly. She regained tone and movement in her right upper extremity, approximately 30 minutes after the episode began. Because she has had a CVA in the recent past, the family drove the patient to the ER for further evaluation. Patient and family deny any chest pain, heart palpitations, swelling to lower extremities. Denies any headaches, recent fall/ trauma, changes in her medications. She is on Plavix daily. Denies abdominal pain, vomiting, diarrhea. Denies urinary symptoms. No fever. ED Course: VITAL SIGNS SunMar 08, 2020 11:36 MYA Heath Denna BP: 183/72, MAP: 159, Pulse: 95, O2 sat: 99, Time: 03/08/2020 11:36. VITAL SIGNS SunMar 08, 2020 12:24 MYA Stacy Cassie BP: 187/77, Pulse: 79, Resp: 18 (Non-Labored), Temp: 98.7 (Oral), Pain: 0, O2 sat: 100 on (Room Air), Time: 03/08/2020 12:24. VITAL SIGNS SunMar 08, 2020 13:07 MYA Stacy Cassie BP: 174/76, Pulse: 66, Resp: 17, O2 sat: 100 on (3L Oxygen), Time: 03/08/2020 13: 07. VITAL SIGNS SunMar 08, 2020 13:30 MYA Molina Jeffery BP: 170/72, MAP: 104, Pulse: 63, Resp: 18, Temp: 97.9 (Oral), Pain: 0, O2 sat: 100 on (3L Oxygen), Time: 03/08/2020 13:30. VITAL SIGNS SunMar 08, 2020 14:30 MYA Molina Jeffery BP: 172/73, MAP: 106, Pulse: 66, Resp: 18, O2 sat: 100 on (3L Oxygen), Time: 14:30. VITAL SIGNS SunMar 08, 2020 15:30 MYA Molina Jeffery BP: 167/69, MAP: 101, Pulse: 63, Resp: 17, O2 sat: 100 on (3L Oxygen), Time: 15:30 Medication ministration: None Hospitalist ROS - Review of Systems Constitutional: denies: fever, chills Eyes: denies: vision change Respiratory: denies: cough, shortness of breath, hemoptysis Cardiovascular: denies: chest pain, palpitations, edema, light headedness Gastrointestinal: denies: nausea, vomiting, abdominal pain, diarrhea Genitourinary: denies: dysuria Neurological: reports: weakness (Right upper extremity), change in speech ( Aphasia). denies: seizures (No history of seizures) All other systems reviewed; all pertinent +/- noted in HPI/Subj - Medication Medications: atorvastatin tablet : Strength - 20 mg : ORAL Patient Dose: 20 mg Oral once a day (at bedtime). levothyroxine oral tablet : Strength - 50 mcg : ORAL Patient Dose: 50 mcg Oral once a day (in the morning). Plavix tablet : Strength - 75 mg : ORAL Patient Dose: 75 mg Oral once a day. Renvela tablet : Strength - 800 mg : ORAL Patient Dose: 800 mg Oral 3 times a day. metoprolol tartrate oral TABLET : Strength - 50 mg : ORAL Patient Dose: 25 mg Oral.EVERY OTHER DAY. Levemir U-100 Insulin solution : Strength - 100 unit/mL : SUBCUTANEOUS Patient Dose: 15 units Subcutaneous once a day (in the morning). Nepro oral liquid liquid : ORAL Patient Dose: 2 times a day.FOR DIALYSIS Allergies:amoxicillin trihydrate (Unconfirmed), amoxicillin (Unconfirmed), aspirin, Augmentin, Avelox, ceftriaxone (Unconfirmed), cetirizine (Unconfirmed) , Diflucan, fluconazole (Unconfirmed), ibuprofen (Unconfirmed), lorazepam ( Unconfirmed), moxifloxacin HCl (Unconfirmed), NSAIDS (Non-Steroidal Anti- Inflammatory Drug), NSAIDS (Non-Steroidal Anti-Inflamma (Unconfirmed), potassium clavulanate (Unconfirmed), prednisone, rivaroxaban (Unconfirmed), sodium bicarbonate (Unconfirmed), Ebony Gagnon Hospitalist History - Past Medical History Source: patient, RN notes reviewed Other Medical History: MEDICAL HISTORY Flu vaccine up to date, Tetanus immunization up to date, Pneumococcal vaccine up to date, congestive heart failure, hypertension, Past medical history includes renal disease, ON DIALYSIS MWF - port right chest (left arm fistula not working), hypothyroidism, DIASTOLIC DYSFUNCTION, CHRONIC BRONCHITIS, BRONCHIECTASIS (75% lung capacity, diabetes, Type II, Afib. Wears 3L/min NC, Anemia. 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 FEMALE SURGICAL HISTORY Surgical history of hysterectomy. PACEMAKER PLACED 01/04/18. PSYCHIATRIC HISTORY no history of suicidal ideations, Psychiatric history includes history of hallucinations, visual, No history of homicidal ideations, No previous psychiatric history. SOCIAL HISTORY Patient denies alcohol use, Patient denies drug use, Patient has no smoking history, Lives at home with family. Does not work. Mobilizes in wheelchair. FAMILY HISTORY: Noncontributory to this case - Past Surgical History Past Surgical History: reports: Other (Pacemaker) - Social History Alcohol: reports: None Drugs: reports: none - Exam General Appearance: NAD, awake alert Eye: PERRL, anicteric sclera ENT: normocephalic atraumatic, moist mucosa Neck: supple, symmetric Heart: no gallops, no rubs, normal peripheral pulses, irregular, murmur present , II/IV Respiratory: CTAB, no wheezes, no rales, no ronchi, normal chest expansion, no tachypnea Gastrointestinal: soft, non-tender, non-distended, normal bowel sounds, no bruit , no guarding, no rigidity Extremities: no edema Skin: no rashes Neurological: cranial nerve grossly intact, normal sensation to touch, no weakness, no focal deficits, no new deficit Psychiatric: normal affect, A&O x 3 Hospitalist Results - Labs Result Diagrams: 03/08/20 11:46 03/08/20 11:46 Lab results: WBC 9.1 thou/uL (4.8-10.8) 03/08/20 11:46 Hgb 11.2 g/dL (12.0-16.0) L 03/08/20 11:46 Hct 35.0 % (36.0-47.0) L 03/08/20 11:46 MCV 101.0 fL (78.0-98.0) H 03/08/20 11:46 Plt Count 334 thou/uL (130-400) 03/08/20 11:46 Neutrophils % 55.7 % (42.0-75.0) 03/08/20 11:46 Sodium 141 mmol/L (136-145) 03/08/20 11:46 Potassium 5.8 mmol/L (3.5-5.1) H 03/08/20 11:46 Chloride 103 mmol/L (98-107) 03/08/20 11:46 Carbon Dioxide 20 mmol/L (23-31) L 03/08/20 11:46 BUN 51 mg/dL (9.8-20.1) H 03/08/20 11:46 Creatinine 8.94 mg/dL (0.6-1.1) H 03/08/20 11:46 Glucose 159 mg/dL (83-110) H 03/08/20 11:46 Calcium 8.4 mg/dL (7.8-10.44) 03/08/20 11:46 Total Bilirubin 0.5 mg/dL (0.2-1.2) 03/08/20 11:46 AST 24 U/L (5-34) 03/08/20 11:46 ALT 33 U/L (8-55) 03/08/20 11:46 Alkaline Phosphatase 85 U/L (40-110) 03/08/20 11:46 Troponin I 0.025 ng/mL (< 0.028) 03/08/20 11:46 Serum Total Protein 6.2 g/dL (6.0-8.3) 03/08/20 11:46 Albumin 3.7 g/dL (3.4-4.8) 03/08/20 11:46 - Radiology Interpretation Chest x-ray Status: report reviewed by me Additional Comment: IMPRESSION: No acute cardiopulmonary process CT scan - head Status: report reviewed by me Additional Comment: IMPRESSION: No CT evidence of acute intracranial process Hospitalist H&P A/P - Problem (1) TIA (transient ischemic attack) Code(s): G45.9 - TRANSIENT CEREBRAL ISCHEMIC ATTACK, UNSPECIFIED Status: Acute (2) Hyperkalemia Code(s): E87.5 - HYPERKALEMIA Status: Acute (3) End stage renal disease on dialysis Code(s): N18.6 - END STAGE RENAL DISEASE; Z99.2 - DEPENDENCE ON RENAL DIALYSIS Status: Chronic (4) Hypertension Code(s): I10 - ESSENTIAL (PRIMARY) HYPERTENSION Status: Chronic (5) Hypothyroidism Code(s): E03.9 - HYPOTHYROIDISM, UNSPECIFIED Status: Chronic (6) DMII (diabetes mellitus, type 2) Status: Chronic - Plan Plan: 79/F with PMH CVA (07/14), ESRD ([facility], followed by [facility]), CHF, atrial fibrillation (on Plavix), DM 2, hypertension, hypothyroidism presents for right-sided weakness and aphasia. Presented hypertensive, normal pulse, normal respirations, afebrile. NIH 0. We will admit to stroke unit, observation status. Expected length of stay less than 2 midnights. #TIA CT brain negative for acute process. EKG AV paced. No ST elevations. Order MRI, carotid Doppler, echocardiogram. Reported allergy to NSAIDshistory of GI bleed. We will start on Protonix IV push. Load Plavix, give aspirin and statin. Check TSH, FLP, B12 and folate, UA. Trend troponins. Check CPK, prolactin. #Hyperkalemia Presented with a potassium of 5.8. EKG AV paced. Give Kayexalate x1 now. Recheck BMP at 2200. We will check electrolytes. #End-stage renal disease on hemodialysis Scheduled MWF, LUE fistula operative. Missed today's session. Chest x-ray clear. Has right upper chest HemoSplit. Dr. Mendoza consulted by ER physician. We will dialyze this evening if schedule permits. Start home dose Renvela. #Hypertension, chronic Presented with a blood pressure of 183/72. Will restart home dose of metoprolol. Monitor BP. #Hypothyroidism, chronic We will restart home dose of levothyroxine. Check TSH level. #Diabetes mellitus, type II Takes Levemir 15 units every morning at home. Restart home dose of Levemir. Mild sliding scale, AC/at bedtime checks. Heparin for DVT prophylaxis. Protonix for GI prophylaxis. Full code. Designated decision maker is Yaritza (mother) at [phone]. Discussed case with Dr. Ojeda.
[2020-03-08] MEDS ORDERED: hydrALAZINE 20 MG/ML VIAL SLOW IVP PRN ×2 (17:02→17:23)
[2020-03-08] MEDS ORDERED: Labetalol HCl 100 MG/20 ML VIAL SLOW IVP PRN ×2 (17:02→17:23)
[2020-03-08] MEDS ORDERED: HumaLOG 300 UNITS/3 ML VIAL SC PRN ×2 (17:14)
[2020-03-08] MEDS ORDERED: Dextrose 5% in Water 1,000 ML IV PRN (17:14)
[2020-03-08] MEDS ORDERED: Dextrose 50% Abboject 50 ML SYRINGE SLOW IVP PRN (17:14)
[2020-03-08] MEDS ORDERED: Clopidogrel Bisulfate 300 MG TAB PO SCH (17:15)
[2020-03-08] MEDS ORDERED: Guaifenesin DM 100-10/5 ML UDCUP PO PRN (17:21)
[2020-03-08 18:46] LABS: Troponin I 0.031 ng/mL (< 0.028)
[2020-03-08 18:49] LABS: Magnesium 1.6 mg/dL (1.6-2.6); Phosphorus 4.9 mg/dL (2.3-4.7)
[2020-03-08 20:36] LABS: Troponin I 0.032 ng/mL (< 0.028)
[2020-03-08] MEDS ORDERED: Atorvastatin Calcium 40 MG TAB PO SCH (21:00)
[2020-03-08 21:32] VITALS: BMI 34.5
--- NOTE | 2020-03-08 21:54 | PRG ---
DATE OF SERVICE: 03/08/2020 SUBJECTIVE: Ms. Rodriguez is a 79-year-old white female with ESRD - on maintenance hemodialysis, status post CVA, atrial fibrillation, hypertension, was admitted for ? TIA. Initial CAT scan of the brain showed no acute intracerebral bleed or infarct. We are following up this patient for management of her ESRD as well as maintenance hemodialysis. She is currently undergoing hemodialysis. OBJECTIVE: VITAL SIGNS: Blood pressure is noted at 174/77, heart rate 68, respiratory rate 16, temperature 97.7, and O2 saturation 98%. GENERAL: The patient is awake, alert, and comfortable, not in overt distress. SKIN: Adequate turgor. HEENT: Pinkish conjunctivae. Anicteric sclerae. NECK: No neck mass. No carotid bruits. No JVD. CHEST: No deformities. LUNGS: Clear breath sounds. No wheezing. No crackles. HEART: Normal sinus rhythm. No murmur. No gallops. No rubs. ABDOMEN: Globular, soft, and nontender. No masses. EXTREMITIES: No edema. No deformities. NEUROLOGIC: Awake and oriented to 3 spheres. Moving all extremities. No tremors. No asterixis. No ataxia. LABORATORY DATA: CT scan of the brain March 08, 2020, showed no acute intracranial abnormality. Chest x-ray March 08, 2020, showed no acute cardiopulmonary process. ASSESSMENT AND PLAN: 1. Mental status change/transient ischemic attack - continue supportive care. The patient is fully awake and coherent. Continue current management. 2. End-stage renal disease, stable, tolerating current hemodialysis regimen. Our plan is to continue Sunday, Sunday, and Sunday hemodialysis. Fluid removal only as tolerated. Agree with current management. Job ID: [id number]
[2020-03-08] MEDS: Heparin 5,000 UNITS/ML VIAL SC SCH (22:47)
[2020-03-08 23:08] LABS: Anion Gap 17 mmol/L (10-20); BUN (Urea Nitrogen) 23 mg/dL (9.8-20.1); Calc. Creatinine Clearance 13 mL/min (70-130); Carbon Dioxide 23 mmol/L (23-31); Chloride 102 mmol/L (98-107); Estimated GFR-MDRD 8; Glucose 164 mg/dL (83-110); Potassium 4.5 mmol/L (3.5-5.1); Sodium 137 mmol/L (136-145)
[2020-03-09 05:28] LABS: Cardiac Risk 2.7 (Less than 4.5)
[2020-03-09] MEDS ORDERED: Aspirin 325 mg Enteric Coated Tablet PO SCH (05:30)
[2020-03-09] MEDS ORDERED: Levothyroxine Sodium 50 MCG TAB PO SCH (06:00)
--- NOTE | 2020-03-09 07:36 | ULT ---
CAROTID ARTERIAL DOPPLER ULTRASOUND: DATE: 03/08/2020 COMPARISON: None. HISTORY: Transient ischemic attack. TECHNIQUE: Multiplanar José scale sonographic imaging of the arterial structures of the neck obtaine d with color flow and spectral analysis. FINDINGS: There is eccentric plaque within the proximal ICA bilaterally, right greater than left. Antegrade blo od flow and normal arterial waveforms are documented within the carotid and the vertebral system bila terally. VESSEL PSV (cm/sec) Right CCA 107 Right ICA 115 Right ECA 68 Left CCA 87 Left ICA 56 Left ECA 59 ICA/CCA ratio is 1.1 on the right and 0.6 on the left. IMPRESSION: No hemodynamically significant stenosis on the basis of sonographic velocity criteria. POS: OFF
[2020-03-09] MEDS ORDERED: Non-Formulary Item 1 EACH (Insulin Detemir [Levemir Flextouch] 15 UNITS) SC SCH (09:00)
[2020-03-09] MEDS ORDERED: Pantoprazole 40 MG VIAL IVP SCH (09:00)
[2020-03-09] MEDS ORDERED: Insulin Glargine 15 UNITS in Pre-Filled Syringe 1 EACH SC SCH (09:00)
[2020-03-09] MEDS ORDERED: Clopidogrel Bisulfate 75 MG TAB PO SCH (09:00)
[2020-03-09] MEDS ORDERED: Folic Acid 1 MG TAB PO SCH (09:00)
[2020-03-09] MEDS ORDERED: Aspirin 81 mg Enteric Coated Tablet PO SCH (09:00)
--- NOTE | 2020-03-09 09:11 | PRG ---
DATE OF SERVICE: 03/09/2020 SUBJECTIVE: Ms. Rodriguez is a 79-year-old female with ESRD, status post CVA and admitted for a ? of TIA. Neurology has evaluated this patient. She is going to be ruled out for a possible seizure disorder. No new complaints today. Doing well. No chest pain or shortness of breath. On March 08, 2020, a carotid Doppler was done, which showed no significant stenosis. No complaints of chest pain or shortness of breath. OBJECTIVE: VITAL SIGNS: Blood pressure is noted at 124/58, heart rate 75, respiratory rate 14, temperature 97.8, O2 saturation 100% on room air. GENERAL: Awake, alert, comfortable, not in overt distress. SKIN: Adequate turgor. HEENT: She has a pinkish conjunctivae. Anicteric sclerae. NECK: No neck mass. No carotid bruits. No JVD. CHEST: No deformities. LUNGS: Clear breath sounds. No wheezing. No crackles. HEART: Normal sinus rhythm. No murmurs, no gallops, no rubs. ABDOMEN: Globular, soft, nontender. No masses. EXTREMITIES: No edema. No deformities. MEDICATIONS: Medications of March 09, 2020, reviewed. LABORATORY DATA: Laboratories of March 08, 2020; white count 9.1, hemoglobin 11.2. On March 09, 2020; glucose 127. On March 08, 2020; potassium 4.5, chloride 102, carbon dioxide 23, BUN 23, creatinine 5.06. ASSESSMENT AND PLAN: 1. Hyperkalemia, much improved with hemodialysis yesterday. Potassium is now noted at 4.5 from 5.8. No indication for any emergent dialysis. 2. End-stage renal disease, continuing Sunday, Sunday, Sunday hemodialysis. 3. TIA versus seizure disorder - for EEG. 4. Agree with current management. Recheck base met, CBC in a.m. Job ID: [id number]
[2020-03-09] MEDS: Heparin 5,000 UNITS/ML VIAL SC SCH (09:57)
[2020-03-09] MEDS: Sevelamer Carbonate 800 MG TAB PO SCH ×3 (09:58→18:21)
--- NOTE | 2020-03-09 12:45 | CON ---
NEUROLOGY CONSULTATION DATE OF CONSULTATION: 03/09/2020 REASON FOR CONSULTATION: Episode of confusion. HISTORY OF PRESENT ILLNESS: Ms. Jeremiah Rodriguez is a 79-year-old female with past medical history significant for stroke in June 2019; end-stage renal disease, followed by Dr. Mendoza for dialysis 3 times a week; congestive heart failure; atrial fibrillation, on Plavix; diabetes mellitus, type 2; hypertension; and hypothyroidism, presented with an episode of confusion associated with right- sided weakness and aphasia. Per family members, she was preparing to go to the dialysis yesterday morning around 10:15, when they heard a strangled noise, which came from the patient's room. The family members went to check on her, and she was confused, staring forward, and was slumped and leaning over the right side of the wheelchair. She also has right facial droop, and her right arm was limp. It lasted for about less than a minute. The whole episode lasted for a minute, and then she tried to speak, and within 30 minutes, she was able to use her arm. The family members denies any history of seizures or staring spells or family history of seizures. The patient denies any problem with speech, swallowing, headache, nausea, vomiting, diarrhea, recent illness, vertigo, or dizziness associated with the episode. She denies any recent illness or exposure to COVID. REVIEW OF SYSTEMS: All 14 systems were reviewed and were negative except the pertinent positive and negative mentioned in the HPI. HOME MEDICATIONS: 1. Atorvastatin 20 mg once daily. 2. Levothyroxine 50 mcg once daily. 3. Plavix 75 mg 1 daily. 4. Renvela 800 mg 3 times a day. 5. Metoprolol 25 mg every other day. 6. Levemir U-100 insulin 15 units subcutaneous once a day. 7. Nepro oral liquid 2 times a day. ALLERGIES: 1. TRIHYDRATE. 2. AMOXICILLIN. 3. ASPIRIN. 4. AUGMENTIN. 5. AVELOX. 6. CEFTRIAXONE. 7. CETIRIZINE. 8. DIFLUCAN. 9. FLUCONAZOLE. 10. IBUPROFEN. 11. LORAZEPAM. 12. NSAIDS. 13. PREDNISONE. 14. SODIUM BICARBONATE. 15. XARELTO. PAST MEDICAL HISTORY: Includes end-stage renal disease, diabetes, hypertension, prior stroke, and past chronic bronchitis. PAST SURGICAL HISTORY: Hysterectomy, pacemaker placed on 01/04/2018. SOCIAL HISTORY: The patient lives with family. She uses a wheelchair. Denies smoking, alcohol, or illegal drug use. PHYSICAL EXAMINATION: General Appearance: NAD, awake alert Eye: PERRL, anicteric sclera ENT: normocephalic atraumatic, moist mucosa Neck: supple, symmetric Heart: no gallops, no rubs, normal peripheral pulses, irregular, murmur present , II/IV Respiratory: CTAB, no wheezes, no rales, no ronchi, normal chest expansion, no tachypnea Gastrointestinal: soft, non-tender, non-distended, normal bowel sounds, no bruit , no guarding, no rigidity Extremities: no edema Skin: no rashes Neurological: Mental status; the patient is alert and oriented to person, place, and time. Speech is clear. Motor; muscle tone and bulk are normal. Strength, 5/5 bilaterally. Sensory, intact. Cranial nerves 2 through 12, intact. Cerebellar ; finger-nose testing, intact. Gait, deferred due the patient's safety reason. DATA REVIEWED: I reviewed the labs, which were significant for anemia, hemoglobin 11.2, hematocrit 35. She also has end-stage renal disease, BUN of 51 and creatinine of 8.9, and hyperglycemia of 159. I reviewed the head CT, which was negative for acute intracranial process. EEG negative for seizure activity. Lab results: WBC 9.1 thou/uL (4.8-10.8) 03/08/20 11:46 Hgb 11.2 g/dL (12.0-16.0) L 03/08/20 11:46 Hct 35.0 % (36.0-47.0) L 03/08/20 11:46 MCV 101.0 fL (78.0-98.0) H 03/08/20 11:46 Plt Count 334 thou/uL (130-400) 03/08/20 11:46 Neutrophils % 55.7 % (42.0-75.0) 03/08/20 11:46 Sodium 141 mmol/L (136-145) 03/08/20 11:46 Potassium 5.8 mmol/L (3.5-5.1) H 03/08/20 11:46 Chloride 103 mmol/L (98-107) 03/08/20 11:46 Carbon Dioxide 20 mmol/L (23-31) L 03/08/20 11:46 BUN 51 mg/dL (9.8-20.1) H 03/08/20 11:46 Creatinine 8.94 mg/dL (0.6-1.1) H 03/08/20 11:46 Glucose 159 mg/dL (83-110) H 03/08/20 11:46 Calcium 8.4 mg/dL (7.8-10.44) 03/08/20 11:46 Total Bilirubin 0.5 mg/dL (0.2-1.2) 03/08/20 11:46 AST 24 U/L (5-34) 03/08/20 11:46 ALT 33 U/L (8-55) 03/08/20 11:46 Alkaline Phosphatase 85 U/L (40-110) 03/08/20 11:46 Troponin I 0.025 ng/mL (< 0.028) 03/08/20 11:46 Serum Total Protein 6.2 g/dL (6.0-8.3) 03/08/20 11:46 Albumin 3.7 g/dL (3.4-4.8) 03/08/20 11:46 - Radiology Interpretation Chest x-ray Status: report reviewed by me Additional Comment: IMPRESSION: No acute cardiopulmonary process CT scan - head Status: report reviewed by me Additional Comment: IMPRESSION: No CT evidence of acute intracranial process ASSESSMENT AND PLAN: (1) TIA (transient ischemic attack) Code(s): G45.9 - TRANSIENT CEREBRAL ISCHEMIC ATTACK, UNSPECIFIED Status: Acute (2)Seizure Status: Acute (3) End stage renal disease on dialysis Code(s): N18.6 - END STAGE RENAL DISEASE; Z99.2 - DEPENDENCE ON RENAL DIALYSIS Status: Chronic (4) Hypertension Code(s): I10 - ESSENTIAL (PRIMARY) HYPERTENSION Status: Chronic (5) Hypothyroidism Code(s): E03.9 - HYPOTHYROIDISM, UNSPECIFIED Status: Chronic (6) DMII (diabetes mellitus, type 2) Status: Chronic Ms. Rodriguez is consulted for an episode of confusion associated with right facial droop and right upper extremity weakness, which resolved within 30 minutes. Seizures are more on the differential as compared to transient ischemic attack but cannot be ruled out. Continue aspirin, Plavix and statin for secondary stroke prevention. Consider high-intensity statin after checking the fasting lipid profile. Monitor blood pressure and strict control of blood glucose. Neuro checks every 4 hours. Continue aspirin and statin for secondary stroke prevention. EEG to rule out cortical irritability is negative for seizures and MRI to evaluate for acute intracranial process versus seizure focus. Continue home medications. Continue medical management per primary team. We will continue to follow. Thank you for the consult. Job ID: [id number] PAUL
[2020-03-09] MEDS ORDERED: Metoprolol Tartrate 25 MG TAB PO SCH (13:00)
[2020-03-09 13:04] LABS: SARS-CoV-2 MS2 Positive; SARS-CoV-2 N Gene Negative; SARS-CoV-2 S Gene Negative; SARS-CoV-2 by NAA Not Detected (NotDetected); SARS-CoV-2 orf1ab Negative
[2020-03-09 14:10] LABS: Bacteria/HPF 3+ HPF (None Seen); Bilirubin Negative (Negative); Blood, Urine 1+ (Negative); Clarity Extra Turbid (Clear); Glucose, Urine (Dipstick) Normal (Negative); Ketone, Urine Negative (Negative); Leukocyte 500 Leu/uL (Negative); Nitrite Negative (Negative); Protein, Urine (Dipstick) 600 mg/dL (Neg-Trace); Specific Gravity, Urine 1.018 (1.002-1.036); Urobilinogen Normal mg/dL (Less than 2); WBC/HPF Greater than 50 HPF (0-3); pH, Urine 7.5 (5.0-9.0)
[2020-03-09 15:43] VITALS: BP 152/65; TEMP 97.9
--- NOTE | 2020-03-09 16:00 | MRI ---
MRI BRAIN WITHOUT CONTRAST: HISTORY: TIA COMPARISON: 11/25/2019 CORRELATION: CT scan from 03/08/2020. FINDINGS: Encephalomalacia and gliosis in the left anterior MCA territory is again seen. No restricted diffusio n is noted. There are multiple foci of T2 prolongation in the periventricular white matter consistent with chronic small vessel ischemic disease. No evidence of acute infarct, hemorrhage, midl ine shift, or abnormal extra-axial fluid collections are seen. The ventricular size is appropriate and the basilar cisterns are patent. The visualized paranasal sinuses are well aerated. IMPRESSION: No evidence of acute intracranial process.
--- NOTE | 2020-03-09 16:56 | PDOC.HOSPP ---
- Subjective Encounter Date: 03/09/20 Encounter Time: 09:00 Subjective: no overnight events. this morning, feeling well and has no complaints. No additional episodes of facial droop or right sided weakness. Pending EEG - Objective Vital Signs & Weight: Vital Signs (12 hours) Temp Pulse Resp BP Pulse Ox 03/09/20 15:42 97.9 F 67 14 152/65 H 100 03/09/20 11:57 98.2 F 69 16 141/63 H 99 03/09/20 08:00 97.8 F 75 14 124/58 L 100 Weight Weight 201 lb 4.8 oz I&O: 03/08/20 03/09/20 03/10/20 06:59 06:59 06:59 Intake Total 175 360 Output Total 25 Balance 150 360 Result Diagrams: 03/08/20 11:46 03/08/20 22:46 Additional Labs: Accuchecks 03/09/20 03/09/20 10:58 05:57 POC Glucose 151 H 127 H Hospitalist ROS - Review of Systems Constitutional: denies: chills, sweats Respiratory: denies: cough, shortness of breath, pleuritic pain Cardiovascular: denies: chest pain, palpitations, orthopnea Gastrointestinal: denies: nausea, vomiting, abdominal pain Genitourinary: denies: dysuria, frequency, hematuria - Medication Medications: Active Medications Generic Name Dose Route Start Last Admin Trade Name Freq PRN Reason Stop Dose Admin Atorvastatin Calcium 40 mg 03/08/20 21:00 03/08/20 22:47 Lipitor PO 40 mg HS JADE Administration Clopidogrel Bisulfate 75 mg 03/09/20 09:00 03/09/20 09:58 Plavix PO 75 mg DAILY JADE Administration Folic Acid 1 mg 03/09/20 09:00 03/09/20 09:58 Folvite PO 1 mg DAILY JADE Administration Heparin Sodium (Porcine) 5,000 units 03/08/20 21:00 03/09/20 09:57 Heparin SC 5,000 units Q12HR JADE Administration Insulin Glargine 15 units/ 0.15 mls @ 0 mls/hr 03/09/20 09:00 03/09/20 09:55 Miscellaneous Medication SC 0.15 mls QAM JADE Administration Insulin Human Lispro 0 units 03/08/20 17:14 03/09/20 12:54 Humalog SC 2 unit .MODERATE SLIDING SC PRN Administration Moderate Correctional Scale Levothyroxine Sodium 50 mcg 03/09/20 06:00 03/09/20 06:30 Synthroid PO 50 mcg 0600 JADE Administration Metoprolol Tartrate 25 mg 03/08/20 09:00 03/09/20 12:56 Lopressor PO 25 mg [id number] JADE Administration Pantoprazole Sodium 40 mg 03/09/20 09:00 03/09/20 12:52 Protonix IVP 40 mg DAILY JADE Administration Sevelamer Carbonate 800 mg 03/09/20 08:00 03/09/20 12:50 Renvela PO 800 mg TID-WM JADE Administration - Exam General Appearance: NAD, awake alert Eye: PERRL Neck: no JVD Heart: RRR, no murmur, no gallops, no rubs Respiratory: CTAB, no wheezes, no rales, no ronchi Gastrointestinal: soft, non-tender, non-distended, normal bowel sounds Neurological: cranial nerve grossly intact, normal sensation to touch, no weakness, no focal deficits, no new deficit. negative: facial droop, hemiplegia , speech deficit Hosp A/P - Plan #seizure #TIA -presentation more consistent with seizure -pending EEG -MRI showing encephalomalacia which may be focus of seizure -neurology onboard [facility]: 1 night
[2020-03-09] MEDS ORDERED: Acetaminophen 325 MG TAB PO PRN (17:09)
[2020-03-09] MEDS ORDERED: levETIRAcetam 500 MG TAB PO SCH (18:00)
--- NOTE | 2020-03-09 23:22 | DIS ---
DATE OF ADMISSION: 03/08/2020 DATE OF DISCHARGE: 03/09/2020 HOSPITAL COURSE: Ms. Rodriguez is a 79-year-old female with a medical history of CVA, end-stage renal disease, heart failure, atrial fibrillation, type 2 diabetes, hypertension, and hypothyroidism, who presented with aphasia and right-sided hypertonicity after which she had right-sided weakness. She was diagnosed with a first-time seizure. MRI of the brain showed encephalomalacia with no findings suggestive of infarct. EEG was carried out and was found to be negative for epileptic activity. During her inpatient stay, the patient symptoms did not recur. She was discharged home hemodynamically stable after symptoms completely resolved. Prior to discharge, the patient and her granddaughter were educated regarding recurrence of seizure-like symptoms and requirement for continuous EEG monitoring. PHYSICAL EXAMINATION: VITAL SIGNS: Blood pressure 152/65, pulse 67, respiratory rate 14, oxygen saturation 100% on room air, and temperature 97.9 Fahrenheit. GENERAL: Lying comfortably in bed. Awake and alert. HEENT: Normocephalic and atraumatic. CARDIAC: Regular rate and rhythm. No murmurs, gallops, or rubs. LUNGS: Clear to auscultation bilaterally. No wheezing, rales, or rhonchi. GI: Soft, nontender, and nondistended. Normal bowel sounds. NEUROLOGIC: Cranial nerves 2 through 12 grossly intact. Strength 5/5 throughout upper and lower extremities. No facial droop. No dysarthria or aphasia. PSYCHIATRIC: Proper mood and affect. Alert and oriented x3. MEDICATION LIST: New medications; 1. Aspirin 81 mg p.o. daily. 2. Folic acid 1 mg p.o. daily (due to folic acid deficiency). Modified medications, atorvastatin was increased from 20 mg to 40 mg considering history of coronary artery disease since CVA. PCP should further increase to 80 mg based on tolerability. Continued medications; 1. Plavix. 2. Levothyroxine. 3. Metoprolol. 4. Sevelamer. Job ID: [id number]
[2020-03-10] MEDS ORDERED: Aspirin 81 mg Enteric Coated Tablet PO SCH (09:00)
--- NOTE | 2020-03-11 08:51 | EEG ---
DATE OF SERVICE: 03/09/2020 ATTENDING PHYSICIAN: Sarah Gregorio MD This EEG was performed using 24-channel [employer] video digital EEG machine with 24-disk electrodes. This was an extended 2 hours 6 minutes of inpatient video EEG recording. Digital analysis of the EEG was done for spike and seizure detection, which revealed no abnormalities. BACKGROUND: The posterior background rhythm is 8.5 to 9 Hz. The background rhythm attenuates with eye opening and enhances with eye closure. HYPERVENTILATION: Not performed. PHOTIC STIMULATION: Bioccipital symmetric driving responses observed. SLEEP: Drowsiness is observed. EEG DIAGNOSIS: Occasional irregular theta activity seen during the recording. CLINICAL INTERPRETATION: This EEG is consistent with mild generalized nonspecific cerebral dysfunction. Job ID: [id number]
--- NOTE | 2020-03-13 12:08 | EKG ---
Test Reason : Blood Pressure : / mmHG Vent. Rate : 153 BPM Atrial Rate : 086 BPM P-R Int : 000 ms QRS Dur : 180 ms QT Int : 386 ms P-R-T Axes : 000 -32 098 degrees QTc Int : 616 ms Ventricular-paced rhythm with frequent Premature ventricular complexes Abnormal ECG Confirmed by FERCHO GUERRERO ([id number]), production editor SAURABH ISSA ([id number]) on 03/13/2020 12:07:25 PM Referred By: Confirmed By:FERCHO GUERRERO
== END 2020-03-09 18:50 | disposition home or self-care (01) ==
LOC: ERS 11:35 → 2SE 16:35
PROVIDERS: ADMIT Internal Medicine; ATTEND Internal Medicine
DX: G45.9 Transient cerebral ischemic attack, unspecified (principal); R56.9 Unspecified convulsions; I13.2 Hypertensive heart and chronic kidney disease with heart failure and with stage 5 chronic kidney disease, or end stage renal disease; E11.22 Type 2 diabetes mellitus with diabetic chronic kidney disease; N18.6 End stage renal disease; I50.9 Heart failure, unspecified; I48.91 Unspecified atrial fibrillation; E87.5 Hyperkalemia; E03.9 Hypothyroidism, unspecified; J42 Unspecified chronic bronchitis; Z79.02 Long term (current) use of antithrombotics/antiplatelets; Z79.4 Long term (current) use of insulin; Z79.899 Other long term (current) drug therapy; Z88.0 Allergy status to penicillin; Z86.73 Personal history of transient ischemic attack (TIA), and cerebral infarction without residual deficits; Z88.6 Allergy status to analgesic agent; Z88.8 Allergy status to other drugs, medicaments and biological substances; Z95.0 Presence of cardiac pacemaker; Z99.2 Dependence on renal dialysis; Z20.828 Contact with and (suspected) exposure to other viral communicable diseases
CPT/HCPCS: 70450; 70551; 71045; 80048; 80061; 81001; 82550; 82607; 82746; 82962 ×2; 83735; 84100; 84146; 84484 ×2; 85610; 85730; 93005; 93306; 93880; 95712; 95816; 95819; 95957; 97139 ×2; 99285; U0003; 36415; 36416; 80053; 84443; 85025; 87635; 90935; 96372; 96374; C9113; G0257; G0378; J1644; J1815; J3490

== ENCOUNTER 2021-06-30 15:14 | Inpatient (IN) | payer MEDICARE, OTHER ==
[~2021-06-30 15:14] MED LIST changes: +Iopamidol-370 76% 500 ML 1 ML ONE; -Metoprolol Tartrate 25 MG TAB PO SCH
[2021-06-30 17:51] LABS: Bacteria/HPF 4+ HPF (None Seen); Bilirubin Negative (Negative); Blood, Urine 2+ (Negative); Clarity Extra Turbid (Clear); Glucose, Urine (Dipstick) Normal (Negative); Ketone, Urine Negative (Negative); Leukocyte 500 Leu/uL (Negative); Nitrite Negative (Negative); Protein, Urine (Dipstick) 300 mg/dL (Neg-Trace); Specific Gravity, Urine 1.011 (1.002-1.036); Squamous Epithelial None Seen HPF (0-3); Urobilinogen Normal mg/dL (Less than 2)
[2021-06-30] MEDS ORDERED: Ondansetron PF 4 MG/2 ML Vial ONE (17:54)
[2021-06-30 17:55] LABS: #Basophils 0.1 thou/uL (0.0-0.2); #Eosinphils 0.3 thou/uL (0.0-0.7); #Lymphocytes 2.1 thou/uL (1.20-3.40); #Monocytes 1.1 thou/uL (0.11-0.59); #Neutrophils 9.4 thou/uL (1.40-6.50); %Basophils 0.5 % (0.0-1.0); %Eosinophils 2.5 % (0.0-10.0); %Monocytes 8.2 % (0.0-10.0); %Neutrophils 72.8 % (42.0-75.0); Mean Corpuscular HGB CONC 32.2 g/dL (32.0-36.0); Mean Corpuscular Hemoglobin 32.5 pg (27.0-31.0); Mean Platelet Volume 6.7 fL (7.4-10.4); Platelet Count 356 thou/uL (130-400); RBC Distribution Width 13.5 % (11.5-14.5); Red Blood Cell (RBC) Count 3.38 mill/uL (4.20-5.40); White Blood Cell (WBC) Count 12.9 thou/uL (4.8-10.8)
[2021-06-30 17:55] LABS: WBC/HPF 21-50 HPF (0-3)
[2021-06-30] MEDS ORDERED: cefTRIAXone\\ROCEPHIN 2 GM VIAL ONE (18:27)
[2021-06-30 19:08] LABS: ALT (SGPT) 20 U/L (8-55); AST (SGOT) 29 U/L (5-34); Albumin 3.3 g/dL (3.4-4.8); Alkaline Phosphatase 64 U/L (40-110); Anion Gap 21 mmol/L (10-20); BUN (Urea Nitrogen) 28 mg/dL (9.8-20.1); Bilirubin, Total 0.4 mg/dL (0.2-1.2); Calc. Creatinine Clearance 0 mL/min (70-130); Calcium 9.7 mg/dL (7.8-10.44); Carbon Dioxide 26 mmol/L (23-31); Chloride 96 mmol/L (98-107); Globulin 3.8 g/dL (2.4-3.5); Glucose 125 mg/dL (83-110); Lipase 30 U/L (8-78); Potassium 5.1 mmol/L (3.5-5.1); Protein, Total 7.1 g/dL (5.8-8.1); Sodium 138 mmol/L (136-145)
[2021-06-30 19:25] LABS: CKMB 0.9 ng/mL (0-6.6)
[2021-06-30 21:23] LABS: Troponin I 0.076 ng/mL (< 0.028)
[2021-06-30 21:30] LABS: SARS-CoV-2 NAA Rapid Test DETECTED (NotDetected)
[2021-06-30] MEDS ORDERED: metroNIDAZOLE 500 MG in Premix Bag 1 BAG IVPB SCH (22:15)
[2021-06-30] MEDS ORDERED: Acetaminophen 650 MG Suppository PR PRN (22:18)
[2021-06-30] MEDS ORDERED: Acetaminophen 500 MG TAB ONE (22:26)
[2021-06-30] MEDS ORDERED: Enoxaparin Sodium 30 MG/0.3 ML SYRINGE SC SCH (22:45)
[2021-06-30] MEDS ORDERED: Dextrose 50% Abboject 50 ML SYRINGE SLOW IVP PRN (23:35)
[2021-06-30] MEDS ORDERED: HumaLOG 300 UNITS/3 ML VIAL SC PRN (23:35)
[2021-06-30] MEDS ORDERED: Dextrose 5% in Water 1,000 ML IV PRN (23:35)
[2021-07-01 00:18] LABS: Troponin I 0.081 ng/mL (< 0.028)
[2021-07-01] MEDS: Morphine 4 MG/ML VIAL SLOW IVP PRN ×4 (05:41→21:32)
[2021-07-01] MEDS ORDERED: metroNIDAZOLE 500 MG in Premix Bag 1 BAG IVPB SCH (06:00)
[2021-07-01] MEDS: Dextrose 10% in Water 1,000 ML IV SCH (06:31)
[2021-07-01] MEDS: Cholecalciferol (Vitamin D3) 400 UNITS TAB PO SCH (08:14)
[2021-07-01] MEDS: Ascorbic Acid 500 mg Chewable Tablet PO SCH (08:14)
[2021-07-01] MEDS: Zinc Sulfate 220 MG CAP PO SCH (08:14)
[2021-07-01] MEDS ORDERED: Enoxaparin Sodium 30 MG/0.3 ML SYRINGE SC SCH (09:00)
[2021-07-01 09:31] LABS: #Basophils 0.1 thou/uL (0.0-0.2); #Eosinphils 0.4 thou/uL (0.0-0.7); #Lymphocytes 1.2 thou/uL (1.20-3.40); #Monocytes 0.8 thou/uL (0.11-0.59); #Neutrophils 6.8 thou/uL (1.40-6.50); %Basophils 0.8 % (0.0-1.0); %Eosinophils 3.9 % (0.0-10.0); %Lymphocytes 12.7 % (21.0-51.0); %Monocytes 8.7 % (0.0-10.0); Hemoglobin 10.4 g/dL (12.0-16.0); Mean Corpuscular HGB CONC 31.4 g/dL (32.0-36.0); Mean Corpuscular Hemoglobin 32.1 pg (27.0-31.0); Mean Platelet Volume 6.7 fL (7.4-10.4); Platelet Count 342 thou/uL (130-400); RBC Distribution Width 13.5 % (11.5-14.5); Red Blood Cell (RBC) Count 3.23 mill/uL (4.20-5.40); White Blood Cell (WBC) Count 9.2 thou/uL (4.8-10.8)
[2021-07-01 09:49] LABS: Anion Gap 18 mmol/L (10-20); BUN (Urea Nitrogen) 32 mg/dL (9.8-20.1); Calc. Creatinine Clearance 11 mL/min (70-130); Calcium 8.7 mg/dL (7.8-10.44); Carbon Dioxide 26 mmol/L (23-31); Chloride 96 mmol/L (98-107); Glucose 95 mg/dL (83-110); Potassium 4.2 mmol/L (3.5-5.1); Sodium 136 mmol/L (136-145)
[2021-07-01] MEDS ORDERED: Epoetin (ESRD) 20,000 UNITS/ML SC SCH (15:15)
[2021-07-01] MEDS ORDERED: cefTRIAXone\\ROCEPHIN 1 GM in Sodium Chloride 0.9% 100 ML IVPB SCH (18:00)
[2021-07-01] MEDS: EPOETIN ALFA-EPBX (ESRD) 4,000 UNIT/ML VIAL SC SCH (18:03)
[2021-07-01] MEDS: levETIRAcetam 500 MG TAB PO SCH (21:31)
[2021-07-01] MEDS: Calcium Carbonate 500 MG ChewTAB PO SCH (21:31)
[2021-07-01] MEDS: Atorvastatin Calcium 40 MG TAB PO SCH (21:31)
[2021-07-01] MEDS: Enoxaparin Sodium 30 MG/0.3 ML SYRINGE SC SCH (21:32)
[2021-07-01] MEDS: Ondansetron PF 4 MG/2 ML Vial IVP PRN (21:34)
[2021-07-01] MEDS ORDERED: Lorazepam 2 MG/ML VIAL SLOW IVP PRN (23:36)
[2021-07-01] MEDS ORDERED: Diazepam 10 MG/2 ML SYRINGE IVP PRN (23:45)
[2021-07-02] MEDS ORDERED: Morphine 4 MG/ML VIAL SLOW IVP PRN ×3 (01:30→13:22)
[2021-07-02] MEDS: Dextrose 10% in Water 1,000 ML IV SCH ×3 (03:46→21:53)
[2021-07-02] MEDS: Levothyroxine Sodium 50 MCG TAB PO SCH (05:53)
[2021-07-02] MEDS: Lantus 1000 UNITS/10 ML VIAL SC SCH (09:00)
[2021-07-02] MEDS ORDERED: Non-Formulary Item 1 EACH (Insulin Detemir [Levemir Flextouch] 100 UNIT/ML Insuln.Pen) SC SCH (09:00)
[2021-07-02] MEDS: Folic Acid 1 MG TAB PO SCH (09:14)
[2021-07-02] MEDS: Gabapentin 100 MG CAP PO SCH (09:14)
[2021-07-02] MEDS: Calcium Carbonate 500 MG ChewTAB PO SCH ×3 (09:15→21:21)
[2021-07-02] MEDS: Ascorbic Acid 500 mg Chewable Tablet PO SCH (09:15)
[2021-07-02] MEDS: Zinc Sulfate 220 MG CAP PO SCH (09:15)
[2021-07-02] MEDS: Clopidogrel Bisulfate 75 MG TAB PO SCH (09:15)
[2021-07-02] MEDS: Metoprolol Tartrate 25 MG TAB PO SCH (09:15)
[2021-07-02] MEDS: Cholecalciferol (Vitamin D3) 400 UNITS TAB PO SCH (09:15)
[2021-07-02] MEDS: levETIRAcetam 500 MG TAB PO SCH ×2 (09:15→21:21)
[2021-07-02] MEDS: Ondansetron PF 4 MG/2 ML Vial IVP PRN ×2 (11:46→17:49)
[2021-07-02] MEDS: Cefepime 1 GM in Sodium Chloride 0.9% 100 ML IVPB SCH (12:10)
[2021-07-02] MEDS ORDERED: ALPRAZolam 0.25 MG TAB PO PRN (13:20)
[2021-07-02] MEDS ORDERED: Morphine 4 MG/ML VIAL SLOW IVP SCH (13:30)
[2021-07-02] MEDS: metroNIDAZOLE 250 MG in Admixture Fee 2 EACH IVPB SCH ×2 (13:55→21:53)
[2021-07-02] MEDS ORDERED: Lorazepam 0.5 MG TAB PO SCH (19:15)
[2021-07-02] MEDS ORDERED: cefTRIAXone\\ROCEPHIN 1 GM in Sodium Chloride 0.9% 100 ML IVPB SCH (21:00)
[2021-07-02] MEDS: Oxybutynin 5 MG TAB PO SCH (21:21)
[2021-07-02] MEDS: Atorvastatin Calcium 40 MG TAB PO SCH (21:21)
[2021-07-02] MEDS: ALPRAZolam 0.25 MG TAB PO SCH (21:21)
[2021-07-02] MEDS: Enoxaparin Sodium 30 MG/0.3 ML SYRINGE SC SCH (21:21)
[2021-07-03] MEDS: Acetaminophen 325 MG TAB PO PRN ×2 (04:13→18:00)
[2021-07-03] MEDS: ALPRAZolam 0.25 MG TAB PO SCH ×2 (04:13→12:26)
[2021-07-03] MEDS: Ondansetron PF 4 MG/2 ML Vial IVP PRN ×2 (04:30→22:10)
[2021-07-03] MEDS ORDERED: Metoclopramide HCl 10 MG/2 ML VIAL IVP PRN (04:47)
[2021-07-03] MEDS: Levothyroxine Sodium 50 MCG TAB PO SCH (06:46)
[2021-07-03] MEDS: metroNIDAZOLE 250 MG in Admixture Fee 2 EACH IVPB SCH ×3 (07:42→22:10)
[2021-07-03] MEDS ORDERED: Albuterol 200 PUFF (6.7GM INHALER) INH SCH (09:00)
[2021-07-03] MEDS ORDERED: Albuterol 200 PUFF (6.7GM INHALER) INH PRN (09:08)
[2021-07-03] MEDS: levETIRAcetam 500 MG TAB PO SCH ×2 (09:28→20:23)
[2021-07-03] MEDS: Zinc Sulfate 220 MG CAP PO SCH (09:28)
[2021-07-03] MEDS: Cholecalciferol (Vitamin D3) 400 UNITS TAB PO SCH (09:28)
[2021-07-03] MEDS: Gabapentin 100 MG CAP PO SCH (09:28)
[2021-07-03] MEDS: Ascorbic Acid 500 mg Chewable Tablet PO SCH (09:28)
[2021-07-03] MEDS: Calcium Carbonate 500 MG ChewTAB PO SCH ×3 (09:28→20:23)
[2021-07-03] MEDS: Metoprolol Tartrate 25 MG TAB PO SCH (09:29)
[2021-07-03] MEDS: Folic Acid 1 MG TAB PO SCH (09:29)
[2021-07-03] MEDS: Clopidogrel Bisulfate 75 MG TAB PO SCH (09:29)
[2021-07-03] MEDS: Oxybutynin 5 MG TAB PO SCH ×2 (09:29→20:23)
[2021-07-03] MEDS: Lantus 1000 UNITS/10 ML VIAL SC SCH (09:30)
[2021-07-03] MEDS: Cefepime 1 GM in Sodium Chloride 0.9% 100 ML IVPB SCH (12:24)
[2021-07-03] MEDS ORDERED: Amino Acids 4.25 %/Dextrose 5% 1,000 ML IV SCH (12:30)
[2021-07-03] MEDS: Albuterol 200 PUFF (6.7GM INHALER) INH SCH ×3 (14:00→22:02)
[2021-07-03] MEDS: ALPRAZolam 0.25 MG TAB PO PRN ×2 (14:11→20:23)
[2021-07-03] MEDS: Metoclopramide 10 MG/10 ML UDCUP PO SCH ×2 (17:12→20:27)
[2021-07-03] MEDS: Saccharomyces boulardii 250 MG CAP PO SCH (20:23)
[2021-07-03] MEDS: Folic Acid/Vit B Comp W-C PO SCH (20:23)
[2021-07-03] MEDS: Fentanyl 100 MCG/2 ML VIAL SLOW IVP PRN (22:02)
[2021-07-04] MEDS: metroNIDAZOLE 250 MG in Admixture Fee 2 EACH IVPB SCH ×3 (05:30→21:18)
[2021-07-04] MEDS: Levothyroxine Sodium 50 MCG TAB PO SCH (05:31)
[2021-07-04 06:19] LABS: #Eosinphils 0.6 thou/uL (0.0-0.7); #Monocytes 0.9 thou/uL (0.11-0.59); #Neutrophils 5.7 thou/uL (1.40-6.50); %Basophils 0.1 % (0.0-1.0); %Eosinophils 6.9 % (0.0-10.0); %Lymphocytes 21.9 % (21.0-51.0); %Monocytes 9.4 % (0.0-10.0); %Neutrophils 61.7 % (42.0-75.0); Hemoglobin 9.7 g/dL (12.0-16.0); Mean Corpuscular HGB CONC 31.4 g/dL (32.0-36.0); Mean Corpuscular Hemoglobin 32.3 pg (27.0-31.0); Mean Platelet Volume 6.8 fL (7.4-10.4); Platelet Count 319 thou/uL (130-400); RBC Distribution Width 13.8 % (11.5-14.5); Red Blood Cell (RBC) Count 2.99 mill/uL (4.20-5.40); White Blood Cell (WBC) Count 9.2 thou/uL (4.8-10.8)
[2021-07-04 06:43] LABS: Anion Gap 18 mmol/L (10-20); BUN (Urea Nitrogen) 40 mg/dL (9.8-20.1); CRP (Inflammatory) 9.69 mg/dL (= or < 0.5); Calc. Creatinine Clearance 11 mL/min (70-130); Calcium 8.6 mg/dL (7.8-10.44); Carbon Dioxide 25 mmol/L (23-31); Chloride 91 mmol/L (98-107); Glucose 112 mg/dL (83-110); Potassium 4.3 mmol/L (3.5-5.1); Sodium 130 mmol/L (136-145)
[2021-07-04] MEDS: Fentanyl 100 MCG/2 ML VIAL SLOW IVP PRN ×2 (07:50→20:48)
[2021-07-04] MEDS: Oxybutynin 5 MG TAB PO SCH (07:52)
[2021-07-04] MEDS: Metoclopramide 10 MG/10 ML UDCUP PO SCH (07:52)
[2021-07-04] MEDS: levETIRAcetam 500 MG TAB PO SCH ×2 (07:52→20:47)
[2021-07-04] MEDS: Heparin 5,000 UNITS/ML VIAL SC SCH ×2 (07:52→20:49)
[2021-07-04] MEDS: Zinc Sulfate 220 MG CAP PO SCH (07:53)
[2021-07-04] MEDS: Gabapentin 100 MG CAP PO SCH (07:53)
[2021-07-04] MEDS: Ascorbic Acid 500 mg Chewable Tablet PO SCH (07:53)
[2021-07-04] MEDS: Calcium Carbonate 500 MG ChewTAB PO SCH ×3 (07:53→20:47)
[2021-07-04] MEDS: Cholecalciferol (Vitamin D3) 400 UNITS TAB PO SCH (07:53)
[2021-07-04] MEDS: Clopidogrel Bisulfate 75 MG TAB PO SCH (07:53)
[2021-07-04] MEDS: Metoprolol Tartrate 25 MG TAB PO SCH (07:53)
[2021-07-04] MEDS: Folic Acid 1 MG TAB PO SCH (07:53)
[2021-07-04] MEDS ORDERED: Saccharomyces boulardii 250 MG CAP PO SCH (09:00)
[2021-07-04] MEDS ORDERED: cefTRIAXone\\ROCEPHIN 1 GM in Sodium Chloride 0.9% 100 ML IVPB SCH (09:00)
[2021-07-04] MEDS ORDERED: Iopamidol 370 76% 100 ML VIAL ONE (09:36)
[2021-07-04] MEDS: Ondansetron PF 4 MG/2 ML Vial IVP PRN (10:03)
[2021-07-04] MEDS ORDERED: Cefepime 1 GM in Sodium Chloride 0.9% 100 ML IVPB SCH (12:00)
[2021-07-04] MEDS: Amino Acids 4.25 %/Dextrose 5% 1,000 ML IV SCH (12:48)
[2021-07-04] MEDS: Dicyclomine 10 MG CAP PO SCH ×2 (16:00→20:46)
[2021-07-04] MEDS ORDERED: Polyethylene Glycol 3350 17 GM Packet PO SCH (16:45)
[2021-07-04] MEDS: Folic Acid/Vit B Comp W-C PO SCH (20:46)
[2021-07-04] MEDS: Docusate 100 MG CAP PO SCH (20:47)
[2021-07-04] MEDS: Ondansetron ODT 4 MG TAB PO PRN (20:47)
[2021-07-04] MEDS: Saccharomyces boulardii 250 MG CAP PO SCH (20:47)
[2021-07-04] MEDS: ALPRAZolam 0.25 MG TAB PO PRN (20:47)
[2021-07-04] MEDS ORDERED: Bisacodyl 10 MG SUPP PR SCH (21:00)
[2021-07-05] MEDS: Fentanyl 100 MCG/2 ML VIAL SLOW IVP PRN ×2 (02:08→08:46)
[2021-07-05] MEDS: Ondansetron PF 4 MG/2 ML Vial IVP PRN ×2 (02:09→08:50)
[2021-07-05] MEDS: Amino Acids 4.25 %/Dextrose 5% 1,000 ML IV SCH (03:22)
[2021-07-05] MEDS: Acetaminophen 325 MG TAB PO PRN ×2 (05:12→21:11)
[2021-07-05] MEDS: Levothyroxine Sodium 50 MCG TAB PO SCH (05:12)
[2021-07-05] MEDS: metroNIDAZOLE 250 MG in Admixture Fee 2 EACH IVPB SCH ×3 (05:13→21:11)
[2021-07-05 05:58] LABS: #Eosinphils 0.3 thou/uL (0.0-0.7); #Lymphocytes 1.2 thou/uL (1.20-3.40); #Monocytes 0.8 thou/uL (0.11-0.59); #Neutrophils 4.3 thou/uL (1.40-6.50); %Basophils 0.2 % (0.0-1.0); %Eosinophils 5.2 % (0.0-10.0); %Lymphocytes 18.3 % (21.0-51.0); %Neutrophils 64.4 % (42.0-75.0); Hemoglobin 8.1 g/dL (12.0-16.0); Mean Corpuscular HGB CONC 32.1 g/dL (32.0-36.0); Mean Platelet Volume 6.3 fL (7.4-10.4); Platelet Count 255 thou/uL (130-400); RBC Distribution Width 13.6 % (11.5-14.5); Red Blood Cell (RBC) Count 2.46 mill/uL (4.20-5.40); White Blood Cell (WBC) Count 6.7 thou/uL (4.8-10.8)
[2021-07-05 06:20] LABS: Anion Gap 14 mmol/L (10-20); BUN (Urea Nitrogen) 22 mg/dL (9.8-20.1); Calc. Creatinine Clearance 22 mL/min (70-130); Calcium 6.8 mg/dL (7.8-10.44); Carbon Dioxide 22 mmol/L (23-31); Chloride 99 mmol/L (98-107); Glucose 156 mg/dL (83-110); Potassium 2.8 mmol/L (3.5-5.1); Sodium 132 mmol/L (136-145)
[2021-07-05] MEDS ORDERED: Potassium Chloride 20 MEQ TAB PO SCH (07:00)
[2021-07-05 07:38] LABS: Magnesium 1.2 mg/dL (1.6-2.6)
[2021-07-05] MEDS: Clopidogrel Bisulfate 75 MG TAB PO SCH (08:21)
[2021-07-05] MEDS: Ascorbic Acid 500 mg Chewable Tablet PO SCH (08:21)
[2021-07-05] MEDS: Dicyclomine 10 MG CAP PO SCH (08:21)
[2021-07-05] MEDS: Docusate 100 MG CAP PO SCH ×2 (08:21→21:10)
[2021-07-05] MEDS: Metoprolol Tartrate 25 MG TAB PO SCH (08:21)
[2021-07-05] MEDS: Calcium Carbonate 500 MG ChewTAB PO SCH ×3 (08:21→21:10)
[2021-07-05] MEDS: Folic Acid 1 MG TAB PO SCH (08:22)
[2021-07-05] MEDS: Gabapentin 100 MG CAP PO SCH (08:22)
[2021-07-05] MEDS: Zinc Sulfate 220 MG CAP PO SCH (08:22)
[2021-07-05] MEDS: Cholecalciferol (Vitamin D3) 400 UNITS TAB PO SCH (08:22)
[2021-07-05] MEDS: levETIRAcetam 500 MG TAB PO SCH ×2 (08:22→21:10)
[2021-07-05] MEDS: cefTRIAXone\\ROCEPHIN 1 GM in Sodium Chloride 0.9% 100 ML IVPB SCH (08:23)
[2021-07-05] MEDS: Heparin 5,000 UNITS/ML VIAL SC SCH ×2 (08:24→21:12)
[2021-07-05] MEDS ORDERED: Magnesium Sulfate 2 GM in Sodium Chloride 0.9% 100 ML IVPB SCH (08:30)
[2021-07-05] MEDS ORDERED: Polyethylene Glycol 3350 17 GM Packet PO SCH (09:00)
[2021-07-05] MEDS ORDERED: Potassium Chloride 20 MEQ in Premix Bag 1 BAG IVPB SCH (09:00)
[2021-07-05] MEDS ORDERED: Magnesium 2 GM/50 ML 2 GM in Premix Bag 1 BAG IVPB SCH (09:00)
[2021-07-05] MEDS: Potassium Chloride 10 MEQ in Premix Bag 1 BAG IVPB SCH ×2 (11:27→11:28)
[2021-07-05] MEDS: Dicyclomine 10 MG CAP PO PRN (17:27)
[2021-07-05] MEDS: Saccharomyces boulardii 250 MG CAP PO SCH (21:10)
[2021-07-05] MEDS: Folic Acid/Vit B Comp W-C PO SCH (21:10)
[2021-07-05] MEDS: Ondansetron ODT 4 MG TAB PO PRN (21:10)
[2021-07-05] MEDS: ALPRAZolam 0.25 MG TAB PO PRN (21:11)
[2021-07-06] MEDS: Dicyclomine 10 MG CAP PO PRN (04:39)
[2021-07-06] MEDS: Fentanyl 100 MCG/2 ML VIAL SLOW IVP PRN ×3 (04:39→17:58)
[2021-07-06] MEDS: Ondansetron PF 4 MG/2 ML Vial IVP PRN ×2 (04:39→16:30)
[2021-07-06] MEDS: Amino Acids 4.25 %/Dextrose 5% 1,000 ML IV SCH ×2 (04:41→21:15)
[2021-07-06] MEDS: Levothyroxine Sodium 50 MCG TAB PO SCH (05:03)
[2021-07-06] MEDS: metroNIDAZOLE 250 MG in Admixture Fee 2 EACH IVPB SCH ×3 (05:50→21:11)
[2021-07-06 09:03] LABS: #Eosinphils 0.5 thou/uL (0.0-0.7); #Lymphocytes 1.7 thou/uL (1.20-3.40); #Monocytes 0.7 thou/uL (0.11-0.59); #Neutrophils 5.4 thou/uL (1.40-6.50); %Basophils 0.4 % (0.0-1.0); %Eosinophils 5.7 % (0.0-10.0); %Lymphocytes 20.1 % (21.0-51.0); %Monocytes 8.6 % (0.0-10.0); %Neutrophils 65.3 % (42.0-75.0); Hemoglobin 8.8 g/dL (12.0-16.0); Mean Corpuscular HGB CONC 32.4 g/dL (32.0-36.0); Mean Corpuscular Hemoglobin 32.5 pg (27.0-31.0); Mean Platelet Volume 6.8 fL (7.4-10.4); Platelet Count 298 thou/uL (130-400); RBC Distribution Width 13.3 % (11.5-14.5); Red Blood Cell (RBC) Count 2.71 mill/uL (4.20-5.40); White Blood Cell (WBC) Count 8.3 thou/uL (4.8-10.8)
[2021-07-06 09:36] LABS: Anion Gap 12 mmol/L (10-20); BUN (Urea Nitrogen) 41 mg/dL (9.8-20.1); Calc. Creatinine Clearance 14 mL/min (70-130); Calcium 8.1 mg/dL (7.8-10.44); Carbon Dioxide 26 mmol/L (23-31); Chloride 86 mmol/L (98-107); Glucose 361 mg/dL (83-110); Potassium 3.3 mmol/L (3.5-5.1); Sodium 121 mmol/L (136-145)
[2021-07-06] MEDS: Calcium Carbonate 500 MG ChewTAB PO SCH ×3 (13:19→21:12)
[2021-07-06] MEDS: Ascorbic Acid 500 mg Chewable Tablet PO SCH (13:19)
[2021-07-06] MEDS: Metoprolol Tartrate 25 MG TAB PO SCH (13:19)
[2021-07-06] MEDS: Folic Acid 1 MG TAB PO SCH (13:20)
[2021-07-06] MEDS: Zinc Sulfate 220 MG CAP PO SCH (13:20)
[2021-07-06] MEDS: levETIRAcetam 500 MG TAB PO SCH ×2 (13:20→21:12)
[2021-07-06] MEDS: Clopidogrel Bisulfate 75 MG TAB PO SCH (13:20)
[2021-07-06] MEDS: Heparin 5,000 UNITS/ML VIAL SC SCH ×2 (13:21→21:13)
[2021-07-06] MEDS: Docusate 100 MG CAP PO SCH ×2 (13:21→21:12)
[2021-07-06] MEDS: Cholecalciferol (Vitamin D3) 400 UNITS TAB PO SCH (13:21)
[2021-07-06] MEDS: cefTRIAXone\\ROCEPHIN 1 GM in Sodium Chloride 0.9% 100 ML IVPB SCH (13:23)
[2021-07-06] MEDS: Gabapentin 100 MG CAP PO SCH (13:24)
[2021-07-06] MEDS ORDERED: Fleet Enema 133 ML BOT FS SCH (16:45)
[2021-07-06] MEDS: Saccharomyces boulardii 250 MG CAP PO SCH (21:12)
[2021-07-06] MEDS: ALPRAZolam 0.25 MG TAB PO PRN (21:12)
[2021-07-06] MEDS: Ondansetron ODT 4 MG TAB PO PRN (21:12)
[2021-07-06] MEDS: Acetaminophen 325 MG TAB PO PRN (21:12)
[2021-07-06] MEDS: Folic Acid/Vit B Comp W-C PO SCH (21:12)
[2021-07-07] MEDS: Fentanyl 100 MCG/2 ML VIAL SLOW IVP PRN ×4 (00:27→13:08)
[2021-07-07] MEDS: Dicyclomine 10 MG CAP PO PRN ×3 (00:28→20:53)
[2021-07-07] MEDS: Ondansetron PF 4 MG/2 ML Vial IVP PRN ×3 (04:37→20:53)
[2021-07-07] MEDS: Levothyroxine Sodium 50 MCG TAB PO SCH (05:22)
[2021-07-07] MEDS: metroNIDAZOLE 250 MG in Admixture Fee 2 EACH IVPB SCH ×3 (06:00→20:43)
[2021-07-07] MEDS: HumaLOG 300 UNITS/3 ML VIAL SC PRN (06:01)
[2021-07-07] MEDS: Gabapentin 100 MG CAP PO SCH (08:26)
[2021-07-07] MEDS: Zinc Sulfate 220 MG CAP PO SCH (08:27)
[2021-07-07] MEDS: Metoprolol Tartrate 25 MG TAB PO SCH (08:27)
[2021-07-07] MEDS: levETIRAcetam 500 MG TAB PO SCH ×2 (08:27→20:42)
[2021-07-07] MEDS: Calcium Carbonate 500 MG ChewTAB PO SCH ×3 (08:27→20:41)
[2021-07-07] MEDS: Folic Acid 1 MG TAB PO SCH (08:27)
[2021-07-07] MEDS: Ascorbic Acid 500 mg Chewable Tablet PO SCH (08:27)
[2021-07-07] MEDS: Docusate 100 MG CAP PO SCH ×2 (08:27→20:43)
[2021-07-07] MEDS: Cholecalciferol (Vitamin D3) 400 UNITS TAB PO SCH (08:27)
[2021-07-07] MEDS: Clopidogrel Bisulfate 75 MG TAB PO SCH (08:27)
[2021-07-07] MEDS: Heparin 5,000 UNITS/ML VIAL SC SCH ×2 (08:28→20:43)
[2021-07-07] MEDS: cefTRIAXone\\ROCEPHIN 1 GM in Sodium Chloride 0.9% 100 ML IVPB SCH (08:28)
[2021-07-07] MEDS: Ondansetron ODT 4 MG TAB PO PRN (08:33)
[2021-07-07 10:50] LABS: ALT (SGPT) 33 U/L (8-55); AST (SGOT) 38 U/L (5-34); Albumin 2.8 g/dL (3.4-4.8); Alkaline Phosphatase 55 U/L (40-110); Anion Gap 16 mmol/L (10-20); BUN (Urea Nitrogen) 32 mg/dL (9.8-20.1); Bilirubin, Total 0.2 mg/dL (0.2-1.2); Calc. Creatinine Clearance 18 mL/min (70-130); Calcium 8.1 mg/dL (7.8-10.44); Carbon Dioxide 22 mmol/L (23-31); Chloride 94 mmol/L (98-107); Globulin 2.7 g/dL (2.4-3.5); Glucose 156 mg/dL (83-110); Magnesium 1.8 mg/dL (1.6-2.6); Potassium 3.4 mmol/L (3.5-5.1); Protein, Total 5.5 g/dL (5.8-8.1); Sodium 129 mmol/L (136-145)
[2021-07-07 11:12] LABS: #Eosinphils 0.5 thou/uL (0.0-0.7); #Lymphocytes 1.8 thou/uL (1.20-3.40); #Monocytes 0.8 thou/uL (0.11-0.59); %Basophils 0.7 % (0.0-1.0); %Eosinophils 7.1 % (0.0-10.0); %Lymphocytes 25.3 % (21.0-51.0); %Monocytes 10.5 % (0.0-10.0); %Neutrophils 56.4 % (42.0-75.0); Mean Corpuscular HGB CONC 31.1 g/dL (32.0-36.0); Mean Corpuscular Hemoglobin 31.5 pg (27.0-31.0); Platelet Count 302 thou/uL (130-400); RBC Distribution Width 13.5 % (11.5-14.5); Red Blood Cell (RBC) Count 2.85 mill/uL (4.20-5.40); White Blood Cell (WBC) Count 7.1 thou/uL (4.8-10.8)
[2021-07-07] MEDS: Saccharomyces boulardii 250 MG CAP PO SCH (20:41)
[2021-07-07] MEDS: Folic Acid/Vit B Comp W-C PO SCH (20:42)
[2021-07-07] MEDS: Atorvastatin Calcium 40 MG TAB PO SCH (20:42)
[2021-07-07] MEDS: ALPRAZolam 0.25 MG TAB PO PRN (20:53)
[2021-07-07] MEDS: Amino Acids 4.25 %/Dextrose 5% 1,000 ML IV SCH (21:15)
[2021-07-08] MEDS: Fentanyl 100 MCG/2 ML VIAL SLOW IVP PRN ×4 (00:22→20:40)
[2021-07-08] MEDS: Ondansetron PF 4 MG/2 ML Vial IVP PRN ×2 (02:43→08:06)
[2021-07-08] MEDS: Levothyroxine Sodium 50 MCG TAB PO SCH (05:49)
[2021-07-08] MEDS: metroNIDAZOLE 250 MG in Admixture Fee 2 EACH IVPB SCH ×3 (05:49→21:08)
[2021-07-08] MEDS: cefTRIAXone\\ROCEPHIN 1 GM in Sodium Chloride 0.9% 100 ML IVPB SCH (08:05)
[2021-07-08] MEDS: Heparin 5,000 UNITS/ML VIAL SC SCH ×2 (08:06→20:47)
[2021-07-08 12:54] VITALS: BMI 38.9
[2021-07-08] MEDS ORDERED: Iopamidol 370 76% 100 ML VIAL ONE (14:32)
[2021-07-08] MEDS: Calcium Carbonate 500 MG ChewTAB PO SCH ×3 (14:50→20:45)
[2021-07-08] MEDS: D5W-AA 4.25% with LYTES 1,000 ML IV SCH (14:50)
[2021-07-08] MEDS: Dicyclomine 10 MG CAP PO SCH ×3 (14:51→21:20)
[2021-07-08] MEDS: Gabapentin 100 MG CAP PO SCH (17:30)
[2021-07-08] MEDS: Folic Acid 1 MG TAB PO SCH (17:30)
[2021-07-08] MEDS: levETIRAcetam 500 MG TAB PO SCH ×2 (17:30→20:45)
[2021-07-08] MEDS: Metoprolol Tartrate 25 MG TAB PO SCH (17:30)
[2021-07-08] MEDS: Zinc Sulfate 220 MG CAP PO SCH (17:30)
[2021-07-08] MEDS: Ascorbic Acid 500 mg Chewable Tablet PO SCH (17:31)
[2021-07-08] MEDS: Docusate 100 MG CAP PO SCH ×2 (17:31→21:19)
[2021-07-08] MEDS: Cholecalciferol (Vitamin D3) 400 UNITS TAB PO SCH (17:31)
[2021-07-08] MEDS: Clopidogrel Bisulfate 75 MG TAB PO SCH (17:31)
[2021-07-08] MEDS: EPOETIN ALFA-EPBX (ESRD) 4,000 UNIT/ML VIAL SC SCH (20:42)
[2021-07-08] MEDS: Saccharomyces boulardii 250 MG CAP PO SCH (20:44)
[2021-07-08] MEDS: Folic Acid/Vit B Comp W-C PO SCH (20:45)
[2021-07-08] MEDS: Atorvastatin Calcium 40 MG TAB PO SCH (20:46)
[2021-07-08] MEDS: Metoclopramide HCl 10 MG/2 ML VIAL IVP SCH (20:47)
[2021-07-09] MEDS: Fentanyl 100 MCG/2 ML VIAL SLOW IVP PRN ×2 (01:38→20:58)
[2021-07-09] MEDS: ALPRAZolam 0.25 MG TAB PO PRN (01:48)
[2021-07-09] MEDS: D5W-AA 4.25% with LYTES 1,000 ML IV SCH ×2 (01:49→17:57)
[2021-07-09] MEDS: metroNIDAZOLE 250 MG in Admixture Fee 2 EACH IVPB SCH ×2 (06:09→17:58)
[2021-07-09] MEDS: HumaLOG 300 UNITS/3 ML VIAL SC PRN ×2 (06:10→17:56)
[2021-07-09] MEDS: Levothyroxine Sodium 50 MCG TAB PO SCH (06:21)
[2021-07-09] MEDS: Heparin 5,000 UNITS/ML VIAL SC SCH ×2 (08:31→20:55)
[2021-07-09] MEDS: Gabapentin 100 MG CAP PO SCH (08:33)
[2021-07-09] MEDS: Metoclopramide HCl 10 MG/2 ML VIAL IVP SCH (08:33)
[2021-07-09] MEDS: Ascorbic Acid 500 mg Chewable Tablet PO SCH (08:34)
[2021-07-09] MEDS: Zinc Sulfate 220 MG CAP PO SCH (08:34)
[2021-07-09] MEDS: Dicyclomine 10 MG CAP PO SCH ×4 (08:34→20:54)
[2021-07-09] MEDS: levETIRAcetam 500 MG TAB PO SCH ×2 (08:34→20:54)
[2021-07-09] MEDS: Cholecalciferol (Vitamin D3) 400 UNITS TAB PO SCH (08:35)
[2021-07-09] MEDS: Clopidogrel Bisulfate 75 MG TAB PO SCH (08:35)
[2021-07-09] MEDS: Calcium Carbonate 500 MG ChewTAB PO SCH ×3 (08:35→20:53)
[2021-07-09] MEDS: Folic Acid 1 MG TAB PO SCH (08:35)
[2021-07-09] MEDS: Docusate 100 MG CAP PO SCH ×3 (08:36→21:24)
[2021-07-09] MEDS: cefTRIAXone\\ROCEPHIN 1 GM in Sodium Chloride 0.9% 100 ML IVPB SCH (08:36)
[2021-07-09] MEDS: Metoprolol Tartrate 25 MG TAB PO SCH (08:42)
[2021-07-09] MEDS: Phenazopyridine HCl 100 MG TAB PO SCH ×2 (14:44→20:55)
[2021-07-09] MEDS ORDERED: Polyethylene Glycol 3350 17 GM Packet PO SCH (19:00)
[2021-07-09] MEDS: Folic Acid/Vit B Comp W-C PO SCH (20:53)
[2021-07-09] MEDS: Saccharomyces boulardii 250 MG CAP PO SCH (20:54)
[2021-07-09] MEDS: Atorvastatin Calcium 40 MG TAB PO SCH (20:54)
[2021-07-09] MEDS: metroNIDAZOLE 500 MG in Premix Bag 1 BAG IVPB SCH (22:30)
[2021-07-10] MEDS: D5W-AA 4.25% with LYTES 1,000 ML IV SCH ×2 (01:27→23:39)
[2021-07-10] MEDS: ALPRAZolam 0.25 MG TAB PO PRN (01:27)
[2021-07-10] MEDS: Levothyroxine Sodium 50 MCG TAB PO SCH (05:25)
[2021-07-10] MEDS: Fentanyl 100 MCG/2 ML VIAL SLOW IVP PRN ×4 (05:25→22:44)
[2021-07-10] MEDS: metroNIDAZOLE 500 MG in Premix Bag 1 BAG IVPB SCH ×3 (06:17→22:45)
[2021-07-10] MEDS: HumaLOG 300 UNITS/3 ML VIAL SC PRN ×2 (06:18→18:33)
[2021-07-10] MEDS: Folic Acid 1 MG TAB PO SCH (07:50)
[2021-07-10] MEDS: Phenazopyridine HCl 100 MG TAB PO SCH ×3 (07:50→20:15)
[2021-07-10] MEDS: Calcium Carbonate 500 MG ChewTAB PO SCH ×3 (07:51→20:11)
[2021-07-10] MEDS: Cholecalciferol (Vitamin D3) 400 UNITS TAB PO SCH (07:51)
[2021-07-10] MEDS: levETIRAcetam 500 MG TAB PO SCH ×2 (07:51→20:12)
[2021-07-10] MEDS: Ascorbic Acid 500 mg Chewable Tablet PO SCH (07:51)
[2021-07-10] MEDS: Metoprolol Tartrate 25 MG TAB PO SCH (07:52)
[2021-07-10] MEDS: Clopidogrel Bisulfate 75 MG TAB PO SCH (07:52)
[2021-07-10] MEDS: Dicyclomine 10 MG CAP PO SCH ×4 (07:52→20:12)
[2021-07-10] MEDS: Zinc Sulfate 220 MG CAP PO SCH (07:52)
[2021-07-10] MEDS: Polyethylene Glycol 3350 17 GM Packet PO SCH (07:52)
[2021-07-10] MEDS: Gabapentin 100 MG CAP PO SCH (07:52)
[2021-07-10] MEDS: Heparin 5,000 UNITS/ML VIAL SC SCH ×2 (07:53→20:12)
[2021-07-10] MEDS: Docusate 100 MG CAP PO SCH ×2 (07:53→20:11)
[2021-07-10 09:16] LABS: Anion Gap 19 mmol/L (10-20); BUN (Urea Nitrogen) 44 mg/dL (9.8-20.1); Calc. Creatinine Clearance 15 mL/min (70-130); Calcium 8.5 mg/dL (7.8-10.44); Carbon Dioxide 18 mmol/L (23-31); Chloride 96 mmol/L (98-107); Glucose 172 mg/dL (83-110); Potassium 3.8 mmol/L (3.5-5.1); Sodium 129 mmol/L (136-145)
[2021-07-10] MEDS: Ondansetron PF 4 MG/2 ML Vial IVP PRN ×3 (09:35→21:30)
[2021-07-10 11:42] LABS: Band 10 % (5-11); Eosinophils 6 % (0-10); Hemoglobin 9.9 g/dL (12.0-16.0); Lymphocytes 16 % (21-51); MDiff Complete? YES; Mean Corpuscular HGB CONC 31.3 g/dL (32.0-36.0); Mean Corpuscular Hemoglobin 30.9 pg (27.0-31.0); Mean Corpuscular Volume 98.7 fL (78.0-98.0); Mean Platelet Volume 7.1 fL (7.4-10.4); Monocytes 9 % (0-10); Myelocyte 1 % (0-0); Neutrophil 58 % (42-75); Platelet Count 363 thou/uL (130-400); Red Blood Cell (RBC) Count 3.22 mill/uL (4.20-5.40); White Blood Cell (WBC) Count 8.8 thou/uL (4.8-10.8)
[2021-07-10] MEDS: Ondansetron ODT 4 MG TAB PO PRN (14:00)
[2021-07-10] MEDS: Folic Acid/Vit B Comp W-C PO SCH (20:11)
[2021-07-10] MEDS: Atorvastatin Calcium 40 MG TAB PO SCH (20:12)
[2021-07-10] MEDS: Saccharomyces boulardii 250 MG CAP PO SCH (20:12)
[2021-07-10 22:42] LABS: SARS-CoV-2 NAA Rapid Test DETECTED (NotDetected)
[2021-07-11] MEDS: Ondansetron PF 4 MG/2 ML Vial IVP PRN ×4 (03:28→23:08)
[2021-07-11] MEDS: metroNIDAZOLE 500 MG in Premix Bag 1 BAG IVPB SCH ×3 (06:09→23:08)
[2021-07-11] MEDS: Levothyroxine Sodium 50 MCG TAB PO SCH (06:09)
[2021-07-11] MEDS: Gabapentin 100 MG CAP PO SCH (08:50)
[2021-07-11] MEDS: Cholecalciferol (Vitamin D3) 400 UNITS TAB PO SCH (08:50)
[2021-07-11] MEDS: Ascorbic Acid 500 mg Chewable Tablet PO SCH (08:50)
[2021-07-11] MEDS: Dicyclomine 10 MG CAP PO SCH ×4 (08:50→21:22)
[2021-07-11] MEDS: Zinc Sulfate 220 MG CAP PO SCH (08:51)
[2021-07-11] MEDS: Phenazopyridine HCl 100 MG TAB PO SCH ×3 (08:51→21:22)
[2021-07-11] MEDS: Docusate 100 MG CAP PO SCH ×2 (08:51→21:22)
[2021-07-11] MEDS: Calcium Carbonate 500 MG ChewTAB PO SCH ×3 (08:51→21:22)
[2021-07-11] MEDS: Heparin 5,000 UNITS/ML VIAL SC SCH ×2 (08:51→21:23)
[2021-07-11] MEDS: Folic Acid 1 MG TAB PO SCH (08:51)
[2021-07-11] MEDS: levETIRAcetam 500 MG TAB PO SCH ×2 (08:51→21:22)
[2021-07-11] MEDS: Metoprolol Tartrate 25 MG TAB PO SCH ×2 (08:51→09:37)
[2021-07-11] MEDS: Clopidogrel Bisulfate 75 MG TAB PO SCH (08:51)
[2021-07-11] MEDS: Polyethylene Glycol 3350 17 GM Packet PO SCH (09:36)
[2021-07-11] MEDS: GUAIFENESIN SF SOLN 200 MG/10 ML UDCUP PO PRN (10:12)
[2021-07-11] MEDS: Scopolamine 1.5 mg/72 hour Patch TD SCH (11:11)
[2021-07-11] MEDS: D5W-AA 4.25% with LYTES 1,000 ML IV SCH ×2 (17:55→21:55)
[2021-07-11] MEDS: Folic Acid/Vit B Comp W-C PO SCH (21:22)
[2021-07-11] MEDS: Saccharomyces boulardii 250 MG CAP PO SCH (21:22)
[2021-07-11] MEDS: Atorvastatin Calcium 40 MG TAB PO SCH (21:23)
[2021-07-11] MEDS: Fentanyl 100 MCG/2 ML VIAL SLOW IVP PRN (21:24)
[2021-07-11] MEDS: ALPRAZolam 0.25 MG TAB PO PRN (21:46)
[2021-07-12] MEDS: Fentanyl 100 MCG/2 ML VIAL SLOW IVP PRN ×3 (03:45→22:08)
[2021-07-12] MEDS ORDERED: Dicyclomine 10 MG CAP PO SCH (04:08)
[2021-07-12] MEDS: Levothyroxine Sodium 50 MCG TAB PO SCH (05:05)
[2021-07-12] MEDS: Ondansetron PF 4 MG/2 ML Vial IVP PRN ×2 (05:05→13:12)
[2021-07-12] MEDS: D5W-AA 4.25% with LYTES 1,000 ML IV SCH (05:28)
[2021-07-12] MEDS: metroNIDAZOLE 500 MG in Premix Bag 1 BAG IVPB SCH ×2 (05:28→17:43)
[2021-07-12] MEDS: Calcium Carbonate 500 MG ChewTAB PO SCH ×3 (08:32→21:44)
[2021-07-12] MEDS: Dicyclomine 10 MG CAP PO SCH (08:32)
[2021-07-12] MEDS: Docusate 100 MG CAP PO SCH ×2 (08:32→21:42)
[2021-07-12] MEDS: Phenazopyridine HCl 100 MG TAB PO SCH ×3 (08:33→21:42)
[2021-07-12] MEDS: Gabapentin 100 MG CAP PO SCH (08:33)
[2021-07-12] MEDS: Clopidogrel Bisulfate 75 MG TAB PO SCH (08:33)
[2021-07-12] MEDS: Zinc Sulfate 220 MG CAP PO SCH (08:33)
[2021-07-12] MEDS: levETIRAcetam 500 MG TAB PO SCH ×2 (08:33→21:45)
[2021-07-12] MEDS: Folic Acid 1 MG TAB PO SCH (08:33)
[2021-07-12] MEDS: Ascorbic Acid 500 mg Chewable Tablet PO SCH (08:33)
[2021-07-12] MEDS: Cholecalciferol (Vitamin D3) 400 UNITS TAB PO SCH (08:36)
[2021-07-12] MEDS: Metoprolol Tartrate 25 MG TAB PO SCH (08:36)
[2021-07-12] MEDS: Heparin 5,000 UNITS/ML VIAL SC SCH ×2 (08:37→21:45)
[2021-07-12] MEDS: Polyethylene Glycol 3350 17 GM Packet PO SCH (08:38)
[2021-07-12] MEDS: GUAIFENESIN SF SOLN 200 MG/10 ML UDCUP PO PRN (12:51)
[2021-07-12] MEDS: Dicyclomine 20 MG TAB PO PRN (12:52)
[2021-07-12 17:55] LABS: #Eosinphils 0.4 thou/uL (0.0-0.7); #Lymphocytes 0.8 thou/uL (1.20-3.40); #Monocytes 0.7 thou/uL (0.11-0.59); #Neutrophils 7.8 thou/uL (1.40-6.50); %Basophils 0.5 % (0.0-1.0); %Eosinophils 4.3 % (0.0-10.0); %Lymphocytes 8.4 % (21.0-51.0); %Monocytes 7.2 % (0.0-10.0); %Neutrophils 79.6 % (42.0-75.0); Hemoglobin 9.3 g/dL (12.0-16.0); Mean Corpuscular HGB CONC 31.5 g/dL (32.0-36.0); Mean Corpuscular Hemoglobin 30.7 pg (27.0-31.0); Mean Corpuscular Volume 97.4 fL (78.0-98.0); Platelet Count 407 thou/uL (130-400); RBC Distribution Width 14.2 % (11.5-14.5); Red Blood Cell (RBC) Count 3.02 mill/uL (4.20-5.40); White Blood Cell (WBC) Count 9.9 thou/uL (4.8-10.8)
[2021-07-12] MEDS: Folic Acid/Vit B Comp W-C PO SCH (21:42)
[2021-07-12] MEDS: Atorvastatin Calcium 40 MG TAB PO SCH (21:42)
[2021-07-12] MEDS: Saccharomyces boulardii 250 MG CAP PO SCH (21:43)
[2021-07-13] MEDS: Ondansetron ODT 4 MG TAB PO PRN (00:11)
[2021-07-13] MEDS: Dicyclomine 20 MG TAB PO PRN ×4 (00:11→21:25)
[2021-07-13] MEDS: metroNIDAZOLE 500 MG in Premix Bag 1 BAG IVPB SCH ×4 (00:11→22:56)
[2021-07-13] MEDS: Ondansetron PF 4 MG/2 ML Vial IVP PRN ×4 (00:15→21:11)
[2021-07-13] MEDS: D5W-AA 4.25% with LYTES 1,000 ML IV SCH ×2 (01:20→19:18)
[2021-07-13] MEDS: ALPRAZolam 0.25 MG TAB PO PRN ×2 (02:50→21:25)
[2021-07-13] MEDS: Fentanyl 100 MCG/2 ML VIAL SLOW IVP PRN ×3 (02:50→19:56)
[2021-07-13] MEDS: Levothyroxine Sodium 50 MCG TAB PO SCH (06:38)
[2021-07-13] MEDS: levETIRAcetam 500 MG TAB PO SCH ×2 (08:50→21:15)
[2021-07-13] MEDS: Docusate 100 MG CAP PO SCH ×2 (08:50→21:14)
[2021-07-13] MEDS: Ascorbic Acid 500 mg Chewable Tablet PO SCH (08:50)
[2021-07-13] MEDS: Folic Acid 1 MG TAB PO SCH (08:50)
[2021-07-13] MEDS: Phenazopyridine HCl 100 MG TAB PO SCH ×3 (08:50→21:15)
[2021-07-13] MEDS: Zinc Sulfate 220 MG CAP PO SCH (08:51)
[2021-07-13] MEDS: Clopidogrel Bisulfate 75 MG TAB PO SCH (08:51)
[2021-07-13] MEDS: Gabapentin 100 MG CAP PO SCH (08:51)
[2021-07-13] MEDS: Cholecalciferol (Vitamin D3) 400 UNITS TAB PO SCH (08:52)
[2021-07-13] MEDS: Metoprolol Tartrate 25 MG TAB PO SCH (08:52)
[2021-07-13] MEDS: Calcium Carbonate 500 MG ChewTAB PO SCH ×3 (08:52→21:15)
[2021-07-13] MEDS: Heparin 5,000 UNITS/ML VIAL SC SCH ×2 (08:53→21:16)
[2021-07-13] MEDS: Polyethylene Glycol 3350 17 GM Packet PO SCH (08:53)
[2021-07-13] MEDS: AA 4.25 %/CALCIUM/LYTES/D5W 2,000 ML IV SCH (18:18)
[2021-07-13] MEDS: Atorvastatin Calcium 40 MG TAB PO SCH (21:13)
[2021-07-13] MEDS: Folic Acid/Vit B Comp W-C PO SCH (21:14)
[2021-07-13] MEDS: Saccharomyces boulardii 250 MG CAP PO SCH (21:15)
[2021-07-14] MEDS: Fentanyl 100 MCG/2 ML VIAL SLOW IVP PRN ×3 (00:11→22:28)
[2021-07-14] MEDS: Ondansetron PF 4 MG/2 ML Vial IVP PRN ×2 (03:34→21:06)
[2021-07-14] MEDS: Dicyclomine 20 MG TAB PO PRN ×2 (03:42→21:02)
[2021-07-14] MEDS: metroNIDAZOLE 500 MG in Premix Bag 1 BAG IVPB SCH ×2 (06:11→16:55)
[2021-07-14] MEDS: Levothyroxine Sodium 50 MCG TAB PO SCH (06:12)
[2021-07-14] MEDS: Scopolamine 1.5 mg/72 hour Patch TD SCH (08:20)
[2021-07-14] MEDS: Clopidogrel Bisulfate 75 MG TAB PO SCH (08:22)
[2021-07-14] MEDS: Docusate 100 MG CAP PO SCH ×2 (08:23→21:04)
[2021-07-14] MEDS: Folic Acid 1 MG TAB PO SCH (08:23)
[2021-07-14] MEDS: Calcium Carbonate 500 MG ChewTAB PO SCH ×3 (08:23→21:06)
[2021-07-14] MEDS: levETIRAcetam 500 MG TAB PO SCH ×2 (08:23→21:02)
[2021-07-14] MEDS: Phenazopyridine HCl 100 MG TAB PO SCH ×3 (08:23→21:01)
[2021-07-14] MEDS: Zinc Sulfate 220 MG CAP PO SCH (08:23)
[2021-07-14] MEDS: Metoprolol Tartrate 25 MG TAB PO SCH (08:24)
[2021-07-14] MEDS: Cholecalciferol (Vitamin D3) 400 UNITS TAB PO SCH (08:24)
[2021-07-14] MEDS: Gabapentin 100 MG CAP PO SCH (08:24)
[2021-07-14] MEDS: Ascorbic Acid 500 mg Chewable Tablet PO SCH (08:24)
[2021-07-14] MEDS: Heparin 5,000 UNITS/ML VIAL SC SCH ×2 (08:25→21:05)
[2021-07-14] MEDS: Polyethylene Glycol 3350 17 GM Packet PO SCH (08:25)
[2021-07-14] MEDS ORDERED: Pantoprazole 40 MG VIAL IVP SCH (11:15)
[2021-07-14 15:30] LABS: #Basophils 0.1 thou/uL (0.0-0.2); #Eosinphils 0.3 thou/uL (0.0-0.7); #Lymphocytes 1.1 thou/uL (1.20-3.40); #Monocytes 0.9 thou/uL (0.11-0.59); #Neutrophils 7.5 thou/uL (1.40-6.50); %Basophils 0.5 % (0.0-1.0); %Eosinophils 2.8 % (0.0-10.0); %Lymphocytes 11.4 % (21.0-51.0); %Monocytes 9.5 % (0.0-10.0); %Neutrophils 75.7 % (42.0-75.0); Hemoglobin 8.4 g/dL (12.0-16.0); Mean Corpuscular HGB CONC 31.1 g/dL (32.0-36.0); Mean Corpuscular Hemoglobin 31.2 pg (27.0-31.0); Mean Platelet Volume 6.6 fL (7.4-10.4); Platelet Count 418 thou/uL (130-400); RBC Distribution Width 14.6 % (11.5-14.5); White Blood Cell (WBC) Count 9.9 thou/uL (4.8-10.8)
[2021-07-14] MEDS ORDERED: EPOETIN ALFA-EPBX (ESRD) 4,000 UNIT/ML VIAL SC SCH (16:06)
[2021-07-14 16:14] LABS: Anion Gap 20 mmol/L (10-20); BUN (Urea Nitrogen) 60 mg/dL (9.8-20.1); CRP (Inflammatory) 7.86 mg/dL (= or < 0.5); Calc. Creatinine Clearance 12 mL/min (70-130); Calcium 8.9 mg/dL (7.8-10.44); Carbon Dioxide 21 mmol/L (23-31); Chloride 91 mmol/L (98-107); Glucose 143 mg/dL (83-110); Sodium 127 mmol/L (136-145)
[2021-07-14] MEDS ORDERED: Iopamidol 370 76% 100 ML VIAL ONE (16:28)
[2021-07-14] MEDS: EPOETIN ALFA-EPBX (ESRD) 4,000 UNIT/ML VIAL SC SCH (18:44)
[2021-07-14] MEDS: Saccharomyces boulardii 250 MG CAP PO SCH (21:02)
[2021-07-14] MEDS: Folic Acid/Vit B Comp W-C PO SCH (21:02)
[2021-07-14] MEDS: Atorvastatin Calcium 40 MG TAB PO SCH (21:03)
[2021-07-15] MEDS: ALPRAZolam 0.25 MG TAB PO PRN ×2 (00:09→23:12)
[2021-07-15] MEDS: GUAIFENESIN SF SOLN 200 MG/10 ML UDCUP PO PRN ×3 (00:09→23:04)
[2021-07-15] MEDS: AA 4.25 %/CALCIUM/LYTES/D5W 2,000 ML IV SCH ×2 (00:12→23:04)
[2021-07-15] MEDS: Fentanyl 100 MCG/2 ML VIAL SLOW IVP PRN ×3 (02:17→21:55)
[2021-07-15] MEDS: Levothyroxine Sodium 50 MCG TAB PO SCH (05:46)
[2021-07-15] MEDS: Pantoprazole 40 MG VIAL IVP SCH (09:29)
[2021-07-15] MEDS: Heparin 5,000 UNITS/ML VIAL SC SCH ×2 (09:29→20:10)
[2021-07-15] MEDS: Metoprolol Tartrate 25 MG TAB PO SCH (09:30)
[2021-07-15] MEDS: Phenazopyridine HCl 100 MG TAB PO SCH ×3 (09:30→20:12)
[2021-07-15] MEDS: levETIRAcetam 500 MG TAB PO SCH ×2 (09:30→19:57)
[2021-07-15] MEDS: Gabapentin 100 MG CAP PO SCH (09:31)
[2021-07-15] MEDS: Clopidogrel Bisulfate 75 MG TAB PO SCH (09:32)
[2021-07-15] MEDS: Calcium Carbonate 500 MG ChewTAB PO SCH ×3 (09:33→19:55)
[2021-07-15] MEDS: Folic Acid 1 MG TAB PO SCH (09:33)
[2021-07-15] MEDS: Zinc Sulfate 220 MG CAP PO SCH (09:33)
[2021-07-15] MEDS: Docusate 100 MG CAP PO SCH ×2 (09:33→19:56)
[2021-07-15] MEDS: Cholecalciferol (Vitamin D3) 400 UNITS TAB PO SCH (09:33)
[2021-07-15] MEDS: Ascorbic Acid 500 mg Chewable Tablet PO SCH (09:33)
[2021-07-15] MEDS: Polyethylene Glycol 3350 17 GM Packet PO SCH (09:33)
[2021-07-15] MEDS: Metoclopramide HCl 10 MG/2 ML VIAL IVP SCH ×3 (12:51→20:08)
[2021-07-15] MEDS: HumaLOG 300 UNITS/3 ML VIAL SC PRN (12:52)
[2021-07-15] MEDS: Benzonatate 100 MG CAP PO SCH ×2 (14:52→19:55)
[2021-07-15] MEDS: Dicyclomine 20 MG TAB PO PRN ×2 (14:52→20:19)
[2021-07-15] MEDS: Ondansetron PF 4 MG/2 ML Vial IVP PRN ×2 (17:17→23:04)
[2021-07-15] MEDS: Atorvastatin Calcium 40 MG TAB PO SCH (19:54)
[2021-07-15] MEDS: Cipro 250 MG TAB PO SCH (19:54)
[2021-07-15] MEDS: Saccharomyces boulardii 250 MG CAP PO SCH (19:57)
[2021-07-15] MEDS: Folic Acid/Vit B Comp W-C PO SCH (19:57)
[2021-07-16] MEDS: GUAIFENESIN SF SOLN 200 MG/10 ML UDCUP PO PRN ×3 (02:55→21:37)
[2021-07-16] MEDS: Dicyclomine 20 MG TAB PO PRN ×3 (04:07→23:38)
[2021-07-16] MEDS: Ondansetron PF 4 MG/2 ML Vial IVP PRN ×2 (05:01→21:37)
[2021-07-16] MEDS: Fentanyl 100 MCG/2 ML VIAL SLOW IVP PRN (06:37)
[2021-07-16] MEDS: Cipro 250 MG TAB PO SCH (06:44)
[2021-07-16] MEDS: Levothyroxine Sodium 50 MCG TAB PO SCH ×2 (06:44→09:29)
[2021-07-16] MEDS: Metoclopramide HCl 10 MG/2 ML VIAL IVP SCH ×4 (07:30→20:25)
[2021-07-16] MEDS: Pantoprazole 40 MG VIAL IVP SCH (09:00)
[2021-07-16] MEDS: Phenazopyridine HCl 100 MG TAB PO SCH ×3 (09:26→20:26)
[2021-07-16] MEDS: Zinc Sulfate 220 MG CAP PO SCH (09:27)
[2021-07-16] MEDS: Benzonatate 100 MG CAP PO SCH ×3 (09:27→20:23)
[2021-07-16] MEDS: Ascorbic Acid 500 mg Chewable Tablet PO SCH (09:27)
[2021-07-16] MEDS: Folic Acid 1 MG TAB PO SCH (09:28)
[2021-07-16] MEDS: Calcium Carbonate 500 MG ChewTAB PO SCH ×3 (09:28→20:23)
[2021-07-16] MEDS: Gabapentin 100 MG CAP PO SCH (09:28)
[2021-07-16] MEDS: levETIRAcetam 500 MG TAB PO SCH ×2 (09:28→20:23)
[2021-07-16] MEDS: Clopidogrel Bisulfate 75 MG TAB PO SCH (09:29)
[2021-07-16] MEDS: Cholecalciferol (Vitamin D3) 400 UNITS TAB PO SCH (09:29)
[2021-07-16] MEDS: Docusate 100 MG CAP PO SCH ×2 (11:15→20:24)
[2021-07-16] MEDS: Heparin 5,000 UNITS/ML VIAL SC SCH ×2 (11:15→20:26)
[2021-07-16] MEDS: Metoprolol Tartrate 25 MG TAB PO SCH (11:16)
[2021-07-16] MEDS: Polyethylene Glycol 3350 17 GM Packet PO SCH (11:16)
[2021-07-16] MEDS ORDERED: Megestrol Acetate 40 MG TAB PO SCH (13:00)
[2021-07-16 14:26] LABS: #Basophils 0.1 thou/uL (0.0-0.2); #Eosinphils 0.4 thou/uL (0.0-0.7); #Lymphocytes 1.2 thou/uL (1.20-3.40); #Monocytes 1.1 thou/uL (0.11-0.59); #Neutrophils 10.6 thou/uL (1.40-6.50); %Basophils 0.7 % (0.0-1.0); %Eosinophils 2.8 % (0.0-10.0); %Lymphocytes 8.8 % (21.0-51.0); %Neutrophils 79.8 % (42.0-75.0); Mean Corpuscular HGB CONC 32.2 g/dL (32.0-36.0); Mean Corpuscular Volume 99.4 fL (78.0-98.0); Mean Platelet Volume 6.4 fL (7.4-10.4); Platelet Count 414 thou/uL (130-400); RBC Distribution Width 14.6 % (11.5-14.5); Red Blood Cell (RBC) Count 2.83 mill/uL (4.20-5.40); White Blood Cell (WBC) Count 13.3 thou/uL (4.8-10.8)
[2021-07-16 14:35] LABS: Hemoglobin A1c 5.4 % (4.0-6.0)
[2021-07-16 14:55] LABS: Anion Gap 16 mmol/L (10-20); BUN (Urea Nitrogen) 23 mg/dL (9.8-20.1); CRP (Inflammatory) 7.74 mg/dL (= or < 0.5); Calc. Creatinine Clearance 33 mL/min (70-130); Calcium 8.9 mg/dL (7.8-10.44); Carbon Dioxide 26 mmol/L (23-31); Chloride 95 mmol/L (98-107); Glucose 160 mg/dL (83-110); Potassium 3.4 mmol/L (3.5-5.1); Sodium 134 mmol/L (136-145)
[2021-07-16] MEDS: Atorvastatin Calcium 40 MG TAB PO SCH (20:23)
[2021-07-16] MEDS: Saccharomyces boulardii 250 MG CAP PO SCH (20:23)
[2021-07-16] MEDS: Folic Acid/Vit B Comp W-C PO SCH (20:23)
[2021-07-16] MEDS: ALPRAZolam 0.25 MG TAB PO PRN (23:38)
[2021-07-17] MEDS: D5W-AA 4.25% with LYTES 1,000 ML IV SCH ×2 (00:37→15:20)
[2021-07-17] MEDS: GUAIFENESIN SF SOLN 200 MG/10 ML UDCUP PO PRN ×2 (01:24→21:36)
[2021-07-17] MEDS: Ondansetron ODT 4 MG TAB PO PRN ×2 (04:55→21:23)
[2021-07-17] MEDS: Scopolamine 1.5 mg/72 hour Patch TD SCH (08:00)
[2021-07-17] MEDS: Phenazopyridine HCl 100 MG TAB PO SCH ×3 (09:00→21:24)
[2021-07-17] MEDS: Docusate 100 MG CAP PO SCH ×2 (09:00→21:27)
[2021-07-17] MEDS: Calcium Carbonate 500 MG ChewTAB PO SCH ×3 (09:00→21:24)
[2021-07-17] MEDS: Ascorbic Acid 500 mg Chewable Tablet PO SCH (09:01)
[2021-07-17] MEDS: Megestrol Acetate 40 MG TAB PO SCH (09:01)
[2021-07-17] MEDS: Cholecalciferol (Vitamin D3) 400 UNITS TAB PO SCH (09:01)
[2021-07-17] MEDS: Heparin 5,000 UNITS/ML VIAL SC SCH ×2 (09:01→21:27)
[2021-07-17] MEDS: Zinc Sulfate 220 MG CAP PO SCH (09:01)
[2021-07-17] MEDS: Benzonatate 100 MG CAP PO SCH ×3 (09:01→21:24)
[2021-07-17] MEDS: Gabapentin 100 MG CAP PO SCH (09:02)
[2021-07-17] MEDS: Folic Acid 1 MG TAB PO SCH (09:03)
[2021-07-17] MEDS: Clopidogrel Bisulfate 75 MG TAB PO SCH (09:03)
[2021-07-17] MEDS: Metoprolol Tartrate 25 MG TAB PO SCH (09:03)
[2021-07-17] MEDS: levETIRAcetam 500 MG TAB PO SCH ×2 (09:03→21:24)
[2021-07-17] MEDS: Pantoprazole 40 MG VIAL IVP SCH (09:10)
[2021-07-17] MEDS: Polyethylene Glycol 3350 17 GM Packet PO SCH (09:11)
[2021-07-17] MEDS: Metoclopramide HCl 10 MG/2 ML VIAL IVP SCH ×3 (10:29→18:18)
[2021-07-17] MEDS: Atorvastatin Calcium 40 MG TAB PO SCH (21:23)
[2021-07-17] MEDS: Folic Acid/Vit B Comp W-C PO SCH (21:24)
[2021-07-17] MEDS: Saccharomyces boulardii 250 MG CAP PO SCH (21:24)
[2021-07-17] MEDS: ALPRAZolam 0.25 MG TAB PO PRN (21:36)
[2021-07-18] MEDS: Metoclopramide HCl 10 MG/2 ML VIAL IVP SCH ×5 (01:01→21:19)
[2021-07-18] MEDS: D5W-AA 4.25% with LYTES 1,000 ML IV SCH ×3 (03:49→18:03)
[2021-07-18] MEDS: Levothyroxine Sodium 50 MCG TAB PO SCH (05:50)
[2021-07-18] MEDS: Polyethylene Glycol 3350 17 GM Packet PO SCH (08:38)
[2021-07-18] MEDS: Pantoprazole 40 MG VIAL IVP SCH (08:38)
[2021-07-18] MEDS: Heparin 5,000 UNITS/ML VIAL SC SCH ×2 (08:39→21:21)
[2021-07-18] MEDS: Ascorbic Acid 500 mg Chewable Tablet PO SCH (08:41)
[2021-07-18] MEDS: Zinc Sulfate 220 MG CAP PO SCH (08:41)
[2021-07-18] MEDS: Calcium Carbonate 500 MG ChewTAB PO SCH ×3 (08:41→21:20)
[2021-07-18] MEDS: Phenazopyridine HCl 100 MG TAB PO SCH ×3 (08:41→21:20)
[2021-07-18] MEDS: Metoprolol Tartrate 25 MG TAB PO SCH (08:42)
[2021-07-18] MEDS: Folic Acid 1 MG TAB PO SCH (08:42)
[2021-07-18] MEDS: Clopidogrel Bisulfate 75 MG TAB PO SCH (08:42)
[2021-07-18] MEDS: Megestrol Acetate 40 MG TAB PO SCH (08:42)
[2021-07-18] MEDS: levETIRAcetam 500 MG TAB PO SCH ×2 (08:42→21:21)
[2021-07-18] MEDS: Cholecalciferol (Vitamin D3) 400 UNITS TAB PO SCH (08:43)
[2021-07-18] MEDS: Benzonatate 100 MG CAP PO SCH ×3 (08:43→21:20)
[2021-07-18] MEDS: Gabapentin 100 MG CAP PO SCH (08:43)
[2021-07-18] MEDS: Docusate 100 MG CAP PO SCH ×2 (08:44→21:22)
[2021-07-18] MEDS: Ondansetron ODT 4 MG TAB PO PRN (09:46)
[2021-07-18 12:41] LABS: #Basophils 0.1 thou/uL (0.0-0.2); #Eosinphils 0.5 thou/uL (0.0-0.7); #Lymphocytes 1.9 thou/uL (1.20-3.40); #Monocytes 1.1 thou/uL (0.11-0.59); #Neutrophils 10.3 thou/uL (1.40-6.50); %Basophils 0.5 % (0.0-1.0); %Eosinophils 3.3 % (0.0-10.0); %Lymphocytes 13.9 % (21.0-51.0); %Monocytes 8.1 % (0.0-10.0); %Neutrophils 74.2 % (42.0-75.0); Hemoglobin 8.5 g/dL (12.0-16.0); Mean Platelet Volume 6.6 fL (7.4-10.4); Platelet Count 392 thou/uL (130-400); RBC Distribution Width 15.1 % (11.5-14.5); Red Blood Cell (RBC) Count 2.81 mill/uL (4.20-5.40); White Blood Cell (WBC) Count 13.9 thou/uL (4.8-10.8)
[2021-07-18 13:32] LABS: Anisocytosis SLIGHT = 6-15 cells (100X) (0-5/hpf); MDiff Complete? YES; Macrocytosis SLIGHT = 6-15 cells (100X) (0-5/hpf); Platelet Morphology Comment Appears Adequate; Polychromasia MODERATE = 3-4 cells (100X) (0-2/hpf)
[2021-07-18 13:37] LABS: Anion Gap 16 mmol/L (10-20); BUN (Urea Nitrogen) 63 mg/dL (9.8-20.1); CRP (Inflammatory) 7.28 mg/dL (= or < 0.5); Calc. Creatinine Clearance 15 mL/min (70-130); Calcium 8.1 mg/dL (7.8-10.44); Carbon Dioxide 27 mmol/L (23-31); Chloride 93 mmol/L (98-107); Glucose 209 mg/dL (83-110); Potassium 4.8 mmol/L (3.5-5.1); Sodium 131 mmol/L (136-145)
[2021-07-18] MEDS: Atorvastatin Calcium 40 MG TAB PO SCH (21:20)
[2021-07-18] MEDS: Saccharomyces boulardii 250 MG CAP PO SCH (21:21)
[2021-07-18] MEDS: Folic Acid/Vit B Comp W-C PO SCH (21:22)
[2021-07-19] MEDS: Ondansetron PF 4 MG/2 ML Vial IVP PRN (01:28)
[2021-07-19] MEDS: Acetaminophen 325 MG TAB PO PRN (01:34)
[2021-07-19] MEDS: ALPRAZolam 0.25 MG TAB PO PRN (01:34)
[2021-07-19] MEDS: Fentanyl 100 MCG/2 ML VIAL SLOW IVP PRN (04:21)
[2021-07-19] MEDS: D5W-AA 4.25% with LYTES 1,000 ML IV SCH ×2 (06:30→11:00)
[2021-07-19] MEDS: Metoclopramide HCl 10 MG/2 ML VIAL IVP SCH ×4 (06:38→22:03)
[2021-07-19] MEDS: Levothyroxine Sodium 50 MCG TAB PO SCH (06:39)
[2021-07-19] MEDS: Pantoprazole 40 MG VIAL IVP SCH (09:17)
[2021-07-19] MEDS: Polyethylene Glycol 3350 17 GM Packet PO SCH (09:17)
[2021-07-19] MEDS: Docusate 100 MG CAP PO SCH ×2 (09:18→21:37)
[2021-07-19] MEDS: Gabapentin 100 MG CAP PO SCH (09:18)
[2021-07-19] MEDS: Phenazopyridine HCl 100 MG TAB PO SCH ×3 (09:18→21:36)
[2021-07-19] MEDS: Clopidogrel Bisulfate 75 MG TAB PO SCH (09:18)
[2021-07-19] MEDS: Ascorbic Acid 500 mg Chewable Tablet PO SCH (09:19)
[2021-07-19] MEDS: Folic Acid 1 MG TAB PO SCH (09:19)
[2021-07-19] MEDS: Benzonatate 100 MG CAP PO SCH ×3 (09:19→21:36)
[2021-07-19] MEDS: Cholecalciferol (Vitamin D3) 400 UNITS TAB PO SCH (09:19)
[2021-07-19] MEDS: levETIRAcetam 500 MG TAB PO SCH ×2 (09:19→21:36)
[2021-07-19] MEDS: Calcium Carbonate 500 MG ChewTAB PO SCH ×3 (09:19→21:36)
[2021-07-19] MEDS: Zinc Sulfate 220 MG CAP PO SCH (09:19)
[2021-07-19] MEDS: Metoprolol Tartrate 25 MG TAB PO SCH (09:19)
[2021-07-19] MEDS: Megestrol Acetate 40 MG TAB PO SCH (09:19)
[2021-07-19] MEDS: Heparin 5,000 UNITS/ML VIAL SC SCH ×2 (09:20→21:38)
[2021-07-19] MEDS: HumaLOG 300 UNITS/3 ML VIAL SC PRN (17:32)
[2021-07-19] MEDS: Atorvastatin Calcium 40 MG TAB PO SCH (21:36)
[2021-07-19] MEDS: Folic Acid/Vit B Comp W-C PO SCH (21:36)
[2021-07-19] MEDS: Saccharomyces boulardii 250 MG CAP PO SCH (21:36)
[2021-07-20] MEDS: Fentanyl 100 MCG/2 ML VIAL SLOW IVP PRN ×2 (02:16→21:27)
[2021-07-20] MEDS: Levothyroxine Sodium 50 MCG TAB PO SCH (06:42)
[2021-07-20] MEDS: Metoclopramide HCl 10 MG/2 ML VIAL IVP SCH ×4 (06:42→21:26)
[2021-07-20] MEDS: D5W-AA 4.25% with LYTES 1,000 ML IV SCH (08:45)
[2021-07-20] MEDS: Polyethylene Glycol 3350 17 GM Packet PO SCH (08:47)
[2021-07-20] MEDS: Pantoprazole 40 MG VIAL IVP SCH (08:47)
[2021-07-20] MEDS: Scopolamine 1.5 mg/72 hour Patch TD SCH (08:48)
[2021-07-20] MEDS: Calcium Carbonate 500 MG ChewTAB PO SCH ×3 (08:49→21:25)
[2021-07-20] MEDS: Phenazopyridine HCl 100 MG TAB PO SCH ×3 (08:49→21:26)
[2021-07-20] MEDS: Folic Acid 1 MG TAB PO SCH (08:50)
[2021-07-20] MEDS: Clopidogrel Bisulfate 75 MG TAB PO SCH (08:50)
[2021-07-20] MEDS: Megestrol Acetate 40 MG TAB PO SCH (08:50)
[2021-07-20] MEDS: Ascorbic Acid 500 mg Chewable Tablet PO SCH (08:50)
[2021-07-20] MEDS: Docusate 100 MG CAP PO SCH ×2 (08:50→21:28)
[2021-07-20] MEDS: Heparin 5,000 UNITS/ML VIAL SC SCH ×2 (08:50→21:28)
[2021-07-20] MEDS: Cholecalciferol (Vitamin D3) 400 UNITS TAB PO SCH (08:51)
[2021-07-20] MEDS: Metoprolol Tartrate 25 MG TAB PO SCH (08:51)
[2021-07-20] MEDS: Benzonatate 100 MG CAP PO SCH ×3 (08:51→21:26)
[2021-07-20] MEDS: Zinc Sulfate 220 MG CAP PO SCH (08:51)
[2021-07-20] MEDS: levETIRAcetam 500 MG TAB PO SCH ×2 (08:51→21:26)
[2021-07-20] MEDS: Gabapentin 100 MG CAP PO SCH (08:51)
[2021-07-20 11:28] LABS: #Basophils 0.1 thou/uL (0.0-0.2); #Eosinphils 0.6 thou/uL (0.0-0.7); #Lymphocytes 1.5 thou/uL (1.20-3.40); #Monocytes 0.9 thou/uL (0.11-0.59); #Neutrophils 9.7 thou/uL (1.40-6.50); %Basophils 0.5 % (0.0-1.0); %Eosinophils 4.5 % (0.0-10.0); %Lymphocytes 11.6 % (21.0-51.0); %Monocytes 7.3 % (0.0-10.0); %Neutrophils 76.1 % (42.0-75.0); Hemoglobin 8.9 g/dL (12.0-16.0); Mean Corpuscular HGB CONC 30.6 g/dL (32.0-36.0); Mean Corpuscular Hemoglobin 31.4 pg (27.0-31.0); Mean Platelet Volume 6.5 fL (7.4-10.4); Platelet Count 345 thou/uL (130-400); RBC Distribution Width 15.8 % (11.5-14.5); Red Blood Cell (RBC) Count 2.82 mill/uL (4.20-5.40); White Blood Cell (WBC) Count 12.7 thou/uL (4.8-10.8)
[2021-07-20] MEDS: HumaLOG 300 UNITS/3 ML VIAL SC PRN (17:08)
[2021-07-20] MEDS: Folic Acid/Vit B Comp W-C PO SCH (21:26)
[2021-07-20] MEDS: Saccharomyces boulardii 250 MG CAP PO SCH (21:26)
[2021-07-20] MEDS: Atorvastatin Calcium 40 MG TAB PO SCH (21:26)
[2021-07-21] MEDS: ALPRAZolam 0.25 MG TAB PO PRN (00:48)
[2021-07-21] MEDS: Metoclopramide HCl 10 MG/2 ML VIAL IVP SCH ×4 (06:33→22:24)
[2021-07-21] MEDS: Levothyroxine Sodium 50 MCG TAB PO SCH (06:33)
[2021-07-21] MEDS: Docusate 100 MG CAP PO SCH ×2 (09:47→22:24)
[2021-07-21] MEDS: Cholecalciferol (Vitamin D3) 400 UNITS TAB PO SCH (09:47)
[2021-07-21] MEDS: Gabapentin 100 MG CAP PO SCH (09:47)
[2021-07-21] MEDS: Folic Acid 1 MG TAB PO SCH (09:47)
[2021-07-21] MEDS: Phenazopyridine HCl 100 MG TAB PO SCH ×3 (09:47→22:19)
[2021-07-21] MEDS: Megestrol Acetate 40 MG TAB PO SCH (09:48)
[2021-07-21] MEDS: Benzonatate 100 MG CAP PO SCH ×3 (09:48→22:20)
[2021-07-21] MEDS: Metoprolol Tartrate 25 MG TAB PO SCH (09:48)
[2021-07-21] MEDS: Heparin 5,000 UNITS/ML VIAL SC SCH ×2 (09:48→22:24)
[2021-07-21] MEDS: levETIRAcetam 500 MG TAB PO SCH ×2 (09:48→22:19)
[2021-07-21] MEDS: Ascorbic Acid 500 mg Chewable Tablet PO SCH (09:49)
[2021-07-21] MEDS: Calcium Carbonate 500 MG ChewTAB PO SCH ×3 (09:49→22:19)
[2021-07-21] MEDS: Clopidogrel Bisulfate 75 MG TAB PO SCH (09:49)
[2021-07-21] MEDS: Polyethylene Glycol 3350 17 GM Packet PO SCH (09:49)
[2021-07-21] MEDS: Zinc Sulfate 220 MG CAP PO SCH (09:49)
[2021-07-21] MEDS: EPOETIN ALFA-EPBX (ESRD) 4,000 UNIT/ML VIAL SC SCH (17:59)
[2021-07-21] MEDS: Atorvastatin Calcium 40 MG TAB PO SCH (22:19)
[2021-07-21] MEDS: Folic Acid/Vit B Comp W-C PO SCH (22:19)
[2021-07-21] MEDS: Saccharomyces boulardii 250 MG CAP PO SCH (22:20)
[2021-07-22] MEDS: ALPRAZolam 0.25 MG TAB PO PRN ×2 (01:45→20:33)
[2021-07-22] MEDS: Levothyroxine Sodium 50 MCG TAB PO SCH (05:53)
[2021-07-22] MEDS: Polyethylene Glycol 3350 17 GM Packet PO SCH (09:14)
[2021-07-22] MEDS: Metoclopramide HCl 10 MG/2 ML VIAL IVP SCH ×4 (09:18→20:26)
[2021-07-22] MEDS: Benzonatate 100 MG CAP PO SCH ×3 (09:19→20:25)
[2021-07-22] MEDS: Calcium Carbonate 500 MG ChewTAB PO SCH ×3 (09:19→20:25)
[2021-07-22] MEDS: Ascorbic Acid 500 mg Chewable Tablet PO SCH (09:19)
[2021-07-22] MEDS: Gabapentin 100 MG CAP PO SCH (09:19)
[2021-07-22] MEDS: Phenazopyridine HCl 100 MG TAB PO SCH ×3 (09:20→20:24)
[2021-07-22] MEDS: Metoprolol Tartrate 25 MG TAB PO SCH (09:20)
[2021-07-22] MEDS: Clopidogrel Bisulfate 75 MG TAB PO SCH (09:20)
[2021-07-22] MEDS: Cholecalciferol (Vitamin D3) 400 UNITS TAB PO SCH (09:20)
[2021-07-22] MEDS: Folic Acid 1 MG TAB PO SCH (09:20)
[2021-07-22] MEDS: Zinc Sulfate 220 MG CAP PO SCH (09:20)
[2021-07-22] MEDS: Docusate 100 MG CAP PO SCH ×2 (09:20→20:26)
[2021-07-22] MEDS: Heparin 5,000 UNITS/ML VIAL SC SCH ×3 (09:20→20:26)
[2021-07-22] MEDS: Megestrol Acetate 40 MG TAB PO SCH (09:20)
[2021-07-22] MEDS: levETIRAcetam 500 MG TAB PO SCH ×2 (13:55→20:25)
[2021-07-22 14:32] LABS: SARS-CoV-2 NAA Rapid Test DETECTED (NotDetected)
[2021-07-22 15:50] VITALS: BP 117/70; TEMP 98.1
[2021-07-22] MEDS: Atorvastatin Calcium 40 MG TAB PO SCH (20:25)
[2021-07-22] MEDS: Saccharomyces boulardii 250 MG CAP PO SCH (20:25)
[2021-07-22] MEDS: Folic Acid/Vit B Comp W-C PO SCH (20:25)
== END 2021-07-22 22:08 | disposition home or self-care (01) | DRG 177 ==
LOC: ERS 15:14 → T4-A 20:04
PROVIDERS: ADMIT Student in an Organized Health Care Education/Training Program; ATTEND Family Medicine
PROC: 5A1D70Z Performance of Urinary Filtration, Intermittent, Less than 6 Hours Per Day (ICD-10-PCS; 2021-07-01)
PROC: 8E0ZXY6 Isolation (ICD-10-PCS; 2021-07-10)
PROC: 3E0336Z Introduction of Nutritional Substance into Peripheral Vein, Percutaneous Approach (ICD-10-PCS; principal; 2021-07-14)
PROC: 0DH67UZ Insertion of Feeding Device into Stomach, Via Natural or Artificial Opening (ICD-10-PCS; 2021-07-14)
PROC: 3E0G76Z Introduction of Nutritional Substance into Upper GI, Via Natural or Artificial Opening (ICD-10-PCS; 2021-07-14)
DX: U07.1 COVID-19 (principal); N18.6 End stage renal disease; J12.82 Pneumonia due to coronavirus disease 2019; K57.32 Diverticulitis of large intestine without perforation or abscess without bleeding; N39.0 Urinary tract infection, site not specified; J96.11 Chronic respiratory failure with hypoxia; I50.32 Chronic diastolic (congestive) heart failure; E87.1 Hypo-osmolality and hyponatremia; I69.351 Hemiplegia and hemiparesis following cerebral infarction affecting right dominant side; Z68.41 Body mass index [BMI] 40.0-44.9, adult; I42.8 Other cardiomyopathies; E03.9 Hypothyroidism, unspecified; E11.22 Type 2 diabetes mellitus with diabetic chronic kidney disease; J47.9 Bronchiectasis, uncomplicated; I11.0 Hypertensive heart disease with heart failure; J42 Unspecified chronic bronchitis; E66.01 Morbid (severe) obesity due to excess calories; B95.1 Streptococcus, group B, as the cause of diseases classified elsewhere; I48.0 Paroxysmal atrial fibrillation; F41.9 Anxiety disorder, unspecified; F32.9 Major depressive disorder, single episode, unspecified; I27.20 Pulmonary hypertension, unspecified; I08.1 Rheumatic disorders of both mitral and tricuspid valves; D63.1 Anemia in chronic kidney disease; G40.909 Epilepsy, unspecified, not intractable, without status epilepticus; R63.0 Anorexia; K59.00 Constipation, unspecified; E83.42 Hypomagnesemia; E87.6 Hypokalemia; Z90.710 Acquired absence of both cervix and uterus; Z99.2 Dependence on renal dialysis; Z99.81 Dependence on supplemental oxygen; Z88.6 Allergy status to analgesic agent; Z88.1 Allergy status to other antibiotic agents; Z88.8 Allergy status to other drugs, medicaments and biological substances; Z79.899 Other long term (current) drug therapy; Z79.890 Hormone replacement therapy; Z79.02 Long term (current) use of antithrombotics/antiplatelets; Z79.4 Long term (current) use of insulin; I69.320 Aphasia following cerebral infarction; Z87.440 Personal history of urinary (tract) infections; Z90.722 Acquired absence of ovaries, bilateral
CPT/HCPCS: 36415; 36416; 71045; 74018; 74177; 80048; 80053; 81003; 81015; 82553; 82728; 83036; 83605; 83690; 83735; 83880; 84100; 84484; 85025; 85379; 86140; 87077; 87086; 87324; 87449; 90935; 93005; 96365; 96367; C9113; G0257; J0692; J0696; J0744; J1644; J1650; J1815; J2270; J2405; J2765; J3010; J3475; J3480; J3490; Q0162; Q5105; Q9967; S0179; U0002

== ENCOUNTER 2021-07-31 09:21 | Inpatient (IN) | payer MEDICARE, OTHER ==
[2021-07-31] MEDS ORDERED: Nitroglycerin 2% Ointment 1 INCH/1 GM Packet ONE (10:34)
[2021-07-31 10:37] LABS: Mean Corpuscular HGB CONC 30.6 g/dL (32.0-36.0); Mean Corpuscular Hemoglobin 32.8 pg (27.0-31.0); Mean Platelet Volume 6.5 fL (7.4-10.4); Platelet Count 644 thou/uL (130-400); RBC Distribution Width 16.6 % (11.5-14.5); Red Blood Cell (RBC) Count 2.74 mill/uL (4.20-5.40); White Blood Cell (WBC) Count 13.1 thou/uL (4.8-10.8)
[2021-07-31] MEDS ORDERED: Furosemide 40 MG/4 ML VIAL ONE (10:46)
[2021-07-31 10:52] LABS: ALT (SGPT) 36 U/L (8-55); AST (SGOT) 33 U/L (5-34); Albumin 3.6 g/dL (3.4-4.8); Alkaline Phosphatase 86 U/L (40-110); Anion Gap 24 mmol/L (10-20); BUN (Urea Nitrogen) 78 mg/dL (9.8-20.1); Bilirubin, Total 0.6 mg/dL (0.2-1.2); Calc. Creatinine Clearance 0 mL/min (70-130); Calcium 10.1 mg/dL (7.8-10.44); Carbon Dioxide 23 mmol/L (23-31); Chloride 99 mmol/L (98-107); Globulin 3.5 g/dL (2.4-3.5); Glucose 182 mg/dL (83-110); Magnesium 2.3 mg/dL (1.6-2.6); Potassium 5.9 mmol/L (3.5-5.1); Protein, Total 7.1 g/dL (5.8-8.1); Sodium 140 mmol/L (136-145)
[2021-07-31 11:01] LABS: #Basophils 0.1 thou/uL (0.0-0.2); #Eosinphils 0.1 thou/uL (0.0-0.7); #Monocytes 0.8 thou/uL (0.11-0.59); %Basophils 0.9 % (0.0-1.0); %Eosinophils 1.1 % (0.0-10.0); %Lymphocytes 7.9 % (21.0-51.0); %Monocytes 6.4 % (0.0-10.0); %Neutrophils 83.8 % (42.0-75.0); Large Platelets SLIGHT; MDiff Complete? YES; Macrocytosis SLIGHT = 6-15 cells (100X) (0-5/hpf); Platelet Morphology Comment Appears Increased; Polychromasia SLIGHT = 2-3 cells (100X) (0-2/hpf)
[2021-07-31] MEDS ORDERED: Vancomycin 1 GM/200 ML BAG ONE (11:03)
[2021-07-31 11:14] LABS: CKMB 3.4 ng/mL (0-6.6)
[2021-07-31] MEDS ORDERED: Morphine 4 MG/ML VIAL ONE (12:07)
[2021-07-31] MEDS ORDERED: Ondansetron ODT 4 MG TAB SL PRN (12:15)
[2021-07-31] MEDS ORDERED: Ondansetron PF 4 MG/2 ML Vial IVP PRN (12:15)
[2021-07-31] MEDS ORDERED: Acetaminophen 325 MG TAB PO PRN (12:15)
[2021-07-31 13:18] LABS: HBSAg Index 0.52 S/CO (0-0.99); Hep B Surf Ag Non-Reactive S/CO (NonReactive)
[2021-07-31 13:30] LABS: Lactic Acid 2.8 mmol/L (0.5-2.2)
[2021-07-31] MEDS ORDERED: Dextrose 50% Abboject 50 ML SYRINGE SLOW IVP PRN (13:32)
[2021-07-31] MEDS ORDERED: HumaLOG 300 UNITS/3 ML VIAL SC PRN (13:32)
[2021-07-31] MEDS ORDERED: Dextrose 5% in Water 1,000 ML IV PRN (13:32)
[2021-07-31 13:45] LABS: Troponin I 0.937 ng/mL (< 0.028)
[2021-07-31] MEDS ORDERED: Senokot S 8.6-50 MG TAB PO PRN (13:59)
[2021-07-31] MEDS ORDERED: Guaifenesin DM 100-10/5 ML UDCUP PO PRN (13:59)
[2021-07-31] MEDS ORDERED: Calcium Carbonate 500 MG ChewTAB PO PRN (13:59)
[2021-07-31] MEDS ORDERED: Ondansetron ODT 4 MG TAB PO PRN (13:59)
[2021-07-31] MEDS ORDERED: Acetaminophen 650 MG Suppository PR PRN (13:59)
[2021-07-31] MEDS ORDERED: Epoetin (ESRD) 20,000 UNITS/ML SC SCH (14:15)
[2021-07-31] MEDS ORDERED: EPOETIN ALFA-EPBX (ESRD) 4,000 UNIT/ML VIAL SC SCH (14:30)
[2021-07-31] MEDS ORDERED: Heparin 5,000 UNITS/ML VIAL SC SCH (15:00)
[2021-07-31 17:44] LABS: Troponin I 4.268 ng/mL (< 0.028)
[2021-07-31] MEDS ORDERED: HOLD VANCOMYCIN FOR LEVEL >20 FS SCH (18:30)
[2021-07-31] MEDS ORDERED: Vancomycin 1 GM in Premix Bag 1 BAG IVPB SCH ×2 (18:30→21:00)
[2021-07-31] MEDS ORDERED: Vancomycin HCl 750 MG in Sodium Chloride 0.9% 250 ML 250 ML IVPB SCH (18:30)
[2021-07-31] MEDS ORDERED: Vancomycin HCl 1.25 GM in Sodium Chloride 0.9% 250 ML 250 ML IVPB SCH (18:30)
[2021-07-31] MEDS ORDERED: Vancomycin HCl 500 MG in Sodium Chloride 0.9% 100 ML IVPB SCH (18:30)
[2021-07-31 19:02] LABS: Hemoglobin 8.3 g/dL (12.0-16.0); Platelet Count 587 thou/uL (130-400)
[2021-07-31 19:35] LABS: CKMB 67.7 ng/mL (0-6.6); Troponin I 7.489 ng/mL (< 0.028)
[2021-07-31] MEDS: Heparin 10,000 UNITS/ 10 ML VIAL SLOW IVP SCH (20:21)
[2021-07-31] MEDS: Heparin 25,000 units/D5W 500 ML IVPB SCH (20:22)
[2021-07-31] MEDS: levETIRAcetam 500 MG TAB PO SCH (21:49)
[2021-07-31] MEDS: Famotidine 20 MG TAB PO SCH (21:49)
[2021-07-31] MEDS: Atorvastatin Calcium 20 MG TAB PO SCH (21:49)
[2021-07-31] MEDS: Nitroglycerin 50 MG/250 ML BOT 250 ML IVPB SCH (22:43)
[2021-08-01 03:05] LABS: PTT 149.3 sec (22.9-36.1)
[2021-08-01] MEDS ORDERED: Morphine 4 MG/ML VIAL SLOW IVP SCH (04:00)
[2021-08-01 04:42] LABS: #Basophils 0.1 thou/uL (0.0-0.2); #Lymphocytes 1.1 thou/uL (1.20-3.40); #Monocytes 1.2 thou/uL (0.11-0.59); #Neutrophils 16.7 thou/uL (1.40-6.50); %Basophils 0.3 % (0.0-1.0); %Eosinophils 0.2 % (0.0-10.0); %Lymphocytes 5.9 % (21.0-51.0); %Monocytes 6.1 % (0.0-10.0); %Neutrophils 87.5 % (42.0-75.0); Hemoglobin 8.1 g/dL (12.0-16.0); Mean Corpuscular HGB CONC 29.4 g/dL (32.0-36.0); Mean Corpuscular Hemoglobin 31.8 pg (27.0-31.0); Mean Platelet Volume 6.5 fL (7.4-10.4); Platelet Count 607 thou/uL (130-400); RBC Distribution Width 16.8 % (11.5-14.5); Red Blood Cell (RBC) Count 2.56 mill/uL (4.20-5.40); White Blood Cell (WBC) Count 19.1 thou/uL (4.8-10.8)
[2021-08-01 04:58] LABS: Anion Gap 19 mmol/L (10-20); BUN (Urea Nitrogen) 42 mg/dL (9.8-20.1); Calc. Creatinine Clearance 14 mL/min (70-130); Calcium 9.4 mg/dL (7.8-10.44); Carbon Dioxide 29 mmol/L (23-31); Chloride 96 mmol/L (98-107); Glucose 168 mg/dL (83-110); Potassium 4.8 mmol/L (3.5-5.1); Sodium 139 mmol/L (136-145)
[2021-08-01] MEDS: Levothyroxine Sodium 50 MCG TAB PO SCH (05:30)
[2021-08-01] MEDS: levETIRAcetam 500 MG TAB PO SCH ×2 (08:29→20:15)
[2021-08-01] MEDS: Clopidogrel Bisulfate 75 MG TAB PO SCH (08:29)
[2021-08-01 09:19] LABS: Vancomycin, Random 8.7 ug/mL (See Comment)
[2021-08-01] MEDS: HumaLOG 300 UNITS/3 ML VIAL SC PRN ×2 (11:33→21:53)
[2021-08-01] MEDS: Morphine 4 MG/ML VIAL SLOW IVP PRN ×2 (13:32→19:58)
[2021-08-01] MEDS: Heparin 10,000 UNITS/ 10 ML VIAL SLOW IVP SCH (14:12)
[2021-08-01] MEDS: Famotidine 20 MG TAB PO SCH (20:15)
[2021-08-01] MEDS: Atorvastatin Calcium 20 MG TAB PO SCH (20:15)
[2021-08-01] MEDS: Vancomycin 1 GM in Premix Bag 1 BAG IVPB SCH (20:16)
[2021-08-01] MEDS: Ondansetron PF 4 MG/2 ML Vial IVP PRN (21:01)
[2021-08-01] MEDS: Nitroglycerin 50 MG/250 ML BOT 250 ML IVPB SCH (21:43)
[2021-08-02 05:09] LABS: #Basophils 0.1 thou/uL (0.0-0.2); #Eosinphils 0.1 thou/uL (0.0-0.7); #Lymphocytes 1.8 thou/uL (1.20-3.40); #Monocytes 1.5 thou/uL (0.11-0.59); #Neutrophils 10.7 thou/uL (1.40-6.50); %Basophils 0.4 % (0.0-1.0); %Eosinophils 0.8 % (0.0-10.0); %Lymphocytes 12.5 % (21.0-51.0); %Monocytes 10.5 % (0.0-10.0); %Neutrophils 75.9 % (42.0-75.0); Hemoglobin 7.6 g/dL (12.0-16.0); Mean Corpuscular HGB CONC 30.2 g/dL (32.0-36.0); Mean Corpuscular Hemoglobin 32.8 pg (27.0-31.0); Mean Platelet Volume 6.7 fL (7.4-10.4); Platelet Count 564 thou/uL (130-400); RBC Distribution Width 16.9 % (11.5-14.5); Red Blood Cell (RBC) Count 2.32 mill/uL (4.20-5.40); White Blood Cell (WBC) Count 14.1 thou/uL (4.8-10.8)
[2021-08-02 05:30] LABS: Anion Gap 17 mmol/L (10-20); BUN (Urea Nitrogen) 23 mg/dL (9.8-20.1); Calc. Creatinine Clearance 22 mL/min (70-130); Calcium 9.1 mg/dL (7.8-10.44); Carbon Dioxide 30 mmol/L (23-31); Cardiac Risk 2.1 (Less than 4.5); Chloride 96 mmol/L (98-107); Cholesterol 71 mg/dl (< 200 Desired); Glucose 160 mg/dL (83-110); HDL Cholesterol 34 mg/dL (>60 Neg Risk); LDL Cholesterol, Calculated 22 mg/dL; Potassium 3.7 mmol/L (3.5-5.1); Sodium 139 mmol/L (136-145); Triglycerides 77 mg/dL (Less than 150)
[2021-08-02] MEDS: Ondansetron PF 4 MG/2 ML Vial IVP PRN ×2 (06:12→12:01)
[2021-08-02] MEDS: HumaLOG 300 UNITS/3 ML VIAL SC PRN ×2 (06:27→12:22)
[2021-08-02] MEDS: Levothyroxine Sodium 50 MCG TAB PO SCH ×2 (06:39→08:01)
[2021-08-02] MEDS: Clopidogrel Bisulfate 75 MG TAB PO SCH ×2 (08:01→08:11)
[2021-08-02] MEDS: levETIRAcetam 500 MG TAB PO SCH ×3 (08:01→21:14)
[2021-08-02] MEDS: Heparin 25,000 units/D5W 500 ML IVPB SCH (08:11)
[2021-08-02] MEDS ORDERED: Metoprolol Tartrate 25 MG TAB PO SCH ×2 (09:00)
[2021-08-02] MEDS ORDERED: Nitroglycerin 50 MG/250 ML BOT 250 ML IVPB SCH (09:00)
[2021-08-02] MEDS: Morphine 4 MG/ML VIAL SLOW IVP PRN (11:59)
[2021-08-02 18:30] LABS: Hemoglobin 7.5 g/dL (12.0-16.0); Platelet Count 577 thou/uL (130-400)
[2021-08-02] MEDS: Famotidine 20 MG TAB PO SCH (21:14)
[2021-08-02] MEDS: Vancomycin 1 GM in Premix Bag 1 BAG IVPB SCH (21:14)
[2021-08-02] MEDS: Atorvastatin Calcium 20 MG TAB PO SCH (21:14)
[2021-08-03] MEDS ORDERED: FLU VACC QS2021-22(65YR UP)/PF 240 MCG/0.7 ML SYRINGE IM ONE (09:00)
[2021-08-03] MEDS: Ondansetron PF 4 MG/2 ML Vial IVP PRN (09:18)
[2021-08-03 10:39] LABS: Vancomycin, Random 29.9 ug/mL (See Comment)
[2021-08-03 10:40] LABS: Hemoglobin 7.6 g/dL (12.0-16.0); Mean Corpuscular Hemoglobin 33.2 pg (27.0-31.0); Mean Platelet Volume 6.3 fL (7.4-10.4); Platelet Count 514 thou/uL (130-400); RBC Distribution Width 16.8 % (11.5-14.5); Red Blood Cell (RBC) Count 2.28 mill/uL (4.20-5.40); White Blood Cell (WBC) Count 13.1 thou/uL (4.8-10.8)
[2021-08-03 10:41] LABS: Anion Gap 20 mmol/L (10-20); BUN (Urea Nitrogen) 46 mg/dL (9.8-20.1); Calc. Creatinine Clearance 15 mL/min (70-130); Calcium 9.1 mg/dL (7.8-10.44); Carbon Dioxide 26 mmol/L (23-31); Chloride 97 mmol/L (98-107); Glucose 167 mg/dL (83-110); Potassium 4.3 mmol/L (3.5-5.1); Sodium 139 mmol/L (136-145)
[2021-08-03] MEDS ORDERED: Nortriptyline 10 MG CAP ONE (10:56)
[2021-08-03 11:45] LABS: #Eosinphils 0.2 thou/uL (0.0-0.7); #Lymphocytes 1.5 thou/uL (1.20-3.40); #Neutrophils 10.4 thou/uL (1.40-6.50); %Basophils 0.3 % (0.0-1.0); %Eosinophils 1.3 % (0.0-10.0); %Lymphocytes 11.7 % (21.0-51.0); %Monocytes 7.3 % (0.0-10.0); %Neutrophils 79.5 % (42.0-75.0); Band 3 % (5-11); Eosinophils 3 % (0-10); Hypochromia SLIGHT = 6-15 cells (100X) (0-5/hpf); Lymphocytes 10 % (21-51); MDiff Complete? YES; Macrocytosis SLIGHT = 6-15 cells (100X) (0-5/hpf); Metamyelocyte 1 % (0-0); Monocytes 7 % (0-10); Myelocyte 1 % (0-0); Neutrophil 75 % (42-75); Nucleated RBC 1 % (0); Platelet Morphology Comment Appears Increased; Polychromasia SLIGHT = 2-3 cells (100X) (0-2/hpf)
[2021-08-03] MEDS: levETIRAcetam 500 MG TAB PO SCH ×2 (13:45→21:27)
[2021-08-03] MEDS: Clopidogrel Bisulfate 75 MG TAB PO SCH (13:46)
[2021-08-03 15:26] LABS: Hemoglobin A1c 4.6 % (4.0-6.0)
[2021-08-03] MEDS: Scopolamine 1.5 mg/72 hour Patch TD SCH (17:42)
[2021-08-03] MEDS: Famotidine 20 MG TAB PO SCH (21:26)
[2021-08-03] MEDS: Atorvastatin Calcium 20 MG TAB PO SCH (21:26)
[2021-08-04] MEDS: Levothyroxine Sodium 50 MCG TAB PO SCH (05:39)
[2021-08-04] MEDS: levETIRAcetam 500 MG TAB PO SCH ×2 (08:59→21:13)
[2021-08-04] MEDS: Clopidogrel Bisulfate 75 MG TAB PO SCH (08:59)
[2021-08-04] MEDS ORDERED: Dicyclomine 20 MG TAB PO PRN (09:49)
[2021-08-04] MEDS ORDERED: Benzonatate 100 MG CAP PO PRN (09:49)
[2021-08-04] MEDS: Metoclopramide 10 MG/10 ML UDCUP PO SCH ×3 (11:38→21:13)
[2021-08-04] MEDS: Calcium Carbonate 500 MG ChewTAB PO SCH ×2 (16:09→21:13)
[2021-08-04] MEDS: Famotidine 20 MG TAB PO SCH (21:13)
[2021-08-04] MEDS: Atorvastatin Calcium 20 MG TAB PO SCH (21:13)
[2021-08-04] MEDS: Saccharomyces boulardii 250 MG CAP PO SCH (21:14)
[2021-08-05] MEDS: levETIRAcetam 500 MG TAB PO SCH ×3 (00:37→22:00)
[2021-08-05] MEDS: Calcium Carbonate 500 MG ChewTAB PO SCH ×4 (00:37→21:12)
[2021-08-05] MEDS: Saccharomyces boulardii 250 MG CAP PO SCH ×2 (00:38→21:13)
[2021-08-05] MEDS: Famotidine 20 MG TAB PO SCH ×2 (00:38→21:12)
[2021-08-05] MEDS: Atorvastatin Calcium 20 MG TAB PO SCH ×2 (00:38→21:12)
[2021-08-05] MEDS: Levothyroxine Sodium 50 MCG TAB PO SCH (05:30)
[2021-08-05 06:09] LABS: Anion Gap 18 mmol/L (10-20); BUN (Urea Nitrogen) 62 mg/dL (9.8-20.1); Calc. Creatinine Clearance 14 mL/min (70-130); Calcium 9.6 mg/dL (7.8-10.44); Carbon Dioxide 29 mmol/L (23-31); Chloride 97 mmol/L (98-107); Glucose 153 mg/dL (83-110); Potassium 4.1 mmol/L (3.5-5.1); Sodium 140 mmol/L (136-145)
[2021-08-05 07:56] LABS: #Basophils 0.1 thou/uL (0.0-0.2); #Eosinphils 0.3 thou/uL (0.0-0.7); #Monocytes 1.1 thou/uL (0.11-0.59); #Neutrophils 7.3 thou/uL (1.40-6.50); %Basophils 0.5 % (0.0-1.0); %Lymphocytes 18.7 % (21.0-51.0); %Monocytes 9.9 % (0.0-10.0); Hemoglobin 8.2 g/dL (12.0-16.0); MDiff Complete? YES; Macrocytosis MODERATE=16-30 cells (100X) (0-5/hpf); Mean Corpuscular HGB CONC 29.4 g/dL (32.0-36.0); Mean Corpuscular Hemoglobin 32.5 pg (27.0-31.0); Platelet Count 510 thou/uL (130-400); Platelet Morphology Comment Appears Increased; Polychromasia MODERATE = 3-4 cells (100X) (0-2/hpf); RBC Distribution Width 16.9 % (11.5-14.5); Red Blood Cell (RBC) Count 2.51 mill/uL (4.20-5.40); White Blood Cell (WBC) Count 10.7 thou/uL (4.8-10.8)
[2021-08-05] MEDS: Metoclopramide 10 MG/10 ML UDCUP PO SCH ×5 (09:35→21:13)
[2021-08-05] MEDS: Folic Acid 1 MG TAB PO SCH ×2 (15:02→15:16)
[2021-08-05] MEDS: Clopidogrel Bisulfate 75 MG TAB PO SCH ×2 (15:02→15:16)
[2021-08-05] MEDS: Gabapentin 100 MG CAP PO SCH ×2 (15:06→15:15)
[2021-08-05] MEDS: Megestrol Acetate 40 MG TAB PO SCH (15:06)
[2021-08-06] MEDS: Levothyroxine Sodium 50 MCG TAB PO SCH (05:12)
[2021-08-06] MEDS: Metoclopramide 10 MG/10 ML UDCUP PO SCH ×4 (09:31→21:26)
[2021-08-06] MEDS: Clopidogrel Bisulfate 75 MG TAB PO SCH (09:31)
[2021-08-06] MEDS: Calcium Carbonate 500 MG ChewTAB PO SCH ×3 (09:31→21:26)
[2021-08-06] MEDS: levETIRAcetam 500 MG TAB PO SCH ×2 (09:32→21:26)
[2021-08-06] MEDS: Folic Acid 1 MG TAB PO SCH (09:32)
[2021-08-06] MEDS: Gabapentin 100 MG CAP PO SCH (09:32)
[2021-08-06] MEDS: Megestrol Acetate 40 MG TAB PO SCH (09:32)
[2021-08-06] MEDS ORDERED: EPOETIN ALFA-EPBX (ESRD) 4,000 UNIT/ML VIAL SC SCH (10:39)
[2021-08-06] MEDS: Ondansetron PF 4 MG/2 ML Vial IVP PRN ×2 (11:29→18:45)
[2021-08-06] MEDS ORDERED: EPOETIN ALFA-EPBX (ESRD) 10,000 UNIT/ML VIAL SC SCH (12:00)
[2021-08-06] MEDS: Scopolamine 1.5 mg/72 hour Patch TD SCH (18:30)
[2021-08-06] MEDS: Acetaminophen 325 MG TAB PO PRN (21:13)
[2021-08-06] MEDS: Famotidine 20 MG TAB PO SCH (21:15)
[2021-08-06] MEDS: Atorvastatin Calcium 20 MG TAB PO SCH (21:25)
[2021-08-06] MEDS: Saccharomyces boulardii 250 MG CAP PO SCH (21:26)
[2021-08-07] MEDS: Levothyroxine Sodium 50 MCG TAB PO SCH (06:35)
[2021-08-07] MEDS: Ondansetron PF 4 MG/2 ML Vial IVP PRN (09:44)
[2021-08-07] MEDS: Metoclopramide 10 MG/10 ML UDCUP PO SCH ×4 (10:08→21:59)
[2021-08-07] MEDS: Folic Acid 1 MG TAB PO SCH (10:08)
[2021-08-07] MEDS: Clopidogrel Bisulfate 75 MG TAB PO SCH (10:08)
[2021-08-07] MEDS: Calcium Carbonate 500 MG ChewTAB PO SCH ×3 (10:08→22:00)
[2021-08-07] MEDS: levETIRAcetam 500 MG TAB PO SCH ×2 (10:09→22:00)
[2021-08-07] MEDS: Megestrol Acetate 40 MG TAB PO SCH (10:09)
[2021-08-07] MEDS: Gabapentin 100 MG CAP PO SCH (10:09)
[2021-08-07] MEDS ORDERED: Activase 2 MG VIAL CATH SCH (12:30)
[2021-08-07] MEDS: Acetaminophen 325 MG TAB PO PRN (12:41)
[2021-08-07] MEDS: Activase 2 MG VIAL CATH SCH ×2 (15:52→16:11)
[2021-08-07] MEDS ORDERED: Multivitamins, Adult 10 ML, TRACE ELEMENT CONCENTRATE 1 ML in D15W-AA 5% with Lytes 2,0... IV SCH (21:00)
[2021-08-07] MEDS: Famotidine 20 MG TAB PO SCH (21:59)
[2021-08-07] MEDS: Saccharomyces boulardii 250 MG CAP PO SCH (22:00)
[2021-08-07] MEDS: Atorvastatin Calcium 20 MG TAB PO SCH (22:00)
[2021-08-08 06:04] LABS: Hemoglobin 9.6 g/dL (12.0-16.0); Mean Corpuscular HGB CONC 30.4 g/dL (32.0-36.0); Mean Corpuscular Hemoglobin 33.6 pg (27.0-31.0); Mean Platelet Volume 6.8 fL (7.4-10.4); Platelet Count 336 thou/uL (130-400); RBC Distribution Width 17.6 % (11.5-14.5); Red Blood Cell (RBC) Count 2.86 mill/uL (4.20-5.40); White Blood Cell (WBC) Count 10.2 thou/uL (4.8-10.8)
[2021-08-08 06:10] LABS: INR-International Normal Ratio 1.3; PTT 31.2 sec (22.9-36.1); Prothrombin Time 16.1 sec (12.0-14.7)
[2021-08-08 06:24] LABS: Anion Gap 23 mmol/L (10-20); BUN (Urea Nitrogen) 77 mg/dL (9.8-20.1); Calc. Creatinine Clearance 10 mL/min (70-130); Calcium 8.4 mg/dL (7.8-10.44); Carbon Dioxide 21 mmol/L (23-31); Chloride 103 mmol/L (98-107); Glucose 236 mg/dL (83-110); Potassium 3.5 mmol/L (3.5-5.1); Sodium 143 mmol/L (136-145)
[2021-08-08] MEDS: Acetaminophen 325 MG TAB PO PRN (06:25)
[2021-08-08 06:26] LABS: #Eosinphils 0.2 thou/uL (0.0-0.7); #Lymphocytes 1.5 thou/uL (1.20-3.40); #Monocytes 1.1 thou/uL (0.11-0.59); #Neutrophils 7.4 thou/uL (1.40-6.50); %Basophils 0.4 % (0.0-1.0); %Eosinophils 1.9 % (0.0-10.0); %Lymphocytes 14.5 % (21.0-51.0); %Neutrophils 72.2 % (42.0-75.0); Cardiac Risk 3.5 (Less than 4.5); Cholesterol 92 mg/dl (< 200 Desired); HDL Cholesterol 26 mg/dL (>60 Neg Risk); LDL Cholesterol, Calculated 48 mg/dL; MDiff Complete? YES; Macrocytosis SLIGHT = 6-15 cells (100X) (0-5/hpf); Magnesium 2.5 mg/dL (1.6-2.6); Phosphorus 6.1 mg/dL (2.3-4.7); Polychromasia SLIGHT = 2-3 cells (100X) (0-2/hpf); Triglycerides 89 mg/dL (Less than 150)
[2021-08-08] MEDS: Levothyroxine Sodium 50 MCG TAB PO SCH (06:30)
[2021-08-08] MEDS: Calcium Carbonate 500 MG ChewTAB PO SCH ×3 (09:47→20:50)
[2021-08-08] MEDS: Metoclopramide 10 MG/10 ML UDCUP PO SCH ×5 (09:47→20:51)
[2021-08-08] MEDS: Morphine 4 MG/ML VIAL SLOW IVP PRN ×2 (10:56→20:52)
[2021-08-08] MEDS ORDERED: Multivitamins, Adult 10 ML, TRACE ELEMENT CONCENTRATE 1 ML in D15W-AA 5% w/o Lytes 2,00... IV SCH ×2 (14:00)
[2021-08-08] MEDS ORDERED: Fat Emulsion 250 ML IVPB SCH ×2 (14:00→21:00)
[2021-08-08] MEDS ORDERED: Multivitamins, Adult 10 ML, TRACE ELEMENT CONCENTRATE 1 ML in D15W-AA 5% with Lytes 2,0... IV SCH (14:00)
[2021-08-08] MEDS: levETIRAcetam 500 MG TAB PO SCH ×2 (14:44→20:50)
[2021-08-08] MEDS: Megestrol Acetate 40 MG TAB PO SCH (14:44)
[2021-08-08] MEDS: Gabapentin 100 MG CAP PO SCH (14:44)
[2021-08-08] MEDS: Folic Acid 1 MG TAB PO SCH (14:45)
[2021-08-08] MEDS: Clopidogrel Bisulfate 75 MG TAB PO SCH (14:45)
[2021-08-08] MEDS: Multivitamins, Adult 10 ML, TRACE ELEMENT CONCENTRATE 1 ML in D15W-AA 5% w/o Lytes 2,00... IV SCH (17:46)
[2021-08-08] MEDS: Famotidine 20 MG TAB PO SCH (20:50)
[2021-08-08] MEDS: Atorvastatin Calcium 20 MG TAB PO SCH (20:50)
[2021-08-08] MEDS: Saccharomyces boulardii 250 MG CAP PO SCH (20:50)
[2021-08-09] MEDS: Levothyroxine Sodium 50 MCG TAB PO SCH (05:56)
[2021-08-09] MEDS: HumaLOG 300 UNITS/3 ML VIAL SC PRN ×2 (05:56→09:28)
[2021-08-09] MEDS: Calcium Carbonate 500 MG ChewTAB PO SCH ×3 (08:41→21:25)
[2021-08-09] MEDS: levETIRAcetam 500 MG TAB PO SCH ×2 (08:42→21:23)
[2021-08-09] MEDS: Folic Acid 1 MG TAB PO SCH (08:42)
[2021-08-09] MEDS: Gabapentin 100 MG CAP PO SCH (08:42)
[2021-08-09] MEDS: Megestrol Acetate 40 MG TAB PO SCH (08:42)
[2021-08-09] MEDS: Clopidogrel Bisulfate 75 MG TAB PO SCH (08:43)
[2021-08-09] MEDS: Metoclopramide 10 MG/10 ML UDCUP PO SCH ×4 (08:44→21:23)
[2021-08-09] MEDS: Multivitamins, Adult 10 ML, TRACE ELEMENT CONCENTRATE 1 ML in D15W-AA 5% w/o Lytes 2,00... IV SCH (16:19)
[2021-08-09] MEDS: Scopolamine 1.5 mg/72 hour Patch TD SCH (16:21)
[2021-08-09] MEDS ORDERED: Lantus 1000 UNITS/10 ML VIAL SC SCH (21:00)
[2021-08-09] MEDS: Famotidine 20 MG TAB PO SCH (21:23)
[2021-08-09] MEDS: Saccharomyces boulardii 250 MG CAP PO SCH (21:23)
[2021-08-09] MEDS: Atorvastatin Calcium 20 MG TAB PO SCH (21:24)
[2021-08-10] MEDS: Levothyroxine Sodium 50 MCG TAB PO SCH (05:19)
[2021-08-10] MEDS: Metoclopramide 10 MG/10 ML UDCUP PO SCH ×4 (08:05→20:51)
[2021-08-10] MEDS: Calcium Carbonate 500 MG ChewTAB PO SCH ×3 (08:06→20:53)
[2021-08-10] MEDS: levETIRAcetam 500 MG TAB PO SCH ×2 (08:06→20:53)
[2021-08-10] MEDS: Megestrol Acetate 40 MG TAB PO SCH (08:06)
[2021-08-10] MEDS: Gabapentin 100 MG CAP PO SCH (08:06)
[2021-08-10] MEDS: Folic Acid 1 MG TAB PO SCH (08:06)
[2021-08-10] MEDS: Clopidogrel Bisulfate 75 MG TAB PO SCH (08:06)
[2021-08-10] MEDS: HumaLOG 300 UNITS/3 ML VIAL SC PRN (08:07)
[2021-08-10 10:58] LABS: #Basophils 0.1 thou/uL (0.0-0.2); #Eosinphils 0.2 thou/uL (0.0-0.7); #Lymphocytes 2.2 thou/uL (1.20-3.40); #Monocytes 0.9 thou/uL (0.11-0.59); #Neutrophils 7.8 thou/uL (1.40-6.50); %Basophils 0.6 % (0.0-1.0); %Eosinophils 2.2 % (0.0-10.0); %Lymphocytes 19.4 % (21.0-51.0); %Monocytes 7.9 % (0.0-10.0); Mean Corpuscular HGB CONC 30.9 g/dL (32.0-36.0); Mean Corpuscular Hemoglobin 32.8 pg (27.0-31.0); Mean Platelet Volume 7.3 fL (7.4-10.4); Platelet Count 229 thou/uL (130-400); Red Blood Cell (RBC) Count 2.43 mill/uL (4.20-5.40); White Blood Cell (WBC) Count 11.2 thou/uL (4.8-10.8)
[2021-08-10 11:29] LABS: ALT (SGPT) 20 U/L (8-55); AST (SGOT) 21 U/L (5-34); Albumin 2.8 g/dL (3.4-4.8); Alkaline Phosphatase 53 U/L (40-110); Anion Gap 18 mmol/L (10-20); BUN (Urea Nitrogen) 87 mg/dL (9.8-20.1); Bilirubin, Total 0.5 mg/dL (0.2-1.2); Calc. Creatinine Clearance 12 mL/min (70-130); Calcium 8.5 mg/dL (7.8-10.44); Carbon Dioxide 23 mmol/L (23-31); Chloride 96 mmol/L (98-107); Globulin 2.4 g/dL (2.4-3.5); Glucose 245 mg/dL (83-110); Magnesium 2.1 mg/dL (1.6-2.6); Phosphorus 2.5 mg/dL (2.3-4.7); Potassium 3.7 mmol/L (3.5-5.1); Protein, Total 5.2 g/dL (5.8-8.1); Sodium 133 mmol/L (136-145)
[2021-08-10 12:16] VITALS: BMI 33.3
[2021-08-10] MEDS ORDERED: Lantus 1000 UNITS/10 ML VIAL SC SCH (17:19)
[2021-08-10] MEDS: Atorvastatin Calcium 20 MG TAB PO SCH (20:53)
[2021-08-10] MEDS: Saccharomyces boulardii 250 MG CAP PO SCH (20:53)
[2021-08-11] MEDS: Morphine 4 MG/ML VIAL SLOW IVP PRN (01:03)
[2021-08-11] MEDS: Levothyroxine Sodium 50 MCG TAB PO SCH (05:47)
[2021-08-11] MEDS: Metoclopramide 10 MG/10 ML UDCUP PO SCH ×4 (08:35→20:31)
[2021-08-11] MEDS: Calcium Carbonate 500 MG ChewTAB PO SCH ×3 (08:36→20:30)
[2021-08-11] MEDS: Gabapentin 100 MG CAP PO SCH (08:36)
[2021-08-11] MEDS: Folic Acid 1 MG TAB PO SCH (08:36)
[2021-08-11] MEDS: Megestrol Acetate 40 MG TAB PO SCH (08:36)
[2021-08-11] MEDS: Clopidogrel Bisulfate 75 MG TAB PO SCH (08:37)
[2021-08-11] MEDS: levETIRAcetam 500 MG TAB PO SCH ×2 (08:37→20:30)
[2021-08-11] MEDS ORDERED: Lantus 1000 UNITS/10 ML VIAL SC SCH (10:00)
[2021-08-11] MEDS ORDERED: Morphine 4 MG/ML VIAL SLOW IVP PRN (16:07)
[2021-08-11] MEDS: Saccharomyces boulardii 250 MG CAP PO SCH (20:30)
[2021-08-11] MEDS: Atorvastatin Calcium 20 MG TAB PO SCH (20:30)
[2021-08-11] MEDS: Lantus 1000 UNITS/10 ML VIAL SC SCH (21:03)
[2021-08-12] MEDS: Levothyroxine Sodium 50 MCG TAB PO SCH (06:01)
[2021-08-12] MEDS: Lantus 1000 UNITS/10 ML VIAL SC SCH ×2 (08:09→20:43)
[2021-08-12] MEDS: Metoclopramide 10 MG/10 ML UDCUP PO SCH ×4 (08:10→20:42)
[2021-08-12] MEDS: Calcium Carbonate 500 MG ChewTAB PO SCH ×3 (08:10→20:41)
[2021-08-12] MEDS: Clopidogrel Bisulfate 75 MG TAB PO SCH (08:11)
[2021-08-12] MEDS: Gabapentin 100 MG CAP PO SCH (08:11)
[2021-08-12] MEDS: Folic Acid 1 MG TAB PO SCH (08:11)
[2021-08-12] MEDS: levETIRAcetam 500 MG TAB PO SCH ×2 (08:11→20:44)
[2021-08-12] MEDS: Megestrol Acetate 40 MG TAB PO SCH (08:11)
[2021-08-12] MEDS: Scopolamine 1.5 mg/72 hour Patch TD SCH (16:55)
[2021-08-12] MEDS: Saccharomyces boulardii 250 MG CAP PO SCH (20:41)
[2021-08-12] MEDS: Atorvastatin Calcium 20 MG TAB PO SCH (20:41)
[2021-08-13] MEDS: Levothyroxine Sodium 50 MCG TAB PO SCH (05:46)
[2021-08-13 06:31] LABS: ALT (SGPT) 30 U/L (8-55); AST (SGOT) 36 U/L (5-34); Alkaline Phosphatase 69 U/L (40-110); Anion Gap 14 mmol/L (10-20); BUN (Urea Nitrogen) 31 mg/dL (9.8-20.1); Bilirubin, Total 0.6 mg/dL (0.2-1.2); Calc. Creatinine Clearance 17 mL/min (70-130); Calcium 8.7 mg/dL (7.8-10.44); Carbon Dioxide 30 mmol/L (23-31); Chloride 99 mmol/L (98-107); Globulin 2.9 g/dL (2.4-3.5); Glucose 128 mg/dL (83-110); Potassium 4.6 mmol/L (3.5-5.1); Protein, Total 5.9 g/dL (5.8-8.1); Sodium 138 mmol/L (136-145)
[2021-08-13] MEDS: Metoclopramide 10 MG/10 ML UDCUP PO SCH ×2 (06:36→07:44)
[2021-08-13 07:39] VITALS: BP 112/50; TEMP 97.6
[2021-08-13] MEDS: Calcium Carbonate 500 MG ChewTAB PO SCH (07:45)
[2021-08-13] MEDS: levETIRAcetam 500 MG TAB PO SCH (07:45)
[2021-08-13] MEDS: Megestrol Acetate 40 MG TAB PO SCH (07:45)
[2021-08-13] MEDS: Clopidogrel Bisulfate 75 MG TAB PO SCH (07:45)
[2021-08-13] MEDS: Folic Acid 1 MG TAB PO SCH (07:45)
[2021-08-13] MEDS: Gabapentin 100 MG CAP PO SCH (07:46)
[2021-08-13] MEDS: Lantus 1000 UNITS/10 ML VIAL SC SCH (07:54)
== END 2021-08-13 10:26 | disposition hospice, home (50) | DRG 280 ==
LOC: ERS 09:21 → ERHOLD 11:33 → 2NO 17:35 → CCU 22:14 → 2NO 08-02 13:25 → T4-B 08-09 23:39
PROVIDERS: ADMIT Internal Medicine; ATTEND Family Medicine
PROC: 5A1D70Z Performance of Urinary Filtration, Intermittent, Less than 6 Hours Per Day (ICD-10-PCS; principal; 2021-07-31)
PROC: 3E0336Z Introduction of Nutritional Substance into Peripheral Vein, Percutaneous Approach (ICD-10-PCS; 2021-08-07)
DX: I13.2 Hypertensive heart and chronic kidney disease with heart failure and with stage 5 chronic kidney disease, or end stage renal disease (principal); I21.A1 Myocardial infarction type 2; Z51.5 Encounter for palliative care; N18.6 End stage renal disease; J96.21 Acute and chronic respiratory failure with hypoxia; G93.41 Metabolic encephalopathy; I50.33 Acute on chronic diastolic (congestive) heart failure; I69.351 Hemiplegia and hemiparesis following cerebral infarction affecting right dominant side; I44.2 Atrioventricular block, complete; K57.32 Diverticulitis of large intestine without perforation or abscess without bleeding; E87.70 Fluid overload, unspecified; I48.0 Paroxysmal atrial fibrillation; E11.22 Type 2 diabetes mellitus with diabetic chronic kidney disease; E03.9 Hypothyroidism, unspecified; D63.1 Anemia in chronic kidney disease; J42 Unspecified chronic bronchitis; Z53.20 Procedure and treatment not carried out because of patient's decision for unspecified reasons; R63.0 Anorexia; E83.39 Other disorders of phosphorus metabolism; R11.2 Nausea with vomiting, unspecified; Z68.33 Body mass index [BMI] 33.0-33.9, adult; Z99.2 Dependence on renal dialysis; I69.320 Aphasia following cerebral infarction; Z86.16 Personal history of COVID-19; Z95.0 Presence of cardiac pacemaker; Z90.710 Acquired absence of both cervix and uterus; Z79.899 Other long term (current) drug therapy; Z79.890 Hormone replacement therapy; Z79.02 Long term (current) use of antithrombotics/antiplatelets; Z79.4 Long term (current) use of insulin; Z88.6 Allergy status to analgesic agent; Z88.1 Allergy status to other antibiotic agents; Z88.8 Allergy status to other drugs, medicaments and biological substances; Z91.15 Patient's noncompliance with renal dialysis; Z99.3 Dependence on wheelchair
CPT/HCPCS: 36415; 36416; 36556; 71045; 71275; 80048; 80053; 80061; 80202; 82553; 83036; 83605; 83735; 83880; 84100; 84134; 84145; 84439; 84443; 84484; 85025; 85610; 85730; 87040; 87340; 90935; 93005; 93306; 96365; 96367; 96372; 96375; G0257; J1644; J1815; J1940; J1956; J2270; J2405; J2997; J3370; Q5105; Q9967; S0179

== ENCOUNTER 2022-07-16 23:08 | Emergency (ER) | payer MEDICARE, OTHER ==
[2022-07-17 01:19] LABS: #Basophils 0.1 thou/uL (0.0-0.2); #Eosinphils 0.3 thou/uL (0.0-0.7); #Lymphocytes 1.5 thou/uL (1.20-3.40); #Monocytes 0.8 thou/uL (0.11-0.59); #Neutrophils 8.2 thou/uL (1.40-6.50); %Basophils 0.9 % (0.0-1.0); %Lymphocytes 13.4 % (21.0-51.0); %Monocytes 7.7 % (0.0-10.0); %Neutrophils 75.1 % (42.0-75.0); Hemoglobin 12.3 g/dL (12.0-16.0); Mean Corpuscular HGB CONC 32.1 g/dL (32.0-36.0); Mean Corpuscular Hemoglobin 33.7 pg (27.0-31.0); Mean Platelet Volume 7.3 fL (7.4-10.4); Platelet Count 253 10x3/uL (130-400); RBC Distribution Width 12.9 % (11.5-14.5); Red Blood Cell (RBC) Count 3.66 mill/uL (4.20-5.40); White Blood Cell (WBC) Count 10.9 10x3/uL (4.8-10.8)
[2022-07-17 01:27] LABS: ALT (SGPT) 12 U/L (8-55); AST (SGOT) 19 U/L (5-34); Albumin 3.4 g/dL (3.4-4.8); Alkaline Phosphatase 67 U/L (40-110); Anion Gap 18 mmol/L (10-20); BUN (Urea Nitrogen) 33 mg/dL (9.8-20.1); Bilirubin, Total 0.4 mg/dL (0.2-1.2); Calc. Creatinine Clearance 0 mL/min (70-130); Calcium 9.1 mg/dL (7.8-10.44); Carbon Dioxide 27 mmol/L (23-31); Chloride 100 mmol/L (98-107); Estimated GFR 5; Glucose 140 mg/dL (83-110); Potassium 5.4 mmol/L (3.5-5.1); Protein, Total 6.4 g/dL (5.8-8.1); Sodium 140 mmol/L (136-145)
[2022-07-17 01:56] LABS: CKMB 1.6 ng/mL (0-6.6)
== END 2022-07-17 02:10 | disposition home or self-care (01) ==
LOC: ERS 23:08
DX: R06.00 Dyspnea, unspecified (principal); R77.8 Other specified abnormalities of plasma proteins; D72.829 Elevated white blood cell count, unspecified; I50.9 Heart failure, unspecified; E03.9 Hypothyroidism, unspecified; E11.9 Type 2 diabetes mellitus without complications
CPT/HCPCS: 36415; 71045; 80053; 82553; 83880; 84484; 85025; 93005

== ENCOUNTER 2022-07-20 12:33 | Inpatient (IN) | payer MEDICARE, OTHER ==
[2022-07-20 13:39] LABS: #Basophils 0.1 thou/uL (0.0-0.2); #Eosinphils 0.2 thou/uL (0.0-0.7); #Lymphocytes 1.5 thou/uL (1.20-3.40); #Monocytes 0.5 thou/uL (0.11-0.59); #Neutrophils 4.6 thou/uL (1.40-6.50); %Basophils 1.5 % (0.0-1.0); %Eosinophils 3.4 % (0.0-10.0); %Lymphocytes 21.5 % (21.0-51.0); %Monocytes 6.9 % (0.0-10.0); %Neutrophils 66.6 % (42.0-75.0); Hemoglobin 11.9 g/dL (12.0-16.0); Mean Corpuscular Hemoglobin 33.3 pg (27.0-31.0); Mean Platelet Volume 7.7 fL (7.4-10.4); Platelet Count 249 10x3/uL (130-400); RBC Distribution Width 12.8 % (11.5-14.5); Red Blood Cell (RBC) Count 3.58 mill/uL (4.20-5.40); White Blood Cell (WBC) Count 6.9 10x3/uL (4.8-10.8)
[2022-07-20 13:51] LABS: INR-International Normal Ratio 0.9; Prothrombin Time 12.8 sec (12.0-14.7)
[2022-07-20 13:52] LABS: PTT 30.1 sec (22.9-36.1)
[2022-07-20 14:08] LABS: ALT (SGPT) 12 U/L (8-55); AST (SGOT) 20 U/L (5-34); Albumin 3.4 g/dL (3.4-4.8); Alkaline Phosphatase 63 U/L (40-110); Anion Gap 16 mmol/L (10-20); BUN (Urea Nitrogen) 23 mg/dL (9.8-20.1); Bilirubin, Total 0.4 mg/dL (0.2-1.2); Calc. Creatinine Clearance 0 mL/min (70-130); Calcium 9.3 mg/dL (7.8-10.44); Carbon Dioxide 27 mmol/L (23-31); Chloride 101 mmol/L (98-107); Estimated GFR 8; Globulin 2.8 g/dL (2.4-3.5); Glucose 96 mg/dL (83-110); Potassium 4.4 mmol/L (3.5-5.1); Protein, Total 6.2 g/dL (5.8-8.1); Sodium 140 mmol/L (136-145)
[2022-07-20 14:26] LABS: CKMB 1.7 ng/mL (0-6.6)
[2022-07-20] MEDS ORDERED: Iopamidol-370 76% 500 ML 1 ML ONE (14:34)
[2022-07-20] MEDS ORDERED: Acetaminophen 650 MG Suppository PR PRN (15:39)
[2022-07-20] MEDS ORDERED: hydrALAZINE 20 MG/ML VIAL SLOW IVP PRN (15:39)
[2022-07-20] MEDS ORDERED: Ondansetron PF 4 MG/2 ML Vial IVP PRN (15:39)
[2022-07-20] MEDS ORDERED: Acetaminophen 325 MG TAB PO PRN (15:39)
[2022-07-20] MEDS ORDERED: Labetalol HCl 100 MG/20 ML VIAL SLOW IVP PRN (15:39)
[2022-07-20] MEDS ORDERED: Sodium Chloride 0.9% 1,000 ML IV SCH (15:45)
[2022-07-20] MEDS ORDERED: Dextrose 50% Abboject 50 ML SYRINGE SLOW IVP PRN (16:12)
[2022-07-20] MEDS ORDERED: Dextrose 5% in Water 1,000 ML IV PRN (16:12)
[2022-07-20] MEDS ORDERED: HumaLOG 300 UNITS/3 ML VIAL SC PRN (16:12)
[2022-07-20 17:40] LABS: SARS-CoV-2 NAA Rapid Test Not Detected (NotDetected)
[2022-07-20 18:18] VITALS: BMI 29.8
[2022-07-20] MEDS: Atorvastatin Calcium 40 MG TAB PO SCH (20:58)
[2022-07-20] MEDS: levETIRAcetam 500 MG/5 ML VIAL SLOW IVP SCH (20:58)
[2022-07-20] MEDS: Dextrose 5 %-0.45 % NaCl 1,000 ML IV SCH (22:40)
[2022-07-21] MEDS: Pantoprazole 40 MG VIAL IVP SCH (10:18)
[2022-07-21] MEDS: levETIRAcetam 500 MG/5 ML VIAL SLOW IVP SCH ×2 (10:18→21:10)
[2022-07-21 19:38] LABS: HBSAB Concentration Less than 8.00 mIU/mL; Hep B Core Total Ab Non-Reactive (NonReactive); Hep B Core Total Index 0.11 S/CO (0-0.79); Hep B Surf AB Non-Reactive (NonReactive); Hep B Surf Ag Non-Reactive S/CO (NonReactive); Hep C IgG Ab Non-Reactive (NonReactive); Hep C Index 0.05 S/CO (0-0.79)
[2022-07-21] MEDS: Dextrose 5 %-0.45 % NaCl 1,000 ML IV SCH (21:09)
[2022-07-21] MEDS: Atorvastatin Calcium 40 MG TAB PO SCH (21:10)
[2022-07-22 08:00] VITALS: BP 165/88; TEMP 97.5
[2022-07-22] MEDS ORDERED: Morphine 2 MG/ML VIAL SLOW IVP PRN (08:42)
[2022-07-22] MEDS: Pantoprazole 40 MG VIAL IVP SCH (09:37)
[2022-07-22] MEDS: levETIRAcetam 500 MG/5 ML VIAL SLOW IVP SCH (09:37)
== END 2022-07-22 11:55 | disposition hospice, home (50) | DRG 64 ==
LOC: ERS 12:33 → ERHOLD 15:07 → NEURO 18:07
PROVIDERS: ADMIT Internal Medicine; ATTEND Family Medicine
PROC: 4A10X4Z Monitoring of Central Nervous Electrical Activity, External Approach (ICD-10-PCS; principal; 2022-07-21)
PROC: 5A1D70Z Performance of Urinary Filtration, Intermittent, Less than 6 Hours Per Day (ICD-10-PCS; 2022-07-21)
DX: I63.512 Cerebral infarction due to unspecified occlusion or stenosis of left middle cerebral artery (principal); N18.6 End stage renal disease; J96.11 Chronic respiratory failure with hypoxia; I13.2 Hypertensive heart and chronic kidney disease with heart failure and with stage 5 chronic kidney disease, or end stage renal disease; G81.91 Hemiplegia, unspecified affecting right dominant side; I44.2 Atrioventricular block, complete; I50.9 Heart failure, unspecified; I63.522 Cerebral infarction due to unspecified occlusion or stenosis of left anterior cerebral artery; R47.01 Aphasia; E03.9 Hypothyroidism, unspecified; E11.22 Type 2 diabetes mellitus with diabetic chronic kidney disease; Z66 Do not resuscitate; E78.5 Hyperlipidemia, unspecified; J47.9 Bronchiectasis, uncomplicated; I48.0 Paroxysmal atrial fibrillation; F03.90 Unspecified dementia, unspecified severity, without behavioral disturbance, psychotic disturbance, mood disturbance, and anxiety; D63.1 Anemia in chronic kidney disease; F41.9 Anxiety disorder, unspecified; F32.A Depression, unspecified; Z20.822 Contact with and (suspected) exposure to COVID-19; Z86.73 Personal history of transient ischemic attack (TIA), and cerebral infarction without residual deficits; Z90.710 Acquired absence of both cervix and uterus; Z95.0 Presence of cardiac pacemaker; Z88.1 Allergy status to other antibiotic agents; Z88.8 Allergy status to other drugs, medicaments and biological substances; Z88.5 Allergy status to narcotic agent; Z99.2 Dependence on renal dialysis; Z79.899 Other long term (current) drug therapy
CPT/HCPCS: 36416; 70450; 70496; 70498; 80053; 82553; 84484; 85025; 85610; 85730; 86704; 93005; 93306; 95816; 95819; 95957; C9113; J1953; J2272; J7042; Q9967; U0002